=== PATIENT | male | born 1955 | race American Indian/Alaskan Native ===

== ENCOUNTER 2018-04-05 18:36 | Inpatient (IN) | payer MEDICARE, MEDICAID ==
[2018-04-05] MEDS ORDERED: Sodium Chloride 0.9% 500 ML IV STA ×2 (19:30→20:30)
[2018-04-05] MEDS ORDERED: Albuterol-Ipratrop 3 mg / 0.5 (3 ml) UD IH STA ×2 (19:35→20:57)
[2018-04-05] MEDS ORDERED: Albuterol-Ipratrop 3 mg / 0.5 (3 ml) UD ONE (19:40)
[2018-04-05 19:45] LABS: BASO # 0.01 K/mm3 (0.0-2.0); BASO % 0.2 % (0.0-3.0); GRAN # 4.72 (1.4-6.5); HEMOGLOBIN 12.1 g/dL (14.0-18.0); LYMPH # 1.3 (1.2-3.4); LYMPH % 20.5 % (22.0-35.0); MEAN CELL VOLUME 89.7 fl (80.0-105.0); MEAN CORPUSCULAR HEMOGLOBIN 28.3 pg (25.0-35.0); MEAN CORPUSCULAR HGB CONC 31.5 g/dl (31.0-37.0); MEAN PLATELET VOLUME 9.3 fl (7.0-11.0); MONO # 0.5 (0.1-0.6); MONO % 7.3 % (1.0-6.0); RBC 4.28 10^6/uL (3.5-6.1); RED CELL DISTRIBUTION WIDTH 15.1 % (11.5-14.5); VENOUS BLOOD GAS PO2 72 mm/Hg (30-55); VENOUS BLOOD PH 7.25 (7.32-7.43); WHITE BLOOD COUNT 6.6 10^3/uL (4.5-11.0)
[2018-04-05 19:54] LABS: ALB/GLOB RATIO 0.9 (1.1-1.8); CALCIUM 8.9 mg/dL (8.4-10.5)
[2018-04-05 20:00] LABS: INR 1.89; PARTIAL THROMBOPLASTIN TIME 36.4 Seconds (25.1-36.5); PROTHROMBIN TIME 21.8 SECONDS (9.4-12.5)
[2018-04-05 20:05] LABS: TROPONIN I 0.05 ng/mL
--- NOTE | 2018-04-05 20:05 | ED PDOC ---
Arrival/HPI - General Chief Complaint: Abnormal Labs Time Seen by Provider: 04/05/18 19:27 Historian: [facility] - Critical Care Critical Care Minutes: 30 minutes - History of Present Illness Narrative History of Present Illness (Text): 04/05/18 20:02 A 63 year old male, whose past medical history includes CVA, hypertension, depression, s/p trache (2 years ago), residual right side weakness, is brought into the emergency department via EMS form [facility] for evaluation of chest congestion, vomiting, and abnormal labs with elevated BUN and creatinine. Patient non- verbal when questioned here in the emergency department. ROS/ HPI limited due to patient's condition. Time/Duration: Other (Today) Symptom Onset: Sudden Symptom Course: Unchanged Activities at Onset: Rest, Light Context: Home ([facility]) Past Medical History - Provider Review Nursing Documentation Reviewed: Yes - Infectious Disease Hx of Infectious Diseases: None - Tetanus Immunization Tetanus Immunization: Unknown - Past Medical History Past Medical History: No Previous - Cardiac Hx Hypertension: Yes Hx Mitral Valve Prolapse: No Hx Peripheral Edema: No - Pulmonary Hx Pneumonia: Yes Hx Sleep Apnea: No - Renal Hx Renal Disorder: Yes - Gastrointestinal Hx Gastrointestinal Ulcer: No - Psychiatric Hx Anxiety: Yes Hx Depression: Yes Hx Substance Use: No - Past Surgical History Past Surgical History: No Previous - Anesthesia Hx Anesthesia: Yes Hx Anesthesia Reactions: No Hx Malignant Hyperthermia: No - Suicidal Assessment Feels Threatened In Home Enviroment: No Family/Social History - Physician Review Nursing Documentation Reviewed: Yes Family/Social History: No Known Family HX Smoking Status: Heavy Smoker > 10 Cigarettes Daily Hx Alcohol Use: No Hx Substance Use: No Hx Substance Use Treatment: No Allergies/Home Meds Allergies/Adverse Reactions: Allergies No Known Allergies Allergy (Verified 07/15/16 07:46) Home Medications: Home Meds Medication Instructions Recorded Confirmed Clonazepam [Klonopin] 0.5 mg PO HS 01/14/17 01/14/17 Dimethicone [Proshield Plus SKIN 1 applic TOP QSHIFT 01/14/17 01/14/17 PROTECTANT] Enoxaparin [Lovenox] 40 mg SQ DAILY 01/14/17 01/14/17 Escitalopram [Lexapro] 10 mg PO DAILY 01/14/17 01/14/17 Lisinopril [Zestril] 20 mg PO DAILY 01/14/17 01/14/17 Metoprolol Tartrate [Lopressor] 50 mg PO BID 01/14/17 01/14/17 RX: Acetaminophen 2 tab PO Q4 PRN 01/14/17 01/14/17 RX: Acetaminophen 2 tab PO Q4 PRN 01/14/17 01/14/17 RX: Aspirin 81 mg PO DAILY 01/14/17 01/14/17 RX: Famotidine 20 mg PO DAILY 01/14/17 01/14/17 Tamsulosin [Flomax] 0.4 mg PO DAILY 01/14/17 01/14/17 hydrALAZINE [hydralazine 10 mg PO Q6 PRN 01/14/17 01/14/17 Hydrochloride] Review of Systems - Physician Review All systems were reviewed & negative as marked: Yes - Review of Systems Systems not reviewed;Unavailable: Acuity of Condition Physical Exam Vital Signs Reviewed: Yes Vital Signs Temp Pulse Resp BP Pulse Ox 04/05/18 19:23 90 20 74/50 L 96 04/05/18 19:17 98.5 F 96 H 20 79/45 L 89 L 04/05/18 18:48 98.1 F 90 20 72/46 L 93 L Temperature: Afebrile Blood Pressure: Normal Pulse: Regular Respiratory Rate: Normal Appearance: Positive for: Non-Toxic, Other (Somnolent, but arousable) Pain Distress: None Mental Status: Positive for: Alert and Oriented X 3 - Systems Exam Head: Present: Atraumatic, Normocephalic Pupils: Present: PERRL Extroacular Muscles: Present: EOMI Conjunctiva: Present: Normal Mouth: Present: Dry Neck: Present: Normal Range of Motion Respiratory/Chest: Present: Good Air Exchange, Rhonchi (rhonchi bilaterally.). No: Respiratory Distress, Accessory Muscle Use Cardiovascular: Present: Regular Rate and Rhythm, Normal S1, S2. No: Murmurs Abdomen: No: Tenderness, Distention, Peritoneal Signs Back: Present: Normal Inspection Upper Extremity: Present: Normal Inspection, Normal ROM (Full ROM X 4 intact). No: Cyanosis, Edema Lower Extremity: Present: Normal Inspection, Normal ROM (Full ROM X 4 intact). No: Edema Neurological: Present: GCS=15, CN II-XII Intact, Speech Normal Skin: Present: Warm, Dry, Normal Color. No: Rashes Psychiatric: Present: Alert, Oriented x 3, Normal Insight, Normal Concentration Medical Decision Making ED Course and Treatment: 04/05/18 20:07 Impression: A 63 year old male presents to the emergency department from [facility] for further evaluation of chest congestion, vomiting, and abnormal lab results. Plan: -- EKG -- Chest X-ray -- Labs -- Urinalysis -- Blood Culture -- Urine Culture -- Duoneb and IV Fluids -- Reassess and disposition Prior Visits: Notes and results from previous visits were reviewed. Progress Notes: EKG: Ordered, reviewed, and independently interpreted the EKG. Rate : 90 BPM Rhythm : NSR Interpretation : No acute changes 04/05/18 20:30 Patient was given bolus IV fluids which helped raise his initial hypotensive state. Patient's labs and chest x-ray are consistent with dehydration, renal failure, pneumonia. Patient placed on BiPAP. 04/05/18 21:00 Discussed case with cigarette seller Dr Burton, who will evaluate patient in emergency department. 04/05/18 21:[address] Chakraborty, patient's PMD, who accepted patient to his service, requesting Dr. Christopher, and Dr Valle on consult. 04/05/18 22:58 Patient evaluated by the cigarette seller who now recommends ICU admission - Lab Interpretations Lab Results: 04/05/18 19:08 04/05/18 19:08 Lab Results 04/05/18 19:08: Sodium 136, Chloride 91 L, Potassium 5.0, Carbon Dioxide 27, Anion Gap 23 H, BUN Pending, Creatinine Pending, Est GFR ( Amer) Pending, Est GFR (Non-Af Amer) Pending, Random Glucose 93, Calcium 8.9, Phosphorus 10.0 H , Magnesium 3.0 H, Total Bilirubin 0.5, AST 32, ALT 27, Alkaline Phosphatase 69, Lactate Dehydrogenase 451, Total Creatine Kinase 194, Troponin I Pending, Total Protein 8.4 H, Albumin 4.0, Globulin 4.4, Albumin/Globulin Ratio 0.9 L 04/05/18 19:08: pO2 72 H, VBG pH 7.25 L, VBG pCO2 63.0 H, VBG HCO3 27.6, VBG Total CO2 29.5 H, VBG O2 Sat (Calc) 95.5 H, VBG Base Excess -1.0 L, VBG Potassium 5.2, Sodium 133.0, Chloride 94.0 L, Glucose 86, Lactate 1.6, FiO2 21.0, Venous Blood Potassium 5.2 04/05/18 19:08: PT 21.8 H, INR 1.89, APTT 36.4 04/05/18 19:08: WBC 6.6, RBC 4.28, Hgb 12.1 L, Hct 38.4 L, MCV 89.7, MCH 28.3, MCHC 31.5, RDW 15.1 H, Plt Count 486 H, MPV 9.3, Gran % 72.0 H, Lymph % (Auto) 20.5 L, [place] % (Auto) 7.3 H, Eos % (Auto) 0.0 L, Baso % (Auto) 0.2, Gran # 4.72, Lymph # (Auto) 1.3, [place] # (Auto) 0.5, Eos # (Auto) 0.0, Baso # (Auto) 0.01 I have reviewed the lab results: Yes - RAD Interpretation Radiology Orders: 04/05/18 19:28 CHEST PORTABLE [RAD] Stat - EKG Interpretation Interpreted by ED Physician: Yes Type: 12 lead EKG - Medication Orders Current Medication Orders: Sodium Chloride (Sodium Chloride 0.9%) 500 mls @ 500 mls/hr IV .Q1H STA Stop: 04/05/18 20:29 Discontinued Medications Albuterol/Ipratropium (Duoneb 3 Mg/0.5 Mg (3 Ml) Ud) 3 ml IH ONCE STA Stop: 04/05/18 19:36 - Scribe Statement The provider has reviewed the documentation as recorded by the Scribe Opal Fuentes Provider Scribe Attestation: All medical record entries made by the Scribe were at my direction and personally dictated by me. I have reviewed the chart and agree that the record accurately reflects my personal performance of the history, physical exam, medical decision making, and the department course for this patient. I have also personally directed, reviewed, and agree with the discharge instructions and disposition. Disposition/Present on Arrival - Present on Arrival Any Indicators Present on Arrival: No History of DVT/PE: No History of Uncontrolled Diabetes: No Urinary Catheter: Yes (simons cath) History of Decub. Ulcer: No History Surgical Site Infection Following: None - Disposition Have Diagnosis and Disposition been Completed?: Yes Diagnosis: Dehydration, COPD exacerbation, Pneumonia, Hypotension Disposition: HOSPITALIZED Disposition Time: 23:03 Patient Problems: Current Active Problems Problem Status Onset COPD exacerbation Acute Dehydration Acute Hypotension Acute Pneumonia Acute Condition: GUARDED
[2018-04-05 20:36] LABS: ARTERIAL BLOOD GAS HEMOGLOBIN 10.2 g/dL (11.7-17.4); ARTERIAL BLOOD GAS O2 CAPACITY 13.9 mL/dl (16-24); ARTERIAL BLOOD GAS O2 CONTENT 12.1 ML/dl (15-23); ARTERIAL BLOOD GAS O2 SAT 87.2 % (95-98); ARTERIAL BLOOD GAS PCO2 48 mm/Hg (35-45); ARTERIAL BLOOD GAS PH 7.27 (7.35-7.45); ARTERIAL BLOOD GAS TCO2 23.5 mmol.L (22-28)
[2018-04-05] MEDS ORDERED: Azithromycin 500MG/NS 250ml 500 MG/250 ML BAG IV STA (20:51)
[2018-04-05] MEDS ORDERED: Cefepime (Maxipime) 1 g Inj IVPB ONE (20:51)
[2018-04-05] MEDS ORDERED: Cefepime 1gm in NS 100ml 1 GM/100 ML BAG IVPB STA (20:56)
[2018-04-05] MEDS ORDERED: Sodium Chloride 0.9% 1,000 ML IV SCH ×2 (21:00→23:15)
[2018-04-05 21:32] LABS: PH,URINE 5.5 (4.7-8.0); URINE BILIRUBIN NEGATIVE (NEGATIVE); URINE BLOOD TRACE-INTACT (NEGATIVE); URINE GLUCOSE (UA) NEGATIVE (NEGATIVE); URINE LEUKOCYTE ESTERASE NEGATIVE Leu/uL (NEGATIVE); URINE PROTEIN 30 mg/dL (<30 mg/dL); URINE UROBILINOGEN 0.2 E.U./dL (<1 E.U./dL)
[2018-04-05 21:34] LABS: URINE APPEARANCE CLEAR (CLEAR); URINE COLOR YELLOW (YELLOW)
--- NOTE | 2018-04-05 23:03 | CP.PCM.HP ---
<Yandel Tavera - Last Filed: 04/06/18 01:34> History of Present Illness - History of Present Illness History of Present Illness: Yandel Tavera DO PGY1. H&P for Hospitalist Service C.C: Chest congestion 63 y/o male with PMH of HTN, CVA (with right sided residual weakness) and respiratory failure presented to ED from [facility] for 2 days history of chest congestion, SOB, and poor oral intake. Patient was in his usual state of health when symptoms started gradually and getting worse with associated kidney dysfunction as reported by halfway. He reported that he has cough and unable to produce much suptum despite feeling chest congestion. Patient is using BiPAP but previously (in 2017) had a trache due respiratory failure and he was on tube feeding as per charting. Patient admits to few episodes of NBNB vomiting with decreased oral intake and loss of appetite. He denied chest pain, palpitations, LE edema, abdominal pain/distention, vomiting , diarrhea, headache, blurry vision. 12 points ROS reviewed with pertinent positives as above. PMH: as above PSH: inguinal hernia repair, tracheostomy, and feeding tube Meds: hydralazine, lopressor, flomax, lisinopril, HCTZ, klonopin, asa, lovenox ALL: NKDA Soc Hx: ex-smoking, denies alcohol, drug use Fam Hx: no contributory Present on Admission - Present on Admission Any Indicators Present on Admission: No Past Patient History - Infectious Disease Hx of Infectious Diseases: None - Tetanus Immunizations Tetanus Immunization: Unknown - Past Medical History & Family History Past Medical History?: Yes - Past Social History Smoking Status: Heavy Smoker > 10 Cigarettes Daily - CARDIAC Hx Hypertension: Yes Hx Mitral Valve Prolapse: No Hx Peripheral Edema: No - PULMONARY Hx Pneumonia: Yes Hx Sleep Apnea: No - RENAL Hx Chronic Kidney Disease: Yes - PSYCHIATRIC Hx Anxiety: Yes Hx Depression: Yes Hx Substance Use: No - ANESTHESIA Hx Anesthesia: Yes Hx Anesthesia Reactions: No Hx Malignant Hyperthermia: No Meds Allergies/Adverse Reactions: Allergies Allergy/AdvReac Type Severity Reaction Status Date / Time No Known Allergies Allergy Verified 07/15/16 07:46 Physical Exam - Constitutional Appears: In Acute Distress, Unkempt, Chronically Ill - Head Exam Head Exam: ATRAUMATIC, NORMAL INSPECTION, NORMOCEPHALIC - Eye Exam Eye Exam: EOMI, Normal appearance, PERRL Pupil Exam: NORMAL ACCOMODATION, PERRL - ENT Exam ENT Exam: Mucous Membranes Dry - Neck Exam Neck exam: Positive for: Normal Inspection - Respiratory Exam Respiratory Exam: Decreased Breath Sounds, Prolonged Expiratory Phase, Rhonchi (b/l lung bases), Respiratory Distress - Cardiovascular Exam Cardiovascular Exam: REGULAR RHYTHM, RRR, +S1, +S2 - GI/Abdominal Exam GI & Abdominal Exam: Normal Bowel Sounds, Soft. absent: Tenderness - Extremities Exam Extremities exam: Positive for: pedal pulses present - Back Exam Back exam: NORMAL INSPECTION - Neurological Exam Neurological exam: Alert - Expanded Neurological Exam Expanded Patient oriented to: person, place, time Cranial nerves: EOM's Intact: Normal Neuro motor strength exam: Right Upper Extremity: 2/1, Right Lower Extremity: 2/1 Coma Scale Motor Response: OBEYS COMMANDS - Psychiatric Exam Psychiatric exam: Depressed, Flat Affect - Skin Skin Exam: Intact, Pallor Results - Vital Signs Recent Vital Signs: Last Vital Signs Temp 98.5 F 04/05/18 19:17 Pulse 70 04/05/18 22:43 Resp 14 04/05/18 22:43 BP 81/48 L 04/05/18 22:43 Pulse Ox 100 04/05/18 22:43 - Labs Result Diagrams: 04/05/18 19:08 04/05/18 19:08 Labs: Laboratory Results - last 24 hr 04/05/18 04/05/18 04/05/18 19:08 19:08 19:08 WBC 6.6 RBC 4.28 Hgb 12.1 L Hct 38.4 L MCV 89.7 MCH 28.3 MCHC 31.5 RDW 15.1 H Plt Count 486 H MPV 9.3 Gran % 72.0 H Lymph % (Auto) 20.5 L [place] % (Auto) 7.3 H Eos % (Auto) 0.0 L Baso % (Auto) 0.2 Gran # 4.72 Lymph # (Auto) 1.3 [place] # (Auto) 0.5 Eos # (Auto) 0.0 Baso # (Auto) 0.01 PT 21.8 H INR 1.89 APTT 36.4 pCO2 pO2 72 H HCO3 ABG pH ABG Total CO2 ABG O2 Saturation ABG O2 Content ABG Base Excess ABG Hemoglobin ABG Carboxyhemoglobin POC ABG HHb (Measured) ABG Methemoglobin ABG O2 Capacity VBG pH 7.25 L VBG pCO2 63.0 H VBG HCO3 27.6 VBG Total CO2 29.5 H VBG O2 Sat (Calc) 95.5 H VBG Base Excess -1.0 L VBG Potassium 5.2 Hgb O2 Saturation Sodium 133.0 Chloride 94.0 L Glucose 86 Lactate 1.6 FiO2 21.0 Potassium Carbon Dioxide Anion Gap BUN Creatinine Est GFR ( Amer) Est GFR (Non-Af Amer) Random Glucose Calcium Phosphorus Magnesium Total Bilirubin AST ALT Alkaline Phosphatase Lactate Dehydrogenase Total Creatine Kinase Troponin I Total Protein Albumin Globulin Albumin/Globulin Ratio Venous Blood Potassium 5.2 Urine Color Urine Appearance Urine pH Ur Specific [place] Urine Protein Urine Glucose (UA) Urine Ketones Urine Blood Urine Nitrate Urine Bilirubin Urine Urobilinogen Ur Leukocyte Esterase Urine RBC Urine WBC Ur Epithelial Cells 04/05/18 04/05/18 04/05/18 19:08 20:33 21:13 WBC RBC Hgb Hct MCV MCH MCHC RDW Plt Count MPV Gran % Lymph % (Auto) [place] % (Auto) Eos % (Auto) Baso % (Auto) Gran # Lymph # (Auto) [place] # (Auto) Eos # (Auto) Baso # (Auto) PT INR APTT pCO2 48 H pO2 53.0 L HCO3 22.0 ABG pH 7.27 L ABG Total CO2 23.5 ABG O2 Saturation 87.2 L ABG O2 Content 12.1 L ABG Base Excess -4.9 L ABG Hemoglobin 10.2 L ABG Carboxyhemoglobin 2.1 H POC ABG HHb (Measured) 12.4 H ABG Methemoglobin 1.3 ABG O2 Capacity 13.9 L VBG pH VBG pCO2 VBG HCO3 VBG Total CO2 VBG O2 Sat (Calc) VBG Base Excess VBG Potassium Hgb O2 Saturation 84.2 L Sodium 136 Chloride 91 L Glucose Lactate FiO2 100.0 Potassium 5.0 Carbon Dioxide 27 Anion Gap 23 H BUN 119 H Creatinine 6.3 H Est GFR ( Amer) 11 Est GFR (Non-Af Amer) 9 Random Glucose 93 Calcium 8.9 Phosphorus 10.0 H Magnesium 3.0 H Total Bilirubin 0.5 AST 32 ALT 27 Alkaline Phosphatase 69 Lactate Dehydrogenase 451 Total Creatine Kinase 194 Troponin I 0.05 D Total Protein 8.4 H Albumin 4.0 Globulin 4.4 Albumin/Globulin Ratio 0.9 L Venous Blood Potassium Urine Color Yellow Urine Appearance Clear Urine pH 5.5 Ur Specific [place] >= 1.030 Urine Protein 30 H Urine Glucose (UA) Negative Urine Ketones Negative Urine Blood Trace-intact H Urine Nitrate Negative Urine Bilirubin Negative Urine Urobilinogen 0.2 Ur Leukocyte Esterase Negative Urine RBC 5 - 10 Urine WBC 5 - 10 Ur Epithelial Cells 6 - 8 Assessment & Plan - Assessment and Plan (Free Text) Assessment: 63 y/o male PMH of HTN, CVA (with right sided residual weakness) and respiratory failure (on BiPAP) presents from [facility] for 2 days history of chest congestion, SOB, and poor oral intake. He was found to have APOLINAR, hypotension, Resp failure on BiPAP, possible PNA. Patient is admitted to ICU Plan: SOB: -b/l ronchi on lung bases with decreased breath sounds on exam. likely HCAP -CXR: no official read. but shows b/l pulmonary venous congestion and b/l base infiltrations -EKG: nsr@[address]/T wave changes -trop negative x1. serial trop q6h x2 -started vanco, zosyn -mucomyst bid -doneb enrique and prn -supp O2 prn -VB.25/63/27 metabolic acidosis with AG 23 -continue solu-medrol 20mg IPV q8h -BiPAP: 03/27 10 75% -repeat ABG in AM -f/u flu a/b, legionella Ag, mycoplasma IGM, -f/u procal, BNP -f/u cx blood, sputum -pulmnology consulted. recs appreciated Hypotension: -started midordrine 10mg q8h -levophed 4mcg/min -continue NS@100cc/hr -central IV access APOLINAR: -likely due to dehydration -hold lisinopril, HCTZ -In/out -renal U/S -IVF @100cc/hr -nephro consulted Dr Christopher -UA: +protein, blood -Ucx ordered -vit D level Anemia: -likely due due chronic disease/ iron defiency -H/H 12.1/38.4 continue monitoring -patient stable, no signs of bleeding, -FOBT, iron studies ordered Prophylaxis: -DVT: SCD -GI ppx: protonix -failed swallow eval -NPO Dispo: Patient admitted to ICU for management of APOLINAR/hpotension, respiratory ramin lure. On levophed and BiPAP Case reviewed and plan discussed with attending Dr Burton <Joelle Burton - Last Filed: 04/07/18 06:43> Results - Vital Signs Recent Vital Signs: Last Vital Signs Temp 98.4 F 04/06/18 23:10 Pulse 64 04/07/18 04:00 Resp 15 04/06/18 23:10 BP 116/70 04/06/18 23:00 Pulse Ox 100 04/06/18 23:10 - Labs Result Diagrams: 04/06/18 05:00 04/06/18 05:00 Labs: Laboratory Results - last 24 hr 04/05/18 04/06/18 04/06/18 19:08 01:50 01:50 WBC RBC Hgb Hct MCV MCH MCHC RDW Plt Count MPV Gran % Lymph % (Auto) [place] % (Auto) Eos % (Auto) Baso % (Auto) Gran # Lymph # (Auto) [place] # (Auto) Eos # (Auto) Baso # (Auto) Sodium Potassium Chloride Carbon Dioxide Anion Gap BUN Creatinine Est GFR ( Amer) Est GFR (Non-Af Amer) Random Glucose Calcium Phosphorus Magnesium Ferritin 157.0 Total Bilirubin AST ALT Alkaline Phosphatase Troponin I Total Protein Albumin Globulin Albumin/Globulin Ratio Vitamin B12 454 25-OH Vitamin D Total 15.1 L Folate 8.8 Procalcitonin 1.86 H Urine Color Urine Appearance Urine pH Ur Specific [place] Urine Protein Urine Glucose (UA) Urine Ketones Urine Blood Urine Nitrate Urine Bilirubin Urine Urobilinogen Ur Leukocyte Esterase Urine RBC Urine WBC Ur Epithelial Cells Urine Bacteria Ur L.pneumophila Ag 04/06/18 04/06/18 04/06/18 05:00 05:00 06:03 WBC 5.3 RBC 3.54 Hgb 9.9 L D Hct 32.3 L MCV 91.2 MCH 28.0 MCHC 30.7 L RDW 15.3 H Plt Count 417 MPV 9.2 Gran % 86.1 H Lymph % (Auto) 11.4 L [place] % (Auto) 2.1 Eos % (Auto) 0.0 L Baso % (Auto) 0.4 Gran # 4.55 Lymph # (Auto) 0.6 L [place] # (Auto) 0.1 Eos # (Auto) 0.0 Baso # (Auto) 0.02 Sodium 141 Potassium 5.3 H Chloride 109 H Carbon Dioxide 21 Anion Gap 17 BUN 97 H Creatinine 4.1 H Est GFR ( Amer) 18 Est GFR (Non-Af Amer) 15 Random Glucose 113 H Calcium 7.7 L Phosphorus 7.6 H Magnesium 2.5 H Ferritin Total Bilirubin 0.4 AST 25 ALT 15 Alkaline Phosphatase 56 Troponin I 0.03 Total Protein 6.8 Albumin 3.2 Globulin 3.7 Albumin/Globulin Ratio 0.9 L Vitamin B12 25-OH Vitamin D Total Folate Procalcitonin Urine Color Yellow Urine Appearance Slight-cloudy Urine pH 5.5 Ur Specific [place] 1.020 Urine Protein Trace H Urine Glucose (UA) Negative Urine Ketones Negative Urine Blood Large H Urine Nitrate Negative Urine Bilirubin Negative Urine Urobilinogen 0.2 Ur Leukocyte Esterase Negative Urine RBC Tntc Urine WBC Negative Ur Epithelial Cells 4 - 5 Urine Bacteria Few Ur L.pneumophila Ag 04/06/18 06:03 WBC RBC Hgb Hct MCV MCH MCHC RDW Plt Count MPV Gran % Lymph % (Auto) [place] % (Auto) Eos % (Auto) Baso % (Auto) Gran # Lymph # (Auto) [place] # (Auto) Eos # (Auto) Baso # (Auto) Sodium Potassium Chloride Carbon Dioxide Anion Gap BUN Creatinine Est GFR ( Amer) Est GFR (Non-Af Amer) Random Glucose Calcium Phosphorus Magnesium Ferritin Total Bilirubin AST ALT Alkaline Phosphatase Troponin I Total Protein Albumin Globulin Albumin/Globulin Ratio Vitamin B12 25-OH Vitamin D Total Folate Procalcitonin Urine Color Urine Appearance Urine pH Ur Specific [place] Urine Protein Urine Glucose (UA) Urine Ketones Urine Blood Urine Nitrate Urine Bilirubin Urine Urobilinogen Ur Leukocyte Esterase Urine RBC Urine WBC Ur Epithelial Cells Urine Bacteria Ur L.pneumophila Ag Negative Attending/Attestation - Attestation I have personally seen and examined this patient.: Yes I have fully participated in the care of the patient.: Yes I have reviewed all pertinent clinical information: Yes
[2018-04-05] MEDS ORDERED: Albuterol-Ipratrop 3 mg / 0.5 (3 ml) UD IH PRN (23:16)
[2018-04-05] MEDS ORDERED: Sodium Chloride 0.9% 1,000 ML IV STA (23:19)
[2018-04-05] MEDS ORDERED: Vancomycin 1gm in NS 250ml 1 GM/250 ML BAG IVPB SCH (23:30)
[2018-04-06] MEDS: Acetylcysteine 20% Inhal Soln (4ml) IH SCH ×3 (00:35→20:45)
[2018-04-06 00:49] LABS: % IRON SATURATION 12 % (20-55); IRON 27 ug/dL (45-180); TOTAL IRON BINDING CAPACITY 232 ug/dL (261-462)
[2018-04-06] MEDS: Albuterol-Ipratrop 3 mg / 0.5 (3 ml) UD IH SCH ×4 (02:03→20:45)
[2018-04-06] MEDS: MethylPREDNISolone 40 mg Vial IVP SCH ×2 (02:19→09:03)
[2018-04-06 02:41] LABS: TROPONIN I 0.03 ng/mL
[2018-04-06] MEDS ORDERED: Sodium Chloride 0.9% 500 ML IV STA (04:11)
[2018-04-06 05:15] LABS: ARTERIAL BLOOD GAS HCO3 20.1 mmol/L (21-28); ARTERIAL BLOOD GAS HEMOGLOBIN 9.5 g/dL (11.7-17.4); ARTERIAL BLOOD GAS O2 CAPACITY 13.2 mL/dl (16-24); ARTERIAL BLOOD GAS O2 CONTENT 13.1 ML/dl (15-23); ARTERIAL BLOOD GAS PCO2 48 mm/Hg (35-45); ARTERIAL BLOOD GAS PH 7.23 (7.35-7.45); ARTERIAL BLOOD GAS TCO2 21.6 mmol.L (22-28)
[2018-04-06] MEDS ORDERED: Piperacillin/Tazobact 3.375 gm 100 ML IVPB SCH (06:00)
[2018-04-06 07:03] LABS: BASO # 0.02 K/mm3 (0.0-2.0); BASO % 0.4 % (0.0-3.0); GRAN # 4.55 (1.4-6.5); GRAN % 86.1 % (50.0-68.0); HEMOGLOBIN 9.9 g/dL (14.0-18.0); LYMPH # 0.6 (1.2-3.4); LYMPH % 11.4 % (22.0-35.0); MEAN CELL VOLUME 91.2 fl (80.0-105.0); MEAN CORPUSCULAR HGB CONC 30.7 g/dl (31.0-37.0); MEAN PLATELET VOLUME 9.2 fl (7.0-11.0); MONO # 0.1 (0.1-0.6); MONO % 2.1 % (1.0-6.0); RBC 3.54 10^6/uL (3.5-6.1); RED CELL DISTRIBUTION WIDTH 15.3 % (11.5-14.5); WHITE BLOOD COUNT 5.3 10^3/uL (4.5-11.0)
[2018-04-06 07:18] LABS: TROPONIN I 0.03 ng/mL
[2018-04-06 07:27] LABS: PH,URINE 5.5 (4.7-8.0); URINE APPEARANCE SLIGHT-CLOUDY (CLEAR); URINE BILIRUBIN NEGATIVE (NEGATIVE); URINE BLOOD LARGE (NEGATIVE); URINE COLOR YELLOW (YELLOW); URINE GLUCOSE (UA) NEGATIVE (NEGATIVE); URINE LEUKOCYTE ESTERASE NEGATIVE Leu/uL (NEGATIVE); URINE PROTEIN TRACE mg/dL (<30 mg/dL); URINE UROBILINOGEN 0.2 E.U./dL (<1 E.U./dL)
[2018-04-06 07:37] LABS: ALB/GLOB RATIO 0.9 (1.1-1.8); ALBUMIN 3.2 g/dL (3.0-4.8); CALCIUM 7.7 mg/dL (8.4-10.5)
[2018-04-06 07:40] LABS: URINE RBC TNTC /hpf (0-2); URINE WBC NEGATIVE /hpf (0-6)
[2018-04-06 07:41] LABS: URINE BACTERIA FEW (NEG)
--- NOTE | 2018-04-06 07:48 | CP.PCM.CON ---
<Raciel Marquez - Last Filed: 04/06/18 11:52> History of Present Illness - History of Present Illness History of Present Illness: Raciel Marquez, PGY-1 Consult Note for ICU CC: Shortness of Breath, FTT HPI: Mr. Carr is a 63 M who lives in [facility] at [facility] with PMH of HTN, CVA (with right sided residual weakness) and respiratory failure. Patient presents from care home and is able to physically respond to questions appropriately, but is on NIPPV at time so a more detailed ROS was unobtainable. Patient presents with 2 day history of chest congestion, SOB, vomiting, and poor oral intake. Patient had recently been started on Levaquin while at the care home for a URI. His cough gradually worsened and was reported by care home along with kidney dysfunction. Patient reported a nonproductive cough. Patient is using BiPAP currently but previously (in 2017) had a trach due respiratory failure and he was on tube feeding as per charting. Patient had an echo in 07/04 which showed EF 41% and decreased systolic function. He denies chest pain, palpitations, LE edema, abdominal pain/distention, current nausea, diarrhea, headache, and blurry vision. Review of Systems - Review of Systems Review of Systems: 12 point ROS completed and negative except as described in HPI. Past Patient History - Infectious Disease Hx of Infectious Diseases: None - Tetanus Immunizations Tetanus Immunization: Unknown - Past Medical History & Family History Past Medical History?: Yes - Past Social History Smoking Status: Heavy Smoker > 10 Cigarettes Daily - CARDIAC Hx Hypertension: Yes Hx Mitral Valve Prolapse: No Hx Peripheral Edema: No - PULMONARY Hx Pneumonia: Yes Hx Sleep Apnea: No - RENAL Hx Chronic Kidney Disease: Yes - PSYCHIATRIC Hx Anxiety: Yes Hx Depression: Yes Hx Substance Use: No - ANESTHESIA Hx Anesthesia: Yes Hx Anesthesia Reactions: No Hx Malignant Hyperthermia: No Meds Allergies/Adverse Reactions: Allergies Allergy/AdvReac Type Severity Reaction Status Date / Time No Known Allergies Allergy Verified 07/15/16 07:46 - Medications Medications: Current Medications Acetylcysteine (Acetylcysteine 20%) 4 ml IH BIDRESP [facility] Last Admin: 04/06/18 07:09 Dose: 4 ml Albuterol/Ipratropium (Duoneb 3 Mg/0.5 Mg (3 Ml) Ud) 3 ml IH [id number] [facility] Last Admin: 04/06/18 07:09 Dose: 3 ml Albuterol/Ipratropium (Duoneb 3 Mg/0.5 Mg (3 Ml) Ud) 3 ml IH Q2H PRN PRN Reason: Shortness of Breath Aspirin (Aspirin Chewable) 81 mg PO DAILY [facility] Clonazepam (Klonopin) 0.5 mg PO HS ENRIQUE; Protocol Escitalopram Oxalate (Lexapro) 10 mg PO DAILY [facility] Sodium Chloride (Sodium Chloride 0.9%) 1,000 mls @ 100 mls/hr IV .Q10H [facility] Last Admin: 04/05/18 23:15 Dose: 100 mls/hr Piperacillin Sod/Tazobactam Sod (Zosyn 3.375 In Ns 100ml) 100 mls @ 25 mls/hr IVPB Q12H [facility]; Protocol Stop: 04/13/18 06:01 Last Admin: 04/06/18 05:21 Dose: 25 mls/hr NOREPINEPHRINE BIT/0.9 % NACL (Levophed 4 Mg/ 250 Ml Ns Premixed) 4 mg in 250 mls @ 15 mls/hr IV .[id number] PRN; Protocol PRN Reason: TITRATE PER MD ORDER Doxycycline Hyclate 100 mg/ (Sodium Chloride) 100 mls @ 100 mls/hr IVPB Q12 [facility]; Protocol Methylprednisolone (Solu-Medrol) 20 mg IVP Q8H [facility] Last Admin: 04/06/18 02:19 Dose: 20 mg Midodrine (Proamatine) 10 mg PO TID [facility] Pantoprazole Sodium (Protonix Inj) 40 mg IVP DAILY [facility] Physical Exam - Additional Findings Additional findings: - Constitutional Appears: In Acute Distress, Unkempt, Chronically Ill - Head Exam Head Exam: ATRAUMATIC, NORMAL INSPECTION, NORMOCEPHALIC - Eye Exam Eye Exam: EOMI, Normal appearance, PERRL Pupil Exam: NORMAL ACCOMODATION, PERRL - ENT Exam ENT Exam: Mucous Membranes Dry, on BiPAP IPAP/EPAP 12/8 F - Neck Exam Neck exam: Positive for: Normal Inspection - Respiratory Exam Respiratory Exam: Decreased Breath Sounds, Prolonged Expiratory Phase, Rhonchi (b/l lung bases), Respiratory Distress - Cardiovascular Exam Cardiovascular Exam: REGULAR RHYTHM, RRR, +S1, +S2 - GI/Abdominal Exam GI & Abdominal Exam: Normal Bowel Sounds, Soft. absent: Tenderness - Extremities Exam Extremities exam: Positive for: pedal pulses present - Back Exam Back exam: NORMAL INSPECTION - Neurological Exam Neurological exam: Alert - Expanded Neurological Exam Expanded Patient oriented to: person, place, time Cranial nerves: EOM's Intact: Normal Neuro motor strength exam: Right Upper Extremity: 2/5, Right Lower Extremity: 2/5 Coma Scale Motor Response: OBEYS COMMANDS - Psychiatric Exam Psychiatric exam: Unable to be ascertained - Skin Skin Exam: Intact, Pallor Results - Vital Signs Recent Vital Signs: Last Vital Signs Temp 98.5 F 04/05/18 19:17 Pulse 77 04/06/18 07:11 Resp 12 04/06/18 01:37 BP 87/58 L 04/06/18 01:37 Pulse Ox 100 04/06/18 01:37 - Labs Result Diagrams: 04/06/18 05:00 04/06/18 05:00 Labs: Laboratory Results - last 24 hr 04/05/18 04/05/18 04/05/18 19:08 19:08 19:08 WBC 6.6 RBC 4.28 Hgb 12.1 L Hct 38.4 L MCV 89.7 MCH 28.3 MCHC 31.5 RDW 15.1 H Plt Count 486 H MPV 9.3 Gran % 72.0 H Lymph % (Auto) 20.5 L [place] % (Auto) 7.3 H Eos % (Auto) 0.0 L Baso % (Auto) 0.2 Gran # 4.72 Lymph # (Auto) 1.3 [place] # (Auto) 0.5 Eos # (Auto) 0.0 Baso # (Auto) 0.01 PT 21.8 H INR 1.89 APTT 36.4 pCO2 pO2 72 H HCO3 ABG pH ABG Total CO2 ABG O2 Saturation ABG O2 Content ABG Base Excess ABG Hemoglobin ABG Carboxyhemoglobin POC ABG HHb (Measured) ABG Methemoglobin ABG O2 Capacity VBG pH 7.25 L VBG pCO2 63.0 H VBG HCO3 27.6 VBG Total CO2 29.5 H VBG O2 Sat (Calc) 95.5 H VBG Base Excess -1.0 L VBG Potassium 5.2 Hgb O2 Saturation Sodium 133.0 Chloride 94.0 L Glucose 86 Lactate 1.6 FiO2 21.0 Potassium Carbon Dioxide Anion Gap BUN Creatinine Est GFR ( Amer) Est GFR (Non-Af Amer) Random Glucose Calcium Phosphorus Magnesium Iron TIBC % Saturation Total Bilirubin AST ALT Alkaline Phosphatase Lactate Dehydrogenase Total Creatine Kinase Troponin I NT-Pro-B Natriuret Pep Total Protein Albumin Globulin Albumin/Globulin Ratio Triglycerides Cholesterol LDL Cholesterol Direct HDL Cholesterol Venous Blood Potassium 5.2 Urine Color Urine Appearance Urine pH Ur Specific [place] Urine Protein Urine Glucose (UA) Urine Ketones Urine Blood Urine Nitrate Urine Bilirubin Urine Urobilinogen Ur Leukocyte Esterase Urine RBC Urine WBC Ur Epithelial Cells Influenza Typ A,B (EIA) 04/05/18 04/05/18 04/05/18 19:08 19:08 20:33 WBC RBC Hgb Hct MCV MCH MCHC RDW Plt Count MPV Gran % Lymph % (Auto) [place] % (Auto) Eos % (Auto) Baso % (Auto) Gran # Lymph # (Auto) [place] # (Auto) Eos # (Auto) Baso # (Auto) PT INR APTT pCO2 48 H pO2 53.0 L HCO3 22.0 ABG pH 7.27 L ABG Total CO2 23.5 ABG O2 Saturation 87.2 L ABG O2 Content 12.1 L ABG Base Excess -4.9 L ABG Hemoglobin 10.2 L ABG Carboxyhemoglobin 2.1 H POC ABG HHb (Measured) 12.4 H ABG Methemoglobin 1.3 ABG O2 Capacity 13.9 L VBG pH VBG pCO2 VBG HCO3 VBG Total CO2 VBG O2 Sat (Calc) VBG Base Excess VBG Potassium Hgb O2 Saturation 84.2 L Sodium 136 Chloride 91 L Glucose Lactate FiO2 100.0 Potassium 5.0 Carbon Dioxide 27 Anion Gap 23 H BUN 119 H Creatinine 6.3 H Est GFR ( Amer) 11 Est GFR (Non-Af Amer) 9 Random Glucose 93 Calcium 8.9 Phosphorus 10.0 H Magnesium 3.0 H Iron 27 L TIBC 232 L % Saturation 12 L Total Bilirubin 0.5 AST 32 ALT 27 Alkaline Phosphatase 69 Lactate Dehydrogenase 451 Total Creatine Kinase 194 Troponin I 0.05 D NT-Pro-B Natriuret Pep Total Protein 8.4 H Albumin 4.0 Globulin 4.4 Albumin/Globulin Ratio 0.9 L Triglycerides Cholesterol LDL Cholesterol Direct HDL Cholesterol Venous Blood Potassium Urine Color Urine Appearance Urine pH Ur Specific [place] Urine Protein Urine Glucose (UA) Urine Ketones Urine Blood Urine Nitrate Urine Bilirubin Urine Urobilinogen Ur Leukocyte Esterase Urine RBC Urine WBC Ur Epithelial Cells Influenza Typ A,B (EIA) 04/05/18 04/06/18 04/06/18 21:13 01:50 02:20 WBC RBC Hgb Hct MCV MCH MCHC RDW Plt Count MPV Gran % Lymph % (Auto) [place] % (Auto) Eos % (Auto) Baso % (Auto) Gran # Lymph # (Auto) [place] # (Auto) Eos # (Auto) Baso # (Auto) PT INR APTT pCO2 pO2 HCO3 ABG pH ABG Total CO2 ABG O2 Saturation ABG O2 Content ABG Base Excess ABG Hemoglobin ABG Carboxyhemoglobin POC ABG HHb (Measured) ABG Methemoglobin ABG O2 Capacity VBG pH VBG pCO2 VBG HCO3 VBG Total CO2 VBG O2 Sat (Calc) VBG Base Excess VBG Potassium Hgb O2 Saturation Sodium Chloride Glucose Lactate FiO2 Potassium Carbon Dioxide Anion Gap BUN Creatinine Est GFR ( Amer) Est GFR (Non-Af Amer) Random Glucose Calcium Phosphorus Magnesium Iron TIBC % Saturation Total Bilirubin AST ALT Alkaline Phosphatase Lactate Dehydrogenase Total Creatine Kinase Troponin I 0.03 D NT-Pro-B Natriuret Pep 683 H Total Protein Albumin Globulin Albumin/Globulin Ratio Triglycerides 93 Cholesterol 89 L LDL Cholesterol Direct 46 HDL Cholesterol 22 L Venous Blood Potassium Urine Color Yellow Urine Appearance Clear Urine pH 5.5 Ur Specific [place] >= 1.030 Urine Protein 30 H Urine Glucose (UA) Negative Urine Ketones Negative Urine Blood Trace-intact H Urine Nitrate Negative Urine Bilirubin Negative Urine Urobilinogen 0.2 Ur Leukocyte Esterase Negative Urine RBC 5 - 10 Urine WBC 5 - 10 Ur Epithelial Cells 6 - 8 Influenza Typ A,B (EIA) Negative for flu a/b 04/06/18 04/06/18 04:50 05:00 WBC RBC Hgb Hct MCV MCH MCHC RDW Plt Count MPV Gran % Lymph % (Auto) [place] % (Auto) Eos % (Auto) Baso % (Auto) Gran # Lymph # (Auto) [place] # (Auto) Eos # (Auto) Baso # (Auto) PT INR APTT pCO2 48 H pO2 101.0 H HCO3 20.1 L ABG pH 7.23 L ABG Total CO2 21.6 L ABG O2 Saturation 99.0 H ABG O2 Content 13.1 L ABG Base Excess -7.2 L ABG Hemoglobin 9.5 L ABG Carboxyhemoglobin 1.5 POC ABG HHb (Measured) 1.0 ABG Methemoglobin 1.0 ABG O2 Capacity 13.2 L VBG pH VBG pCO2 VBG HCO3 VBG Total CO2 VBG O2 Sat (Calc) VBG Base Excess VBG Potassium Hgb O2 Saturation 96.5 Sodium Chloride Glucose Lactate FiO2 80.0 Potassium Carbon Dioxide Anion Gap BUN Creatinine Est GFR ( Amer) Est GFR (Non-Af Amer) Random Glucose Calcium Phosphorus Magnesium Iron TIBC % Saturation Total Bilirubin AST ALT Alkaline Phosphatase Lactate Dehydrogenase Total Creatine Kinase Troponin I 0.03 NT-Pro-B Natriuret Pep Total Protein Albumin Globulin Albumin/Globulin Ratio Triglycerides Cholesterol LDL Cholesterol Direct HDL Cholesterol Venous Blood Potassium Urine Color Urine Appearance Urine pH Ur Specific [place] Urine Protein Urine Glucose (UA) Urine Ketones Urine Blood Urine Nitrate Urine Bilirubin Urine Urobilinogen Ur Leukocyte Esterase Urine RBC Urine WBC Ur Epithelial Cells Influenza Typ A,B (EIA) Assessment & Plan - Assessment and Plan (Free Text) Assessment: 63 y/o male PMH of HTN, CVA (with right sided residual weakness) and respiratory failure (on BiPAP) presents from [facility] for 2 days history of chest congestion, SOB, and poor oral intake. He was found to have APOLINAR, hypotension, R glory failure on BiPAP, possible PNA. Patient under ICU management. Pulm: -b/l rhonchi on lung bases with decreased breath sounds on exam. likely HCAP -CXR (04/05): Linear atelectasis R lung base -Repeat CXR (04/06) shows worsening consolidation R middle and lower lobe -Merrem, Doxy -Mucomyst bid -doneb enrique and prn, NIPPV -repeat ABG shows respiratory acidosis -BNP 683 -Flu negative -F/u legionella Ag, mycoplasma IGM -F/u procal -F/u cx blood, sputum -Pulmonology consulted. Dr. Valle recs appreciated Cardiovascular: -Septic shock -BP 111/77. BP meds held. -3 L NS IVF overnight, currently on LR @ 100 cc -Levophed 6mcg/min, Vasopressin IV 0.03 u/min for pressure support -central IV access -EKG on admission: NSR @[address]/T wave changes -trop negative x3 -Cardiology consulted - Dr. Hope. F/u repeat echo. EF 41% back in 07/04 Neuro: Head CT 04/06 shows age appropriate atrophy and mild chronic disease -AAOx3 -GCS 11 [id number] GI: Failed swallow eval. NPO. F/u speech therapist eval Prophylaxis Protonix IV Heme: -Normocytic anemia Hgb 9.9- continue to monitor, likely dilutional. Monitor repeat in AM -Possibly due to chronic disease/ iron deficiency -H/H 12.1/38.4 drop to 9.9/32.3, likely dilutional -Patient stable, no signs of bleeding -FOBT, iron studies ordered - ASA 81 Nephro: -APOLINAR likely due to dehydration. Improving to 4.1 from 6.3 s/p 3 Liters IVF -hold lisinopril, HCTZ -Strict I/Os, 100 cc from simons O/N, +1150 balance thus far -F/u renal U/S -IVF LR @100cc/hr -Hyperkalemia 5.3. Monitor closely - Hyperchloremic / NS IVF -Nephro consulted Dr Christopher - recommendations appreciated. Continue with fluid rescusitation -UA: +protein, blood, Ucx ordered - monitor lytes via CMP, replete as indicated ID: ID consult placed -Dr Lozano- recommendations appreciated Panculture Merrem 500 BID, Doxy BID Psych: c/w home Lexapro and Klonopin Prophylaxis: -DVT: SCD -GI ppx: protonix IV Dispo: DNR/DNI status updated as per document from care home. Dr. Chakraborty was made aware. Patient seen, case reviewed and plan approved by Dr. Garcia. Raciel Marquez, PGY-1 <Rick Garcia - Last Filed: 04/06/18 13:09> Meds - Medications Medications: Current Medications Acetylcysteine (Acetylcysteine 20%) 4 ml IH BIDRESP [facility] Last Admin: 04/06/18 07:09 Dose: 4 ml Albuterol/Ipratropium (Duoneb 3 Mg/0.5 Mg (3 Ml) Ud) 3 ml IH [id number] [facility] Last Admin: 04/06/18 07:09 Dose: 3 ml Albuterol/Ipratropium (Duoneb 3 Mg/0.5 Mg (3 Ml) Ud) 3 ml IH Q2H PRN PRN Reason: Shortness of Breath Aspirin (Aspirin Chewable) 81 mg PO DAILY [facility] Last Admin: 04/06/18 10:26 Dose: Not Given Clonazepam (Klonopin) 0.5 mg PO HS [facility]; Protocol Hydrocortisone Sodium Succinate (Solu-Cortef) 50 mg IVP Q6H [facility] Last Admin: 04/06/18 10:27 Dose: 50 mg NOREPINEPHRINE BIT/0.9 % NACL (Levophed 4 Mg/ 250 Ml Ns Premixed) 4 mg in 250 mls @ 15 mls/hr IV .[id number] PRN; Protocol PRN Reason: TITRATE PER MD ORDER Last Titration: 04/06/18 10:43 Dose: 8 mcg/min, 30 mls/hr Meropenem/Sodium Chloride (Merrem Iv 500 Mg/Ns 50 Ml) 500 mg in 50 mls @ 100 mls/hr IVPB Q12 [facility]; Protocol Stop: 04/13/18 07:31 Last Admin: 04/06/18 08:24 Dose: 100 mls/hr Lactated Ringer's (Lactated Ringer's) 1,000 mls @ 100 mls/hr IV .Q10H [facility] Last Admin: 04/06/18 10:25 Dose: 100 mls/hr Vasopressin 20 units/ Sodium (Chloride) 101 mls @ 9.09 mls/hr IV .[id number] [facility]; Protocol Last Admin: 04/06/18 10:26 Dose: 9.09 mls/hr Vancomycin HCl 2 gm/ Sodium (Chloride) 500 mls @ 170 mls/hr IVPB ONCE ONE; Protocol Stop: 04/06/18 15:37 Levofloxacin/Dextrose (Levaquin 750mg) 750 mg in 150 mls @ 100 mls/hr IVPB ONCE ONE; Protocol Stop: 04/06/18 14:29 Pantoprazole Sodium (Protonix Inj) 40 mg IVP DAILY [facility] Last Admin: 04/06/18 09:03 Dose: 40 mg Results - Vital Signs Recent Vital Signs: Last Vital Signs Temp 98.1 F 04/06/18 12:29 Pulse 67 04/06/18 12:29 Resp 14 04/06/18 12:29 BP 111/77 04/06/18 12:30 Pulse Ox 95 04/06/18 12:29 - Labs Result Diagrams: 04/06/18 05:00 04/06/18 05:00 Labs: Laboratory Results - last 24 hr 04/05/18 04/05/18 04/05/18 19:08 19:08 19:08 WBC 6.6 RBC 4.28 Hgb 12.1 L Hct 38.4 L MCV 89.7 MCH 28.3 MCHC 31.5 RDW 15.1 H Plt Count 486 H MPV 9.3 Gran % 72.0 H Lymph % (Auto) 20.5 L [place] % (Auto) 7.3 H Eos % (Auto) 0.0 L Baso % (Auto) 0.2 Gran # 4.72 Lymph # (Auto) 1.3 [place] # (Auto) 0.5 Eos # (Auto) 0.0 Baso # (Auto) 0.01 PT 21.8 H INR 1.89 APTT 36.4 pCO2 pO2 72 H HCO3 ABG pH ABG Total CO2 ABG O2 Saturation ABG O2 Content ABG Base Excess ABG Hemoglobin ABG Carboxyhemoglobin POC ABG HHb (Measured) ABG Methemoglobin ABG O2 Capacity VBG pH 7.25 L VBG pCO2 63.0 H VBG HCO3 27.6 VBG Total CO2 29.5 H VBG O2 Sat (Calc) 95.5 H VBG Base Excess -1.0 L VBG Potassium 5.2 Hgb O2 Saturation Sodium 133.0 Chloride 94.0 L Glucose 86 Lactate 1.6 FiO2 21.0 Potassium Carbon Dioxide Anion Gap BUN Creatinine Est GFR ( Amer) Est GFR (Non-Af Amer) Random Glucose Calcium Phosphorus Magnesium Iron TIBC % Saturation Total Bilirubin AST ALT Alkaline Phosphatase Lactate Dehydrogenase Total Creatine Kinase Troponin I NT-Pro-B Natriuret Pep Total Protein Albumin Globulin Albumin/Globulin Ratio Triglycerides Cholesterol LDL Cholesterol Direct HDL Cholesterol Venous Blood Potassium 5.2 Urine Color Urine Appearance Urine pH Ur Specific [place] Urine Protein Urine Glucose (UA) Urine Ketones Urine Blood Urine Nitrate Urine Bilirubin Urine Urobilinogen Ur Leukocyte Esterase Urine RBC Urine WBC Ur Epithelial Cells Urine Bacteria Influenza Typ A,B (EIA) Ur L.pneumophila Ag 04/05/18 04/05/18 04/05/18 19:08 19:08 20:33 WBC RBC Hgb Hct MCV MCH MCHC RDW Plt Count MPV Gran % Lymph % (Auto) [place] % (Auto) Eos % (Auto) Baso % (Auto) Gran # Lymph # (Auto) [place] # (Auto) Eos # (Auto) Baso # (Auto) PT INR APTT pCO2 48 H pO2 53.0 L HCO3 22.0 ABG pH 7.27 L ABG Total CO2 23.5 ABG O2 Saturation 87.2 L ABG O2 Content 12.1 L ABG Base Excess -4.9 L ABG Hemoglobin 10.2 L ABG Carboxyhemoglobin 2.1 H POC ABG HHb (Measured) 12.4 H ABG Methemoglobin 1.3 ABG O2 Capacity 13.9 L VBG pH VBG pCO2 VBG HCO3 VBG Total CO2 VBG O2 Sat (Calc) VBG Base Excess VBG Potassium Hgb O2 Saturation 84.2 L Sodium 136 Chloride 91 L Glucose Lactate FiO2 100.0 Potassium 5.0 Carbon Dioxide 27 Anion Gap 23 H BUN 119 H Creatinine 6.3 H Est GFR ( Amer) 11 Est GFR (Non-Af Amer) 9 Random Glucose 93 Calcium 8.9 Phosphorus 10.0 H Magnesium 3.0 H Iron 27 L TIBC 232 L % Saturation 12 L Total Bilirubin 0.5 AST 32 ALT 27 Alkaline Phosphatase 69 Lactate Dehydrogenase 451 Total Creatine Kinase 194 Troponin I 0.05 D NT-Pro-B Natriuret Pep Total Protein 8.4 H Albumin 4.0 Globulin 4.4 Albumin/Globulin Ratio 0.9 L Triglycerides Cholesterol LDL Cholesterol Direct HDL Cholesterol Venous Blood Potassium Urine Color Urine Appearance Urine pH Ur Specific [place] Urine Protein Urine Glucose (UA) Urine Ketones Urine Blood Urine Nitrate Urine Bilirubin Urine Urobilinogen Ur Leukocyte Esterase Urine RBC Urine WBC Ur Epithelial Cells Urine Bacteria Influenza Typ A,B (EIA) Ur L.pneumophila Ag 04/05/18 04/06/18 04/06/18 21:13 01:50 02:20 WBC RBC Hgb Hct MCV MCH MCHC RDW Plt Count MPV Gran % Lymph % (Auto) [place] % (Auto) Eos % (Auto) Baso % (Auto) Gran # Lymph # (Auto) [place] # (Auto) Eos # (Auto) Baso # (Auto) PT INR APTT pCO2 pO2 HCO3 ABG pH ABG Total CO2 ABG O2 Saturation ABG O2 Content ABG Base Excess ABG Hemoglobin ABG Carboxyhemoglobin POC ABG HHb (Measured) ABG Methemoglobin ABG O2 Capacity VBG pH VBG pCO2 VBG HCO3 VBG Total CO2 VBG O2 Sat (Calc) VBG Base Excess VBG Potassium Hgb O2 Saturation Sodium Chloride Glucose Lactate FiO2 Potassium Carbon Dioxide Anion Gap BUN Creatinine Est GFR ( Amer) Est GFR (Non-Af Amer) Random Glucose Calcium Phosphorus Magnesium Iron TIBC % Saturation Total Bilirubin AST ALT Alkaline Phosphatase Lactate Dehydrogenase Total Creatine Kinase Troponin I 0.03 D NT-Pro-B Natriuret Pep 683 H Total Protein Albumin Globulin Albumin/Globulin Ratio Triglycerides 93 Cholesterol 89 L LDL Cholesterol Direct 46 HDL Cholesterol 22 L Venous Blood Potassium Urine Color Yellow Urine Appearance Clear Urine pH 5.5 Ur Specific [place] >= 1.030 Urine Protein 30 H Urine Glucose (UA) Negative Urine Ketones Negative Urine Blood Trace-intact H Urine Nitrate Negative Urine Bilirubin Negative Urine Urobilinogen 0.2 Ur Leukocyte Esterase Negative Urine RBC 5 - 10 Urine WBC 5 - 10 Ur Epithelial Cells 6 - 8 Urine Bacteria Influenza Typ A,B (EIA) Negative for flu a/b Ur L.pneumophila Ag 04/06/18 04/06/18 04/06/18 04:50 05:00 05:00 WBC 5.3 RBC 3.54 Hgb 9.9 L D Hct 32.3 L MCV 91.2 MCH 28.0 MCHC 30.7 L RDW 15.3 H Plt Count 417 MPV 9.2 Gran % 86.1 H Lymph % (Auto) 11.4 L [place] % (Auto) 2.1 Eos % (Auto) 0.0 L Baso % (Auto) 0.4 Gran # 4.55 Lymph # (Auto) 0.6 L [place] # (Auto) 0.1 Eos # (Auto) 0.0 Baso # (Auto) 0.02 PT INR APTT pCO2 48 H pO2 101.0 H HCO3 20.1 L ABG pH 7.23 L ABG Total CO2 21.6 L ABG O2 Saturation 99.0 H ABG O2 Content 13.1 L ABG Base Excess -7.2 L ABG Hemoglobin 9.5 L ABG Carboxyhemoglobin 1.5 POC ABG HHb (Measured) 1.0 ABG Methemoglobin 1.0 ABG O2 Capacity 13.2 L VBG pH VBG pCO2 VBG HCO3 VBG Total CO2 VBG O2 Sat (Calc) VBG Base Excess VBG Potassium Hgb O2 Saturation 96.5 Sodium 141 Chloride 109 H Glucose Lactate FiO2 80.0 Potassium 5.3 H Carbon Dioxide 21 Anion Gap 17 BUN 97 H Creatinine 4.1 H Est GFR ( Amer) 18 Est GFR (Non-Af Amer) 15 Random Glucose 113 H Calcium 7.7 L Phosphorus 7.6 H Magnesium 2.5 H Iron TIBC % Saturation Total Bilirubin 0.4 AST 25 ALT 15 Alkaline Phosphatase 56 Lactate Dehydrogenase Total Creatine Kinase Troponin I 0.03 NT-Pro-B Natriuret Pep Total Protein 6.8 Albumin 3.2 Globulin 3.7 Albumin/Globulin Ratio 0.9 L Triglycerides Cholesterol LDL Cholesterol Direct HDL Cholesterol Venous Blood Potassium Urine Color Urine Appearance Urine pH Ur Specific [place] Urine Protein Urine Glucose (UA) Urine Ketones Urine Blood Urine Nitrate Urine Bilirubin Urine Urobilinogen Ur Leukocyte Esterase Urine RBC Urine WBC Ur Epithelial Cells Urine Bacteria Influenza Typ A,B (EIA) Ur L.pneumophila Ag 04/06/18 04/06/18 06:03 06:03 WBC RBC Hgb Hct MCV MCH MCHC RDW Plt Count MPV Gran % Lymph % (Auto) [place] % (Auto) Eos % (Auto) Baso % (Auto) Gran # Lymph # (Auto) [place] # (Auto) Eos # (Auto) Baso # (Auto) PT INR APTT pCO2 pO2 HCO3 ABG pH ABG Total CO2 ABG O2 Saturation ABG O2 Content ABG Base Excess ABG Hemoglobin ABG Carboxyhemoglobin POC ABG HHb (Measured) ABG Methemoglobin ABG O2 Capacity VBG pH VBG pCO2 VBG HCO3 VBG Total CO2 VBG O2 Sat (Calc) VBG Base Excess VBG Potassium Hgb O2 Saturation Sodium Chloride Glucose Lactate FiO2 Potassium Carbon Dioxide Anion Gap BUN Creatinine Est GFR ( Amer) Est GFR (Non-Af Amer) Random Glucose Calcium Phosphorus Magnesium Iron TIBC % Saturation Total Bilirubin AST ALT Alkaline Phosphatase Lactate Dehydrogenase Total Creatine Kinase Troponin I NT-Pro-B Natriuret Pep Total Protein Albumin Globulin Albumin/Globulin Ratio Triglycerides Cholesterol LDL Cholesterol Direct HDL Cholesterol Venous Blood Potassium Urine Color Yellow Urine Appearance Slight-cloudy Urine pH 5.5 Ur Specific [place] 1.020 Urine Protein Trace H Urine Glucose (UA) Negative Urine Ketones Negative Urine Blood Large H Urine Nitrate Negative Urine Bilirubin Negative Urine Urobilinogen 0.2 Ur Leukocyte Esterase Negative Urine RBC Tntc Urine WBC Negative Ur Epithelial Cells 4 - 5 Urine Bacteria Few Influenza Typ A,B (EIA) Ur L.pneumophila Ag Negative Assessment & Plan - Assessment and Plan (Free Text) Assessment: Patient seen and examined on rounds with resident, agree with note with following additions/exceptions: Patient is 63yo male with PMhx of HTN, CVA (with right sided residual weakness) and respiratory failure (on BiPAP) presents from [facility] for 2 days history of chest congestion, SOB, and poor oral intake. Pt found to be in septic shock, 2/2 PNA, respiratory failure, hypoxia, and Acute renal failure. Currently on BIPAP, on Vasopressor support, Levo 4 mcg, Vasopressin, Stress dose steroids, s/p 3L NS bolus. Patient is awake, alert, responds to commands. Labs, imaging, chart noted Pt is DNR/DNI, as per AMIRAH, verified with PMD, Dr Chakraborty Septic Shock APOLINAR Resp failure HCAP Hx CVA Failure to thrive Dehydration Recommend: - cont with BIPAP as tolerated, BIPAP 12/5/60%, goal sat 90%, duonebs PRN - Broad spectrum abx, Vanco, Merrem, Doxy, follow up ID - Panculture UCx, BCx, sputum culture, check urine Lg, Strep, Check Procal - hold BP meds - IVF, NS 100cc/hr - check Ulytes - ECHO - follow up cardio - follow up renal - Vasopressor support, Stress dose steroids - FS control - monitor LFTs - GI ppx - DVT ppx, HSQ - Monitor in MICU Poor prognosis DNR/DNI Critical care time 40 minutes
--- NOTE | 2018-04-06 08:18 | RAD ---
Date of service: 04/06/2018 HISTORY: assess TLC placement COMPARISON: Portable chest 04/05/2018. FINDINGS: LUNGS: Interval airspace disease is identified at the mid to inferior right lung zone with linear atelectasis at the left base remaining. Borderline at atelectasis or infiltrate silhouettes the left hemidiaphragm. PLEURA: Trace of pleural effusion. None is seen at the right. No pneumothorax bilaterally. CARDIOVASCULAR: No aortic atherosclerotic calcification present. Normal cardiac size. No pulmonary vascular congestion. OSSEOUS STRUCTURES: No significant abnormalities. VISUALIZED UPPER ABDOMEN: Normal. OTHER FINDINGS: Interval right center venous line terminating at the cavoatrial junction by an apparent right internal jugular approach. IMPRESSION: Right IJ line in place situ as discussed above. No pneumothorax bilaterally. Increase patchy density mid to inferior right lung zone with linear atelectasis left base now identified. Trace airspace disease silhouettes the left hemidiaphragm. Minimal left pleural effusion not excluded.
[2018-04-06] MEDS ORDERED: Dextrose 50% SYRINGE Inj (50 ml) IVP ONE (08:19)
[2018-04-06] MEDS ORDERED: Insulin Reg-MEDIUM-Coverage IV ONE (08:20)
[2018-04-06] MEDS: MEROPENEM 500 MG in NS 500 MG/50 ML BAG IVPB SCH ×2 (08:24→22:13)
--- NOTE | 2018-04-06 08:40 | CT ---
Date of service: 04/06/2018 PROCEDURE: CT HEAD WITHOUT CONTRAST. HISTORY: ams COMPARISON: Head CT 04/02/2016 without contrast TECHNIQUE: Axial computed tomography images were obtained through the head/brain without intravenous contrast. Radiation dose: Total exam DLP = 841.04 mGy-cm. This CT exam was performed using one or more of the following dose reduction techniques: Automated exposure control, adjustment of the mA and/or kV according to patient size, and/or use of iterative reconstruction technique. FINDINGS: HEMORRHAGE: No intracranial hemorrhage. BRAIN: Stable pattern of cystic encephalomalacia remains at the left temporal parietal occipital distribution bordered by few calcifications once again. Punctate scattered granulomata are again seen at the bilateral frontal lobes with a small small area of cystic encephalomalacia at the right parietal vertex identified once again. No mass effect. Posterior fossa contents are stable as well as the midline brain anatomy. VENTRICLES: Ex vacuo expansion left lateral ventricle again evident. CALVARIUM: Unremarkable. PARANASAL SINUSES: Unremarkable as visualized. No significant inflammatory changes. MASTOID AIR CELLS: Unremarkable as visualized. No inflammatory changes. OTHER FINDINGS: None. IMPRESSION: No interval acute intracranial findings at this time. Extensive cystic encephalomalacia at the left temporoparietal and occipital distribution reiterated as well as a minimal focus of the right parietal vertex. Scattered calcifications are again seen minimally at the bilateral frontal lobes and at the left cerebral encephalomalacia border once again. Follow-up MRI is available for added characterization as clinically warranted. Concordant preliminary report from [facility], 04/06/2018 6:20 a.m..
--- NOTE | 2018-04-06 08:55 | RAD ---
Date of service: 04/05/2018 HISTORY: Sepsis Patient COMPARISON: 04/16/2016 FINDINGS: LUNGS: There is linear atelectasis at the right lung base. PLEURA: No significant pleural effusion identified, no pneumothorax apparent. CARDIOVASCULAR: No aortic atherosclerotic calcification present. Normal cardiac size. Minimal vascular congestion OSSEOUS STRUCTURES: No significant abnormalities. VISUALIZED UPPER ABDOMEN: Normal. OTHER FINDINGS: None. IMPRESSION: Minimal vascular congestion. Linear atelectasis at the right lung base.
[2018-04-06] MEDS: NOREPINEPHRINE BIT/0.9 % NACL 4 MG/250 ML BAG IV PRN ×2 (08:56→16:17)
--- NOTE | 2018-04-06 09:49 | HP ---
DATE OF EXAM: 04/06/2018 HISTORY OF PRESENT ILLNESS: I was in the emergency room last night on 04/05/2018 where for some reason I dictated H&P but apparently did not populate, so we are doing it. I sent him in from [facility] where I take care of him there for about a year plus. He is a 63-year-old man who I know very well with right-sided weakness from an old CVA, who presents with not doing well mentally, not putting on any output in the urine and I felt he was dehydrated for what the nurses were telling me. I sent him to the emergency room. PAST MEDICAL HISTORY: He has a past medical history of a CVA with right-sided weakness. He used to have a PEG tube and a trach and 2 years ago. He had some chest congestion, vomiting, abnormal labs. He has hypertension, pneumonia history. He has got renal issues, anxiety, depression. LABORATORY DATA: Elevated BUN of 90 and creatinine of 5. He is only normal. FAMILY HISTORY: Unknown family history. SOCIAL HISTORY: He used to smoke. No alcohol. No substance abuse. ALLERGIES: NO KNOWN DRUG ALLERGIES. MEDICATIONS: He is on Klonopin, Lovenox, Lexapro, Zestril, Lopressor, Tylenol, aspirin, Pepcid, Flomax and hydralazine. He is very lethargic and tired but no acute vision or hearing changes, quite weak. No chest pain, no shortness of breath. No abdominal pain. PHYSICAL EXAMINATION: VITAL SIGNS: He has a 98.1 temperature, 90 pulse, 20 respiratory rate, 72/46 blood pressure, 93% O2 sat; when he came in it was 89%, very hypoxic. GENERAL: He is toxic. He is lethargic but arousable, alert and oriented x3. HEENT: Head is atraumatic, normocephalic. Extraocular muscles are intact. Pupils react to light and accommodation. Throat is dry. NECK: Supple. HEART: Regular rate. Normal S1, S2. LUNGS: Decreased breath sounds but clear to auscultation. ABDOMEN: Soft, nontender. Positive bowel sounds. EXTREMITIES: He has right-sided weakness, contracted GCS is 15. Cranial nerves II-XII grossly intact. Speech is normal. SKIN: Warm and dry. No apparent rashes. He comes in with multiple issues. LABORATORY DATA: He has a white count of 6.6, hemoglobin 12.1, hematocrit 30.4, platelets are 46, INR is 1.89, original pH was 48, pCO2 of 53, pO2. He had a 136 sodium, potassium 5, BUN 119, creatinine 6.3, high when he came in from the nurse home, sugar is 93, calcium is 8.9, phosphorous 10, magnesium 3, very dehydrated. Iron was 27, total iron bypass is 232. Saturations 12. Total bili is 0.5, AST is 32, ALT is 27, alk phos 69, lactate dehydrogenase is 451. Troponin I 0.05. Total protein is 8.4. Urine was trace, negative for the flu. He has got multiple consults. Renal, Pulmonary, Infectious Disease, could be on IV fluids, IV antibiotics, Solu-Medrol. Hopefully we can reverse his severe acute kidney injury and acute kidney failure and is here in the Intensive Care Unit. Cash Chakraborty DO [email or web address]
[2018-04-06] MEDS: Lactated Ringer's 1,000 ML IV SCH ×2 (10:25→20:54)
--- NOTE | 2018-04-06 11:27 | CARD ---
APPROVED REPORT Date of service: 04/05/2018 EKG Measurement Heart [id number] <Conclusion> Normal sinus rhythm Normal ECG
[2018-04-06] MEDS ORDERED: Vancomycin 2 GM in Sodium Chloride 0.9% 500 ML IVPB ONE (12:41)
--- NOTE | 2018-04-06 12:42 | CP.PCM.CON ---
History of Present Illness - History of Present Illness History of Present Illness: Nephrology Consultation Note: Assessment: critical Acute Kidney Injury (N17.9) likely due to ATN as a result of pre-renal/dehy dration and hypotension combined respi and metabolic acidosis mild hyperkalemia. hypermagnesemia and hyperphosphatemia ? aspiration pneumonia anemia, mild hyperkalemia chronic sys CHF hx of CVA Plan No acute need for renal replacement therapy at this time. Maintain hemodynamics stable. Avoid hypotension. Patient not on ACEI/ARB due to recent APOLINAR. hold BP meds Monitor Input/Output, daily weights and renal function with basic metabolic panel continue with IVF monitor lytes Check urine analysis, spot protein/creatinine, albumin/creatinine ratio, renal sonogram Anemia work up with TSAT/Ferritin/Vitamin B12/folate Check for 25-OH vitamin D, iPTH, phosphorus level. Dose meds/antibiotics for reduced GFR. Avoid fleets enema/magnesium based laxatives. Avoid nephrotoxins/NSAIDs/ iodinated contrast (unless needed emergently) Glycemic control Further work up/management as per primary team Thanks for allowing me to participate in care of your patient. Will follow patient with you. Please call if any Qs. had d/w team Dr Channing Christopher Office: [phone] Chief Complaint; unable Reason for consult: Acute Kidney Injury HPI: Pt is a 63 M with hx of CVA, hypertension (years) [facility] resident presented with complaints of not feeling well,decreased oral intake and SOB with episodes of nausea/vomitting. renal consult for APOLINAR no known OTC/herbal meds or NSAIDs No recent iodinated contrast exposure. Noted obvious episodes of low BP. pt renal fxn better with IVF. making urine ROS: unable to obtain from pt Physical Examination: General Appearance: Comfortable, in no acute respiratory distress, on Bipap Vitals reviewed and noted as below Head; Atraumatic, normocephalic ENT: unable as on bipap EYES: Pupils are equal, round and reactive to light accommodation. Eye muscles and extraocular movement intact. Sclera is anicteric. Neck; supple no lymphadenopathy, no thyromegaly or bruit Lungs: Normal respiratory rate/effort. Breath sounds bilateral decreased at bases Heart: Normal rate. s1s2 normal. No rub or gallop. Extremities: no edema. No varicose veins Neurological: Patient is not communicating Skin: Warm and dry. Normal turgor. No rash. Palpitation: Normal elasticity for age Abdomen: Abdomen is soft. Bowel sounds +. There is no abdominal tenderness, no guarding/rigidity no organomegaly Psych: deferred MSK: no joint tenderness or swelling. Digits and nails normal, no deformity : kidney or bladder not palpable. has simons Labs/imaging reviewed. Past medical history, past surgical history, family history, social history, allergy reviewed and noted as below Family hx: no hx of CKD. Rest non-contributory lvef 41% UA SG >1.030 Past Patient History - Infectious Disease Hx of Infectious Diseases: None - Tetanus Immunizations Tetanus Immunization: Unknown - Past Medical History & Family History Past Medical History?: Yes - Past Social History Smoking Status: Heavy Smoker > 10 Cigarettes Daily - CARDIAC Hx Hypertension: Yes Hx Mitral Valve Prolapse: No Hx Peripheral Edema: No - PULMONARY Hx Pneumonia: Yes Hx Sleep Apnea: No - RENAL Hx Chronic Kidney Disease: Yes - PSYCHIATRIC Hx Anxiety: Yes Hx Depression: Yes Hx Substance Use: No - ANESTHESIA Hx Anesthesia: Yes Hx Anesthesia Reactions: No Hx Malignant Hyperthermia: No Meds Allergies/Adverse Reactions: Allergies Allergy/AdvReac Type Severity Reaction Status Date / Time No Known Allergies Allergy Verified 07/15/16 07:46 - Medications Medications: Current Medications Acetylcysteine (Acetylcysteine 20%) 4 ml IH BIDRESP [facility] Last Admin: 04/06/18 07:09 Dose: 4 ml Albuterol/Ipratropium (Duoneb 3 Mg/0.5 Mg (3 Ml) Ud) 3 ml IH [id number] [facility] Last Admin: 04/06/18 07:09 Dose: 3 ml Albuterol/Ipratropium (Duoneb 3 Mg/0.5 Mg (3 Ml) Ud) 3 ml IH Q2H PRN PRN Reason: Shortness of Breath Aspirin (Aspirin Chewable) 81 mg PO DAILY [facility] Last Admin: 04/06/18 10:26 Dose: Not Given Clonazepam (Klonopin) 0.5 mg PO HS [facility]; Protocol Escitalopram Oxalate (Lexapro) 10 mg PO DAILY [facility] Last Admin: 04/06/18 10:27 Dose: Not Given Hydrocortisone Sodium Succinate (Solu-Cortef) 50 mg IVP Q6H [facility] Last Admin: 04/06/18 10:27 Dose: 50 mg NOREPINEPHRINE BIT/0.9 % NACL (Levophed 4 Mg/ 250 Ml Ns Premixed) 4 mg in 250 mls @ 15 mls/hr IV .[id number] PRN; Protocol PRN Reason: TITRATE PER MD ORDER Last Titration: 04/06/18 10:43 Dose: 8 mcg/min, 30 mls/hr Doxycycline Hyclate 100 mg/ (Sodium Chloride) 100 mls @ 100 mls/hr IVPB Q12 [facility]; Protocol Last Admin: 04/06/18 09:02 Dose: 100 mls/hr Meropenem/Sodium Chloride (Merrem Iv 500 Mg/Ns 50 Ml) 500 mg in 50 mls @ 100 mls/hr IVPB Q12 [facility]; Protocol Stop: 04/13/18 07:31 Last Admin: 04/06/18 08:24 Dose: 100 mls/hr Lactated Ringer's (Lactated Ringer's) 1,000 mls @ 100 mls/hr IV .Q10H [facility] Last Admin: 04/06/18 10:25 Dose: 100 mls/hr Vasopressin 20 units/ Sodium (Chloride) 101 mls @ 9.09 mls/hr IV .Q11H7M [facility]; Protocol Last Admin: 04/06/18 10:26 Dose: 9.09 mls/hr Pantoprazole Sodium (Protonix Inj) 40 mg IVP DAILY [facility] Last Admin: 04/06/18 09:03 Dose: 40 mg Results - Vital Signs Recent Vital Signs: Last Vital Signs Temp 98.1 F 04/06/18 12:29 Pulse 67 04/06/18 12:29 Resp 14 04/06/18 12:29 BP 111/77 04/06/18 12:30 Pulse Ox 95 04/06/18 12:29 - Labs Result Diagrams: 04/06/18 05:00 04/06/18 05:00 Labs: Laboratory Results - last 24 hr 04/05/18 04/05/18 04/05/18 19:08 19:08 19:08 WBC 6.6 RBC 4.28 Hgb 12.1 L Hct 38.4 L MCV 89.7 MCH 28.3 MCHC 31.5 RDW 15.1 H Plt Count 486 H MPV 9.3 Gran % 72.0 H Lymph % (Auto) 20.5 L [place] % (Auto) 7.3 H Eos % (Auto) 0.0 L Baso % (Auto) 0.2 Gran # 4.72 Lymph # (Auto) 1.3 [place] # (Auto) 0.5 Eos # (Auto) 0.0 Baso # (Auto) 0.01 PT 21.8 H INR 1.89 APTT 36.4 pCO2 pO2 72 H HCO3 ABG pH ABG Total CO2 ABG O2 Saturation ABG O2 Content ABG Base Excess ABG Hemoglobin ABG Carboxyhemoglobin POC ABG HHb (Measured) ABG Methemoglobin ABG O2 Capacity VBG pH 7.25 L VBG pCO2 63.0 H VBG HCO3 27.6 VBG Total CO2 29.5 H VBG O2 Sat (Calc) 95.5 H VBG Base Excess -1.0 L VBG Potassium 5.2 Hgb O2 Saturation Sodium 133.0 Chloride 94.0 L Glucose 86 Lactate 1.6 FiO2 21.0 Potassium Carbon Dioxide Anion Gap BUN Creatinine Est GFR ( Amer) Est GFR (Non-Af Amer) Random Glucose Calcium Phosphorus Magnesium Iron TIBC % Saturation Total Bilirubin AST ALT Alkaline Phosphatase Lactate Dehydrogenase Total Creatine Kinase Troponin I NT-Pro-B Natriuret Pep Total Protein Albumin Globulin Albumin/Globulin Ratio Triglycerides Cholesterol LDL Cholesterol Direct HDL Cholesterol Venous Blood Potassium 5.2 Urine Color Urine Appearance Urine pH Ur Specific [place] Urine Protein Urine Glucose (UA) Urine Ketones Urine Blood Urine Nitrate Urine Bilirubin Urine Urobilinogen Ur Leukocyte Esterase Urine RBC Urine WBC Ur Epithelial Cells Urine Bacteria Influenza Typ A,B (EIA) 04/05/18 04/05/18 04/05/18 19:08 19:08 20:33 WBC RBC Hgb Hct MCV MCH MCHC RDW Plt Count MPV Gran % Lymph % (Auto) [place] % (Auto) Eos % (Auto) Baso % (Auto) Gran # Lymph # (Auto) [place] # (Auto) Eos # (Auto) Baso # (Auto) PT INR APTT pCO2 48 H pO2 53.0 L HCO3 22.0 ABG pH 7.27 L ABG Total CO2 23.5 ABG O2 Saturation 87.2 L ABG O2 Content 12.1 L ABG Base Excess -4.9 L ABG Hemoglobin 10.2 L ABG Carboxyhemoglobin 2.1 H POC ABG HHb (Measured) 12.4 H ABG Methemoglobin 1.3 ABG O2 Capacity 13.9 L VBG pH VBG pCO2 VBG HCO3 VBG Total CO2 VBG O2 Sat (Calc) VBG Base Excess VBG Potassium Hgb O2 Saturation 84.2 L Sodium 136 Chloride 91 L Glucose Lactate FiO2 100.0 Potassium 5.0 Carbon Dioxide 27 Anion Gap 23 H BUN 119 H Creatinine 6.3 H Est GFR ( Amer) 11 Est GFR (Non-Af Amer) 9 Random Glucose 93 Calcium 8.9 Phosphorus 10.0 H Magnesium 3.0 H Iron 27 L TIBC 232 L % Saturation 12 L Total Bilirubin 0.5 AST 32 ALT 27 Alkaline Phosphatase 69 Lactate Dehydrogenase 451 Total Creatine Kinase 194 Troponin I 0.05 D NT-Pro-B Natriuret Pep Total Protein 8.4 H Albumin 4.0 Globulin 4.4 Albumin/Globulin Ratio 0.9 L Triglycerides Cholesterol LDL Cholesterol Direct HDL Cholesterol Venous Blood Potassium Urine Color Urine Appearance Urine pH Ur Specific [place] Urine Protein Urine Glucose (UA) Urine Ketones Urine Blood Urine Nitrate Urine Bilirubin Urine Urobilinogen Ur Leukocyte Esterase Urine RBC Urine WBC Ur Epithelial Cells Urine Bacteria Influenza Typ A,B (EIA) 04/05/18 04/06/18 04/06/18 21:13 01:50 02:20 WBC RBC Hgb Hct MCV MCH MCHC RDW Plt Count MPV Gran % Lymph % (Auto) [place] % (Auto) Eos % (Auto) Baso % (Auto) Gran # Lymph # (Auto) [place] # (Auto) Eos # (Auto) Baso # (Auto) PT INR APTT pCO2 pO2 HCO3 ABG pH ABG Total CO2 ABG O2 Saturation ABG O2 Content ABG Base Excess ABG Hemoglobin ABG Carboxyhemoglobin POC ABG HHb (Measured) ABG Methemoglobin ABG O2 Capacity VBG pH VBG pCO2 VBG HCO3 VBG Total CO2 VBG O2 Sat (Calc) VBG Base Excess VBG Potassium Hgb O2 Saturation Sodium Chloride Glucose Lactate FiO2 Potassium Carbon Dioxide Anion Gap BUN Creatinine Est GFR ( Amer) Est GFR (Non-Af Amer) Random Glucose Calcium Phosphorus Magnesium Iron TIBC % Saturation Total Bilirubin AST ALT Alkaline Phosphatase Lactate Dehydrogenase Total Creatine Kinase Troponin I 0.03 D NT-Pro-B Natriuret Pep 683 H Total Protein Albumin Globulin Albumin/Globulin Ratio Triglycerides 93 Cholesterol 89 L LDL Cholesterol Direct 46 HDL Cholesterol 22 L Venous Blood Potassium Urine Color Yellow Urine Appearance Clear Urine pH 5.5 Ur Specific [place] >= 1.030 Urine Protein 30 H Urine Glucose (UA) Negative Urine Ketones Negative Urine Blood Trace-intact H Urine Nitrate Negative Urine Bilirubin Negative Urine Urobilinogen 0.2 Ur Leukocyte Esterase Negative Urine RBC 5 - 10 Urine WBC 5 - 10 Ur Epithelial Cells 6 - 8 Urine Bacteria Influenza Typ A,B (EIA) Negative for flu a/b 04/06/18 04/06/18 04/06/18 04:50 05:00 05:00 WBC 5.3 RBC 3.54 Hgb 9.9 L D Hct 32.3 L MCV 91.2 MCH 28.0 MCHC 30.7 L RDW 15.3 H Plt Count 417 MPV 9.2 Gran % 86.1 H Lymph % (Auto) 11.4 L [place] % (Auto) 2.1 Eos % (Auto) 0.0 L Baso % (Auto) 0.4 Gran # 4.55 Lymph # (Auto) 0.6 L [place] # (Auto) 0.1 Eos # (Auto) 0.0 Baso # (Auto) 0.02 PT INR APTT pCO2 48 H pO2 101.0 H HCO3 20.1 L ABG pH 7.23 L ABG Total CO2 21.6 L ABG O2 Saturation 99.0 H ABG O2 Content 13.1 L ABG Base Excess -7.2 L ABG Hemoglobin 9.5 L ABG Carboxyhemoglobin 1.5 POC ABG HHb (Measured) 1.0 ABG Methemoglobin 1.0 ABG O2 Capacity 13.2 L VBG pH VBG pCO2 VBG HCO3 VBG Total CO2 VBG O2 Sat (Calc) VBG Base Excess VBG Potassium Hgb O2 Saturation 96.5 Sodium 141 Chloride 109 H Glucose Lactate FiO2 80.0 Potassium 5.3 H Carbon Dioxide 21 Anion Gap 17 BUN 97 H Creatinine 4.1 H Est GFR ( Amer) 18 Est GFR (Non-Af Amer) 15 Random Glucose 113 H Calcium 7.7 L Phosphorus 7.6 H Magnesium 2.5 H Iron TIBC % Saturation Total Bilirubin 0.4 AST 25 ALT 15 Alkaline Phosphatase 56 Lactate Dehydrogenase Total Creatine Kinase Troponin I 0.03 NT-Pro-B Natriuret Pep Total Protein 6.8 Albumin 3.2 Globulin 3.7 Albumin/Globulin Ratio 0.9 L Triglycerides Cholesterol LDL Cholesterol Direct HDL Cholesterol Venous Blood Potassium Urine Color Urine Appearance Urine pH Ur Specific [place] Urine Protein Urine Glucose (UA) Urine Ketones Urine Blood Urine Nitrate Urine Bilirubin Urine Urobilinogen Ur Leukocyte Esterase Urine RBC Urine WBC Ur Epithelial Cells Urine Bacteria Influenza Typ A,B (EIA) 04/06/18 06:03 WBC RBC Hgb Hct MCV MCH MCHC RDW Plt Count MPV Gran % Lymph % (Auto) [place] % (Auto) Eos % (Auto) Baso % (Auto) Gran # Lymph # (Auto) [place] # (Auto) Eos # (Auto) Baso # (Auto) PT INR APTT pCO2 pO2 HCO3 ABG pH ABG Total CO2 ABG O2 Saturation ABG O2 Content ABG Base Excess ABG Hemoglobin ABG Carboxyhemoglobin POC ABG HHb (Measured) ABG Methemoglobin ABG O2 Capacity VBG pH VBG pCO2 VBG HCO3 VBG Total CO2 VBG O2 Sat (Calc) VBG Base Excess VBG Potassium Hgb O2 Saturation Sodium Chloride Glucose Lactate FiO2 Potassium Carbon Dioxide Anion Gap BUN Creatinine Est GFR ( Amer) Est GFR (Non-Af Amer) Random Glucose Calcium Phosphorus Magnesium Iron TIBC % Saturation Total Bilirubin AST ALT Alkaline Phosphatase Lactate Dehydrogenase Total Creatine Kinase Troponin I NT-Pro-B Natriuret Pep Total Protein Albumin Globulin Albumin/Globulin Ratio Triglycerides Cholesterol LDL Cholesterol Direct HDL Cholesterol Venous Blood Potassium Urine Color Yellow Urine Appearance Slight-cloudy Urine pH 5.5 Ur Specific [place] 1.020 Urine Protein Trace H Urine Glucose (UA) Negative Urine Ketones Negative Urine Blood Large H Urine Nitrate Negative Urine Bilirubin Negative Urine Urobilinogen 0.2 Ur Leukocyte Esterase Negative Urine RBC Tntc Urine WBC Negative Ur Epithelial Cells 4 - 5 Urine Bacteria Few Influenza Typ A,B (EIA)
--- NOTE | 2018-04-06 12:50 | CP.PCM.CON ---
History of Present Illness - History of Present Illness History of Present Illness: 63 year old male with PMH of significant smoking, S/P inguinal hernia repair, HTN, history of CVA with encephalomalacia came [facility] the [facility] because of worsening shortness of breath and poor oral intake and he arrived in the ED, he was already lethargic. There was no note of fevers, no vomiting, no loss of consciousness. Full ROS is unontainable because the patient is lethargic. In the ED, CXR was done which showed right sided infiltrates. Infectious Diseases consult is requested to further evaluate and manage. Review of Systems - Review of Systems All systems: reviewed and no additional remarkable complaints except (as per HPI) Past Patient History - Infectious Disease Hx of Infectious Diseases: None - Tetanus Immunizations Tetanus Immunization: Unknown - Past Medical History & Family History Past Medical History?: Yes - Past Social History Smoking Status: Heavy Smoker > 10 Cigarettes Daily - CARDIAC Hx Hypertension: Yes Hx Mitral Valve Prolapse: No Hx Peripheral Edema: No - PULMONARY Hx Pneumonia: Yes Hx Sleep Apnea: No - RENAL Hx Chronic Kidney Disease: Yes - PSYCHIATRIC Hx Anxiety: Yes Hx Depression: Yes Hx Substance Use: No - ANESTHESIA Hx Anesthesia: Yes Hx Anesthesia Reactions: No Hx Malignant Hyperthermia: No Meds Allergies/Adverse Reactions: Allergies Allergy/AdvReac Type Severity Reaction Status Date / Time No Known Allergies Allergy Verified 07/15/16 07:46 - Medications Medications: Current Medications Acetylcysteine (Acetylcysteine 20%) 4 ml IH BIDRESP MARIO Last Admin: 04/06/18 07:09 Dose: 4 ml Albuterol/Ipratropium (Duoneb 3 Mg/0.5 Mg (3 Ml) Ud) 3 ml IH [id number] MARIO Last Admin: 04/06/18 07:09 Dose: 3 ml Albuterol/Ipratropium (Duoneb 3 Mg/0.5 Mg (3 Ml) Ud) 3 ml IH Q2H PRN PRN Reason: Shortness of Breath Aspirin (Aspirin Chewable) 81 mg PO DAILY MARIO Clonazepam (Klonopin) 0.5 mg PO HS MARIO; Protocol Escitalopram Oxalate (Lexapro) 10 mg PO DAILY MARIO Sodium Chloride (Sodium Chloride 0.9%) 1,000 mls @ 100 mls/hr IV .Q10H MARIO Last Admin: 04/05/18 23:15 Dose: 100 mls/hr Vancomycin HCl (Vancomycin 1gm) 1 gm in 250 mls @ 167 mls/hr IVPB Q12H MARIO; Protocol Last Admin: 04/06/18 01:09 Dose: 167 mls/hr Piperacillin Sod/Tazobactam Sod (Zosyn 3.375 In Ns 100ml) 100 mls @ 25 mls/hr IVPB Q12H MARIO; Protocol Stop: 04/06/18 21:59 Last Admin: 04/06/18 05:21 Dose: 25 mls/hr NOREPINEPHRINE BIT/0.9 % NACL (Levophed 4 Mg/ 250 Ml Ns Premixed) 4 mg in 250 mls @ 15 mls/hr IV .[id number] PRN; Protocol PRN Reason: TITRATE PER MD ORDER Methylprednisolone (Solu-Medrol) 20 mg IVP Q8H MARIO Last Admin: 04/06/18 02:19 Dose: 20 mg Midodrine (Proamatine) 10 mg PO TID MARIO Pantoprazole Sodium (Protonix Inj) 40 mg IVP DAILY [facility] Physical Exam - Constitutional Appears: Other (lethargic, on biPAP) - Head Exam Head Exam: NORMAL INSPECTION - Respiratory Exam Respiratory Exam: Decreased Breath Sounds, Rales (scattered) - Cardiovascular Exam Cardiovascular Exam: +S1, +S2 - GI/Abdominal Exam GI & Abdominal Exam: Soft. absent: Tenderness Results - Vital Signs Recent Vital Signs: Last Vital Signs Temp 98.5 F 04/05/18 19:17 Pulse 82 04/06/18 06:00 Resp 12 04/06/18 01:37 BP 87/58 L 04/06/18 01:37 Pulse Ox 100 04/06/18 01:37 - Labs Result Diagrams: 04/06/18 05:00 04/06/18 05:00 Labs: Laboratory Results - last 24 hr 04/05/18 04/05/18 04/05/18 19:08 19:08 19:08 WBC 6.6 RBC 4.28 Hgb 12.1 L Hct 38.4 L MCV 89.7 MCH 28.3 MCHC 31.5 RDW 15.1 H Plt Count 486 H MPV 9.3 Gran % 72.0 H Lymph % (Auto) 20.5 L [place] % (Auto) 7.3 H Eos % (Auto) 0.0 L Baso % (Auto) 0.2 Gran # 4.72 Lymph # (Auto) 1.3 [place] # (Auto) 0.5 Eos # (Auto) 0.0 Baso # (Auto) 0.01 PT 21.8 H INR 1.89 APTT 36.4 pCO2 pO2 72 H HCO3 ABG pH ABG Total CO2 ABG O2 Saturation ABG O2 Content ABG Base Excess ABG Hemoglobin ABG Carboxyhemoglobin POC ABG HHb (Measured) ABG Methemoglobin ABG O2 Capacity VBG pH 7.25 L VBG pCO2 63.0 H VBG HCO3 27.6 VBG Total CO2 29.5 H VBG O2 Sat (Calc) 95.5 H VBG Base Excess -1.0 L VBG Potassium 5.2 Hgb O2 Saturation Sodium 133.0 Chloride 94.0 L Glucose 86 Lactate 1.6 FiO2 21.0 Potassium Carbon Dioxide Anion Gap BUN Creatinine Est GFR ( Amer) Est GFR (Non-Af Amer) Random Glucose Calcium Phosphorus Magnesium Iron TIBC % Saturation Total Bilirubin AST ALT Alkaline Phosphatase Lactate Dehydrogenase Total Creatine Kinase Troponin I NT-Pro-B Natriuret Pep Total Protein Albumin Globulin Albumin/Globulin Ratio Triglycerides Cholesterol LDL Cholesterol Direct HDL Cholesterol Venous Blood Potassium 5.2 Urine Color Urine Appearance Urine pH Ur Specific [place] Urine Protein Urine Glucose (UA) Urine Ketones Urine Blood Urine Nitrate Urine Bilirubin Urine Urobilinogen Ur Leukocyte Esterase Urine RBC Urine WBC Ur Epithelial Cells Influenza Typ A,B (EIA) 04/05/18 04/05/18 04/05/18 19:08 19:08 20:33 WBC RBC Hgb Hct MCV MCH MCHC RDW Plt Count MPV Gran % Lymph % (Auto) [place] % (Auto) Eos % (Auto) Baso % (Auto) Gran # Lymph # (Auto) [place] # (Auto) Eos # (Auto) Baso # (Auto) PT INR APTT pCO2 48 H pO2 53.0 L HCO3 22.0 ABG pH 7.27 L ABG Total CO2 23.5 ABG O2 Saturation 87.2 L ABG O2 Content 12.1 L ABG Base Excess -4.9 L ABG Hemoglobin 10.2 L ABG Carboxyhemoglobin 2.1 H POC ABG HHb (Measured) 12.4 H ABG Methemoglobin 1.3 ABG O2 Capacity 13.9 L VBG pH VBG pCO2 VBG HCO3 VBG Total CO2 VBG O2 Sat (Calc) VBG Base Excess VBG Potassium Hgb O2 Saturation 84.2 L Sodium 136 Chloride 91 L Glucose Lactate FiO2 100.0 Potassium 5.0 Carbon Dioxide 27 Anion Gap 23 H BUN 119 H Creatinine 6.3 H Est GFR ( Amer) 11 Est GFR (Non-Af Amer) 9 Random Glucose 93 Calcium 8.9 Phosphorus 10.0 H Magnesium 3.0 H Iron 27 L TIBC 232 L % Saturation 12 L Total Bilirubin 0.5 AST 32 ALT 27 Alkaline Phosphatase 69 Lactate Dehydrogenase 451 Total Creatine Kinase 194 Troponin I 0.05 D NT-Pro-B Natriuret Pep Total Protein 8.4 H Albumin 4.0 Globulin 4.4 Albumin/Globulin Ratio 0.9 L Triglycerides Cholesterol LDL Cholesterol Direct HDL Cholesterol Venous Blood Potassium Urine Color Urine Appearance Urine pH Ur Specific [place] Urine Protein Urine Glucose (UA) Urine Ketones Urine Blood Urine Nitrate Urine Bilirubin Urine Urobilinogen Ur Leukocyte Esterase Urine RBC Urine WBC Ur Epithelial Cells Influenza Typ A,B (EIA) 04/05/18 04/06/18 04/06/18 21:13 01:50 02:20 WBC RBC Hgb Hct MCV MCH MCHC RDW Plt Count MPV Gran % Lymph % (Auto) [place] % (Auto) Eos % (Auto) Baso % (Auto) Gran # Lymph # (Auto) [place] # (Auto) Eos # (Auto) Baso # (Auto) PT INR APTT pCO2 pO2 HCO3 ABG pH ABG Total CO2 ABG O2 Saturation ABG O2 Content ABG Base Excess ABG Hemoglobin ABG Carboxyhemoglobin POC ABG HHb (Measured) ABG Methemoglobin ABG O2 Capacity VBG pH VBG pCO2 VBG HCO3 VBG Total CO2 VBG O2 Sat (Calc) VBG Base Excess VBG Potassium Hgb O2 Saturation Sodium Chloride Glucose Lactate FiO2 Potassium Carbon Dioxide Anion Gap BUN Creatinine Est GFR ( Amer) Est GFR (Non-Af Amer) Random Glucose Calcium Phosphorus Magnesium Iron TIBC % Saturation Total Bilirubin AST ALT Alkaline Phosphatase Lactate Dehydrogenase Total Creatine Kinase Troponin I 0.03 D NT-Pro-B Natriuret Pep 683 H Total Protein Albumin Globulin Albumin/Globulin Ratio Triglycerides 93 Cholesterol 89 L LDL Cholesterol Direct 46 HDL Cholesterol 22 L Venous Blood Potassium Urine Color Yellow Urine Appearance Clear Urine pH 5.5 Ur Specific [place] >= 1.030 Urine Protein 30 H Urine Glucose (UA) Negative Urine Ketones Negative Urine Blood Trace-intact H Urine Nitrate Negative Urine Bilirubin Negative Urine Urobilinogen 0.2 Ur Leukocyte Esterase Negative Urine RBC 5 - 10 Urine WBC 5 - 10 Ur Epithelial Cells 6 - 8 Influenza Typ A,B (EIA) Negative for flu a/b 04/06/18 04:50 WBC RBC Hgb Hct MCV MCH MCHC RDW Plt Count MPV Gran % Lymph % (Auto) [place] % (Auto) Eos % (Auto) Baso % (Auto) Gran # Lymph # (Auto) [place] # (Auto) Eos # (Auto) Baso # (Auto) PT INR APTT pCO2 48 H pO2 101.0 H HCO3 20.1 L ABG pH 7.23 L ABG Total CO2 21.6 L ABG O2 Saturation 99.0 H ABG O2 Content 13.1 L ABG Base Excess -7.2 L ABG Hemoglobin 9.5 L ABG Carboxyhemoglobin 1.5 POC ABG HHb (Measured) 1.0 ABG Methemoglobin 1.0 ABG O2 Capacity 13.2 L VBG pH VBG pCO2 VBG HCO3 VBG Total CO2 VBG O2 Sat (Calc) VBG Base Excess VBG Potassium Hgb O2 Saturation 96.5 Sodium Chloride Glucose Lactate FiO2 80.0 Potassium Carbon Dioxide Anion Gap BUN Creatinine Est GFR ( Amer) Est GFR (Non-Af Amer) Random Glucose Calcium Phosphorus Magnesium Iron TIBC % Saturation Total Bilirubin AST ALT Alkaline Phosphatase Lactate Dehydrogenase Total Creatine Kinase Troponin I NT-Pro-B Natriuret Pep Total Protein Albumin Globulin Albumin/Globulin Ratio Triglycerides Cholesterol LDL Cholesterol Direct HDL Cholesterol Venous Blood Potassium Urine Color Urine Appearance Urine pH Ur Specific [place] Urine Protein Urine Glucose (UA) Urine Ketones Urine Blood Urine Nitrate Urine Bilirubin Urine Urobilinogen Ur Leukocyte Esterase Urine RBC Urine WBC Ur Epithelial Cells Influenza Typ A,B (EIA) Assessment & Plan - Assessment and Plan (Free Text) Plan: Assessment Septic shock with hypoxic respiratory failure and acute renal failure (multiorgan dysfunction) due to right sided HCAP S/P Systemic Inflammatory Response Syndrome in a patient already being treated for probable aspiration pneumonitis (with Vancomycin and Cefepime for 7 days) S/P treatment with Vancomycin and Merrem as well Transaminitis R/O drug-induced, R/O secondary to hepatic steatosis new onset CVA (Left MCA) S/P tracheostomy tube placement and PEG tube placement POD #2; patient is S/P ventilator-dependent respiratory failure significant smoking, S/P inguinal hernia repair HTN history of CVA with encephalomalacia Plan gave loading doses of IV Vancomycin and started renally-adjusted Merrem and will start Levaquin as well pending blood, sputum cx, PCT; reviewed CXR with Dr. Valle unable to use Zyvox since patient is on Escitalopram overall prognosis is poor will monitor clinically
[2018-04-06] MEDS ORDERED: levoFLOXacin 750 mg in D5W 750 MG/150 ML BAG IVPB ONE (13:00)
--- NOTE | 2018-04-06 14:03 | PN ---
DATE: 04/06/2018 SUBJECTIVE: I saw him in the intensive care unit. He is on multiple IV antibiotics, multiple IV fluids. He is a bit alert. He is a DNR/DNI now. He is in trouble for acute kidney failure and most probably a pneumonia. He has an old CVA. PHYSICAL EXAMINATION: VITAL SIGNS: Temperature 97.3; pulse 79; blood pressure 92/61, better; respiratory rate 16; 100% O2 sat on BiPAP. HEAD: Atraumatic, normocephalic. HEART: Regular rate. LUNGS: Decreased breath sounds. ABDOMEN: Soft. EXTREMITIES: Right-sided weakness. No edema. MEDICATIONS: He is currently on acetylcysteine, aspirin, doxycycline, DuoNeb, Klonopin, Levophed, Lexapro, Merrem IV Primatene, Protonix, IV fluids and Solu-Medrol. LABORATORY DATA: He has a white count of 5.3, hemoglobin 9.9, hematocrit 32.3, platelets of 417. CO2 of 21; BUN 97, coming down; creatinine 4.1, coming down. GFR is sugar is 113, calcium 7.7, phosphorous 7.6, magnesium 2.5, total bili is 0.4, AST is 25, ALT is 15, alk phos 56. Last troponin 0.03. Total protein 6.8. ASSESSMENT AND PLAN: I do feel that he is starting to improve a little bit. He had large blood in the urine. Checking his labs tomorrow. Continue with aggressive treatment and care with antibiotics and IV fluids. He is here for acute renal failure, probable right pneumonia, dehydration, old cerebrovascular accident and hopefully he will continue to improve. Cash Chakraborty DO JEROMY
--- NOTE | 2018-04-06 14:21 | US ---
Date of service: 04/06/2018 PROCEDURE: Ultrasound of the Kidneys HISTORY: ckd COMPARISON: None available. TECHNIQUE: Sonogram of the kidneys. FINDINGS: RIGHT KIDNEY: Measures: 10.3 x 5.0 x 4.7 cm. Patient unable to adequately position limiting the interrogation of the right kidney/renal fossa. No hydronephrosis or definitive mass or cyst is appreciable. No prominent urolithiasis. LEFT KIDNEY: Measures: 10.4 x 4.1 x 5.1 cm. Normal in size, contour and echogenicity. No stone, solid mass lesion or hydronephrosis visualized. OTHER FINDINGS: None. IMPRESSION: Grossly nonfocal renal ultrasound bilaterally. Interrogation of the right kidney is limited by patient's inability to adequately position.
--- NOTE | 2018-04-06 15:12 | CP.PCM.APN ---
Subjective - Date & Time of Evaluation Date of Evaluation: 04/06/18 Time of Evaluation: 13:00 - Subjective Subjective: A 63 year old male, whose past medical history includes CVA, hypertension, depression, s/p trache (2 years ago), residual right side weakness, is brought into the emergency department via EMS form [facility] for evaluation of chest congestion, vomiting, and abnormal labs with elevated BUN and creatinine. Found to be hypotensive in ED. with BP - 72/46, placed on Levophed and Vasopressin, admitted to ICU with Renal Failure, Dehydration, Pneumonia, and COPD exacerbation, placed on Bipap, currently DNR/DNI. Pt. seen and examined at bedside. Bipap noted, pressors infusing. Review of Systems - Review of Systems Systems not reviewed;Unavailable: Unstable Vital Signs - Constitutional Constitutional: As Per HPI - EENT Eyes: As Per HPI Nose/Mouth/Throat: As Per HPI - Cardiovascular Cardiovascular: As Per HPI - Respiratory Respiratory: Chest Congestion - Gastrointestinal Gastrointestinal: Vomiting - Musculoskeletal Musculoskeletal: As Per HPI - Neurological Neurological: Weakness Objective - Vital Signs/Intake and Output Vital Signs (last 24 hours): Temp Pulse Resp BP Pulse Ox 98.6 F 78 17 121/79 95 04/06/18 13:59 04/06/18 14:00 04/06/18 13:59 04/06/18 14:00 04/06/18 13:59 Intake and Output: 04/06/18 04/06/18 06:59 18:59 Intake Total 1250 1122 Output Total 100 1000 Balance 1150 122 - Medications Medications: Current Medications Acetylcysteine (Acetylcysteine 20%) 4 ml IH BIDRESP MARIO Last Admin: 04/06/18 07:09 Dose: 4 ml Albuterol/Ipratropium (Duoneb 3 Mg/0.5 Mg (3 Ml) Ud) 3 ml IH [id number] MARIO Last Admin: 04/06/18 13:58 Dose: 3 ml Albuterol/Ipratropium (Duoneb 3 Mg/0.5 Mg (3 Ml) Ud) 3 ml IH Q2H PRN PRN Reason: Shortness of Breath Aspirin (Aspirin Chewable) 81 mg PO DAILY [facility] Last Admin: 04/06/18 10:26 Dose: Not Given Clonazepam (Klonopin) 0.5 mg PO HS MARIO; Protocol Hydrocortisone Sodium Succinate (Solu-Cortef) 50 mg IVP Q6H MARIO Last Admin: 04/06/18 10:27 Dose: 50 mg NOREPINEPHRINE BIT/0.9 % NACL (Levophed 4 Mg/ 250 Ml Ns Premixed) 4 mg in 250 mls @ 15 mls/hr IV .[id number] PRN; Protocol PRN Reason: TITRATE PER MD ORDER Last Titration: 04/06/18 14:00 Dose: 6 mcg/min, 22.5 mls/hr Meropenem/Sodium Chloride (Merrem Iv 500 Mg/Ns 50 Ml) 500 mg in 50 mls @ 100 mls/hr IVPB Q12 MARIO; Protocol Stop: 04/13/18 07:31 Last Admin: 04/06/18 08:24 Dose: 100 mls/hr Lactated Ringer's (Lactated Ringer's) 1,000 mls @ 100 mls/hr IV .Q10H MARIO Last Admin: 04/06/18 10:25 Dose: 100 mls/hr Vasopressin 20 units/ Sodium (Chloride) 101 mls @ 9.09 mls/hr IV .[id number] MARIO; Protocol Last Admin: 04/06/18 10:26 Dose: 9.09 mls/hr Vancomycin HCl 2 gm/ Sodium (Chloride) 500 mls @ 170 mls/hr IVPB ONCE ONE; Protocol Stop: 04/06/18 15:37 Last Admin: 04/06/18 13:38 Dose: 170 mls/hr Pantoprazole Sodium (Protonix Inj) 40 mg IVP DAILY [facility] Last Admin: 04/06/18 09:03 Dose: 40 mg - Labs Labs: 04/06/18 05:00 04/06/18 05:00 PT 21.8 SECONDS (9.4-12.5) H 04/05/18 19:08 INR 1.89 04/05/18 19:08 APTT 36.4 Seconds (25.1-36.5) 04/05/18 19:08 - Constitutional Appears: In Acute Distress - Head Exam Head Exam: NORMOCEPHALIC - Respiratory Exam Additional comments: Bipap noted to be on patient - Cardiovascular Exam Cardiovascular Exam: REGULAR RHYTHM, +S1, +S2 - GI/Abdominal Exam GI & Abdominal Exam: Soft - Rectal Exam Rectal Exam: Deferred - Extremities Exam Extremities Exam: Normal Inspection - Neurological Exam Neurological Exam: Altered - Skin Skin Exam: Dry, Intact Assessment and Plan - Assessment and Plan (Free Text) Assessment: Radiology Results Chest X-Ray 04/05/18 19:28 IMPRESSION: Minimal vascular congestion. Linear atelectasis at the right lung base. Chest X-Ray 04/06/18 04:10 IMPRESSION: Right IJ line in place situ as discussed above. No pneumothorax bilaterally. Increase patchy density mid to inferior right lung zone with linear atelectasis left base now identified. Trace airspace disease silhouettes the left hemidiaphragm. Minimal left pleural effusion not excluded. Head CT 04/06/18 05:18 IMPRESSION: No interval acute intracranial findings at this time. Extensive cystic encephalomalacia at the left temporoparietal and occipital distribution reiterated as well as a minimal focus of the right parietal vertex. Scattered calcifications are again seen minimally at the bilateral frontal lobes and at the left cerebral encephalomalacia border once again. Follow-up MRI is available for added characterization as clinically warranted. Concordant preliminary report from [facility], 04/06/2018 6:20 a.m.. Renal Ultrasound 04/06/18 23:16 IMPRESSION: Grossly nonfocal renal ultrasound bilaterally. Interrogation of the right kidney is limited by patient's inability to adequately position. Impressions Chest X-Ray 04/06/18 04:10 IMPRESSION: Right IJ line in place situ as discussed above. No pneumothorax bilaterally. Increase patchy density mid to inferior right lung zone with linear atelectasis left base now identified. Trace airspace disease silhouettes the left hemidiaphragm. Minimal left pleural effusion not excluded. Head CT 04/06/18 05:18 IMPRESSION: No interval acute intracranial findings at this time. Extensive cystic encephalomalacia at the left temporoparietal and occipital distribution reiterated as well as a minimal focus of the right parietal vertex. Scattered calcifications are again seen minimally at the bilateral frontal lobes and at the left cerebral encephalomalacia border once again. Follow-up MRI is available for added characterization as clinically warranted. Concordant preliminary report from [facility], 04/06/2018 6:20 a.m.. Renal Ultrasound 04/06/18 23:16 IMPRESSION: Grossly nonfocal renal ultrasound bilaterally. Interrogation of the right kidney is limited by patient's inability to adequately position. Laboratory Results WBC 5.3 10^3/uL (4.5-11.0) 04/06/18 05:00 RBC 3.54 10^6/uL (3.5-6.1) 04/06/18 05:00 Hgb 9.9 g/dL (14.0-18.0) L D 04/06/18 05:00 Hct 32.3 % (42.0-52.0) L 04/06/18 05:00 MCV 91.2 fl (80.0-105.0) 04/06/18 05:00 MCH 28.0 pg (25.0-35.0) 04/06/18 05:00 MCHC 30.7 g/dl (31.0-37.0) L 04/06/18 05:00 RDW 15.3 % (11.5-14.5) H 04/06/18 05:00 Plt Count 417 10^3/uL (120.0-450.0) 04/06/18 05:00 MPV 9.2 fl (7.0-11.0) 04/06/18 05:00 Gran % 86.1 % (50.0-68.0) H 04/06/18 05:00 Lymph % (Auto) 11.4 % (22.0-35.0) L 04/06/18 05:00 [place] % (Auto) 2.1 % (1.0-6.0) 04/06/18 05:00 Eos % (Auto) 0.0 % (1.5-5.0) L 04/06/18 05:00 Baso % (Auto) 0.4 % (0.0-3.0) 04/06/18 05:00 Gran # 4.55 (1.4-6.5) 04/06/18 05:00 Lymph # (Auto) 0.6 (1.2-3.4) L 04/06/18 05:00 [place] # (Auto) 0.1 (0.1-0.6) 04/06/18 05:00 Eos # (Auto) 0.0 (0.0-0.7) 04/06/18 05:00 Baso # (Auto) 0.02 K/mm3 (0.0-2.0) 04/06/18 05:00 PT 21.8 SECONDS (9.4-12.5) H 04/05/18 19:08 INR 1.89 04/05/18 19:08 APTT 36.4 Seconds (25.1-36.5) 04/05/18 19:08 pCO2 48 mm/Hg (35-45) H 04/06/18 04:50 pO2 101.0 mm/Hg (80-100) H 04/06/18 04:50 HCO3 20.1 mmol/L (21-28) L 04/06/18 04:50 ABG pH 7.23 (7.35-7.45) L 04/06/18 04:50 ABG Total CO2 21.6 mmol.L (22-28) L 04/06/18 04:50 ABG O2 Saturation 99.0 % (95-98) H 04/06/18 04:50 ABG O2 Content 13.1 ML/dl (15-23) L 04/06/18 04:50 ABG Base Excess -7.2 mmol/L (-2.0-3.0) L 04/06/18 04:50 ABG Hemoglobin 9.5 g/dL (11.7-17.4) L 04/06/18 04:50 ABG Carboxyhemoglobin 1.5 % (0.5-1.5) 04/06/18 04:50 POC ABG HHb (Measured) 1.0 % (0-5) 04/06/18 04:50 ABG Methemoglobin 1.0 % (0.0-3.0) 04/06/18 04:50 ABG O2 Capacity 13.2 mL/dl (16-24) L 04/06/18 04:50 VBG pH 7.25 (7.32-7.43) L 04/05/18 19:08 VBG pCO2 63.0 (40-60) H 04/05/18 19:08 VBG HCO3 27.6 mmol/l (21-28) 04/05/18 19:08 VBG Total CO2 29.5 mmol.L (22-28) H 04/05/18 19:08 VBG O2 Sat (Calc) 95.5 % (40-65) H 04/05/18 19:08 VBG Base Excess -1.0 mmol/L (0.0-2.0) L 04/05/18 19:08 VBG Potassium 5.2 mmol/L (3.6-5.2) 04/05/18 19:08 Hgb O2 Saturation 96.5 % (95.0-98.0) 04/06/18 04:50 Sodium 133.0 mmol/L (132-148) 04/05/18 19:08 Chloride 94.0 mmol/L (98-107) L 04/05/18 19:08 Glucose 86 mg/dl (75-110) 04/05/18 19:08 Lactate 1.6 mmol/L (0.7-2.1) 04/05/18 19:08 FiO2 80.0 % 04/06/18 04:50 Sodium 141 mmol/L (132-148) 04/06/18 05:00 Potassium 5.3 mmol/L (3.6-5.0) H 04/06/18 05:00 Chloride 109 mmol/L (98-107) H 04/06/18 05:00 Carbon Dioxide 21 mmol/L (21-33) 04/06/18 05:00 Anion Gap 17 (10-20) 04/06/18 05:00 BUN 97 mg/dL (7-21) H 04/06/18 05:00 Creatinine 4.1 mg/dl (0.8-1.5) H 04/06/18 05:00 Est GFR ( Amer) 18 04/06/18 05:00 Est GFR (Non-Af Amer) 15 04/06/18 05:00 Random Glucose 113 mg/dL (70-110) H 04/06/18 05:00 Calcium 7.7 mg/dL (8.4-10.5) L 04/06/18 05:00 Phosphorus 7.6 mg/dL (2.5-4.5) H 04/06/18 05:00 Magnesium 2.5 mg/dL (1.7-2.2) H 04/06/18 05:00 Iron 27 ug/dL (45-180) L 04/05/18 19:08 TIBC 232 ug/dL (261-462) L 04/05/18 19:08 % Saturation 12 % (20-55) L 04/05/18 19:08 Ferritin 157.0 ng/mL 04/06/18 01:50 Total Bilirubin 0.4 mg/dL (0.2-1.3) 04/06/18 05:00 AST 25 U/L (17-59) 04/06/18 05:00 ALT 15 U/L (7-56) 04/06/18 05:00 Alkaline Phosphatase 56 U/L (38-126) 04/06/18 05:00 Lactate Dehydrogenase 451 U/L (333-699) 04/05/18 19:08 Total Creatine Kinase 194 U/L (35-230) 04/05/18 19:08 Troponin I 0.03 ng/mL 04/06/18 05:00 NT-Pro-B Natriuret Pep 683 pg/mL (0-450) H 04/06/18 01:50 Total Protein 6.8 g/dL (5.8-8.3) 04/06/18 05:00 Albumin 3.2 g/dL (3.0-4.8) 04/06/18 05:00 Globulin 3.7 gm/dL 04/06/18 05:00 Albumin/Globulin Ratio 0.9 (1.1-1.8) L 04/06/18 05:00 Triglycerides 93 mg/dL (35-160) 04/06/18 01:50 Cholesterol 89 mg/dL (130-200) L 04/06/18 01:50 LDL Cholesterol Direct 46 mg/dL (0-129) 04/06/18 01:50 HDL Cholesterol 22 mg/dL (29-60) L 04/06/18 01:50 Vitamin B12 454 pg/mL (239-931) 04/06/18 01:50 25-OH Vitamin D Total 15.1 NG/ML (30.0-100.0) L 04/05/18 19:08 Procalcitonin 1.86 NG/ML (0.19-0.49) H 04/06/18 01:50 Venous Blood Potassium 5.2 mmol/L (3.6-5.2) 04/05/18 19:08 Urine Color Yellow (YELLOW) 04/06/18 06:03 Urine Appearance Slight-cloudy (CLEAR) 04/06/18 06:03 Urine pH 5.5 (4.7-8.0) 04/06/18 06:03 Ur Specific [place] 1.020 (1.005-1.035) 04/06/18 06:03 Urine Protein Trace mg/dL (<30 mg/dL) H 04/06/18 06:03 Urine Glucose (UA) Negative mg/dL (NEGATIVE) 04/06/18 06:03 Urine Ketones Negative mg/dL (NEGATIVE) 04/06/18 06:03 Urine Blood Large (NEGATIVE) H 04/06/18 06:03 Urine Nitrate Negative (NEGATIVE) 04/06/18 06:03 Urine Bilirubin Negative (NEGATIVE) 04/06/18 06:03 Urine Urobilinogen 0.2 E.U./dL (<1 E.U./dL) 04/06/18 06:03 Ur Leukocyte Esterase Negative [place]/uL (NEGATIVE) 04/06/18 06:03 Urine RBC Tntc /hpf (0-2) 04/06/18 06:03 Urine WBC Negative /hpf (0-6) 04/06/18 06:03 Ur Epithelial Cells 4 - 5 /hpf (0-5) 04/06/18 06:03 Urine Bacteria Few (NEG) 04/06/18 06:03 Influenza Typ A,B (EIA) Negative for flu a/b (NEGATIVE) 04/06/18 02:20 Ur L.pneumophila Ag Negative (NEGATIVE) 04/06/18 06:03 1. Septic Shock with Respiratory Failure, mostly likely secondary to Aspiration Pneumonia- continue IV pressors, and IV Fluids, monitor bP. 2.. REnal Failure, likely secondary to dehydration, and hypotension - continue IVF, pressors, trend Bun/ Creatinine, monitor I's and O's. 3. RLL Pneumonia Continue IV Antibiotics as per I.D., awaiting results of blood and urine cultures. 4. COPD Exacerbation- continue Bipap as per pulmonology, monitor respiratory status, recs as per pulmonology. 5. Metabolic/ respiratory Acidosis Continue Bipap as per pulmonology, follow repeat ABG's Continue to monitor clinical status and follow closely.
[2018-04-06 15:48] LABS: FOLATE 8.8 ng/mL
--- NOTE | 2018-04-06 17:55 | CON ---
PULMONARY CONSULTATION DATE OF CONSULTATION: 04/06/2018 REASON FOR PULMONARY CONSULTATION: Pneumonia. REFERRING PHYSICIAN: Cash Chakraborty DO History is obtained via extensive discussion with the ICU nurse. I have also reviewed the chart at length. The patient is not an adequate historian. HISTORY OF PRESENT ILLNESS: The patient is a chronically ill 63-year-old male, with past medical history significant for cerebrovascular accident (with residual right-sided weakness),bedridden, respiratory failure in the past, status post tracheostomy, hypertension, who presents to [facility] - transferred from [facility] - with increasing shortness of breath, cough, and chest congestion for the past two days. The patient also had multiple episodes of vomiting at the shelter. There is no history of significant sputum production. There is no history of chest pain, coughing up of blood, or chest discomfort - brought on with deep respirations. There is no history of temperatures, chills, or infectious exposure. There is no history of night sweats, weight loss, or appetite change prior to the above events. No history of calf pains. No history of syncope or diaphoresis. No history of recent travel or trauma. FAMILY HISTORY: No inheritable diseases. SOCIAL HISTORY: Positive for former tobacco usage. No alcohol. HOME MEDICATIONS: Hydralazine, Flomax, Lopressor, Zestril, Lexapro, Lovenox, Klonopin, aspirin, acetaminophen. ALLERGIES: NO KNOWN ALLERGIES. REVIEW OF SYSTEMS: As above, the patient did have multiple episodes of vomiting at the shelter. No diarrhea. No abdominal pain. No acute urinary symptoms. Rest of the review of systems is noncontributory. PHYSICAL EXAMINATION: GENERAL: The patient is lethargic at the present time. He is arousable (opens eyes). He is not short of breath at rest. VITAL SIGNS: Temperature is 98.5, pulse on the monitor is 84, respiratory rate 16, last blood pressure recorded 87/58. Oxygen saturation on BiPAP is 100%. HEENT: Normocephalic and atraumatic. No JVD. CARDIOVASCULAR: Positive S1 and S2. No S3 gallop. LUNGS: Crackles at both bases. Minimal bilateral rhonchi. No wheezing. EXTREMITIES: No clubbing, cyanosis, or edema. Calves are nontender to palpation. GI: Abdomen is soft, nontender, and nondistended. Bowel sounds are positive. SKIN: No acute rash. NEUROLOGIC: Limited at the present time. PERTINENT LABORATORY DATA: Chest x-ray was done this morning and reviewed. There is a right lower lobe infiltrate now present. There are also minimal linear changes noted at the left base. CBC: White count 6.6K, hemoglobin 12.1, hematocrit 38.4, and platelets of 486,000. Arterial blood gas was done on BiPAP with 80% oxygen. Results: pH 7.23, pCO2 of 48, pO2 of 101. Complete metabolic profile: Chloride 91, anion gap 23, BUN 119, creatinine 6.3, phosphorus 10.0, magnesium 3.0, troponin 0.05. Total protein 8.4. Rest of the metabolic profile is within normal limits. IMPRESSION: 1. Right lower lobe pneumonia - rule out aspiration. 2. Respiratory insufficiency. 3. Renal insufficiency. 4. Hypotension. 5. Anemia. PLAN: Again, I did discuss the case with the ICU nurse at length. I have also reviewed the chart at length. The patient is not an adequate historian at this point in time. The patient presents to [facility] - transferred from [facility] - with a 2-day history of worsening pulmonary symptoms. In addition, as above, the patient did have multiple episodes of vomiting. I did review the chest x-ray from this morning. There is a right lower lobe infiltrate noted. Given the above history, aspiration is quite possible. Dr. Lozano (Infectious Disease) has been called on the case for antibiotic usage. I have also reviewed the arterial blood gas. The arterial blood gas reveals a mixed disorder - mild respiratory acidosis with a severe metabolic acidosis. There is also a significant alveolar-arterial gradient. On physical exam, there is only minimal bronchospasm noted. I will continue the current nebulizer treatments and aspiration precautions for now. Renal evaluation has also been ordered. The patient appears critically ill at this point in time. He remains hypotensive on a norepinephrine drip. His overall status/prognosis appears poor. I will discuss the above with the entire ICU team in the next few moments. I will also discuss the above with Dr. Chakraborty later this morning. Thank you very much for this pulmonary consultation. Ezekiel Karpman, MD [facility] # [id number]
--- NOTE | 2018-04-06 18:00 | CON ---
DATE: 04/06/2018 CARDIOLOGY CONSULTATION REASON FOR CONSULTATION: Hypotension. HISTORY OF PRESENT ILLNESS: The patient is a 63-year-old male, who has a history of CVA with residual right handed hemiplegia. At that time, the patient required tracheostomy and gastrostomy feeding tube. The patient is currently a halfway resident, who was transferred to the halfway because of shortness of breath, vomiting and hypotension. The patient is aphasic. SOCIAL HISTORY: This patient is a halfway resident since he had his stroke with residual right hemiplegia. MEDICATIONS: Aspirin 81 mg once a day, doxycycline 100 mg intravenously every 12 hours, albuterol inhaler every 2 hours, Lactated Ringer's at 100 mL an hour, Levophed and vasopressin infusion. Protonix 40 mg intravenously daily, Solu-Cortef 200 mg intravenously every 6 hours. REVIEW OF SYSTEMS: No reported fever. No reported seizure activity, and he reported ventricular tachycardia. PHYSICAL EXAMINATION: GENERAL: The patient is a middle-aged male, who does not appear to be in respiratory distress. VITAL SIGNS: Blood pressure 89/57, heart rate 56, temperature 96.6, respirations 17. HEENT: Pale conjunctivae. CHEST: Poor air entry bilaterally. HEART: S1 and S2 regular. EXTREMITIES: Trace leg edema. LABORATORY DATA: Hemoglobin and hematocrit are 9.9 and 32.3, white count and platelet count today are within normal limits. The SMA-7, sodium 141, potassium 5.3, chloride 109, CO2 of 21, glucose 115, BUN 97, creatinine 4.1. Troponins were 0.05, 0.03, and 0.03. ProBNP is 683. Influenza serology screen is negative. INR is 1.89, PTT 36.4. The patient was not on Coumadin as per the medication list. Head CT scan without contrast, no interval, acute intracranial change. Extensive cystic encephalomalacia in the left temporoparietal and occipital distribution. Scattered calcifications are again seen minimally at the bilateral frontal lobes, and the left side of encephalomalacia border once again. EKG revealed normal sinus rhythm at a rate of 90. Echocardiograph study in June of last year was technically difficult, LV systolic function appears to be reduced. Chest x-ray revealed no cardiomegaly, bilateral alveolar infiltrate, worse on the right side compared to the left side. Urinalysis revealed large blood, negative wbc's. ASSESSMENT: 1. Hypotension, rule out underlying sepsis. 2. Mildly depressed left ventricular systolic function. 3. Rule out pneumonia. 4. History of cerebrovascular accident involving the left mid cerebral artery territory with residual aphasia and right hemiplegia. RECOMMENDATIONS: Continue current IV doxycycline and IV meropenem. Continue Solu-Cortef at 50 mg intravenously every 6 hours. Continue norepinephrine and vasopressin. Followup septic workup including blood cultures and urine culture. Obtain an echocardiograph study. Overall prognosis is poor, and the patient has a DNR status. Bhaskar Hope MD
[2018-04-06] MEDS ORDERED: Azithromycin 250 MG in Sodium Chloride 0.9% 250 ML IVPB SCH (21:00)
[2018-04-07] MEDS: Albuterol-Ipratrop 3 mg / 0.5 (3 ml) UD IH SCH ×4 (02:40→21:49)
[2018-04-07 06:42] LABS: BASO # 0.07 K/mm3 (0.0-2.0); BASO % 0.7 % (0.0-3.0); GRAN # 7.71 (1.4-6.5); GRAN % 81.2 % (50.0-68.0); HEMOGLOBIN 8.7 g/dL (14.0-18.0); LYMPH # 0.9 (1.2-3.4); LYMPH % 9.3 % (22.0-35.0); MEAN CELL VOLUME 91.2 fl (80.0-105.0); MEAN CORPUSCULAR HEMOGLOBIN 27.4 pg (25.0-35.0); MEAN CORPUSCULAR HGB CONC 30.1 g/dl (31.0-37.0); MEAN PLATELET VOLUME 8.9 fl (7.0-11.0); MONO # 0.8 (0.1-0.6); MONO % 8.8 % (1.0-6.0); PLATELET COUNT 372 10^3/uL (120.0-450.0); RBC 3.17 10^6/uL (3.5-6.1); RED CELL DISTRIBUTION WIDTH 15.4 % (11.5-14.5); WHITE BLOOD COUNT 9.5 10^3/uL (4.5-11.0)
[2018-04-07] MEDS: Lactated Ringer's 1,000 ML IV SCH ×2 (06:52→17:18)
[2018-04-07 06:55] LABS: ARTERIAL BLOOD GAS HCO3 21.6 mmol/L (21-28); ARTERIAL BLOOD GAS HEMOGLOBIN 7.4 g/dL (11.7-17.4); ARTERIAL BLOOD GAS O2 CAPACITY 10.5 mL/dl (16-24); ARTERIAL BLOOD GAS O2 CONTENT 10.5 ML/dl (15-23); ARTERIAL BLOOD GAS O2 SAT 100.1 % (95-98); ARTERIAL BLOOD GAS PCO2 40 mm/Hg (35-45); ARTERIAL BLOOD GAS PH 7.34 (7.35-7.45); ARTERIAL BLOOD GAS TCO2 22.8 mmol.L (22-28)
[2018-04-07 06:58] LABS: ALB/GLOB RATIO 0.9 (1.1-1.8); CALCIUM 8.7 mg/dL (8.4-10.5)
[2018-04-07] MEDS: Acetylcysteine 20% Inhal Soln (4ml) IH SCH ×2 (07:08→21:49)
[2018-04-07 07:57] LABS: ARTERIAL BLOOD GAS HCO3 20.2 mmol/L (21-28); ARTERIAL BLOOD GAS HEMOGLOBIN 8.5 g/dL (11.7-17.4); ARTERIAL BLOOD GAS O2 CAPACITY 11.7 mL/dl (16-24); ARTERIAL BLOOD GAS O2 SAT 93.8 % (95-98); ARTERIAL BLOOD GAS PCO2 42 mm/Hg (35-45); ARTERIAL BLOOD GAS PH 7.29 (7.35-7.45); ARTERIAL BLOOD GAS TCO2 21.5 mmol.L (22-28)
[2018-04-07] MEDS ORDERED: NOREPINEPHRINE BIT/0.9 % NACL 4 MG/250 ML BAG IV PRN (07:58)
[2018-04-07] MEDS ORDERED: Vancomycin 1.5 GM in Sodium Chloride 0.9% 500 ML IVPB ONE (08:00)
--- NOTE | 2018-04-07 08:10 | CP.CCUPN ---
<Raciel Marquez - Last Filed: 04/07/18 10:53> CCU Subjective - Physician Review Subjective (Free Text): Raciel Marquez PGY-1 Progress Note for ICU Patient seen and evaluated at bedside. No acute events reported overnight. Improvement in mental status noted. Patient is awake and appropriately vo calizing responses to questions. Thick bronchial secretions present in vacucontainer. Denies chest pain, palpitations, shortness of breath, abdominal pain, headaches, dizziness, blurry vision. CCU Objective - Vital Signs / Intake & Output Vital Signs (Last 4 hours): Vital Signs Temp Pulse Resp BP Pulse Ox 04/07/18 07:35 100 H 04/07/18 07:32 97.3 F L 108 H 17 04/07/18 07:31 97.3 F L 108 H 13 04/07/18 07:30 82/49 L 04/07/18 07:29 97.3 F L 91 H 12 95 04/07/18 07:21 97.3 F L 86 97 04/07/18 07:20 97.3 F L 84 12 98 04/07/18 07:16 97.3 F L 92 H 88 L 04/07/18 07:10 97.5 F L 77 13 100 04/07/18 07:09 97.5 F L 67 99 04/07/18 07:05 97.5 F L 67 100 04/07/18 07:00 104/71 04/07/18 06:59 97.5 F L 71 10 L 100 04/07/18 06:50 97.7 F 64 8 L 100 04/07/18 06:40 97.7 F 66 12 100 04/07/18 06:35 97.7 F 63 100 04/07/18 06:30 97.7 F 71 13 123/86 100 04/07/18 06:20 97.7 F 72 14 95 04/07/18 06:10 97.7 F 63 16 100 04/07/18 06:03 97.9 F 68 14 110/72 100 04/07/18 06:00 97.9 F 65 11 L 98 04/07/18 05:53 97.9 F 100 04/07/18 05:52 97.9 F 80 L 04/07/18 05:50 97.9 F 68 11 L 100 04/07/18 05:41 97.9 F 65 100 04/07/18 05:40 97.9 F 65 100 04/07/18 05:32 97.7 F 68 15 04/07/18 05:30 97.7 F 74 21 80 L 04/07/18 05:29 79 18 04/07/18 05:28 97.7 F 74 15 04/07/18 05:20 97.7 F 71 24 99 04/07/18 05:10 97.7 F 66 12 100 04/07/18 05:00 97.7 F 65 10 L 130/80 100 04/07/18 04:50 97.7 F 64 12 100 04/07/18 04:40 97.7 F 66 12 99 04/07/18 04:31 97.7 F 61 19 111/71 100 04/07/18 04:30 97.7 F 63 16 100 04/07/18 04:20 97.9 F 62 17 100 04/07/18 04:18 97.9 F 65 99 04/07/18 04:10 97.9 F 64 10 L 100 Intake and Output (Last 8hrs): Intake & Output 04/06/18 04/07/18 04/07/18 22:59 06:59 14:59 Intake Total 1561 1358 Output Total 1700 Balance 1561 -342 Weight 78.063 kg Intake: IV 1561 1358 IVF 1200 1200 IVPB 50 Levophed 206 Vasopressin 81 108 Output: Urine 1700 Urethral (Schneider) 1700 Other: # Bowel Movements 1 - Physical Exam Head: Positive for: Atraumatic, Normocephalic Pupils: Positive for: PERRL Extroacular Muscles: Positive for: EOMI Conjunctiva: Positive for: Normal Mouth: Positive for: Dry Neck: Positive for: Normal Range of Motion Respiratory/Chest: Positive for: Good Air Exchange, Rhonchi (rhonchi bilaterally.). Negative for: Respiratory Distress, Accessory Muscle Use Cardiovascular: Positive for: Regular Rate and Rhythm, Normal S1, S2. Negative for: Murmurs Abdomen: Negative for: Tenderness, Distention, Peritoneal Signs Back: Positive for: Normal Inspection Upper Extremity: Positive for: Normal Inspection, Normal ROM (Full ROM X 4 intact LUE, RUE 0/4). Negative for: Cyanosis, Edema Lower Extremity: Positive for: Normal Inspection, Normal ROM (Full ROM LLE, RLE 0/4). Negative for: Edema Neurological: Positive for: GCS=15, CN II-XII Intact, Speech Normal Skin: Positive for: Warm, Dry, Normal Color. Negative for: Rashes Psychiatric: Positive for: Alert, Oriented x 3, Normal Insight, Normal Concentration - Medications Active Medications: Active Medications Generic Name Dose Route Start Last Admin Trade Name Freq PRN Reason Stop Dose Admin Acetylcysteine 4 ml 04/05/18 23:30 04/07/18 07:08 Acetylcysteine 20% IH 4 ml BIDRESP ENRIQUE Administration Albuterol/Ipratropium 3 ml 04/06/18 02:00 04/07/18 07:08 Duoneb 3 Mg/0.5 Mg (3 Ml) Ud IH 3 ml [id number] ENRIQUE Administration Albuterol/Ipratropium 3 ml 04/05/18 23:16 Duoneb 3 Mg/0.5 Mg (3 Ml) Ud IH Q2H PRN Shortness of Breath Aspirin 81 mg 04/06/18 10:00 04/06/18 10:26 Aspirin Chewable PO Not Given DAILY ENRIQUE Clonazepam 0.5 mg 04/05/18 23:30 04/06/18 22:10 Klonopin PO Not Given HS ENRIQUE Protocol Hydrocortisone Sodium Succinate 50 mg 04/06/18 10:00 04/07/18 04:57 Solu-Cortef IVP 50 mg Q6H ENRIQUE Administration Meropenem/Sodium Chloride 500 mg in 50 mls @ 100 mls/hr 04/06/18 07:30 04/06/18 22:13 Merrem Iv 500 Mg/Ns 50 Ml IVPB 04/13/18 07:31 100 mls/hr Q12 ENRIQUE Administration Protocol Lactated Ringer's 1,000 mls @ 100 mls/hr 04/06/18 10:00 04/07/18 06:52 Lactated Ringer's IV 100 mls/hr .Q10H ENRIQUE Administration Vasopressin 20 units/ Sodium 101 mls @ 9.09 mls/hr 04/06/18 10:00 04/06/18 20:53 Chloride IV 9.09 mls/hr .[id number] ENRIQUE Administration Protocol 0.03 U/MIN Vancomycin HCl 1.5 gm/ Sodium 500 mls @ 167 mls/hr 04/07/18 08:00 Chloride IVPB 04/07/18 10:59 ONCE ONE Protocol NOREPINEPHRINE BIT/0.9 % NACL 4 mg in 250 mls @ 18.75 mls/hr 04/07/18 07:58 Levophed 4 Mg/ 250 Ml Ns Premixed IV .[id number] PRN TITRATE PER MD ORDER Protocol 5 MCG/MIN Pantoprazole Sodium 40 mg 04/06/18 10:00 04/06/18 09:03 Protonix Inj IVP 40 mg DAILY ENRIQUE Administration - Patient Studies Lab Studies: Microbiology Studies 04/05/18 19:38 Blood Culture - Preliminary Blood NO GROWTH AFTER 24 HOURS 04/05/18 19:08 Blood Culture - Preliminary Blood NO GROWTH AFTER 24 HOURS 04/06/18 09:00 Gram Stain - Final Sputum Induced Lab Studies 04/07/18 04/07/18 04/07/18 Range/Units 07:45 07:24 06:00 WBC (4.5-11.0) 10^3/uL RBC (3.5-6.1) 10^6/uL Hgb (14.0-18.0) g/dL Hct (42.0-52.0) % MCV (80.0-105.0) fl MCH (25.0-35.0) pg MCHC (31.0-37.0) g/dl RDW (11.5-14.5) % Plt Count (120.0-450.0) 10^3/uL MPV (7.0-11.0) fl Gran % (50.0-68.0) % Lymph % (Auto) (22.0-35.0) % Wayne % (Auto) (1.0-6.0) % Eos % (Auto) (1.5-5.0) % Baso % (Auto) (0.0-3.0) % Gran # (1.4-6.5) Lymph # (Auto) (1.2-3.4) Wayne # (Auto) (0.1-0.6) Eos # (Auto) (0.0-0.7) Baso # (Auto) (0.0-2.0) K/mm3 pCO2 42 40 (35-45) mm/Hg pO2 61.0 L 125.0 H (80-100) mm/Hg HCO3 20.2 L 21.6 (21-28) mmol/L ABG pH 7.29 L 7.34 L (7.35-7.45) ABG Total CO2 21.5 L 22.8 (22-28) mmol.L ABG O2 Saturation 93.8 L 100.1 H (95-98) % ABG O2 Content 11.0 L 10.5 L (15-23) ML/dl ABG Base Excess -6.0 L -3.9 L (-2.0-3.0) mmol/L ABG Hemoglobin 8.5 L 7.4 L (11.7-17.4) g/dL ABG Carboxyhemoglobin 1.8 H 1.6 H (0.5-1.5) % POC ABG HHb (Measured) 6.1 H -0.1 L (0-5) % ABG Methemoglobin 0.4 0.7 (0.0-3.0) % ABG O2 Capacity 11.7 L 10.5 L (16-24) mL/dl Hgb O2 Saturation 91.7 L 97.8 (95.0-98.0) % FiO2 36.0 40.0 % Sodium (132-148) mmol/L Potassium (3.6-5.0) mmol/L Chloride (98-107) mmol/L Carbon Dioxide (21-33) mmol/L Anion Gap (10-20) BUN (7-21) mg/dL Creatinine (0.8-1.5) mg/dl Est GFR ( Amer) Est GFR (Non-Af Amer) POC Glucose (mg/dL) 142 H (65-110) mg/dL Random Glucose (70-110) mg/dL Calcium (8.4-10.5) mg/dL Phosphorus (2.5-4.5) mg/dL Magnesium (1.7-2.2) mg/dL Ferritin ng/mL Total Bilirubin (0.2-1.3) mg/dL AST (17-59) U/L ALT (7-56) U/L Alkaline Phosphatase (38-126) U/L Total Protein (5.8-8.3) g/dL Albumin (3.0-4.8) g/dL Globulin gm/dL Albumin/Globulin Ratio (1.1-1.8) Vitamin B12 (239-931) pg/mL 25-OH Vitamin D Total (30.0-100.0) NG/ML Folate ng/mL Procalcitonin (0.19-0.49) NG/ML Ur L.pneumophila Ag (NEGATIVE) 04/07/18 04/07/18 04/06/18 Range/Units 05:45 05:45 06:03 WBC 9.5 D (4.5-11.0) 10^3/uL RBC 3.17 L (3.5-6.1) 10^6/uL Hgb 8.7 L (14.0-18.0) g/dL Hct 28.9 L (42.0-52.0) % MCV 91.2 (80.0-105.0) fl MCH 27.4 (25.0-35.0) pg MCHC 30.1 L (31.0-37.0) g/dl RDW 15.4 H (11.5-14.5) % Plt Count 372 (120.0-450.0) 10^3/uL MPV 8.9 (7.0-11.0) fl Gran % 81.2 H (50.0-68.0) % Lymph % (Auto) 9.3 L (22.0-35.0) % Wayne % (Auto) 8.8 H (1.0-6.0) % Eos % (Auto) 0.0 L (1.5-5.0) % Baso % (Auto) 0.7 (0.0-3.0) % Gran # 7.71 H (1.4-6.5) Lymph # (Auto) 0.9 L (1.2-3.4) Wayne # (Auto) 0.8 H (0.1-0.6) Eos # (Auto) 0.0 (0.0-0.7) Baso # (Auto) 0.07 (0.0-2.0) K/mm3 pCO2 (35-45) mm/Hg pO2 (80-100) mm/Hg HCO3 (21-28) mmol/L ABG pH (7.35-7.45) ABG Total CO2 (22-28) mmol.L ABG O2 Saturation (95-98) % ABG O2 Content (15-23) ML/dl ABG Base Excess (-2.0-3.0) mmol/L ABG Hemoglobin (11.7-17.4) g/dL ABG Carboxyhemoglobin (0.5-1.5) % POC ABG HHb (Measured) (0-5) % ABG Methemoglobin (0.0-3.0) % ABG O2 Capacity (16-24) mL/dl Hgb O2 Saturation (95.0-98.0) % FiO2 % Sodium 143 (132-148) mmol/L Potassium 4.7 (3.6-5.0) mmol/L Chloride 111 H (98-107) mmol/L Carbon Dioxide 26 (21-33) mmol/L Anion Gap 11 (10-20) BUN 67 H (7-21) mg/dL Creatinine 2.9 H (0.8-1.5) mg/dl Est GFR ( Amer) 27 Est GFR (Non-Af Amer) 22 POC Glucose (mg/dL) (65-110) mg/dL Random Glucose 146 H (70-110) mg/dL Calcium 8.7 (8.4-10.5) mg/dL Phosphorus 4.8 H (2.5-4.5) mg/dL Magnesium 2.3 H (1.7-2.2) mg/dL Ferritin ng/mL Total Bilirubin 0.2 (0.2-1.3) mg/dL AST 25 (17-59) U/L ALT 17 (7-56) U/L Alkaline Phosphatase 56 (38-126) U/L Total Protein 6.4 (5.8-8.3) g/dL Albumin 3.0 (3.0-4.8) g/dL Globulin 3.4 gm/dL Albumin/Globulin Ratio 0.9 L (1.1-1.8) Vitamin B12 (239-931) pg/mL 25-OH Vitamin D Total (30.0-100.0) NG/ML Folate ng/mL Procalcitonin (0.19-0.49) NG/ML Ur L.pneumophila Ag Negative (NEGATIVE) 04/06/18 04/06/18 04/05/18 Range/Units 01:50 01:50 19:08 WBC (4.5-11.0) 10^3/uL RBC (3.5-6.1) 10^6/uL Hgb (14.0-18.0) g/dL Hct (42.0-52.0) % MCV (80.0-105.0) fl MCH (25.0-35.0) pg MCHC (31.0-37.0) g/dl RDW (11.5-14.5) % Plt Count (120.0-450.0) 10^3/uL MPV (7.0-11.0) fl Gran % (50.0-68.0) % Lymph % (Auto) (22.0-35.0) % Wayne % (Auto) (1.0-6.0) % Eos % (Auto) (1.5-5.0) % Baso % (Auto) (0.0-3.0) % Gran # (1.4-6.5) Lymph # (Auto) (1.2-3.4) Wayne # (Auto) (0.1-0.6) Eos # (Auto) (0.0-0.7) Baso # (Auto) (0.0-2.0) K/mm3 pCO2 (35-45) mm/Hg pO2 (80-100) mm/Hg HCO3 (21-28) mmol/L ABG pH (7.35-7.45) ABG Total CO2 (22-28) mmol.L ABG O2 Saturation (95-98) % ABG O2 Content (15-23) ML/dl ABG Base Excess (-2.0-3.0) mmol/L ABG Hemoglobin (11.7-17.4) g/dL ABG Carboxyhemoglobin (0.5-1.5) % POC ABG HHb (Measured) (0-5) % ABG Methemoglobin (0.0-3.0) % ABG O2 Capacity (16-24) mL/dl Hgb O2 Saturation (95.0-98.0) % FiO2 % Sodium (132-148) mmol/L Potassium (3.6-5.0) mmol/L Chloride (98-107) mmol/L Carbon Dioxide (21-33) mmol/L Anion Gap (10-20) BUN (7-21) mg/dL Creatinine (0.8-1.5) mg/dl Est GFR ( Amer) Est GFR (Non-Af Amer) POC Glucose (mg/dL) (65-110) mg/dL Random Glucose (70-110) mg/dL Calcium (8.4-10.5) mg/dL Phosphorus (2.5-4.5) mg/dL Magnesium (1.7-2.2) mg/dL Ferritin 157.0 ng/mL Total Bilirubin (0.2-1.3) mg/dL AST (17-59) U/L ALT (7-56) U/L Alkaline Phosphatase (38-126) U/L Total Protein (5.8-8.3) g/dL Albumin (3.0-4.8) g/dL Globulin gm/dL Albumin/Globulin Ratio (1.1-1.8) Vitamin B12 454 (239-931) pg/mL 25-OH Vitamin D Total 15.1 L (30.0-100.0) NG/ML Folate 8.8 ng/mL Procalcitonin 1.86 H (0.19-0.49) NG/ML Ur L.pneumophila Ag (NEGATIVE) Laboratory Results - last 24 hr 04/05/18 04/06/18 04/06/18 19:08 01:50 01:50 WBC RBC Hgb Hct MCV MCH MCHC RDW Plt Count MPV Gran % Lymph % (Auto) Wayne % (Auto) Eos % (Auto) Baso % (Auto) Gran # Lymph # (Auto) Wayne # (Auto) Eos # (Auto) Baso # (Auto) pCO2 pO2 HCO3 ABG pH ABG Total CO2 ABG O2 Saturation ABG O2 Content ABG Base Excess ABG Hemoglobin ABG Carboxyhemoglobin POC ABG HHb (Measured) ABG Methemoglobin ABG O2 Capacity Hgb O2 Saturation FiO2 Sodium Potassium Chloride Carbon Dioxide Anion Gap BUN Creatinine Est GFR ( Amer) Est GFR (Non-Af Amer) POC Glucose (mg/dL) Random Glucose Calcium Phosphorus Magnesium Ferritin 157.0 Total Bilirubin AST ALT Alkaline Phosphatase Total Protein Albumin Globulin Albumin/Globulin Ratio Vitamin B12 454 25-OH Vitamin D Total 15.1 L Folate 8.8 Procalcitonin 1.86 H Ur L.pneumophila Ag 04/06/18 04/07/18 04/07/18 06:03 05:45 05:45 WBC 9.5 D RBC 3.17 L Hgb 8.7 L Hct 28.9 L MCV 91.2 MCH 27.4 MCHC 30.1 L RDW 15.4 H Plt Count 372 MPV 8.9 Gran % 81.2 H Lymph % (Auto) 9.3 L Wayne % (Auto) 8.8 H Eos % (Auto) 0.0 L Baso % (Auto) 0.7 Gran # 7.71 H Lymph # (Auto) 0.9 L Wayne # (Auto) 0.8 H Eos # (Auto) 0.0 Baso # (Auto) 0.07 pCO2 pO2 HCO3 ABG pH ABG Total CO2 ABG O2 Saturation ABG O2 Content ABG Base Excess ABG Hemoglobin ABG Carboxyhemoglobin POC ABG HHb (Measured) ABG Methemoglobin ABG O2 Capacity Hgb O2 Saturation FiO2 Sodium 143 Potassium 4.7 Chloride 111 H Carbon Dioxide 26 Anion Gap 11 BUN 67 H Creatinine 2.9 H Est GFR ( Amer) 27 Est GFR (Non-Af Amer) 22 POC Glucose (mg/dL) Random Glucose 146 H Calcium 8.7 Phosphorus 4.8 H Magnesium 2.3 H Ferritin Total Bilirubin 0.2 AST 25 ALT 17 Alkaline Phosphatase 56 Total Protein 6.4 Albumin 3.0 Globulin 3.4 Albumin/Globulin Ratio 0.9 L Vitamin B12 25-OH Vitamin D Total Folate Procalcitonin Ur L.pneumophila Ag Negative 04/07/18 04/07/18 04/07/18 06:00 07:24 07:45 WBC RBC Hgb Hct MCV MCH MCHC RDW Plt Count MPV Gran % Lymph % (Auto) Wayne % (Auto) Eos % (Auto) Baso % (Auto) Gran # Lymph # (Auto) Wayne # (Auto) Eos # (Auto) Baso # (Auto) pCO2 40 42 pO2 125.0 H 61.0 L HCO3 21.6 20.2 L ABG pH 7.34 L 7.29 L ABG Total CO2 22.8 21.5 L ABG O2 Saturation 100.1 H 93.8 L ABG O2 Content 10.5 L 11.0 L ABG Base Excess -3.9 L -6.0 L ABG Hemoglobin 7.4 L 8.5 L ABG Carboxyhemoglobin 1.6 H 1.8 H POC ABG HHb (Measured) -0.1 L 6.1 H ABG Methemoglobin 0.7 0.4 ABG O2 Capacity 10.5 L 11.7 L Hgb O2 Saturation 97.8 91.7 L FiO2 40.0 36.0 Sodium Potassium Chloride Carbon Dioxide Anion Gap BUN Creatinine Est GFR ( Amer) Est GFR (Non-Af Amer) POC Glucose (mg/dL) 142 H Random Glucose Calcium Phosphorus Magnesium Ferritin Total Bilirubin AST ALT Alkaline Phosphatase Total Protein Albumin Globulin Albumin/Globulin Ratio Vitamin B12 25-OH Vitamin D Total Folate Procalcitonin Ur L.pneumophila Ag Radiology Impressions: Radiology Impressions Chest X-Ray 04/05/18 19:28 IMPRESSION: Minimal vascular congestion. Linear atelectasis at the right lung base. Chest X-Ray 04/06/18 04:10 IMPRESSION: Right IJ line in place situ as discussed above. No pneumothorax bilaterally. Increase patchy density mid to inferior right lung zone with linear atelectasis left base now identified. Trace airspace disease silhouettes the left hemidiaphragm. Minimal left pleural effusion not excluded. Head CT 04/06/18 05:18 IMPRESSION: No interval acute intracranial findings at this time. Extensive cystic encephalomalacia at the left temporoparietal and occipital distribution reiterated as well as a minimal focus of the right parietal vertex. Scattered calcifications are again seen minimally at the bilateral frontal lobes and at the left cerebral encephalomalacia border once again. Follow-up MRI is available for added characterization as clinically warranted. Concordant preliminary report from [facility], 04/06/2018 6:20 a.m.. Renal Ultrasound 04/06/18 23:16 IMPRESSION: Grossly nonfocal renal ultrasound bilaterally. Interrogation of the right kidney is limited by patient's inability to adequately position. Review of Systems - Review of Systems Review of Systems: 12 point ROS completed and negative except as described in HPI Critical Care Progress Note - Nutrition Nutrition: Nutrition Category Date Time Status NPO Diet [DIET] Diets 04/05/18 Breakfast Ordered Assessment/Plan - Assessment and Plan (Free Text) Assessment: 63 y/o male PMH of HTN, CVA (with right sided residual weakness) and respiratory failure (BiPAP discontinued) presents from [facility] for 2 days history of chest congestion, SOB, and poor oral intake. He was found to have APOLINAR, hypotension, Resp distress currently on NC, and RLL HCAP. Patient under ICU management. Pulm: -B/l rhonchi on lung bases and lives in retirement- HCAP -CXR (04/05): Linear atelectasis R lung base -Repeat CXR (04/06) shows patchy density in inferior R lung with linear atelectasis -Repeat CXR (04/07) shows improved R lung consolidation -Merrem, Levaquin -Mucomyst bid -doneb enrique and prn, currently on NC -repeat ABG (04/06) shows respiratory acidosis -repeat ABG (04/07) shows mixed resp acidosis and resp alkalosis -BNP 683 -Flu negative, Legionella negative -F/u mycoplasma IGM -Procal 1.86 -F/u cx blood, sputum -Pulmonology consulted. Dr. Valle recdileep appreciated Cardiovascular: -Septic shock -Sustained hypotension BP currently 92/54, 82/49. BP meds held. -3 L NS IVF on admission, currently on LR @ 100 cc -Levophed 5mcg/min, Vasopressin IV 0.03 u/min for pressure support. Monitor closely -central IV access -EKG on admission: NSR @[address]/T wave changes -trop negative x3 -Cardiology consulted - Dr. Hope. Repeat echo LVEF 71%, moderate-severe TR. Normal LV and systolic function. EF 41% back in 07/04 Neuro: -Head CT 04/06 shows age appropriate atrophy and mild chronic disease -AAOx3 -GCS 15 [id number] GI: Repeat swallow eval - dysphagia pureed diet with thick nectar liquid. Aspiration precautions in place. Prophylaxis Protonix IV Heme: -Normocytic anemia Hgb 8.7 from 9.9, continue to monitor, likely dilutional. Hemodynamically stable -Possibly due to chronic disease/ iron deficiency -Patient stable, no signs of bleeding -FOBT, iron studies ordered -ASA 81 Nephro: -APOLINAR likely due to dehydration. Improving to 2.9 from 6.3 s/p 3 Liters IVF and maintenance LR -hold lisinopril, HCTZ -Strict I/Os, Schneider in place -Renal U/S 04/06 unremarkable -IVF LR @100cc/hr -Improved Hyperkalemia 4.7. Monitor closely -Hyperchloremic 2/2 NS IVF, currently on LR -Nephro consulted Dr Christopher - recommendations appreciated. Continue with fluid resuscitation -UA: +protein, blood, Ucx ordered - monitor lytes via CMP, replete as indicated ID: -ID consult placed -Dr Lozano- recommendations appreciated -Panculture -Renally adjusted Merrem 500 BID, Levaquin Q48H -Procal 1.86 Psych: c/w home Lexapro and Klonopin Prophylaxis: -DVT: SCD -GI ppx: protonix IV Patient seen, case reviewed, and plan approved by Dr. Garcia. Raciel Marquez, PGY-1 <Rick Garcia - Last Filed: 04/07/18 13:20> CCU Objective - Vital Signs / Intake & Output Vital Signs (Last 4 hours): Vital Signs Temp Pulse Resp BP Pulse Ox 04/07/18 12:15 98.1 F 79 13 132/85 98 04/07/18 12:10 98.1 F 77 12 100 04/07/18 12:09 98.1 F 76 100 04/07/18 12:00 97.9 F 73 15 138/79 100 04/07/18 11:53 97.9 F 74 99 04/07/18 11:50 97.9 F 73 99 04/07/18 11:46 97.9 F 69 13 136/66 99 04/07/18 11:40 97.7 F 73 13 100 04/07/18 11:30 82/49 L 04/07/18 11:29 97.9 F 83 10 L 97 04/07/18 11:20 97.9 F 84 11 L 98 04/07/18 11:15 97.9 F 83 13 87/49 L 95 04/07/18 11:13 97.9 F 85 100 04/07/18 11:10 97.9 F 86 11 L 96 04/07/18 11:00 87/50 L 04/07/18 10:59 97.9 F 79 11 L 100 04/07/18 10:50 97.7 F 77 12 99 04/07/18 10:48 97.7 F 77 98 04/07/18 10:45 97.9 F 86 13 91/49 L 98 04/07/18 10:40 97.9 F 78 11 L 98 04/07/18 10:30 97.9 F 77 12 108/65 98 04/07/18 10:20 98.1 F 76 12 99 04/07/18 10:18 98.1 F 73 98 04/07/18 10:16 98.1 F 84 97 04/07/18 10:15 110/38 L 04/07/18 10:14 98.1 F 77 7 L 94 L 04/07/18 10:13 98.1 F 74 98 04/07/18 10:12 98.1 F 74 98 04/07/18 10:11 98.1 F 75 98 04/07/18 10:10 98.1 F 75 9 L 97 04/07/18 10:03 98.1 F 79 99 04/07/18 10:00 98/61 L 04/07/18 09:59 98.1 F 83 8 L 99 04/07/18 09:57 81 04/07/18 09:50 98.2 F 81 6 L 99 04/07/18 09:45 98.1 F 77 16 130/78 96 04/07/18 09:40 98.1 F 78 96 04/07/18 09:36 98.2 F 74 96 04/07/18 09:31 98.2 F 85 15 118/55 L 93 L 04/07/18 09:30 98.1 F 99 H 17 90 L 04/07/18 09:27 98.1 F 76 99 04/07/18 09:20 98.1 F 73 99 Intake and Output (Last 8hrs): Intake & Output 04/06/18 04/07/18 04/07/18 22:59 06:59 14:59 Intake Total 1561 1358 770 Output Total 1700 Balance 1561 -342 770 Weight 172 lb 1.6 oz Intake: IV 1561 1358 770 IVF 1200 1200 IVPB 50 600 Levophed 206 Vasopressin 81 108 Output: Urine 1700 Urethral (Shcneider) 1700 Other: # Bowel Movements 1 - Medications Active Medications: Active Medications Generic Name Dose Route Start Last Admin Trade Name Freq PRN Reason Stop Dose Admin Acetylcysteine 4 ml 04/05/18 23:30 04/07/18 07:08 Acetylcysteine 20% IH 4 ml BIDRESP ENRIQUE Administration Albuterol/Ipratropium 3 ml 04/06/18 02:00 04/07/18 13:07 Duoneb 3 Mg/0.5 Mg (3 Ml) Ud IH 3 ml [id number] ENRIQUE Administration Albuterol/Ipratropium 3 ml 04/05/18 23:16 Duoneb 3 Mg/0.5 Mg (3 Ml) Ud IH Q2H PRN Shortness of Breath Aspirin 81 mg 04/06/18 10:00 04/07/18 12:22 Aspirin Chewable PO 81 mg DAILY ENRIQUE Administration Clonazepam 0.5 mg 04/05/18 23:30 04/06/18 22:10 Klonopin PO Not Given HS ENRIQUE Protocol Hydrocortisone Sodium Succinate 50 mg 04/06/18 10:00 04/07/18 09:35 Solu-Cortef IVP 50 mg Q6H ENRIQUE Administration Meropenem/Sodium Chloride 500 mg in 50 mls @ 100 mls/hr 04/06/18 07:30 1 06/08/17 09:35 Merrem Iv 500 Mg/Ns 50 Ml IVPB 04/13/18 07:31 100 mls/hr Q12 ENRIQUE Administration Protocol Lactated Ringer's 1,000 mls @ 100 mls/hr 04/06/18 10:00 04/07/18 06:52 Lactated Ringer's IV 100 mls/hr .Q10H ENRIQUE Administration Vasopressin 20 units/ Sodium 101 mls @ 9.09 mls/hr 04/06/18 10:00 04/07/18 08:00 Chloride IV 9.09 mls/hr .[id number] ENRIQUE Administration Protocol 0.03 U/MIN NOREPINEPHRINE BIT/0.9 % NACL 4 mg in 250 mls @ 18.75 mls/hr 04/07/18 07:58 04/07/18 12:20 Levophed 4 Mg/ 250 Ml Ns Premixed IV 2 mcg/min .[id number] PRN 7.5 mls/hr TITRATE PER MD ORDER Titration Protocol 5 MCG/MIN Levofloxacin/Dextrose 750 mg in 150 mls @ 100 mls/hr 04/08/18 08:45 Levaquin 750mg IVPB 04/15/18 08:46 Q48H ENRIQUE Protocol Pantoprazole Sodium 40 mg 04/06/18 10:00 04/07/18 09:35 Protonix Inj IVP 40 mg DAILY ENRIQUE Administration - Patient Studies Lab Studies: Microbiology Studies 04/06/18 09:00 Gram Stain - Final Sputum Induced Sputum Culture - Preliminary Gram Negative Gonzalez 04/05/18 21:13 Urine Culture - Final Urine No Growth (<1,000 CFU/ML) 04/05/18 19:38 Blood Culture - Preliminary Blood NO GROWTH AFTER 24 HOURS 04/05/18 19:08 Blood Culture - Preliminary Blood NO GROWTH AFTER 24 HOURS Lab Studies 04/07/18 04/07/18 04/07/18 Range/Units 07:45 07:24 06:00 WBC (4.5-11.0) 10^3/uL RBC (3.5-6.1) 10^6/uL Hgb (14.0-18.0) g/dL Hct (42.0-52.0) % MCV (80.0-105.0) fl MCH (25.0-35.0) pg MCHC (31.0-37.0) g/dl RDW (11.5-14.5) % Plt Count (120.0-450.0) 10^3/uL MPV (7.0-11.0) fl Gran % (50.0-68.0) % Lymph % (Auto) (22.0-35.0) % Wayne % (Auto) (1.0-6.0) % Eos % (Auto) (1.5-5.0) % Baso % (Auto) (0.0-3.0) % Gran # (1.4-6.5) Lymph # (Auto) (1.2-3.4) Wayne # (Auto) (0.1-0.6) Eos # (Auto) (0.0-0.7) Baso # (Auto) (0.0-2.0) K/mm3 Neutrophils % (Manual) (50.0-70.0) % Band Neutrophils % (0-2) % Lymphocytes % (Manual) (22.0-35.0) % Monocytes % (Manual) (1.0-6.0) % Metamyelocytes % % Nucleated RBC % % pCO2 42 40 (35-45) mm/Hg pO2 61.0 L 125.0 H (80-100) mm/Hg HCO3 20.2 L 21.6 (21-28) mmol/L ABG pH 7.29 L 7.34 L (7.35-7.45) ABG Total CO2 21.5 L 22.8 (22-28) mmol.L ABG O2 Saturation 93.8 L 100.1 H (95-98) % ABG O2 Content 11.0 L 10.5 L (15-23) ML/dl ABG Base Excess -6.0 L -3.9 L (-2.0-3.0) mmol/L ABG Hemoglobin 8.5 L 7.4 L (11.7-17.4) g/dL ABG Carboxyhemoglobin 1.8 H 1.6 H (0.5-1.5) % POC ABG HHb (Measured) 6.1 H -0.1 L (0-5) % ABG Methemoglobin 0.4 0.7 (0.0-3.0) % ABG O2 Capacity 11.7 L 10.5 L (16-24) mL/dl Hgb O2 Saturation 91.7 L 97.8 (95.0-98.0) % FiO2 36.0 40.0 % Sodium (132-148) mmol/L Potassium (3.6-5.0) mmol/L Chloride (98-107) mmol/L Carbon Dioxide (21-33) mmol/L Anion Gap (10-20) BUN (7-21) mg/dL Creatinine (0.8-1.5) mg/dl Est GFR ( Amer) Est GFR (Non-Af Amer) POC Glucose (mg/dL) 142 H (65-110) mg/dL Random Glucose (70-110) mg/dL Calcium (8.4-10.5) mg/dL Phosphorus (2.5-4.5) mg/dL Magnesium (1.7-2.2) mg/dL Total Bilirubin (0.2-1.3) mg/dL AST (17-59) U/L ALT (7-56) U/L Alkaline Phosphatase (38-126) U/L Total Protein (5.8-8.3) g/dL Albumin (3.0-4.8) g/dL Globulin gm/dL Albumin/Globulin Ratio (1.1-1.8) Vitamin B12 (239-931) pg/mL Folate ng/mL 04/07/18 04/07/18 04/06/18 Range/Units 05:45 05:45 01:50 WBC 9.5 D (4.5-11.0) 10^3/uL RBC 3.17 L (3.5-6.1) 10^6/uL Hgb 8.7 L (14.0-18.0) g/dL Hct 28.9 L (42.0-52.0) % MCV 91.2 (80.0-105.0) fl MCH 27.4 (25.0-35.0) pg MCHC 30.1 L (31.0-37.0) g/dl RDW 15.4 H (11.5-14.5) % Plt Count 372 (120.0-450.0) 10^3/uL MPV 8.9 (7.0-11.0) fl Gran % 81.2 H (50.0-68.0) % Lymph % (Auto) 9.3 L (22.0-35.0) % Wayne % (Auto) 8.8 H (1.0-6.0) % Eos % (Auto) 0.0 L (1.5-5.0) % Baso % (Auto) 0.7 (0.0-3.0) % Gran # 7.71 H (1.4-6.5) Lymph # (Auto) 0.9 L (1.2-3.4) Wayne # (Auto) 0.8 H (0.1-0.6) Eos # (Auto) 0.0 (0.0-0.7) Baso # (Auto) 0.07 (0.0-2.0) K/mm3 Neutrophils % (Manual) 69 (50.0-70.0) % Band Neutrophils % 4 H (0-2) % Lymphocytes % (Manual) 15 L (22.0-35.0) % Monocytes % (Manual) 6 (1.0-6.0) % Metamyelocytes % 6 % Nucleated RBC % 3 % pCO2 (35-45) mm/Hg pO2 (80-100) mm/Hg HCO3 (21-28) mmol/L ABG pH (7.35-7.45) ABG Total CO2 (22-28) mmol.L ABG O2 Saturation (95-98) % ABG O2 Content (15-23) ML/dl ABG Base Excess (-2.0-3.0) mmol/L ABG Hemoglobin (11.7-17.4) g/dL ABG Carboxyhemoglobin (0.5-1.5) % POC ABG HHb (Measured) (0-5) % ABG Methemoglobin (0.0-3.0) % ABG O2 Capacity (16-24) mL/dl Hgb O2 Saturation (95.0-98.0) % FiO2 % Sodium 143 (132-148) mmol/L Potassium 4.7 (3.6-5.0) mmol/L Chloride 111 H (98-107) mmol/L Carbon Dioxide 26 (21-33) mmol/L Anion Gap 11 (10-20) BUN 67 H (7-21) mg/dL Creatinine 2.9 H (0.8-1.5) mg/dl Est GFR ( Amer) 27 Est GFR (Non-Af Amer) 22 POC Glucose (mg/dL) (65-110) mg/dL Random Glucose 146 H (70-110) mg/dL Calcium 8.7 (8.4-10.5) mg/dL Phosphorus 4.8 H (2.5-4.5) mg/dL Magnesium 2.3 H (1.7-2.2) mg/dL Total Bilirubin 0.2 (0.2-1.3) mg/dL AST 25 (17-59) U/L ALT 17 (7-56) U/L Alkaline Phosphatase 56 (38-126) U/L Total Protein 6.4 (5.8-8.3) g/dL Albumin 3.0 (3.0-4.8) g/dL Globulin 3.4 gm/dL Albumin/Globulin Ratio 0.9 L (1.1-1.8) Vitamin B12 454 (239-931) pg/mL Folate 8.8 ng/mL Laboratory Results - last 24 hr 04/06/18 04/07/18 04/07/18 01:50 05:45 05:45 WBC 9.5 D RBC 3.17 L Hgb 8.7 L Hct 28.9 L MCV 91.2 MCH 27.4 MCHC 30.1 L RDW 15.4 H Plt Count 372 MPV 8.9 Gran % 81.2 H Lymph % (Auto) 9.3 L Wayne % (Auto) 8.8 H Eos % (Auto) 0.0 L Baso % (Auto) 0.7 Gran # 7.71 H Lymph # (Auto) 0.9 L Wayne # (Auto) 0.8 H Eos # (Auto) 0.0 Baso # (Auto) 0.07 Neutrophils % (Manual) 69 Band Neutrophils % 4 H Lymphocytes % (Manual) 15 L Monocytes % (Manual) 6 Metamyelocytes % 6 Nucleated RBC % 3 pCO2 pO2 HCO3 ABG pH ABG Total CO2 ABG O2 Saturation ABG O2 Content ABG Base Excess ABG Hemoglobin ABG Carboxyhemoglobin POC ABG HHb (Measured) ABG Methemoglobin ABG O2 Capacity Hgb O2 Saturation FiO2 Sodium 143 Potassium 4.7 Chloride 111 H Carbon Dioxide 26 Anion Gap 11 BUN 67 H Creatinine 2.9 H Est GFR ( Amer) 27 Est GFR (Non-Af Amer) 22 POC Glucose (mg/dL) Random Glucose 146 H Calcium 8.7 Phosphorus 4.8 H Magnesium 2.3 H Total Bilirubin 0.2 AST 25 ALT 17 Alkaline Phosphatase 56 Total Protein 6.4 Albumin 3.0 Globulin 3.4 Albumin/Globulin Ratio 0.9 L Vitamin B12 454 Folate 8.8 04/07/18 04/07/18 04/07/18 06:00 07:24 07:45 WBC RBC Hgb Hct MCV MCH MCHC RDW Plt Count MPV Gran % Lymph % (Auto) Wayne % (Auto) Eos % (Auto) Baso % (Auto) Gran # Lymph # (Auto) Wayne # (Auto) Eos # (Auto) Baso # (Auto) Neutrophils % (Manual) Band Neutrophils % Lymphocytes % (Manual) Monocytes % (Manual) Metamyelocytes % Nucleated RBC % pCO2 40 42 pO2 125.0 H 61.0 L HCO3 21.6 20.2 L ABG pH 7.34 L 7.29 L ABG Total CO2 22.8 21.5 L ABG O2 Saturation 100.1 H 93.8 L ABG O2 Content 10.5 L 11.0 L ABG Base Excess -3.9 L -6.0 L ABG Hemoglobin 7.4 L 8.5 L ABG Carboxyhemoglobin 1.6 H 1.8 H POC ABG HHb (Measured) -0.1 L 6.1 H ABG Methemoglobin 0.7 0.4 ABG O2 Capacity 10.5 L 11.7 L Hgb O2 Saturation 97.8 91.7 L FiO2 40.0 36.0 Sodium Potassium Chloride Carbon Dioxide Anion Gap BUN Creatinine Est GFR ( Amer) Est GFR (Non-Af Amer) POC Glucose (mg/dL) 142 H Random Glucose Calcium Phosphorus Magnesium Total Bilirubin AST ALT Alkaline Phosphatase Total Protein Albumin Globulin Albumin/Globulin Ratio Vitamin B12 Folate Radiology Impressions: Radiology Impressions Renal Ultrasound 04/06/18 23:16 IMPRESSION: Grossly nonfocal renal ultrasound bilaterally. Interrogation of the right kidney is limited by patient's inability to adequately position. Chest X-Ray 04/07/18 06:00 IMPRESSION: Improved bilateral infiltrates. Small bilateral pleural effusions Critical Care Progress Note - Nutrition Nutrition: Nutrition Category Date Time Status Dysphagia/Modified Consistency Diet [DIET] Diets 04/07/18 Lunch Ordered Assessment/Plan - Assessment and Plan (Free Text) Assessment: Patient seen and examined on rounds with resident, agree with note with following additions/exceptions: Patient is 63yo male with PMhx of HTN, CVA (with right sided residual weakness) and respiratory failure (on BiPAP) presents from [facility] for 2 days history of chest congestion, SOB, and poor oral intake. Pt found to be in septic shock, 2/2 PNA, respiratory failure, hypoxia, and Acute renal failure. Currently OFF BIPAP, OFF Vasopressor support, on Stress dose steroids, IVF Patient is more awake, alert, today responds to commands. Labs, imaging, chart noted Pt is DNR/DNI, as per [facility], verified with PMD, Dr Chakraborty Labs with diluational anemia, no clinical evidence of bleeding Septic Shock APOLINAR Resp failure HCAP Hx CVA Failure to thrive Dehydration Recommend: - cont with supp o2 as needed, BIPAP 12//60%, at night, goal sat 90%, duonebs PRN - Broad spectrum abx, Vanco, Merrem, Doxy, follow up ID - Panculture UCx, BCx, sputum culture, check urine Lg, Strep, Check Procal - hold BP meds - IVF, NS 100cc/hr - check Ulytes - ECHO - follow up cardio - follow up renal - taper steroids - FS control - monitor LFTs - GI ppx - DVT ppx, HSQ - Monitor in MICU Poor prognosis DNR/DNI Critical care time 30 minutes
--- NOTE | 2018-04-07 08:50 | CARD ---
APPROVED REPORT Date of service: 04/06/2018 EXAM: Two-dimensional and M-mode echocardiogram with Doppler and color Doppler. INDICATION HYPOTENSION..R/O CHF 2D DIMENSIONS Left Atrium (2D)3.2 (1.6-4.0cm)IVSd0.9 (0.7-1.1cm) LVDd3.7 (3.9-5.9cm)PWd0.9 (0.7-1.1cm) LVDs2.2 (2.5-4.0cm)FS (%) 39.7 % LVEF (%)71.1 (>50%) M-Mode DIMENSIONS Aortic Root3.70 (2.2-3.7cm)Aortic Cusp Exc.1.80 (1.5-2.0cm) Aortic Valve AoV Peak Iqqyfynf537.0cm/Lalo Peak GR.6mmHg Mitral Valve MV E Okhppcni52.8cm/sMV A Kgivbvpi84.6cm/sE/A ratio1.3 TDI Lateral E' Peak V9.16cm/sMedial E' Peak V7.21cm/sE/Lateral E'10.3 E/Medial E'13.1 Pulmonary Valve PV Peak Xepmwfjf48.2cm/sPV Peak Grad.1mmHg Tricuspid Valve TR Peak [id number]/sRAP [id number] Peak Gr.75mmHg [id number] LEFT VENTRICLE The left ventricle is normal size. There is normal left ventricular wall thickness. The left ventricular function is normal. The left ventricular ejection fraction is within the normal range. There is normal LV segmental wall motion. RIGHT VENTRICLE The right ventricle is normal size. The right ventricular systolic function is normal. ATRIA The left atrium size is normal. The right atrium is mildly dilated. The interatrial septum is intact with no evidence for an atrial septal defect. AORTIC VALVE The aortic valve is normal in structure. No aortic regurgitation is present. There is no aortic valvular stenosis. MITRAL VALVE The mitral valve is normal in structure. There is no mitral valve regurgitation noted. TRICUSPID VALVE The tricuspid valve is normal in structure. There is moderate to severe tricuspid regurgitation. There is severe pulmonary hypertension. PULMONIC VALVE The pulmonary valve is normal in structure. There is mild to moderate pulmonic valvular regurgitation. GREAT VESSELS The aortic root is normal in size. The IVC is normal in size and collapses >50% with inspiration. PERICARDIAL EFFUSION There is no pleural effusion. There is no pericardial effusion. <Conclusion> Dilated RA. Normal LV size and systolic function. Moderate to severe TR. Severe pulmonary HTN with RVSP of 85 mm Hg.
[2018-04-07] MEDS: MEROPENEM 500 MG in NS 500 MG/50 ML BAG IVPB SCH ×2 (09:35→21:41)
--- NOTE | 2018-04-07 09:56 | RAD ---
Date of service: 04/07/2018 HISTORY: f/u COMPARISON: 04/06/2018 FINDINGS: LUNGS: There improvement in the bilateral infiltrates. PLEURA: Small bilateral pleural effusions CARDIOVASCULAR: No aortic atherosclerotic calcification present. Normal cardiac size. No pulmonary vascular congestion. OSSEOUS STRUCTURES: No significant abnormalities. VISUALIZED UPPER ABDOMEN: Normal. OTHER FINDINGS: Right internal jugular line in the SVC at the atrial junction IMPRESSION: Improved bilateral infiltrates. Small bilateral pleural effusions
[2018-04-07 11:39] LABS: BAND 4 % (0-2); LYMPHOCYTE 15 % (22.0-35.0); METAMYELOCYTE 6 %; MONOCYTE 6 % (1.0-6.0); NEUTROPHIL 69 % (50.0-70.0); NUCLEATED RED BLOOD CELL 3 %
--- NOTE | 2018-04-07 11:54 | PN ---
DATE: (640AM-730AM) SUBJECTIVE: The patient appears comfortable this morning. He is not short of breath at rest. He is a little more awake and alert compared to yesterday. PHYSICAL EXAMINATION: VITAL SIGNS: Temperature 98.4, pulse 64, respirations 18, blood pressure 116/70. Oxygen saturation on BiPAP is 100%. HEENT: Normocephalic, atraumatic. NECK: No JVD. CARDIOVASCULAR: Positive S1, S2. No S3 gallop. LUNGS: Crackles at both bases. Mild bilateral rhonchi. No wheezing. EXTREMITIES: No clubbing, cyanosis or edema. Calves are nontender to palpation. GI: Abdomen is soft, nontender and nondistended. Bowel sounds are positive. SKIN: No acute rash. NEUROLOGIC: Exam is limited at the present time. PERTINENT LABORATORY DATA: Chest x-ray was done this morning and reviewed. There are now bilateral lower lobe infiltrates noted. Arterial blood gas was ordered for this morning - pending. IMPRESSION: 1. Bilateral pneumonia. 2. Respiratory insufficiency. 3. Renal insufficiency. 4. Hypotension - improved. 5. Anemia. PLAN: The patient appears comfortable this morning. He is not short of breath at rest. He is a little bit more awake and alert - compared to yesterday. I did discuss the case to night nurse at length. The night nurse stated that the patient had a pretty good night. Hopefully, the norepinephrine will be weaned. I did review the chest x-ray as above. The chest x-ray now shows bilateral lower lobe infiltrates. I have also ordered an arterial blood gas to be done. They will call me with the results. On physical exam, there is mild bronchospasm noted. The patient remains on nebulizer treatments. He also remains on intravenous hydrocortisone - started by the ICU team. I would continue with the antibiotic coverage as per Infectious Disease. I did discuss the case with Dr. Avalos yesterday. The patient remains critically ill, with overall poor prognosis. I will discuss the above with the entire ICU team in the next few moments. I will also discuss the above with Dr. Chakraborty later this morning. Ezekiel Valle MD JEROMY
--- NOTE | 2018-04-07 12:43 | CP.PCM.PN ---
Subjective - Date & Time of Evaluation Date of Evaluation: 04/07/18 Time of Evaluation: 11:00 - Subjective Subjective: Patient today is more awake, but still not swallowing as well, no fevers, not in distress. Objective - Vital Signs/Intake and Output Vital Signs (last 24 hours): Temp Pulse Resp BP Pulse Ox 98.1 F 67 14 111/77 95 04/06/18 12:29 04/06/18 12:29 04/06/18 12:29 04/06/18 12:30 04/06/18 12:29 Intake and Output: 04/06/18 04/06/18 06:59 18:59 Intake Total 1250 472 Output Total 100 Balance 1150 472 - Medications Medications: Current Medications Acetylcysteine (Acetylcysteine 20%) 4 ml IH BIDRESP [facility] Last Admin: 04/06/18 07:09 Dose: 4 ml Albuterol/Ipratropium (Duoneb 3 Mg/0.5 Mg (3 Ml) Ud) 3 ml IH [id number] [facility] Last Admin: 04/06/18 07:09 Dose: 3 ml Albuterol/Ipratropium (Duoneb 3 Mg/0.5 Mg (3 Ml) Ud) 3 ml IH Q2H PRN PRN Reason: Shortness of Breath Aspirin (Aspirin Chewable) 81 mg PO DAILY [facility]IO Last Admin: 04/06/18 10:26 Dose: Not Given Clonazepam (Klonopin) 0.5 mg PO HS MARIO; Protocol Escitalopram Oxalate (Lexapro) 10 mg PO DAILY [facility]IO Last Admin: 04/06/18 10:27 Dose: Not Given Hydrocortisone Sodium Succinate (Solu-Cortef) 50 mg IVP Q6H [facility] Last Admin: 04/06/18 10:27 Dose: 50 mg NOREPINEPHRINE BIT/0.9 % NACL (Levophed 4 Mg/ 250 Ml Ns Premixed) 4 mg in 250 mls @ 15 mls/hr IV .[id number] PRN; Protocol PRN Reason: TITRATE PER MD ORDER Last Titration: 04/06/18 10:43 Dose: 8 mcg/min, 30 mls/hr Meropenem/Sodium Chloride (Merrem Iv 500 Mg/Ns 50 Ml) 500 mg in 50 mls @ 100 mls/hr IVPB Q12 MARIO; Protocol Stop: 04/13/18 07:31 Last Admin: 04/06/18 08:24 Dose: 100 mls/hr Lactated Ringer's (Lactated Ringer's) 1,000 mls @ 100 mls/hr IV .Q10H [facility]IO Last Admin: 04/06/18 10:25 Dose: 100 mls/hr Vasopressin 20 units/ Sodium (Chloride) 101 mls @ 9.09 mls/hr IV .Q11H7M MARIO; Protocol Last Admin: 04/06/18 10:26 Dose: 9.09 mls/hr Azithromycin 250 mg/ Sodium (Chloride) 250 mls @ 167 mls/hr IVPB DAILY MARIO; Protocol Vancomycin HCl 2 gm/ Sodium (Chloride) 500 mls @ 170 mls/hr IVPB ONCE ONE; Protocol Stop: 04/06/18 15:37 Pantoprazole Sodium (Protonix Inj) 40 mg IVP DAILY MARIO Last Admin: 04/06/18 09:03 Dose: 40 mg - Labs Labs: 04/06/18 05:00 04/06/18 05:00 PT 21.8 SECONDS (9.4-12.5) H 04/05/18 19:08 INR 1.89 04/05/18 19:08 APTT 36.4 Seconds (25.1-36.5) 04/05/18 19:08 - Constitutional Appears: Chronically Ill - Head Exam Head Exam: NORMAL INSPECTION - Respiratory Exam Respiratory Exam: Decreased Breath Sounds - Cardiovascular Exam Cardiovascular Exam: +S1, +S2 - GI/Abdominal Exam GI & Abdominal Exam: Soft. absent: Tenderness Assessment and Plan - Assessment and Plan (Free Text) Plan: Assessment Septic shock with hypoxic respiratory failure and acute renal failure (multiorgan dysfunction) due to right sided HCAP S/P Systemic Inflammatory Response Syndrome in a patient already being treated for probable aspiration pneumonitis (with Vancomycin and Cefepime for 7 days) S/P treatment with Vancomycin and Merrem as well Transaminitis R/O drug-induced, R/O secondary to hepatic steatosis new onset CVA (Left MCA) S/P tracheostomy tube placement and PEG tube placement; patient is S/P ventilator-dependent respiratory failure significant smoking, S/P inguinal hernia repair HTN history of CVA with encephalomalacia Plan gave loading doses of IV Vancomycin and continue renally-adjusted Merrem and Levaquin as well pending final blood, sputum cx, PCT; reviewed CXR with Dr. Valle unable to use Zyvox since patient is on Escitalopram overall prognosis is poor will continue to monitor clinically
--- NOTE | 2018-04-07 14:33 | PN ---
DATE: 04/07/2018 SUBJECTIVE: I saw him in the intensive care unit. He is resting comfortably. He is alert, much stronger than he was when he came in. He is more alert, talking stronger. We made another swallow eval on him. I think he can swallow now, he failed to when he first came in. He is on acetylcysteine, aspirin, DuoNeb, Klonopin, Lactated Ringer's, Levaquin, Levophed, Merrem, Protonix, Solu-Cortef, vancomycin, vasopressin. PHYSICAL EXAMINATION: GENERAL: Much more alert and stronger. VITAL SIGNS: He has a 97.3 temp, 100 pulse, 72/44 on Levophed blood pressure, 17 respiratory rate. HEENT: Head is atraumatic, normocephalic. HEART: Regular rate. LUNGS: Decreased breath sounds but clear. ABDOMEN: Soft. EXTREMITIES: He has weakness on the right side, but hopefully it will start to improve. LABORATORY DATA: He has a 9.5 white count, 8.7 hemoglobin, 28.9 hematocrit, 370 platelets. He has a 143 sodium, potassium 4.7, BUN is down at 67, creatinine is down to 2.9; much improved. GFR is 22, sugar is 142, calcium is 8.7, phosphorus 4.8, magnesium 2.3, total bili is 0.2, AST is 25, ALT is 17, alk phos 56, total protein is 6.4. ASSESSMENT AND PLAN: He is definitely improving, but there is long way to go. He is very sick in intensive care unit and hopefully he will improve with the treatment. Cash Chakraborty DO
--- NOTE | 2018-04-07 15:55 | CP.PCM.PN ---
Subjective - Date & Time of Evaluation Date of Evaluation: 04/07/18 Time of Evaluation: 15:50 - Subjective Subjective: Nephrology Consultation Note: Assessment: critical Acute Kidney Injury (N17.9) likely due to ATN as a result of pre- renal/dehydration and hypotension/shock combined respi and metabolic acidosis mild hyperkalemia. hypermagnesemia and hyperphosphatemia ? aspiration pneumonia anemia, mild hyperkalemia, vit d def chronic sys CHF hx of CVA sever pulm HTN Plan No acute need for renal replacement therapy at this time. Maintain hemodynamics stable. Avoid hypotension. Patient not on ACEI/ARB due to recent APOLINAR. hold BP meds Monitor Input/Output, daily weights and renal function with basic metabolic felix el continue with IVF. pt on pressors monitor lytes supplement iron 1 tab tid /MVI 1 tab daily and vitamin d weekly once stable to take po meds Check urine analysis, spot protein/creatinine, albumin/creatinine ratio, renal sonogram Anemia work up with TSAT/Ferritin/Vitamin B12/folate Check for 25-OH vitamin D, iPTH, phosphorus level. Dose meds/antibiotics for reduced GFR. Avoid fleets enema/magnesium based laxatives. Avoid nephrotoxins/NSAIDs/ iodinated contrast (unless needed emergently) Glycemic control Further work up/management as per primary team Thanks for allowing me to participate in care of your patient. Will follow patient with you. Please call if any Qs. had d/w team Dr Channing Christopher Office: [phone] Chief Complaint; unable Reason for consult: Acute Kidney Injury HPI: Pt is a 63 M with hx of CVA, hypertension (years) [place] resident presented with complaints of not feeling well,decreased oral intake and SOB with episodes of nausea/vomitting. renal consult for APOLINAR no known OTC/herbal meds or NSAIDs No recent iodinated contrast exposure. Noted obvious episodes of low BP. pt renal fxn better with IVF. making urine ROS: pt feels better. SOB better. Physical Examination: General Appearance: Comfortable, in no acute respiratory distress, Vitals reviewed and noted as below Head; Atraumatic, normocephalic ENT: dry mucosa EYES: Pupils are equal, round and reactive to light accommodation. Eye muscles and extraocular movement intact. Sclera is anicteric. Neck; supple no lymphadenopathy, no thyromegaly or bruit Lungs: Normal respiratory rate/effort. Breath sounds bilateral decreased at bases Heart: Normal rate. s1s2 normal. No rub or gallop. Extremities: no edema. No varicose veins Neurological: Patient is not communicating Skin: Warm and dry. Normal turgor. No rash. Palpitation: Normal elasticity for age Abdomen: Abdomen is soft. Bowel sounds +. There is no abdominal tenderness, no guarding/rigidity no organomegaly Psych: lack insight MSK: no joint tenderness or swelling. Digits and nails normal, no deformity : kidney or bladder not palpable. has simons Labs/imaging reviewed. Past medical history, past surgical history, family history, social history, allergy reviewed and noted as below Family hx: no hx of CKD. Rest non-contributory lvef 41% UA SG >1.030 Objective - Vital Signs/Intake and Output Vital Signs (last 24 hours): Temp Pulse Resp BP Pulse Ox 98.6 F 80 10 L 132/68 100 04/07/18 14:23 04/07/18 14:23 04/07/18 14:20 04/07/18 14:15 04/07/18 14:23 Intake and Output: 04/07/18 04/07/18 06:59 18:59 Intake Total 1358 770 Output Total 1700 Balance -342 770 - Medications Medications: Current Medications Acetylcysteine (Acetylcysteine 20%) 4 ml [facility]IDRESP [facility] Last Admin: 04/07/18 07:08 Dose: 4 ml Albuterol/Ipratropium (Duoneb 3 Mg/0.5 Mg (3 Ml) Ud) 3 ml IH [id number] [facility] Last Admin: 04/07/18 13:07 Dose: 3 ml Albuterol/Ipratropium (Duoneb 3 Mg/0.5 Mg (3 Ml) Ud) 3 ml IH Q2H PRN PRN Reason: Shortness of Breath Aspirin (Aspirin Chewable) 81 mg PO DAILY [facility] Last Admin: 04/07/18 12:22 Dose: 81 mg Clonazepam (Klonopin) 0.5 mg PO HS MARIO; Protocol Last Admin: 04/06/18 22:10 Dose: Not Given Hydrocortisone Sodium Succinate (Solu-Cortef) 50 mg IVP Q6H [facility] Last Admin: 04/07/18 09:35 Dose: 50 mg Meropenem/Sodium Chloride (Merrem Iv 500 Mg/Ns 50 Ml) 500 mg in 50 mls @ 100 mls/hr IVPB Q12 [facility]; Protocol Stop: 04/13/18 07:31 Last Admin: 04/07/18 09:35 Dose: 100 mls/hr Lactated Ringer's (Lactated Ringer's) 1,000 mls @ 100 mls/hr IV .Q10H [facility] Last Admin: 04/07/18 06:52 Dose: 100 mls/hr Vasopressin 20 units/ Sodium (Chloride) 101 mls @ 9.09 mls/hr IV .Q11H7M [facility]; Protocol Last Admin: 04/07/18 08:00 Dose: 9.09 mls/hr NOREPINEPHRINE BIT/0.9 % NACL (Levophed 4 Mg/ 250 Ml Ns Premixed) 4 mg in 250 mls @ 18.75 mls/hr IV .[id number] PRN; Protocol PRN Reason: TITRATE PER MD ORDER Last Titration: 04/07/18 12:20 Dose: 2 mcg/min, 7.5 mls/hr Levofloxacin/Dextrose (Levaquin 750mg) 750 mg in 150 mls @ 100 mls/hr IVPB Q48H [facility]; Protocol Stop: 04/15/18 08:46 Pantoprazole Sodium (Protonix Inj) 40 mg IVP DAILY [facility] Last Admin: 04/07/18 09:35 Dose: 40 mg - Labs Labs: 04/07/18 05:45 04/07/18 05:45 PT 21.8 SECONDS (9.4-12.5) H 04/05/18 19:08 INR 1.89 04/05/18 19:08 APTT 36.4 Seconds (25.1-36.5) 04/05/18 19:08
--- NOTE | 2018-04-07 18:59 | PN ---
DATE: 04/07/2018 SUBJECTIVE: The patient does not appear to be in respiratory distress. PHYSICAL EXAMINATION: VITAL SIGNS: Blood pressure 132/68, heart rate 79, temperature 98.6, and respirations 9. HEENT: Pale conjunctivae. CHEST: Diminished breath sounds over the right base. HEART: S1 and S2 regular. EXTREMITIES: No edema. LABORATORY DATA: Today's hemoglobin and hematocrit 8.7 and 28.9, significant drop compare to yesterday and the day before, white count and platelet count are within normal limits. The SMA-7; sodium 143, potassium 4.7, chloride 111, CO2 of 26, glucose 146, BUN 67, and creatinine 2.9. Today's chest x-ray improved bilateral infiltrate, small bilateral pleural effusion. grossly nonfocal renal ultrasound bilaterally. Echocardiographic study was reviewed with medical or surgical instrument maker and I gave with a report of normal left ventricular size and systolic function with [id number] tricuspid insufficiency. Estimated right ventricular systolic pressure is 85 mmHg. ASSESSMENT: 1. Hypotension. 2. Pneumonia, rule out underlying sepsis. 3. Improved renal insufficiency. 4. History of cerebrovascular accident involving the left mid cerebral artery territory with residual aphasia and right hemiplegia. 5. Acute anemia. RECOMMENDATIONS: Continue aspirin 81 mg once a day. Continue current meropenem 500 mg intravenously every 12 hours. Continue IV Protonix at 40 mg . Continue vasopressors including vasopressin and Levophed. Again, stool for occult blood. Bhaskar Hope MD
[2018-04-08] MEDS: Albuterol-Ipratrop 3 mg / 0.5 (3 ml) UD IH SCH ×4 (02:50→19:41)
[2018-04-08] MEDS: Lactated Ringer's 1,000 ML IV SCH (04:19)
[2018-04-08 06:51] LABS: ARTERIAL BLOOD GAS HCO3 18.6 mmol/L (21-28); ARTERIAL BLOOD GAS HEMOGLOBIN 4.7 g/dL (11.7-17.4); ARTERIAL BLOOD GAS O2 CAPACITY 6.6 mL/dl (16-24); ARTERIAL BLOOD GAS O2 CONTENT 6.5 ML/dl (15-23); ARTERIAL BLOOD GAS O2 SAT 98.9 % (95-98); ARTERIAL BLOOD GAS PCO2 33 mm/Hg (35-45); ARTERIAL BLOOD GAS PH 7.36 (7.35-7.45); ARTERIAL BLOOD GAS TCO2 19.6 mmol.L (22-28)
[2018-04-08 07:10] LABS: BASO # 0.02 K/mm3 (0.0-2.0); BASO % 0.2 % (0.0-3.0); GRAN # 7.31 (1.4-6.5); GRAN % 77.8 % (50.0-68.0); HEMOGLOBIN 8.2 g/dL (14.0-18.0); LYMPH # 1.1 (1.2-3.4); LYMPH % 11.5 % (22.0-35.0); MEAN CELL VOLUME 91.7 fl (80.0-105.0); MEAN CORPUSCULAR HEMOGLOBIN 27.3 pg (25.0-35.0); MEAN CORPUSCULAR HGB CONC 29.8 g/dl (31.0-37.0); MONO % 10.5 % (1.0-6.0); RED CELL DISTRIBUTION WIDTH 15.6 % (11.5-14.5); WHITE BLOOD COUNT 9.4 10^3/uL (4.5-11.0)
--- NOTE | 2018-04-08 07:21 | PN ---
DATE: 04/08/2018 SUBJECTIVE: The patient appears comfortable this morning. He is not short of breath at rest. He is more awake and alert this morning. OBJECTIVE: VITAL SIGNS: Temperature 98.8, pulse on the monitor is 74, respiratory rate 16/18, blood pressure 122/88. Oxygen saturation on nasal cannula is 99%. HEENT: Normocephalic, atraumatic. No JVD. CARDIOVASCULAR: Positive S1, S2. No S3 gallop. LUNGS: Crackles at both bases. Less rhonchi. No wheezing. EXTREMITIES: No clubbing, cyanosis or edema. Calves are nontender to palpation. GI: Abdominis soft, nontender and nondistended. Bowel sounds are positive. SKIN: No acute rash. NEUROLOGIC: Limited at the present time. PERTINENT LABORATORY DATA: Chest x-ray was repeated today and reviewed. There remains bilateral lower lobe infiltrates. The left lower lobe infiltrate does show some clearing-- compared to yesterday's film. Official results are pending. IMPRESSION: 1. Bilateral pneumonia. 2. Respiratory insufficiency. 3. Renal insufficiency. 4. Hypotension resolved. 5. Anemia. PLAN: The patient appears comfortable this morning. He is not short of breath at rest. He does appear more awake and alert this morning. I did discuss the case with the night nurse at length. The night nurse stated that the patient had a good night. The Levophed has been weaned. I did review the chest x-ray as above. The chest x-ray continues to show bilateral lower lobe infiltrates. However, as above, the left lower lobe infiltrate does show some clearing. I would continue with the antibiotic coverage as per Infectious Disease. Input by Dr. Avalos is noted. On physical exam, there is certainly less bronchospasm noted. In addition, the alveolar-arterial gradient is also much less. I will continue the current nebulizer treatments for now. The patient also remains on intravenous Solu-Cortef - as per the ICU team. Inputs by Cardiology and Renal are also noted. Clinical status of the patient is certainly improved - compared to the initial presentation. However, the overall status/prognosis for this patient remains poor. I will discuss the above with the entire ICU team in the next few moments. I will also discuss the above with Dr. Chakraborty later this morning. Ezekiel Valle MD [facility]
[2018-04-08 07:46] LABS: ALB/GLOB RATIO 0.8 (1.1-1.8); ALBUMIN 2.8 g/dL (3.0-4.8); CALCIUM 8.7 mg/dL (8.4-10.5)
--- NOTE | 2018-04-08 08:01 | CP.CCUPN ---
<Raciel Marquez - Last Filed: 04/08/18 10:25> CCU Subjective - Physician Review Subjective (Free Text): Raciel Marquez PGY-1 Progress Note for ICU Patient seen and evaluated at bedside. No acute events reported overnight. Patient conversant off of BiPAP without dyspnea. Patient is awake and aretha ropriately vocalizing responses to questions. Thick bronchial secretions present in vacucontainer. Denies chest pain, palpitations, shortness of breath, abdominal pain, headaches, dizziness, blurry vision. FOBT was positive. CCU Objective - Vital Signs / Intake & Output Intake and Output (Last 8hrs): Intake & Output 04/07/18 04/08/18 04/08/18 22:59 06:59 14:59 Intake Total 1952 Output Total 1000 Balance 952 Intake: IV 1472 IVF 1200 Levophed 104 Vasopressin 108 Oral 480 Output: Urine 1000 Urethral (Schneider) 1000 Other: # Bowel Movements 1 - Physical Exam Head: Positive for: Atraumatic, Normocephalic Pupils: Positive for: PERRL Extroacular Muscles: Positive for: EOMI Conjunctiva: Positive for: Normal Mouth: Positive for: Dry Neck: Positive for: Normal Range of Motion Respiratory/Chest: Positive for: Good Air Exchange, Rhonchi (rhonchi bilate rally.). Negative for: Respiratory Distress, Accessory Muscle Use Cardiovascular: Positive for: Regular Rate and Rhythm, Normal S1, S2. Negative for: Murmurs Abdomen: Negative for: Tenderness, Distention, Peritoneal Signs Back: Positive for: Normal Inspection Upper Extremity: Positive for: Normal Inspection, Normal ROM (Full ROM intact LUE, RUE 0/4). Negative for: Cyanosis, Edema Lower Extremity: Positive for: Normal Inspection, Normal ROM (Full ROM LLE, RLE 0/4). Negative for: Edema Neurological: Positive for: GCS=15, CN II-XII Intact, Speech Normal Skin: Positive for: Warm, Dry, Normal Color. Negative for: Rashes Psychiatric: Positive for: Alert, Oriented x 3, Normal Insight, Normal Concentration - Medications Active Medications: Active Medications Generic Name Dose Route Start Last Admin Trade Name Freq PRN Reason Stop Dose Admin Acetylcysteine 4 ml 04/05/18 23:30 04/07/18 21:49 Acetylcysteine 20% IH 4 ml BIDRESP ENRIQUE Administration Albuterol/Ipratropium 3 ml 04/06/18 02:00 04/08/18 02:50 Duoneb 3 Mg/0.5 Mg (3 Ml) Ud IH 3 ml [id number] ENRIQUE Administration Albuterol/Ipratropium 3 ml 04/05/18 23:16 Duoneb 3 Mg/0.5 Mg (3 Ml) Ud IH Q2H PRN Shortness of Breath Aspirin 81 mg 04/06/18 10:00 04/07/18 12:22 Aspirin Chewable PO 81 mg DAILY ENRIQUE Administration Clonazepam 0.5 mg 04/05/18 23:30 04/07/18 21:41 Klonopin PO 0.5 mg HS ENRIQUE Administration Protocol Hydrocortisone Sodium Succinate 50 mg 04/06/18 10:00 04/08/18 05:52 Solu-Cortef IVP 50 mg Q6H ENRIQUE Administration Meropenem/Sodium Chloride 500 mg in 50 mls @ 100 mls/hr 04/06/18 07:30 04/07/18 21:41 Merrem Iv 500 Mg/Ns 50 Ml IVPB 04/13/18 07:31 100 mls/hr Q12 ENRIQUE Administration Protocol Lactated Ringer's 1,000 mls @ 100 mls/hr 04/06/18 10:00 04/08/18 04:19 Lactated Ringer's IV 100 mls/hr .Q10H ENRIQUE Administration Vasopressin 20 units/ Sodium 101 mls @ 9.09 mls/hr 04/06/18 10:00 04/07/18 20:43 Chloride IV 9.09 mls/hr .Q11H7M ENRIQUE Administration Protocol 0.03 U/MIN NOREPINEPHRINE BIT/0.9 % NACL 4 mg in 250 mls @ 18.75 mls/hr 04/07/18 07:58 04/07/18 20:30 Levophed 4 Mg/ 250 Ml Ns Premixed IV 0 mcg/min .[id number] PRN 0 mls/hr TITRATE PER MD ORDER Titration Protocol 5 MCG/MIN Levofloxacin/Dextrose 750 mg in 150 mls @ 100 mls/hr 04/08/18 08:45 Levaquin 750mg IVPB 04/15/18 08:46 Q48H ENRIQUE Protocol Pantoprazole Sodium 40 mg 04/06/18 10:00 04/07/18 09:35 Protonix Inj IVP 40 mg DAILY ENRIQUE Administration - Patient Studies Lab Studies: Microbiology Studies 04/05/18 19:38 Blood Culture - Preliminary Blood NO GROWTH AFTER 48 HOURS 04/05/18 19:08 Blood Culture - Preliminary Blood NO GROWTH AFTER 48 HOURS 04/06/18 02:33 MRSA Culture (Admit) - Final Nose MRSA NOT DETECTED 04/06/18 09:00 Gram Stain - Final Sputum Induced Sputum Culture - Preliminary Gram Negative Gonzalez 04/05/18 21:13 Urine Culture - Final Urine No Growth (<1,000 CFU/ML) Lab Studies 04/08/18 04/08/18 04/08/18 Range/Units 07:15 06:40 06:00 WBC 9.4 (4.5-11.0) 10^3/uL RBC 3.00 L (3.5-6.1) 10^6/uL Hgb 8.2 L (14.0-18.0) g/dL Hct 27.5 L (42.0-52.0) % MCV 91.7 (80.0-105.0) fl MCH 27.3 (25.0-35.0) pg MCHC 29.8 L (31.0-37.0) g/dl RDW 15.6 H (11.5-14.5) % Plt Count 355 (120.0-450.0) 10^3/uL MPV 9.0 (7.0-11.0) fl Gran % 77.8 H (50.0-68.0) % Lymph % (Auto) 11.5 L (22.0-35.0) % [place] % (Auto) 10.5 H (1.0-6.0) % Eos % (Auto) 0.0 L (1.5-5.0) % Baso % (Auto) 0.2 (0.0-3.0) % Gran # 7.31 H (1.4-6.5) Lymph # (Auto) 1.1 L (1.2-3.4) [place] # (Auto) 1.0 H (0.1-0.6) Eos # (Auto) 0.0 (0.0-0.7) Baso # (Auto) 0.02 (0.0-2.0) K/mm3 Neutrophils % (Manual) (50.0-70.0) % Band Neutrophils % (0-2) % Lymphocytes % (Manual) (22.0-35.0) % Monocytes % (Manual) (1.0-6.0) % Metamyelocytes % % Nucleated RBC % % pCO2 33 L (35-45) mm/Hg pO2 73.0 L (80-100) mm/Hg HCO3 18.6 L (21-28) mmol/L ABG pH 7.36 (7.35-7.45) ABG Total CO2 19.6 L (22-28) mmol.L ABG O2 Saturation 98.9 H (95-98) % ABG O2 Content 6.5 L (15-23) ML/dl ABG Base Excess -6.3 L (-2.0-3.0) mmol/L ABG Hemoglobin 4.7 L (11.7-17.4) g/dL ABG Carboxyhemoglobin 1.7 H (0.5-1.5) % POC ABG HHb (Measured) 1.1 (0-5) % ABG Methemoglobin 0.9 (0.0-3.0) % ABG O2 Capacity 6.6 L (16-24) mL/dl Hgb O2 Saturation 96.3 (95.0-98.0) % FiO2 36.0 % POC Glucose (mg/dL) 150 H (65-110) mg/dL Stool Occult Blood (NEGATIVE) 04/07/18 04/07/18 04/07/18 Range/Units 22:28 17:54 16:06 WBC (4.5-11.0) 10^3/uL RBC (3.5-6.1) 10^6/uL Hgb (14.0-18.0) g/dL Hct (42.0-52.0) % MCV (80.0-105.0) fl MCH (25.0-35.0) pg MCHC (31.0-37.0) g/dl RDW (11.5-14.5) % Plt Count (120.0-450.0) 10^3/uL MPV (7.0-11.0) fl Gran % (50.0-68.0) % Lymph % (Auto) (22.0-35.0) % [place] % (Auto) (1.0-6.0) % Eos % (Auto) (1.5-5.0) % Baso % (Auto) (0.0-3.0) % Gran # (1.4-6.5) Lymph # (Auto) (1.2-3.4) [place] # (Auto) (0.1-0.6) Eos # (Auto) (0.0-0.7) Baso # (Auto) (0.0-2.0) K/mm3 Neutrophils % (Manual) (50.0-70.0) % Band Neutrophils % (0-2) % Lymphocytes % (Manual) (22.0-35.0) % Monocytes % (Manual) (1.0-6.0) % Metamyelocytes % % Nucleated RBC % % pCO2 (35-45) mm/Hg pO2 (80-100) mm/Hg HCO3 (21-28) mmol/L ABG pH (7.35-7.45) ABG Total CO2 (22-28) mmol.L ABG O2 Saturation (95-98) % ABG O2 Content (15-23) ML/dl ABG Base Excess (-2.0-3.0) mmol/L ABG Hemoglobin (11.7-17.4) g/dL ABG Carboxyhemoglobin (0.5-1.5) % POC ABG HHb (Measured) (0-5) % ABG Methemoglobin (0.0-3.0) % ABG O2 Capacity (16-24) mL/dl Hgb O2 Saturation (95.0-98.0) % FiO2 % POC Glucose (mg/dL) 142 H 185 H (65-110) mg/dL Stool Occult Blood Positive H (NEGATIVE) 04/07/18 04/07/18 04/07/18 Range/Units 11:21 07:45 05:45 WBC (4.5-11.0) 10^3/uL RBC (3.5-6.1) 10^6/uL Hgb (14.0-18.0) g/dL Hct (42.0-52.0) % MCV (80.0-105.0) fl MCH (25.0-35.0) pg MCHC (31.0-37.0) g/dl RDW (11.5-14.5) % Plt Count (120.0-450.0) 10^3/uL MPV (7.0-11.0) fl Gran % (50.0-68.0) % Lymph % (Auto) (22.0-35.0) % [place] % (Auto) (1.0-6.0) % Eos % (Auto) (1.5-5.0) % Baso % (Auto) (0.0-3.0) % Gran # (1.4-6.5) Lymph # (Auto) (1.2-3.4) [place] # (Auto) (0.1-0.6) Eos # (Auto) (0.0-0.7) Baso # (Auto) (0.0-2.0) K/mm3 Neutrophils % (Manual) 69 (50.0-70.0) % Band Neutrophils % 4 H (0-2) % Lymphocytes % (Manual) 15 L (22.0-35.0) % Monocytes % (Manual) 6 (1.0-6.0) % Metamyelocytes % 6 % Nucleated RBC % 3 % pCO2 42 (35-45) mm/Hg pO2 61.0 L (80-100) mm/Hg HCO3 20.2 L (21-28) mmol/L ABG pH 7.29 L (7.35-7.45) ABG Total CO2 21.5 L (22-28) mmol.L ABG O2 Saturation 93.8 L (95-98) % ABG O2 Content 11.0 L (15-23) ML/dl ABG Base Excess -6.0 L (-2.0-3.0) mmol/L ABG Hemoglobin 8.5 L (11.7-17.4) g/dL ABG Carboxyhemoglobin 1.8 H (0.5-1.5) % POC ABG HHb (Measured) 6.1 H (0-5) % ABG Methemoglobin 0.4 (0.0-3.0) % ABG O2 Capacity 11.7 L (16-24) mL/dl Hgb O2 Saturation 91.7 L (95.0-98.0) % FiO2 36.0 % POC Glucose (mg/dL) 128 H (65-110) mg/dL Stool Occult Blood (NEGATIVE) Laboratory Results - last 24 hr 04/07/18 04/07/18 04/07/18 05:45 07:45 11:21 WBC RBC Hgb Hct MCV MCH MCHC RDW Plt Count MPV Gran % Lymph % (Auto) [place] % (Auto) Eos % (Auto) Baso % (Auto) Gran # Lymph # (Auto) [place] # (Auto) Eos # (Auto) Baso # (Auto) Neutrophils % (Manual) 69 Band Neutrophils % 4 H Lymphocytes % (Manual) 15 L Monocytes % (Manual) 6 Metamyelocytes % 6 Nucleated RBC % 3 pCO2 42 pO2 61.0 L HCO3 20.2 L ABG pH 7.29 L ABG Total CO2 21.5 L ABG O2 Saturation 93.8 L ABG O2 Content 11.0 L ABG Base Excess -6.0 L ABG Hemoglobin 8.5 L ABG Carboxyhemoglobin 1.8 H POC ABG HHb (Measured) 6.1 H ABG Methemoglobin 0.4 ABG O2 Capacity 11.7 L Hgb O2 Saturation 91.7 L FiO2 36.0 POC Glucose (mg/dL) 128 H Stool Occult Blood 04/07/18 04/07/18 04/07/18 16:06 17:54 22:28 WBC RBC Hgb Hct MCV MCH MCHC RDW Plt Count MPV Gran % Lymph % (Auto) [place] % (Auto) Eos % (Auto) Baso % (Auto) Gran # Lymph # (Auto) [place] # (Auto) Eos # (Auto) Baso # (Auto) Neutrophils % (Manual) Band Neutrophils % Lymphocytes % (Manual) Monocytes % (Manual) Metamyelocytes % Nucleated RBC % pCO2 pO2 HCO3 ABG pH ABG Total CO2 ABG O2 Saturation ABG O2 Content ABG Base Excess ABG Hemoglobin ABG Carboxyhemoglobin POC ABG HHb (Measured) ABG Methemoglobin ABG O2 Capacity Hgb O2 Saturation FiO2 POC Glucose (mg/dL) 185 H 142 H Stool Occult Blood Positive H 04/08/18 04/08/18 04/08/18 06:00 06:40 07:15 WBC 9.4 RBC 3.00 L Hgb 8.2 L Hct 27.5 L MCV 91.7 MCH 27.3 MCHC 29.8 L RDW 15.6 H Plt Count 355 MPV 9.0 Gran % 77.8 H Lymph % (Auto) 11.5 L [place] % (Auto) 10.5 H Eos % (Auto) 0.0 L Baso % (Auto) 0.2 Gran # 7.31 H Lymph # (Auto) 1.1 L [place] # (Auto) 1.0 H Eos # (Auto) 0.0 Baso # (Auto) 0.02 Neutrophils % (Manual) Band Neutrophils % Lymphocytes % (Manual) Monocytes % (Manual) Metamyelocytes % Nucleated RBC % pCO2 33 L pO2 73.0 L HCO3 18.6 L ABG pH 7.36 ABG Total CO2 19.6 L ABG O2 Saturation 98.9 H ABG O2 Content 6.5 L ABG Base Excess -6.3 L ABG Hemoglobin 4.7 L ABG Carboxyhemoglobin 1.7 H POC ABG HHb (Measured) 1.1 ABG Methemoglobin 0.9 ABG O2 Capacity 6.6 L Hgb O2 Saturation 96.3 FiO2 36.0 POC Glucose (mg/dL) 150 H Stool Occult Blood Radiology Impressions: Radiology Impressions Chest X-Ray 04/07/18 06:00 IMPRESSION: Improved bilateral infiltrates. Small bilateral pleural effusions Review of Systems - Review of Systems Review of Systems: 12 point ROS completed and negative except as described in HPI. Critical Care Progress Note - Extremities/Vascular Does the Patient have a Schneider Catheter?: Yes Does the Patient need a Schneider Catheter?: Yes - Nutrition Nutrition: Nutrition Category Date Time Status Dysphagia/Modified Consistency Diet [DIET] Diets 04/07/18 Lunch Ordered Assessment/Plan - Assessment and Plan (Free Text) Assessment: 63 y/o male PMH of HTN, CVA (with right sided residual weakness) and respiratory failure (BiPAP discontinued) presents from [facility] for 2 days history of chest congestion, SOB, and poor oral intake. He was found to have APOLINAR, hypotension, Resp distress currently on NC, and RLL HCAP. Patient under ICU management. Pulm: -B/l rhonchi on lung bases and lives in [facility]- HCAP -CXR (04/05): Linear atelectasis R lung base -Repeat CXR (04/06) shows patchy density in inferior R lung with linear atelectasis -Repeat CXR (04/07) shows improved R lung consolidation -Repeat CXR (04/08) shows slightly worsening consolidation and cephalization -Currently 96% on RA -Merrem, Levaquin -Mucomyst bid -doneb enrique and prn, currently on NC - Solu-cortef decreased to 50 BID -Repeat ABG (04/06) shows respiratory acidosis -Repeat ABG (04/07) shows mixed resp acidosis and resp alkalosis -BNP 683 -Flu negative, Legionella negative -F/u mycoplasma IGM -Procal 1.86 -F/u cx blood, sputum -Pulmonology consulted. Dr. Valle recs appreciated Cardiovascular: -Septic shock -BP 115/82, 102/76 off pressors. -3 L NS IVF on admission, decreased LR to 50 cc/hr today -Holding Levophed 5mcg/min and Vasopressin IV 0.03 u/min for now. Frequent Monitoring -central IV access -EKG on admission: NSR @[address]/T wave changes -trop negative x3 -Cardiology consulted - Dr. Hope. Repeat echo LVEF 71%, moderate-severe TR. Normal LV and systolic function. EF 41% back in 07/04 Neuro: -Head CT 04/06 shows age appropriate atrophy and mild chronic disease -AAOx3 -GCS 15 [id number] GI: -Repeat swallow eval - dysphagia pureed diet with thick nectar liquid. Aspiration precautions in place. -Prophylaxis Protonix IV -GI consult placed - Dr. Solis- ? GI bleed. Hgb 8.2. recs appreciated Heme: -Normocytic anemia Hgb 8.2 from 8.7, continue to monitor, likely dilutional. Hemodynamically stable. No melena, hematochezia, or hemoptysis. -Likely due to chronic disease -Patient stable, no signs of bleeding, FOBT + -FOBT +, Fe 27, TIBC 232, Ferritin 157 -ASA 81 Nephro: -APOLINAR likely due to dehydration. Improving to 1.8 from 2.9 s/p 3 Liters IVF and maintenance LR -hold lisinopril, HCTZ -Strict I/Os, Schneider in place -Renal U/S 04/06 unremarkable -IVF LR @50cc/hr -Improved Hyperkalemia 4.4. Monitor closely -Hyperchloremic 2/2 NS IVF, currently on LR -Nephro consulted Dr Christopher - recommendations appreciated. Acute Kidney Injury likely due to ATN as a result of pre-renal/dehydration and hypotension/shock, combined respi and metabolic acidosis -UA: +protein, blood, Ucx ordered - monitor lytes via CMP, replete as indicated ID: -ID consult placed -Dr Lozano- recommendations appreciated - E coli growing from sputum culture, urine cx neg, blood cx neg x2 after 48 hours -Panculture -Renally adjusted Merrem increased to 1g BID, Levaquin Q48H. Vancomycin IV given 04/07 -Procal 1.86 Psych: -C/w home Lexapro and Klonopin Prophylaxis: -DVT: SCD -GI ppx: protonix IV Patient seen, case reviewed and plan approved by Dr. Garcia. Raciel Marquez, PGY-1 <Rick Garcia - Last Filed: 04/08/18 13:26> CCU Objective - Vital Signs / Intake & Output Vital Signs (Last 4 hours): Vital Signs Temp Pulse Resp BP Pulse Ox 04/08/18 12:00 97.6 F 82 11 L 106/76 97 04/08/18 11:30 84 10 L 106/78 99 04/08/18 11:00 82 11 L 103/76 96 04/08/18 10:30 84 13 102/76 94 L 04/08/18 10:00 89 99/75 L 04/08/18 09:59 87 12 98 04/08/18 09:30 93/58 L 04/08/18 09:29 86 12 99 Intake and Output (Last 8hrs): Intake & Output 04/07/18 04/08/18 04/08/18 22:59 06:59 14:59 Intake Total 1952 1608 Output Total 1000 1300 Balance 952 308 Weight 159 lb 1.6 oz Intake: IV 1472 1368 IVF 1200 1200 IVPB 50 Levophed 104 10 Vasopressin 108 108 Oral 480 240 Output: Urine 1000 1300 Urethral (Schneider) 1000 1300 Other: # Bowel Movements 1 - Medications Active Medications: Active Medications Generic Name Dose Route Start Last Admin Trade Name Freq PRN Reason Stop Dose Admin Acetylcysteine 4 ml 04/05/18 23:30 04/08/18 08:31 Acetylcysteine 20% IH 4 ml BIDRESP ENRIQUE Administration Albuterol/Ipratropium 3 ml 04/06/18 02:00 04/08/18 13:01 Duoneb 3 Mg/0.5 Mg (3 Ml) Ud IH 3 ml [id number] ENRIQUE Administration Albuterol/Ipratropium 3 ml 04/05/18 23:16 Duoneb 3 Mg/0.5 Mg (3 Ml) Ud IH Q2H PRN Shortness of Breath Clonazepam 0.5 mg 04/05/18 23:30 04/07/18 21:41 Klonopin PO 0.5 mg HS ENRIQUE Administration Protocol Hydrocortisone Sodium Succinate 50 mg 04/08/18 09:45 04/08/18 10:00 Solu-Cortef IVP Not Given Q12H ENRIQUE Vasopressin 20 units/ Sodium 101 mls @ 9.09 mls/hr 04/06/18 10:00 04/07/18 20:43 Chloride IV 9.09 mls/hr .Q11H7M ENRIQUE Administration Protocol 0.03 U/MIN NOREPINEPHRINE BIT/0.9 % NACL 4 mg in 250 mls @ 18.75 mls/hr 04/07/18 07:58 04/07/18 20:30 Levophed 4 Mg/ 250 Ml Ns Premixed IV 0 mcg/min .[id number] PRN 0 mls/hr TITRATE PER MD ORDER Titration Protocol 5 MCG/MIN Levofloxacin/Dextrose 750 mg in 150 mls @ 100 mls/hr 04/08/18 08:45 04/08/18 07:57 Levaquin 750mg IVPB 04/15/18 08:46 100 mls/hr Q48H ENRIQUE Administration Protocol Meropenem 1 gm in 50 mls @ 100 mls/hr 04/08/18 10:00 04/08/18 09:02 Merrem Iv 1 Gm Premix IVPB 04/15/18 10:01 100 mls/hr Q12 ENRIQUE Administration Protocol Pantoprazole Sodium 40 mg 04/06/18 10:00 04/08/18 09:04 Protonix Inj IVP 40 mg DAILY ENRIQUE Administration - Patient Studies Lab Studies: Microbiology Studies 04/06/18 09:00 Gram Stain - Final Sputum Induced Sputum Culture - Final Escherichia Coli 04/05/18 19:38 Blood Culture - Preliminary Blood NO GROWTH AFTER 48 HOURS 04/05/18 19:08 Blood Culture - Preliminary Blood NO GROWTH AFTER 48 HOURS 04/06/18 02:33 MRSA Culture (Admit) - Final Nose MRSA NOT DETECTED 04/05/18 21:13 Urine Culture - Final Urine No Growth (<1,000 CFU/ML) Lab Studies 04/08/18 04/08/18 04/08/18 Range/Units 11:28 07:15 06:40 WBC (4.5-11.0) 10^3/uL RBC (3.5-6.1) 10^6/uL Hgb (14.0-18.0) g/dL Hct (42.0-52.0) % MCV (80.0-105.0) fl MCH (25.0-35.0) pg MCHC (31.0-37.0) g/dl RDW (11.5-14.5) % Plt Count (120.0-450.0) 10^3/uL MPV (7.0-11.0) fl Gran % (50.0-68.0) % Lymph % (Auto) (22.0-35.0) % [place] % (Auto) (1.0-6.0) % Eos % (Auto) (1.5-5.0) % Baso % (Auto) (0.0-3.0) % Gran # (1.4-6.5) Lymph # (Auto) (1.2-3.4) [place] # (Auto) (0.1-0.6) Eos # (Auto) (0.0-0.7) Baso # (Auto) (0.0-2.0) K/mm3 pCO2 33 L (35-45) mm/Hg pO2 73.0 L (80-100) mm/Hg HCO3 18.6 L (21-28) mmol/L ABG pH 7.36 (7.35-7.45) ABG Total CO2 19.6 L (22-28) mmol.L ABG O2 Saturation 98.9 H (95-98) % ABG O2 Content 6.5 L (15-23) ML/dl ABG Base Excess -6.3 L (-2.0-3.0) mmol/L ABG Hemoglobin 4.7 L (11.7-17.4) g/dL ABG Carboxyhemoglobin 1.7 H (0.5-1.5) % POC ABG HHb (Measured) 1.1 (0-5) % ABG Methemoglobin 0.9 (0.0-3.0) % ABG O2 Capacity 6.6 L (16-24) mL/dl Hgb O2 Saturation 96.3 (95.0-98.0) % FiO2 36.0 % Sodium (132-148) mmol/L Potassium (3.6-5.0) mmol/L Chloride (98-107) mmol/L Carbon Dioxide (21-33) mmol/L Anion Gap (10-20) BUN (7-21) mg/dL Creatinine (0.8-1.5) mg/dl Est GFR ( Amer) Est GFR (Non-Af Amer) POC Glucose (mg/dL) 158 H 150 H (65-110) mg/dL Random Glucose (70-110) mg/dL Calcium (8.4-10.5) mg/dL Phosphorus (2.5-4.5) mg/dL Magnesium (1.7-2.2) mg/dL Total Bilirubin (0.2-1.3) mg/dL AST (17-59) U/L ALT (7-56) U/L Alkaline Phosphatase (38-126) U/L Total Protein (5.8-8.3) g/dL Albumin (3.0-4.8) g/dL Globulin gm/dL Albumin/Globulin Ratio (1.1-1.8) Stool Occult Blood (NEGATIVE) 04/08/18 04/08/18 04/07/18 Range/Units 06:00 06:00 22:28 WBC 9.4 (4.5-11.0) 10^3/uL RBC 3.00 L (3.5-6.1) 10^6/uL Hgb 8.2 L (14.0-18.0) g/dL Hct 27.5 L (42.0-52.0) % MCV 91.7 (80.0-105.0) fl MCH 27.3 (25.0-35.0) pg MCHC 29.8 L (31.0-37.0) g/dl RDW 15.6 H (11.5-14.5) % Plt Count 355 (120.0-450.0) 10^3/uL MPV 9.0 (7.0-11.0) fl Gran % 77.8 H (50.0-68.0) % Lymph % (Auto) 11.5 L (22.0-35.0) % [place] % (Auto) 10.5 H (1.0-6.0) % Eos % (Auto) 0.0 L (1.5-5.0) % Baso % (Auto) 0.2 (0.0-3.0) % Gran # 7.31 H (1.4-6.5) Lymph # (Auto) 1.1 L (1.2-3.4) [place] # (Auto) 1.0 H (0.1-0.6) Eos # (Auto) 0.0 (0.0-0.7) Baso # (Auto) 0.02 (0.0-2.0) K/mm3 pCO2 (35-45) mm/Hg pO2 (80-100) mm/Hg HCO3 (21-28) mmol/L ABG pH (7.35-7.45) ABG Total CO2 (22-28) mmol.L ABG O2 Saturation (95-98) % ABG O2 Content (15-23) ML/dl ABG Base Excess (-2.0-3.0) mmol/L ABG Hemoglobin (11.7-17.4) g/dL ABG Carboxyhemoglobin (0.5-1.5) % POC ABG HHb (Measured) (0-5) % ABG Methemoglobin (0.0-3.0) % ABG O2 Capacity (16-24) mL/dl Hgb O2 Saturation (95.0-98.0) % FiO2 % Sodium 145 (132-148) mmol/L Potassium 4.4 (3.6-5.0) mmol/L Chloride 110 H (98-107) mmol/L Carbon Dioxide 31 (21-33) mmol/L Anion Gap 9 L (10-20) BUN 46 H (7-21) mg/dL Creatinine 1.8 H (0.8-1.5) mg/dl Est GFR ( Amer) 46 Est GFR (Non-Af Amer) 38 POC Glucose (mg/dL) 142 H (65-110) mg/dL Random Glucose 153 H (70-110) mg/dL Calcium 8.7 (8.4-10.5) mg/dL Phosphorus 3.0 (2.5-4.5) mg/dL Magnesium 2.1 (1.7-2.2) mg/dL Total Bilirubin 0.1 L (0.2-1.3) mg/dL AST 43 (17-59) U/L ALT 26 (7-56) U/L Alkaline Phosphatase 60 (38-126) U/L Total Protein 6.2 (5.8-8.3) g/dL Albumin 2.8 L (3.0-4.8) g/dL Globulin 3.4 gm/dL Albumin/Globulin Ratio 0.8 L (1.1-1.8) Stool Occult Blood (NEGATIVE) 04/07/18 04/07/18 04/07/18 Range/Units 17:54 16:06 11:21 WBC (4.5-11.0) 10^3/uL RBC (3.5-6.1) 10^6/uL Hgb (14.0-18.0) g/dL Hct (42.0-52.0) % MCV (80.0-105.0) fl MCH (25.0-35.0) pg MCHC (31.0-37.0) g/dl RDW (11.5-14.5) % Plt Count (120.0-450.0) 10^3/uL MPV (7.0-11.0) fl Gran % (50.0-68.0) % Lymph % (Auto) (22.0-35.0) % [place] % (Auto) (1.0-6.0) % Eos % (Auto) (1.5-5.0) % Baso % (Auto) (0.0-3.0) % Gran # (1.4-6.5) Lymph # (Auto) (1.2-3.4) [place] # (Auto) (0.1-0.6) Eos # (Auto) (0.0-0.7) Baso # (Auto) (0.0-2.0) K/mm3 pCO2 (35-45) mm/Hg pO2 (80-100) mm/Hg HCO3 (21-28) mmol/L ABG pH (7.35-7.45) ABG Total CO2 (22-28) mmol.L ABG O2 Saturation (95-98) % ABG O2 Content (15-23) ML/dl ABG Base Excess (-2.0-3.0) mmol/L ABG Hemoglobin (11.7-17.4) g/dL ABG Carboxyhemoglobin (0.5-1.5) % POC ABG HHb (Measured) (0-5) % ABG Methemoglobin (0.0-3.0) % ABG O2 Capacity (16-24) mL/dl Hgb O2 Saturation (95.0-98.0) % FiO2 % Sodium (132-148) mmol/L Potassium (3.6-5.0) mmol/L Chloride (98-107) mmol/L Carbon Dioxide (21-33) mmol/L Anion Gap (10-20) BUN (7-21) mg/dL Creatinine (0.8-1.5) mg/dl Est GFR ( Amer) Est GFR (Non-Af Amer) POC Glucose (mg/dL) 185 H 128 H (65-110) mg/dL Random Glucose (70-110) mg/dL Calcium (8.4-10.5) mg/dL Phosphorus (2.5-4.5) mg/dL Magnesium (1.7-2.2) mg/dL Total Bilirubin (0.2-1.3) mg/dL AST (17-59) U/L ALT (7-56) U/L Alkaline Phosphatase (38-126) U/L Total Protein (5.8-8.3) g/dL Albumin (3.0-4.8) g/dL Globulin gm/dL Albumin/Globulin Ratio (1.1-1.8) Stool Occult Blood Positive H (NEGATIVE) Laboratory Results - last 24 hr 04/07/18 04/07/18 04/07/18 11:21 16:06 17:54 WBC RBC Hgb Hct MCV MCH MCHC RDW Plt Count MPV Gran % Lymph % (Auto) [place] % (Auto) Eos % (Auto) Baso % (Auto) Gran # Lymph # (Auto) [place] # (Auto) Eos # (Auto) Baso # (Auto) pCO2 pO2 HCO3 ABG pH ABG Total CO2 ABG O2 Saturation ABG O2 Content ABG Base Excess ABG Hemoglobin ABG Carboxyhemoglobin POC ABG HHb (Measured) ABG Methemoglobin ABG O2 Capacity Hgb O2 Saturation FiO2 Sodium Potassium Chloride Carbon Dioxide Anion Gap BUN Creatinine Est GFR ( Amer) Est GFR (Non-Af Amer) POC Glucose (mg/dL) 128 H 185 H Random Glucose Calcium Phosphorus Magnesium Total Bilirubin AST ALT Alkaline Phosphatase Total Protein Albumin Globulin Albumin/Globulin Ratio Stool Occult Blood Positive H 04/07/18 04/08/18 04/08/18 22:28 06:00 06:00 WBC 9.4 RBC 3.00 L Hgb 8.2 L Hct 27.5 L MCV 91.7 MCH 27.3 MCHC 29.8 L RDW 15.6 H Plt Count 355 MPV 9.0 Gran % 77.8 H Lymph % (Auto) 11.5 L [place] % (Auto) 10.5 H Eos % (Auto) 0.0 L Baso % (Auto) 0.2 Gran # 7.31 H Lymph # (Auto) 1.1 L [place] # (Auto) 1.0 H Eos # (Auto) 0.0 Baso # (Auto) 0.02 pCO2 pO2 HCO3 ABG pH ABG Total CO2 ABG O2 Saturation ABG O2 Content ABG Base Excess ABG Hemoglobin ABG Carboxyhemoglobin POC ABG HHb (Measured) ABG Methemoglobin ABG O2 Capacity Hgb O2 Saturation FiO2 Sodium 145 Potassium 4.4 Chloride 110 H Carbon Dioxide 31 Anion Gap 9 L BUN 46 H Creatinine 1.8 H Est GFR ( Amer) 46 Est GFR (Non-Af Amer) 38 POC Glucose (mg/dL) 142 H Random Glucose 153 H Calcium 8.7 Phosphorus 3.0 Magnesium 2.1 Total Bilirubin 0.1 L AST 43 ALT 26 Alkaline Phosphatase 60 Total Protein 6.2 Albumin 2.8 L Globulin 3.4 Albumin/Globulin Ratio 0.8 L Stool Occult Blood 04/08/18 04/08/18 04/08/18 06:40 07:15 11:28 WBC RBC Hgb Hct MCV MCH MCHC RDW Plt Count MPV Gran % Lymph % (Auto) [place] % (Auto) Eos % (Auto) Baso % (Auto) Gran # Lymph # (Auto) [place] # (Auto) Eos # (Auto) Baso # (Auto) pCO2 33 L pO2 73.0 L HCO3 18.6 L ABG pH 7.36 ABG Total CO2 19.6 L ABG O2 Saturation 98.9 H ABG O2 Content 6.5 L ABG Base Excess -6.3 L ABG Hemoglobin 4.7 L ABG Carboxyhemoglobin 1.7 H POC ABG HHb (Measured) 1.1 ABG Methemoglobin 0.9 ABG O2 Capacity 6.6 L Hgb O2 Saturation 96.3 FiO2 36.0 Sodium Potassium Chloride Carbon Dioxide Anion Gap BUN Creatinine Est GFR ( Amer) Est GFR (Non-Af Amer) POC Glucose (mg/dL) 150 H 158 H Random Glucose Calcium Phosphorus Magnesium Total Bilirubin AST ALT Alkaline Phosphatase Total Protein Albumin Globulin Albumin/Globulin Ratio Stool Occult Blood Radiology Impressions: Radiology Impressions Chest X-Ray 04/08/18 06:00 IMPRESSION: Bibasilar infiltrates and small effusions unchanged Critical Care Progress Note - Nutrition Nutrition: Nutrition Category Date Time Status Dysphagia/Modified Consistency Diet [DIET] Diets 04/07/18 Lunch Ordered Assessment/Plan - Assessment and Plan (Free Text) Assessment: Patient seen and examined on rounds with resident, agree with note with following additions/exceptions: Patient is 63yo male with PMhx of HTN, CVA (with right sided residual weakness) and respiratory failure (on BiPAP) presents from [facility] for 2 days history of chest congestion, SOB, and poor oral intake. Pt found to be in septic shock, 2/2 PNA, respiratory failure, hypoxia, and Acute renal failure. Currently OFF BIPAP, OFF Vasopressor support, on Stress dose steroids, IVF Patient is awake, alert, responds to commands. Labs, imaging, chart noted Pt is DNR/DNI, as per [facility], verified with PMD, Dr Chakraborty Septic Shock APOLINAR Resp failure HCAP Hx CVA Failure to thrive Dehydration Recommend: - cont with supp o2 as needed, BIPAP 12/5/60%, at night, goal sat 90%, duonebs PRN - Broad spectrum abx, Vanco, Merrem, Doxy, follow up ID - hold BP meds - DC IVF - DC TLC - follow up cardio - follow up renal - monitor HH - taper steroids, Solucortef 50mg IV q12hr - FS control - monitor LFTs - GI ppx, PPI - DVT ppx, HSQ - stable, transfer to med surg Poor prognosis DNR/DNI
[2018-04-08] MEDS: Acetylcysteine 20% Inhal Soln (4ml) IH SCH ×2 (08:31→19:41)
[2018-04-08] MEDS ORDERED: levoFLOXacin 750 mg in D5W 750 MG/150 ML BAG IVPB SCH (08:45)
[2018-04-08] MEDS: Meropenem IV 1 gm in NS 1 GM/50 ML BAG IVPB SCH ×2 (09:02→21:09)
[2018-04-08] MEDS ORDERED: Lactated Ringer's 1,000 ML IV SCH (09:37)
--- NOTE | 2018-04-08 09:37 | RAD ---
Date of service: 04/08/2018 HISTORY: f/u COMPARISON: 04/07/2018 FINDINGS: LUNGS: Bibasilar infiltrates and small effusions unchanged PLEURA: No significant pleural effusion identified, no pneumothorax apparent. CARDIOVASCULAR: Aortic calcification Normal cardiac size. No pulmonary vascular congestion. OSSEOUS STRUCTURES: No significant abnormalities. VISUALIZED UPPER ABDOMEN: Normal. OTHER FINDINGS: Central line unchanged IMPRESSION: Bibasilar infiltrates and small effusions unchanged
--- NOTE | 2018-04-08 10:05 | CP.PCM.CON ---
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 The patient states that in the days leading up to admission he noticed worsening nonproductive cough and felt chest congestion. Admits to being unable to expectorate sputum, contributing to congestion. Since arrival he has been treated for sepsis 2/2 HCAP with antibiotics and pressor support (which has since been weaned) and APOLINAR suspected 2/2 pre-renal causes. Our service has been consulted for anemia. On admission the patient's HGB was 12, suspect due to hemoconcentration and has decreased to 8 in the absence of any overt GI bleeding. Patient does report hemoptysis and some bloody is noticed in the aspiration canister at bedside from respiratory suctioning. Patient and staff have not noted any melena or hematochezia. He denies any abdominal pain, nausea, vomiting. Regarding the patient's dysphagia, he previously required a PEG tube which was removed in the ER in December 2016. Patient admits to occasional coughing with eating but denies globus sensation or odynophagia. He has been evaluated by [facility] who recommended puree consistency diet with nectar thick liquids which the patient is tolerating without issue. 12 system ROS performed and negative except where stated PMHx: See HPI PSHx: Left inguinal hernia repair, Tracheostomy/PEG FHx: Discussed with patient and he denies any significant family history Social: Former smoker, Denies EtOH or illicit drug use Endo: Denies prior endoscopic evaluation Past Patient History - Infectious Disease Hx of Infectious Diseases: None - Tetanus Immunizations Tetanus Immunization: Unknown - Past Medical History & Family History Past Medical History?: Yes - Past Social History Smoking Status: Heavy Smoker > 10 Cigarettes Daily - CARDIAC Hx Hypertension: Yes - PULMONARY Hx Pneumonia: Yes Hx Sleep Apnea: No - NEUROLOGICAL HX Cerebrovascular Accident: Yes (R sides weakness) - RENAL Hx Chronic Kidney Disease: Yes - PSYCHIATRIC Hx Anxiety: Yes Hx Depression: Yes Hx Substance Use: No - ANESTHESIA Hx Anesthesia: Yes Hx Anesthesia Reactions: No Hx Malignant Hyperthermia: No Meds Allergies/Adverse Reactions: Allergies Allergy/AdvReac Type Severity Reaction Status Date / Time No Known Allergies Allergy Verified 07/15/16 07:46 - Medications Medications: Current Medications Acetylcysteine (Acetylcysteine 20%) 4 ml IH BIDRESP MARIO Last Admin: 04/08/18 08:31 Dose: 4 ml Albuterol/Ipratropium (Duoneb 3 Mg/0.5 Mg (3 Ml) Ud) 3 ml IH [id number] MARIO Last Admin: 04/08/18 08:32 Dose: 3 ml Albuterol/Ipratropium (Duoneb 3 Mg/0.5 Mg (3 Ml) Ud) 3 ml IH Q2H PRN PRN Reason: Shortness of Breath Aspirin (Aspirin Chewable) 81 mg PO DAILY MARIO Last Admin: 04/08/18 09:02 Dose: 81 mg Clonazepam (Klonopin) 0.5 mg PO HS MARIO; Protocol Last Admin: 04/07/18 21:41 Dose: 0.5 mg Hydrocortisone Sodium Succinate (Solu-Cortef) 50 mg IVP Q12H MARIO Vasopressin 20 units/ Sodium (Chloride) 101 mls @ 9.09 mls/hr IV .Q11H7M MARIO; Protocol Last Admin: 04/07/18 20:43 Dose: 9.09 mls/hr NOREPINEPHRINE BIT/0.9 % NACL (Levophed 4 Mg/ 250 Ml Ns Premixed) 4 mg in 250 mls @ 18.75 mls/hr IV .[id number] PRN; Protocol PRN Reason: TITRATE PER MD ORDER Last Titration: 04/07/18 20:30 Dose: 0 mcg/min, 0 mls/hr Levofloxacin/Dextrose (Levaquin 750mg) 750 mg in 150 mls @ 100 mls/hr IVPB Q48H MARIO; Protocol Stop: 04/15/18 08:46 Last Admin: 04/08/18 07:57 Dose: 100 mls/hr Meropenem (Merrem Iv 1 Gm Premix) 1 gm in 50 mls @ 100 mls/hr IVPB Q12 MARIO; Protocol Stop: 04/15/18 10:01 Last Admin: 04/08/18 09:02 Dose: 100 mls/hr Lactated Ringer's (Lactated Ringer's) 1,000 mls @ 50 mls/hr IV .Q20H [facility] Pantoprazole Sodium (Protonix Inj) 40 mg IVP DAILY [facility] Last Admin: 04/08/18 09:04 Dose: 40 mg Physical Exam - Constitutional Appears: Non-toxic, No Acute Distress, Chronically Ill - Eye Exam Eye Exam: EOMI, PERRL - ENT Exam ENT Exam: Mucous Membranes Moist - Neck Exam Additional comments: tracheostomy scar noted - Respiratory Exam Respiratory Exam: Decreased Breath Sounds, Rales, Rhonchi. absent: Clear to Auscultation Bilateral, Wheezes - Cardiovascular Exam Cardiovascular Exam: RRR, +S1, +S2 - GI/Abdominal Exam GI & Abdominal Exam: Normal Bowel Sounds, Soft. absent: Distended, Firm, Guarding, Organomegaly, Rigid, Tenderness Additional comments: healed prior PEG site in epigastric area - Rectal Exam Rectal Exam: NORMAL INSPECTION. absent: Black Stool, Bloody Stool, Hemorrhoids - Extremities Exam Additional comments: right hemiparesis - Neurological Exam Neurological exam: Alert, Oriented x3 - Psychiatric Exam Psychiatric exam: Normal Affect, Normal Mood - Skin Skin Exam: Dry, Warm Results - Vital Signs Recent Vital Signs: Last Vital Signs Temp 98.8 F 04/07/18 17:33 Pulse 66 04/08/18 06:00 Resp 13 04/08/18 00:00 BP 122/88 04/08/18 00:00 Pulse Ox 99 04/08/18 00:00 - Labs Result Diagrams: 04/08/18 06:00 04/08/18 06:00 Labs: Laboratory Results - last 24 hr 04/07/18 04/07/18 04/07/18 05:45 11:21 16:06 WBC RBC Hgb Hct MCV MCH MCHC RDW Plt Count MPV Gran % Lymph % (Auto) Greene % (Auto) Eos % (Auto) Baso % (Auto) Gran # Lymph # (Auto) Greene # (Auto) Eos # (Auto) Baso # (Auto) Neutrophils % (Manual) 69 Band Neutrophils % 4 H Lymphocytes % (Manual) 15 L Monocytes % (Manual) 6 Metamyelocytes % 6 Nucleated RBC % 3 pCO2 pO2 HCO3 ABG pH ABG Total CO2 ABG O2 Saturation ABG O2 Content ABG Base Excess ABG Hemoglobin ABG Carboxyhemoglobin POC ABG HHb (Measured) ABG Methemoglobin ABG O2 Capacity Hgb O2 Saturation FiO2 Sodium Potassium Chloride Carbon Dioxide Anion Gap BUN Creatinine Est GFR ( Amer) Est GFR (Non-Af Amer) POC Glucose (mg/dL) 128 H 185 H Random Glucose Calcium Phosphorus Magnesium Total Bilirubin AST ALT Alkaline Phosphatase Total Protein Albumin Globulin Albumin/Globulin Ratio Stool Occult Blood 04/07/18 04/07/18 04/08/18 17:54 22:28 06:00 WBC 9.4 RBC 3.00 L Hgb 8.2 L Hct 27.5 L MCV 91.7 MCH 27.3 MCHC 29.8 L RDW 15.6 H Plt Count 355 MPV 9.0 Gran % 77.8 H Lymph % (Auto) 11.5 L Greene % (Auto) 10.5 H Eos % (Auto) 0.0 L Baso % (Auto) 0.2 Gran # 7.31 H Lymph # (Auto) 1.1 L Greene # (Auto) 1.0 H Eos # (Auto) 0.0 Baso # (Auto) 0.02 Neutrophils % (Manual) Band Neutrophils % Lymphocytes % (Manual) Monocytes % (Manual) Metamyelocytes % Nucleated RBC % pCO2 pO2 HCO3 ABG pH ABG Total CO2 ABG O2 Saturation ABG O2 Content ABG Base Excess ABG Hemoglobin ABG Carboxyhemoglobin POC ABG HHb (Measured) ABG Methemoglobin ABG O2 Capacity Hgb O2 Saturation FiO2 Sodium Potassium Chloride Carbon Dioxide Anion Gap BUN Creatinine Est GFR ( Amer) Est GFR (Non-Af Amer) POC Glucose (mg/dL) 142 H Random Glucose Calcium Phosphorus Magnesium Total Bilirubin AST ALT Alkaline Phosphatase Total Protein Albumin Globulin Albumin/Globulin Ratio Stool Occult Blood Positive H 04/08/18 04/08/18 04/08/18 06:00 06:40 07:15 WBC RBC Hgb Hct MCV MCH MCHC RDW Plt Count MPV Gran % Lymph % (Auto) Greene % (Auto) Eos % (Auto) Baso % (Auto) Gran # Lymph # (Auto) Greene # (Auto) Eos # (Auto) Baso # (Auto) Neutrophils % (Manual) Band Neutrophils % Lymphocytes % (Manual) Monocytes % (Manual) Metamyelocytes % Nucleated RBC % pCO2 33 L pO2 73.0 L HCO3 18.6 L ABG pH 7.36 ABG Total CO2 19.6 L ABG O2 Saturation 98.9 H ABG O2 Content 6.5 L ABG Base Excess -6.3 L ABG Hemoglobin 4.7 L ABG Carboxyhemoglobin 1.7 H POC ABG HHb (Measured) 1.1 ABG Methemoglobin 0.9 ABG O2 Capacity 6.6 L Hgb O2 Saturation 96.3 FiO2 36.0 Sodium 145 Potassium 4.4 Chloride 110 H Carbon Dioxide 31 Anion Gap 9 L BUN 46 H Creatinine 1.8 H Est GFR ( Amer) 46 Est GFR (Non-Af Amer) 38 POC Glucose (mg/dL) 150 H Random Glucose 153 H Calcium 8.7 Phosphorus 3.0 Magnesium 2.1 Total Bilirubin 0.1 L AST 43 ALT 26 Alkaline Phosphatase 60 Total Protein 6.2 Albumin 2.8 L Globulin 3.4 Albumin/Globulin Ratio 0.8 L Stool Occult Blood Assessment & Plan - Assessment and Plan (Free Text) Assessment: Patient is a 63yo male with PMHx significant for CVA s/p tPA in 2015 with residual right hemiparesis, prior respiratory failure requiring tracheostomy but has successfully weaned, dysphagia with prior PEG tube which has since been removed, systolic CHF and HTN who presented from [facility] with shortness of breath and poor oral intake -Chronic anemia -Sepsis 2/2 HCAP, improving -APOLINAR -Dysphagia, concern for aspiration -H/O CVA with right hemiparesis Plan: -Suspect drop in HGB 2/2 dilution effect in the absence of overt bleeding -Continue treatment for HCAP, ID following -Nephrology following for APOLINAR, no HD indicated -Hemoptysis noted and bloody aspirate seen bedside in suction canister - consider more advanced cross-sectional imaging of the lungs given extensive smoking history -Given chronic anemia, recommend elective EGD/Colonoscopy as an outpatient once acute medical issues resolve -Follow [facility] recommendations regarding diet, tolerating puree with nectar thick liquid - Date & Time Date: 04/08/18 Time: 10:00 <Balaji Solis - Last Filed: 04/08/18 12:13> Meds - Medications Medications: Current Medications Acetylcysteine (Acetylcysteine 20%) 4 ml IH BIDRESP MARIO Last Admin: 04/08/18 08:31 Dose: 4 ml Albuterol/Ipratropium (Duoneb 3 Mg/0.5 Mg (3 Ml) Ud) 3 ml IH [id number] MARIO Last Admin: 04/08/18 08:32 Dose: 3 ml Albuterol/Ipratropium (Duoneb 3 Mg/0.5 Mg (3 Ml) Ud) 3 ml IH Q2H PRN PRN Reason: Shortness of Breath Clonazepam (Klonopin) 0.5 mg PO HS MARIO; Protocol Last Admin: 04/07/18 21:41 Dose: 0.5 mg Hydrocortisone Sodium Succinate (Solu-Cortef) 50 mg IVP Q12H MARIO Vasopressin 20 units/ Sodium (Chloride) 101 mls @ 9.09 mls/hr IV .Q11H7M MARIO; Protocol Last Admin: 04/07/18 20:43 Dose: 9.09 mls/hr NOREPINEPHRINE BIT/0.9 % NACL (Levophed 4 Mg/ 250 Ml Ns Premixed) 4 mg in 250 mls @ 18.75 mls/hr IV .[id number] PRN; Protocol PRN Reason: TITRATE PER MD ORDER Last Titration: 04/07/18 20:30 Dose: 0 mcg/min, 0 mls/hr Levofloxacin/Dextrose (Levaquin 750mg) 750 mg in 150 mls @ 100 mls/hr IVPB Q48H MARIO; Protocol Stop: 04/15/18 08:46 Last Admin: 04/08/18 07:57 Dose: 100 mls/hr Meropenem (Merrem Iv 1 Gm Premix) 1 gm in 50 mls @ 100 mls/hr IVPB Q12 MARIO; Protocol Stop: 04/15/18 10:01 Last Admin: 04/08/18 09:02 Dose: 100 mls/hr Lactated Ringer's (Lactated Ringer's) 1,000 mls @ 50 mls/hr IV .Q20H MARIO Pantoprazole Sodium (Protonix Inj) 40 mg IVP DAILY MARIO Last Admin: 04/08/18 09:04 Dose: 40 mg Results - Vital Signs Recent Vital Signs: Last Vital Signs Temp 98.8 F 04/07/18 17:33 Pulse 66 04/08/18 06:00 Resp 13 04/08/18 00:00 BP 122/88 04/08/18 00:00 Pulse Ox 99 04/08/18 00:00 - Labs Result Diagrams: 04/08/18 06:00 04/08/18 06:00 Labs: Laboratory Results - last 24 hr 04/07/18 04/07/18 04/07/18 11:21 16:06 17:54 WBC RBC Hgb Hct MCV MCH MCHC RDW Plt Count MPV Gran % Lymph % (Auto) Greene % (Auto) Eos % (Auto) Baso % (Auto) Gran # Lymph # (Auto) Greene # (Auto) Eos # (Auto) Baso # (Auto) pCO2 pO2 HCO3 ABG pH ABG Total CO2 ABG O2 Saturation ABG O2 Content ABG Base Excess ABG Hemoglobin ABG Carboxyhemoglobin POC ABG HHb (Measured) ABG Methemoglobin ABG O2 Capacity Hgb O2 Saturation FiO2 Sodium Potassium Chloride Carbon Dioxide Anion Gap BUN Creatinine Est GFR ( Amer) Est GFR (Non-Af Amer) POC Glucose (mg/dL) 128 H 185 H Random Glucose Calcium Phosphorus Magnesium Total Bilirubin AST ALT Alkaline Phosphatase Total Protein Albumin Globulin Albumin/Globulin Ratio Stool Occult Blood Positive H 04/07/18 04/08/18 04/08/18 22:28 06:00 06:00 WBC 9.4 RBC 3.00 L Hgb 8.2 L Hct 27.5 L MCV 91.7 MCH 27.3 MCHC 29.8 L RDW 15.6 H Plt Count 355 MPV 9.0 Gran % 77.8 H Lymph % (Auto) 11.5 L Greene % (Auto) 10.5 H Eos % (Auto) 0.0 L Baso % (Auto) 0.2 Gran # 7.31 H Lymph # (Auto) 1.1 L Greene # (Auto) 1.0 H Eos # (Auto) 0.0 Baso # (Auto) 0.02 pCO2 pO2 HCO3 ABG pH ABG Total CO2 ABG O2 Saturation ABG O2 Content ABG Base Excess ABG Hemoglobin ABG Carboxyhemoglobin POC ABG HHb (Measured) ABG Methemoglobin ABG O2 Capacity Hgb O2 Saturation FiO2 Sodium 145 Potassium 4.4 Chloride 110 H Carbon Dioxide 31 Anion Gap 9 L BUN 46 H Creatinine 1.8 H Est GFR ( Amer) 46 Est GFR (Non-Af Amer) 38 POC Glucose (mg/dL) 142 H Random Glucose 153 H Calcium 8.7 Phosphorus 3.0 Magnesium 2.1 Total Bilirubin 0.1 L AST 43 ALT 26 Alkaline Phosphatase 60 Total Protein 6.2 Albumin 2.8 L Globulin 3.4 Albumin/Globulin Ratio 0.8 L Stool Occult Blood 04/08/18 04/08/18 04/08/18 06:40 07:15 11:28 WBC RBC Hgb Hct MCV MCH MCHC RDW Plt Count MPV Gran % Lymph % (Auto) Greene % (Auto) Eos % (Auto) Baso % (Auto) Gran # Lymph # (Auto) Greene # (Auto) Eos # (Auto) Baso # (Auto) pCO2 33 L pO2 73.0 L HCO3 18.6 L ABG pH 7.36 ABG Total CO2 19.6 L ABG O2 Saturation 98.9 H ABG O2 Content 6.5 L ABG Base Excess -6.3 L ABG Hemoglobin 4.7 L ABG Carboxyhemoglobin 1.7 H POC ABG HHb (Measured) 1.1 ABG Methemoglobin 0.9 ABG O2 Capacity 6.6 L Hgb O2 Saturation 96.3 FiO2 36.0 Sodium Potassium Chloride Carbon Dioxide Anion Gap BUN Creatinine Est GFR ( Amer) Est GFR (Non-Af Amer) POC Glucose (mg/dL) 150 H 158 H Random Glucose Calcium Phosphorus Magnesium Total Bilirubin AST ALT Alkaline Phosphatase Total Protein Albumin Globulin Albumin/Globulin Ratio Stool Occult Blood Attending/Attestation - Attestation I have personally seen and examined this patient.: Yes I have fully participated in the care of the patient.: Yes I have reviewed all pertinent clinical information: Yes Notes (Text): 04/08/18 12:09 I have seen and examined patient with GI fellow. Agree with above documentation with the following additions. In brief, this is a 63 year old male with history of CVA with residual R hemiparesis, CHF, HTN, s/p trach/PEG which have now been removed following successful weaning who presents to hospital with progressive cough and undergoing treatment for pneumonia. GI called for presence of occult blood positive testing. He reports recent hemoptysis but denies abdominal pain, nausea, vomiting, weight loss, melena, or visible blood in stool. He is tolerating puree consistency diet without difficulty, no prior endoscopic evaluation. CHF HTN CVA with residual R hemiparesis Pneumonia Anemia Stool occult blood positive - Diet as tolerated - H/H stable without presence of overt bleeding. Rectal exam performed today showed soft brown stool in rectal vault without palpable lesions. Continue to monitor. - Continue with antibiotic therapy as per ID - Patient would benefit from elective endoscopic evaluation following resolution of acute pulmonary issues. No planned GI intervention at this time, will sign off case. Please reconsult as necessary, thank you.
--- NOTE | 2018-04-08 10:13 | PQF ---
PROVIDER RESPONSE TEXT: Pt with bilateraL PNEUMONIA AND HYPOTENSION REVIEWER QUERY TEXT: Respiratory Failure Acuity and Type Respiratory Failure is documented in the Medical Record. Please specify the type and acuity (includes suspected or probable) Such as: -- Acute respiratory failure - With hypoxia - With hypercapnia -- Chronic respiratory failure - With hypoxia - With hypercapnia -- Acute on chronic respiratory failure - With hypoxia - With hypercapnia -- Other, please specify The patient's Clinical Indicators include: Please clarify ACUITY of hypoxic respiratory failure requiring BIPAP on admission Query created by: Janae Saleh on 04/08/2018 9:54 AM Electronically signed by: Ezekiel QUEZADA 04/08/2018 10:10 AM
--- NOTE | 2018-04-08 10:30 | PN ---
DATE: 04/08/2018 SUBJECTIVE: I saw Justo resting comfortably in bed in the intensive care unit. He is alert. He is talking a little bit, stronger overall. MEDICATIONS: He is on acetylcysteine, aspirin, DuoNebs, Klonopin, lactated Ringers, Levaquin IV, Levophed, Merrem IV, Protonix, Solu-Cortef, vasopressin. PHYSICAL EXAMINATION: VITAL SIGNS: Temperature 98.8, 73 pulse, 116/77 blood pressure which is better, 12 respiratory rate, 99% O2 sat on room air, the blood pressure went to 122/88. We may need to stop some of the pressors. LABORATORY DATA: He has 9.4 white count, 8.2 hemoglobin, he has dropped 4 g of blood since he got here 3 days ago, 27.5 hematocrit with 355 platelets. He has a 145 sodium, potassium 4.4, BUN 46, creatinine 1.8 which is doing so much better than when he came in. He is getting better and better with his kidney function. Last blood sugar was 150, calcium 8.7, phosphorous 3, magnesium 2, total bili is 0.1, AST is 43, ALT is 26, alk phos is 60. ASSESSMENT AND PLAN: We will continue with aggressive treatment and care on this young man, has positive stool, occult blood. He is going to have a consult with Gastrointestinal and he is planned to be transfused if his hemoglobin drops below 8, although clinically he is starting to improve. He is here for multiple issues. He has acute kidney injury, failure, sepsis, and now with gastrointestinal bleed. Cash Chakraborty DO
--- NOTE | 2018-04-08 12:09 | CP.PCM.PN ---
Subjective - Date & Time of Evaluation Date of Evaluation: 04/08/18 Time of Evaluation: 10:40 - Subjective Subjective: On nasal cannula and not in distress, afebrile, no diarrhea, no vomiting. Objective - Vital Signs/Intake and Output Vital Signs (last 24 hours): Temp Pulse Resp BP Pulse Ox 98.1 F 79 13 132/85 98 04/07/18 12:15 04/07/18 12:15 04/07/18 12:15 04/07/18 12:15 04/07/18 12:15 Intake and Output: 04/07/18 04/07/18 06:59 18:59 Intake Total 1358 770 Output Total 1700 Balance -342 770 - Medications Medications: Current Medications Acetylcysteine (Acetylcysteine 20%) 4 ml IH BIDRESP MARIO Last Admin: 04/07/18 07:08 Dose: 4 ml Albuterol/Ipratropium (Duoneb 3 Mg/0.5 Mg (3 Ml) Ud) 3 ml IH [id number] MARIO Last Admin: 04/07/18 07:08 Dose: 3 ml Albuterol/Ipratropium (Duoneb 3 Mg/0.5 Mg (3 Ml) Ud) 3 ml IH Q2H PRN PRN Reason: Shortness of Breath Aspirin (Aspirin Chewable) 81 mg PO DAILY MARIO Last Admin: 04/07/18 12:22 Dose: 81 mg Clonazepam (Klonopin) 0.5 mg PO HS MARIO; Protocol Last Admin: 04/06/18 22:10 Dose: Not Given Hydrocortisone Sodium Succinate (Solu-Cortef) 50 mg IVP Q6H MARIO Last Admin: 04/07/18 09:35 Dose: 50 mg Meropenem/Sodium Chloride (Merrem Iv 500 Mg/Ns 50 Ml) 500 mg in 50 mls @ 100 mls/hr IVPB Q12 MARIO; Protocol Stop: 04/13/18 07:31 Last Admin: 04/07/18 09:35 Dose: 100 mls/hr Lactated Ringer's (Lactated Ringer's) 1,000 mls @ 100 mls/hr IV .Q10H MARIO Last Admin: 04/07/18 06:52 Dose: 100 mls/hr Vasopressin 20 units/ Sodium (Chloride) 101 mls @ 9.09 mls/hr IV .Q11H7M MARIO; Protocol Last Admin: 04/07/18 08:00 Dose: 9.09 mls/hr NOREPINEPHRINE BIT/0.9 % NACL (Levophed 4 Mg/ 250 Ml Ns Premixed) 4 mg in 250 mls @ 18.75 mls/hr IV .[id number] PRN; Protocol PRN Reason: TITRATE PER MD ORDER Last Titration: 04/07/18 12:20 Dose: 2 mcg/min, 7.5 mls/hr Levofloxacin/Dextrose (Levaquin 750mg) 750 mg in 150 mls @ 100 mls/hr IVPB Q48H MARIO; Protocol Stop: 04/15/18 08:46 Pantoprazole Sodium (Protonix Inj) 40 mg IVP DAILY [facility] Last Admin: 04/07/18 09:35 Dose: 40 mg - Labs Labs: 04/07/18 05:45 04/07/18 05:45 PT 21.8 SECONDS (9.4-12.5) H 04/05/18 19:08 INR 1.89 04/05/18 19:08 APTT 36.4 Seconds (25.1-36.5) 04/05/18 19:08 - Constitutional Appears: Chronically Ill - Head Exam Head Exam: NORMAL INSPECTION - Respiratory Exam Respiratory Exam: Decreased Breath Sounds - Cardiovascular Exam Cardiovascular Exam: +S1, +S2 - GI/Abdominal Exam GI & Abdominal Exam: Soft. absent: Tenderness Assessment and Plan - Assessment and Plan (Free Text) Plan: Assessment Septic shock with hypoxic respiratory failure and acute renal failure (multiorgan dysfunction) due to right sided HCAP S/P Systemic Inflammatory Response Syndrome in a patient already being treated for probable aspiration pneumonitis (with Vancomycin and Cefepime for 7 days) S/P treatment with Vancomycin and Merrem as well Transaminitis R/O drug-induced, R/O secondary to hepatic steatosis new onset CVA (Left MCA) S/P tracheostomy tube placement and PEG tube placement; patient is S/P ventilator-dependent respiratory failure significant smoking, S/P inguinal hernia repair HTN history of CVA with encephalomalacia Plan gave loading doses of IV Vancomycin and continue renally-adjusted Merrem and Levaquin day 3 pending final blood, sputum cx, PCT - target 4-7 days of therapy; reviewed CXR with Dr. Valle unable to use Zyvox since patient is on Escitalopram overall prognosis is poor will continue to follow clinically
--- NOTE | 2018-04-08 13:12 | CP.PCM.PN ---
Subjective - Date & Time of Evaluation Date of Evaluation: 04/08/18 Time of Evaluation: 13:11 - Subjective Subjective: Nephrology Consultation Note: Assessment: stable Acute Kidney Injury (N17.9) likely due to ATN as a result of pre- renal/dehydration and hypotension/shock combined respi and metabolic acidosis mild hyperkalemia. hypermagnesemia and hyperphosphatemia ? aspiration pneumonia anemia, mild hyperkalemia, vit d def chronic sys CHF hx of CVA sever pulm HTN Plan No acute need for renal replacement therapy at this time. renal fxn much better Maintain hemodynamics stable. Avoid hypotension. Patient not on ACEI/ARB due to recent APOLINAR. hold BP meds Monitor Input/Output, daily weights and renal function with basic metabolic panel can discontinue IVF. pt off pressors monitor lytes and supplement as needed supplement iron 1 tab tid /MVI 1 tab daily and vitamin d weekly once stable to take po meds Check urine analysis, spot protein/creatinine, albumin/creatinine ratio, renal sonogram Anemia work up with TSAT/Ferritin/Vitamin B12/folate Check for 25-OH vitamin D, iPTH, phosphorus level. Dose meds/antibiotics for reduced GFR. Avoid fleets enema/magnesium based laxatives. Avoid nephrotoxins/NSAIDs/ iodinated contrast (unless needed emergently) Glycemic control Further work up/management as per primary team Thanks for allowing me to participate in care of your patient. Will follow patient with you. Please call if any Qs. had d/w team Dr Channing Christopher Office: [phone] Chief Complaint; unable Reason for consult: Acute Kidney Injury HPI: Pt is a 63 M with hx of CVA, hypertension (years) [facility] resident presented with complaints of not feeling well,decreased oral intake and SOB with episodes of nausea/vomitting. renal consult for APOLINAR no known OTC/herbal meds or NSAIDs No recent iodinated contrast exposure. Noted obvious episodes of low BP. pt renal fxn better with IVF. making urine ROS: pt feels better. SOB better. Physical Examination: General Appearance: Comfortable, in no acute respiratory distress, Vitals reviewed and noted as below Head; Atraumatic, normocephalic ENT: dry mucosa EYES: Pupils are equal, round and reactive to light accommodation. Eye muscles and extraocular movement intact. Sclera is anicteric. Neck; supple no lymphadenopathy, no thyromegaly or bruit Lungs: Normal respiratory rate/effort. Breath sounds bilateral improved Heart: Normal rate. s1s2 normal. No rub or gallop. Extremities: no edema. No varicose veins Neurological: Patient is awake follow commands Skin: Warm and dry. Normal turgor. No rash. Palpitation: Normal elasticity for age Abdomen: Abdomen is soft. Bowel sounds +. There is no abdominal tenderness, no guarding/rigidity no organomegaly Psych: lack insight MSK: no joint tenderness or swelling. Digits and nails normal, no deformity : kidney or bladder not palpable. has simons Labs/imaging reviewed. Past medical history, past surgical history, family history, social history, allergy reviewed and noted as below Family hx: no hx of CKD. Rest non-contributory lvef 41% UA SG >1.030 Objective - Vital Signs/Intake and Output Vital Signs (last 24 hours): Temp Pulse Resp BP Pulse Ox 97.6 F 82 11 L 106/76 97 04/08/18 12:00 04/08/18 12:00 04/08/18 12:00 04/08/18 12:00 04/08/18 12:00 Intake and Output: 04/08/18 04/08/18 06:59 18:59 Intake Total 1668 Output Total 1300 Balance 368 - Medications Medications: Current Medications Acetylcysteine (Acetylcysteine 20%) 4 ml IH BIDRESP [facility] Last Admin: 04/08/18 08:31 Dose: 4 ml Albuterol/Ipratropium (Duoneb 3 Mg/0.5 Mg (3 Ml) Ud) 3 ml IH [id number] [facility] Last Admin: 04/08/18 13:01 Dose: 3 ml Albuterol/Ipratropium (Duoneb 3 Mg/0.5 Mg (3 Ml) Ud) 3 ml IH Q2H PRN PRN Reason: Shortness of Breath Clonazepam (Klonopin) 0.5 mg PO HS [facility]; Protocol Last Admin: 04/07/18 21:41 Dose: 0.5 mg Hydrocortisone Sodium Succinate (Solu-Cortef) 50 mg IVP Q12H [facility] Last Admin: 04/08/18 10:00 Dose: Not Given Vasopressin 20 units/ Sodium (Chloride) 101 mls @ 9.09 mls/hr IV .Q11H7M [facility]; Protocol Last Admin: 04/07/18 20:43 Dose: 9.09 mls/hr NOREPINEPHRINE BIT/0.9 % NACL (Levophed 4 Mg/ 250 Ml Ns Premixed) 4 mg in 250 mls @ 18.75 mls/hr IV .[id number] PRN; Protocol PRN Reason: TITRATE PER MD ORDER Last Titration: 04/07/18 20:30 Dose: 0 mcg/min, 0 mls/hr Levofloxacin/Dextrose (Levaquin 750mg) 750 mg in 150 mls @ 100 mls/hr IVPB Q48H [facility]; Protocol Stop: 04/15/18 08:46 Last Admin: 04/08/18 07:57 Dose: 100 mls/hr Meropenem (Merrem Iv 1 Gm Premix) 1 gm in 50 mls @ 100 mls/hr IVPB Q12 [facility]; Protocol Stop: 04/15/18 10:01 Last Admin: 04/08/18 09:02 Dose: 100 mls/hr Pantoprazole Sodium (Protonix Inj) 40 mg IVP DAILY [facility] Last Admin: 04/08/18 09:04 Dose: 40 mg - Labs Labs: 04/08/18 06:00 04/08/18 06:00 PT 21.8 SECONDS (9.4-12.5) H 04/05/18 19:08 INR 1.89 04/05/18 19:08 APTT 36.4 Seconds (25.1-36.5) 04/05/18 19:08
--- NOTE | 2018-04-08 13:54 | CP.PCM.APN ---
Subjective - Date & Time of Evaluation Date of Evaluation: 04/08/18 Time of Evaluation: 09:30 - Subjective Subjective: 63 year old male with history of CVA with residual R hemiparesis, CHF, HTN, s/p trach/PEG which have now been removed following successful weaning who presents to hospital with progressive cough , was in septic shock , and acute renal in sufficiency,and undergoing treatment for pneumonia. Pt. seen and examined at bedside. Appears more alert today, is off of Bipap, denied dyspnea, denied chest pain, shortness of breath. Review of Systems - Constitutional Constitutional: As Per HPI - EENT Eyes: As Per HPI Ears: As Per HPI Nose/Mouth/Throat: As Per HPI - Cardiovascular Cardiovascular: As Per HPI - Respiratory Respiratory: As Per HPI - Gastrointestinal Gastrointestinal: As Per HPI - Genitourinary Genitourinary: As Per HPI - Reproductive: Male Reproductive:Male: As Per HPI - Musculoskeletal Musculoskeletal: As Per HPI - Integumentary Integumentary: As Per HPI - Neurological Neurological: As Per HPI - Psychiatric Psychiatric: As Per HPI - Endocrine Endocrine: As Per HPI - Hematologic/Lymphatic Hematologic: As Per HPI Objective - Vital Signs/Intake and Output Vital Signs (last 24 hours): Temp Pulse Resp BP Pulse Ox 97.6 F 82 11 L 106/76 97 04/08/18 12:00 04/08/18 12:00 04/08/18 12:00 04/08/18 12:00 04/08/18 12:00 Intake and Output: 04/08/18 04/08/18 06:59 18:59 Intake Total 1668 Output Total 1300 Balance 368 - Medications Medications: Current Medications Acetylcysteine (Acetylcysteine 20%) 4 ml IH BIDRESP [facility] Last Admin: 04/08/18 08:31 Dose: 4 ml Albuterol/Ipratropium (Duoneb 3 Mg/0.5 Mg (3 Ml) Ud) 3 ml IH [id number] [facility] Last Admin: 04/08/18 13:01 Dose: 3 ml Albuterol/Ipratropium (Duoneb 3 Mg/0.5 Mg (3 Ml) Ud) 3 ml IH Q2H PRN PRN Reason: Shortness of Breath Clonazepam (Klonopin) 0.5 mg PO HS [facility]; Protocol Last Admin: 04/07/18 21:41 Dose: 0.5 mg Hydrocortisone Sodium Succinate (Solu-Cortef) 50 mg IVP Q12H [facility] Last Admin: 04/08/18 10:00 Dose: Not Given Vasopressin 20 units/ Sodium (Chloride) 101 mls @ 9.09 mls/hr IV .Q11H7M [facility]; Protocol Last Admin: 04/07/18 20:43 Dose: 9.09 mls/hr NOREPINEPHRINE BIT/0.9 % NACL (Levophed 4 Mg/ 250 Ml Ns Premixed) 4 mg in 250 mls @ 18.75 mls/hr IV .[id number] PRN; Protocol PRN Reason: TITRATE PER MD ORDER Last Titration: 04/07/18 20:30 Dose: 0 mcg/min, 0 mls/hr Levofloxacin/Dextrose (Levaquin 750mg) 750 mg in 150 mls @ 100 mls/hr IVPB Q48H [facility]; Protocol Stop: 04/15/18 08:46 Last Admin: 04/08/18 07:57 Dose: 100 mls/hr Meropenem (Merrem Iv 1 Gm Premix) 1 gm in 50 mls @ 100 mls/hr IVPB Q12 [facility]; Protocol Stop: 04/15/18 10:01 Last Admin: 04/08/18 09:02 Dose: 100 mls/hr Pantoprazole Sodium (Protonix Inj) 40 mg IVP DAILY [facility] Last Admin: 04/08/18 09:04 Dose: 40 mg - Labs Labs: 04/08/18 06:00 04/08/18 06:00 PT 21.8 SECONDS (9.4-12.5) H 04/05/18 19:08 INR 1.89 04/05/18 19:08 APTT 36.4 Seconds (25.1-36.5) 04/05/18 19:08 - Constitutional Appears: No Acute Distress - Head Exam Head Exam: NORMAL INSPECTION - Eye Exam Eye Exam: Normal appearance - ENT Exam ENT Exam: Mucous Membranes Moist - Neck Exam Neck Exam: Normal Inspection - Respiratory Exam Respiratory Exam: Decreased Breath Sounds, NORMAL BREATHING PATTERN - Cardiovascular Exam Cardiovascular Exam: REGULAR RHYTHM, +S1, +S2 - GI/Abdominal Exam GI & Abdominal Exam: Soft - Rectal Exam Rectal Exam: Deferred - Exam Additional comments: simons in place - Extremities Exam Extremities Exam: Normal Inspection - Back Exam Back Exam: NORMAL INSPECTION - Neurological Exam Neurological Exam: Alert, Awake - Skin Skin Exam: Dry, Intact Assessment and Plan - Assessment and Plan (Free Text) Assessment: Impressions Chest X-Ray 04/08/18 06:00 IMPRESSION: Bibasilar infiltrates and small effusions unchanged Microbiology 04/06/18 09:00 Sputum Induced Gram Stain - Final 04/06/18 09:00 Sputum Induced Sputum Culture - Final Escherichia Coli 04/05/18 19:38 Blood Blood Culture - Preliminary NO GROWTH AFTER 48 HOURS 04/05/18 19:08 Blood Blood Culture - Preliminary NO GROWTH AFTER 48 HOURS 04/06/18 02:33 Nose MRSA Culture (Admit) - Final MRSA NOT DETECTED Assessment/Plan: 1.Septic shock with hypoxic respiratory failure and acute renal failure (multiorgan dysfunction) due to right sided HCAP 2. Right Sided HCAP, Systemic Inflammatory Response Syndrome treated for probable aspiration pneumonitis (with Vancomycin and Cefepime for 7 days) S/P treatment with Vancomycin and Merrem as well 3. ARF- Improving on currentl IVF, recs as per nephrology. will follow and trend CMP. 4. Anemia, likely due to dilutional effect, from current IVF, and medicated IV drips. Monitor CBC and continue to follow. 5.. Transaminitis R/O drug-induced, R/O secondary to hepatic steatosis Will continue to monitor and trend Liver Enzymes. Will anticipate DC back to NH when medically cleared, awaiting improvement of anemia, and kidney function. Will continue to monitor clinical status and follow closely.
--- NOTE | 2018-04-08 14:48 | PN ---
DATE: 04/08/2018 SUBJECTIVE: The patient is verbalizing. He is oriented to place. He denies any chest pain. He is comfortable on nasal O2. PHYSICAL EXAMINATION: VITAL SIGNS: Blood pressure 122/88, heart rate 72, and temperature 98.8. HEENT: Pale conjunctivae. CHEST: Basal rhonchi. HEART: S1 and S2 regular. EXTREMITIES: No pedal edema. LABORATORY DATA: Today's hemoglobin and hematocrit 8.2 and 27.5. White count and platelet count are within normal limits. Today's BUN and creatinine are 46 and 1.8 respectively. Glucose is 153, potassium is within normal limit. Today's chest x-ray report, bilateral infiltrate and small effusion, unchanged. ASSESSMENT: 1. Hypotension. 2. Bilateral pneumonia. 3. Renal insufficiency. 4. History of cerebrovascular accident with residual right hemiplegia. 5. Worsening anemia with stool occult blood positive. RECOMMENDATIONS: Continue IV Protonix 40 mg once a day, continue Solu-Cortef mg intravenously twice a day, Levaquin 750 mg intravenously every 48 hours, continue Protonix at 40 mg intravenously daily. Hold aspirin for now. Bhaskar Hope MD
[2018-04-09] MEDS: Albuterol-Ipratrop 3 mg / 0.5 (3 ml) UD IH SCH ×3 (01:56→13:21)
[2018-04-09] MEDS ORDERED: Pantoprazole 40 mg Susp UD PO SCH (07:30)
[2018-04-09] MEDS: Acetylcysteine 20% Inhal Soln (4ml) IH SCH (07:39)
[2018-04-09 07:49] LABS: BASO # 0.03 K/mm3 (0.0-2.0); BASO % 0.3 % (0.0-3.0); GRAN # 7.29 (1.4-6.5); GRAN % 75.1 % (50.0-68.0); HEMOGLOBIN 9.1 g/dL (14.0-18.0); LYMPH # 1.1 (1.2-3.4); LYMPH % 11.5 % (22.0-35.0); MEAN CELL VOLUME 90.1 fl (80.0-105.0); MEAN CORPUSCULAR HEMOGLOBIN 27.3 pg (25.0-35.0); MEAN CORPUSCULAR HGB CONC 30.3 g/dl (31.0-37.0); MEAN PLATELET VOLUME 8.9 fl (7.0-11.0); MONO # 1.3 (0.1-0.6); MONO % 13.1 % (1.0-6.0); RBC 3.33 10^6/uL (3.5-6.1); RED CELL DISTRIBUTION WIDTH 15.5 % (11.5-14.5); WHITE BLOOD COUNT 9.7 10^3/uL (4.5-11.0)
[2018-04-09 08:08] LABS: ALB/GLOB RATIO 0.9 (1.1-1.8); ALBUMIN 2.9 g/dL (3.0-4.8); CALCIUM 8.8 mg/dL (8.4-10.5)
[2018-04-09 09:00] VITALS: RESP 18; O2SAT 98
--- NOTE | 2018-04-09 09:27 | RAD ---
Date of service: 04/09/2018 HISTORY: f/u COMPARISON: 04/08/2018 FINDINGS: LUNGS: Improved bibasilar infiltrates PLEURA: No significant pleural effusion identified, no pneumothorax apparent. CARDIOVASCULAR: No aortic atherosclerotic calcification present. Normal cardiac size. No pulmonary vascular congestion. OSSEOUS STRUCTURES: No significant abnormalities. VISUALIZED UPPER ABDOMEN: Normal. OTHER FINDINGS: None. IMPRESSION: Improved bibasilar infiltrates
--- NOTE | 2018-04-09 10:03 | PN ---
PULMONARY NOTE DATE: 04/09/2018 SUBJECTIVE: The patient appears comfortable this morning. He is not short of breath at rest. He is much more awake and alert. PHYSICAL EXAMINATION: VITAL SIGNS: (Last noted in the computer): Temperature is 97.6, pulse 87, respirations this morning 16/18, blood pressure 106//76 and oxygen saturation on nasal cannula is 97%. HEENT: Normocephalic and atraumatic. No JVD. CARDIOVASCULAR: Positive S1, S2. No S3 gallop. LUNGS: Less crackles at the bases. Less rhonchi. No wheezing. EXTREMITIES: No clubbing, cyanosis or edema. Calves are nontender to palpation. GI: Abdomen is soft, nontender and nondistended. Bowel sounds are positive. SKIN: No acute rash. NEUROLOGIC: Exam limited at the present time. PERTINENT LABORATORY DATA: Chest x-ray was repeated this morning and reviewed. The left lower lobe infiltrate remains; however, there is significant clearing of the right lower lobe infiltrate. Official results are pending. IMPRESSION: 1. Bilateral pneumonia. 2. Respiratory insufficiency. 3. Renal insufficiency. 4. Hypotension--resolved. 5. Anemia. PLAN: The patient appears comfortable this morning. He is not short of breath at rest. He is much, much more awake and alert this morning. I did discuss the case with the night nurse at length. The night nurse stated the patient had a good night. I did review the chest x-ray as above. The left lower lobe infiltrate remains. However, there is now significant clearing of the right lower lobe infiltrate. I would continue with the current antibiotic therapy as per Infectious Disease. Input by Dr. Avalos is noted. Temperatures have resolved. There is no leukocytosis. On physical exam, there is no significant bronchospasm noted. I will continue the current nebulizer treatments. The patient is also on intravenous Solu-Cortef - low-dose. I will continue the weaning of the Solu-Cortef. Clinical status of the patient is significantly improved - compared to his initial presentation. However, given the above, the patient's future status/prognosis remains very guarded at best/poor. I will discuss the above with Dr. Chakraborty. Ezekiel Valle MD [facility] # [id number] JEROMY
[2018-04-09] MEDS: Meropenem IV 1 gm in NS 1 GM/50 ML BAG IVPB SCH (10:43)
[2018-04-09] MEDS ORDERED: Ergocalciferol 50,000 Intl Units Cap PO SCH (11:00)
--- NOTE | 2018-04-09 11:59 | CP.PCM.PN ---
Subjective - Date & Time of Evaluation Date of Evaluation: 04/09/18 Time of Evaluation: 11:59 - Subjective Subjective: Nephrology Consultation Note: Assessment: stable Acute Kidney Injury (N17.9) likely due to ATN as a result of pre- renal/dehydration and hypotension/shock combined respi and metabolic acidosis mild hyperkalemia. hypermagnesemia and hyperphosphatemia ? aspiration pneumonia anemia, mild hyperkalemia, vit d def chronic sys CHF hx of CVA sever pulm HTN Plan No acute need for renal replacement therapy at this time. renal fxn much better Maintain hemodynamics stable. Avoid hypotension. Patient not on ACEI/ARB due to recent APOLINAR. hold BP meds Monitor Input/Output, daily weights and renal function with basic metabolic panel can discontinue IVF. pt off pressors monitor lytes and supplement as needed supplement iron 1 tab tid /MVI 1 tab daily and vitamin d weekly Dose meds/antibiotics for reduced GFR. Avoid fleets enema/magnesium based laxatives. Avoid nephrotoxins/NSAIDs/ iodinated contrast (unless needed emergently) Glycemic control Further work up/management as per primary team Thanks for allowing me to participate in care of your patient. Will follow patient with you. Please call if any Qs. had d/w team Dr Channing Christopher Office: [phone] Chief Complaint; unable Reason for consult: Acute Kidney Injury HPI: Pt is a 63 M with hx of CVA, hypertension (years) [place] resident presented with complaints of not feeling well,decreased oral intake and SOB with episodes of nausea/vomitting. renal consult for APOLINAR no known OTC/herbal meds or NSAIDs No recent iodinated contrast exposure. Noted obvious episodes of low BP. pt renal fxn better with IVF. making urine ROS: pt feels better. SOB better. Physical Examination: General Appearance: Comfortable, in no acute respiratory distress, Vitals reviewed and noted as below Head; Atraumatic, normocephalic ENT: dry mucosa EYES: Pupils are equal, round and reactive to light accommodation. Eye muscles and extraocular movement intact. Sclera is anicteric. Neck; supple no lymphadenopathy, no thyromegaly or bruit Lungs: Normal respiratory rate/effort. Breath sounds bilateral improved. still has few crackles Heart: Normal rate. s1s2 normal. No rub or gallop. Extremities: no edema. No varicose veins Neurological: Patient is awake follow commands Skin: Warm and dry. Normal turgor. No rash. Palpitation: Normal elasticity for age Abdomen: Abdomen is soft. Bowel sounds +. There is no abdominal tenderness, no guarding/rigidity no organomegaly Psych: lack insight MSK: no joint tenderness or swelling. Digits and nails normal, no deformity : kidney or bladder not palpable. has simons Labs/imaging reviewed. Past medical history, past surgical history, family history, social history, allergy reviewed and noted as below Family hx: no hx of CKD. Rest non-contributory lvef 41% UA SG >1.030 Objective - Vital Signs/Intake and Output Vital Signs (last 24 hours): Temp Pulse Resp BP Pulse Ox 97.7 F 79 18 132/95 H 98 04/09/18 06:00 04/09/18 06:00 04/09/18 06:00 04/09/18 06:00 04/09/18 06:00 Intake and Output: 04/09/18 04/09/18 06:59 18:59 Intake Total 120 Output Total 300 Balance -180 - Medications Medications: Current Medications Acetylcysteine (Acetylcysteine 20%) 4 ml IH BIDRESP [facility] Last Admin: 04/09/18 07:39 Dose: 4 ml Albuterol/Ipratropium (Duoneb 3 Mg/0.5 Mg (3 Ml) Ud) 3 ml IH [id number] [facility] Last Admin: 04/09/18 07:39 Dose: 3 ml Albuterol/Ipratropium (Duoneb 3 Mg/0.5 Mg (3 Ml) Ud) 3 ml IH Q2H PRN PRN Reason: Shortness of Breath Clonazepam (Klonopin) 0.5 mg PO HS [facility]; Protocol Last Admin: 04/08/18 21:10 Dose: 0.5 mg Ergocalciferol (Drisdol 50,000 Intl Units Cap) 1 cap PO Q7D [facility] Ferrous Gluconate (Fergon) 324 mg PO TID [facility] Hydrocortisone Sodium Succinate (Solu-Cortef) 50 mg IVP Q24H [facility] Last Admin: 04/09/18 10:43 Dose: 50 mg Vasopressin 20 units/ Sodium (Chloride) 101 mls @ 9.09 mls/hr IV .Q11H7M [facility]; Protocol Last Admin: 04/07/18 20:43 Dose: 9.09 mls/hr NOREPINEPHRINE BIT/0.9 % NACL (Levophed 4 Mg/ 250 Ml Ns Premixed) 4 mg in 250 mls @ 18.75 mls/hr IV .[id number] PRN; Protocol PRN Reason: TITRATE PER MD ORDER Last Titration: 04/07/18 20:30 Dose: 0 mcg/min, 0 mls/hr Levofloxacin/Dextrose (Levaquin 750mg) 750 mg in 150 mls @ 100 mls/hr IVPB Q48H [facility]; Protocol Stop: 04/15/18 08:46 Last Admin: 04/08/18 07:57 Dose: 100 mls/hr Meropenem (Merrem Iv 1 Gm Premix) 1 gm in 50 mls @ 100 mls/hr IVPB Q12 [facility]; Protocol Stop: 04/15/18 10:01 Last Admin: 04/09/18 10:43 Dose: 100 mls/hr Pantoprazole Sodium (Protonix Susp) 40 mg PO ACB [facility] Last Admin: 04/09/18 08:34 Dose: 40 mg Vitamin B Complex/Vit C/Folic Acid (Nephro-Narda) 1 tab PO 0800 [facility] - Labs Labs: 04/09/18 07:15 04/09/18 07:15 PT 21.8 SECONDS (9.4-12.5) H 04/05/18 19:08 INR 1.89 04/05/18 19:08 APTT 36.4 Seconds (25.1-36.5) 04/05/18 19:08
--- NOTE | 2018-04-09 13:42 | IP.NPCORE ---
Heart Failure Core Measure LAUREN Inhibitor Prescribed: Yes Pneumonia Progress Notes - Oxygenation Assessment (REQUIRED) O2 Saturation: 98 Oxygen Delivery Method: Nasal Cannula Date: 04/09/18 - Blood Cultures (REQUIRED) Culture drawn: Yes Date:: 04/05/18 Time:: 19:35 - Initial Antibiotic Initial Antibiotic given within Four Hours:: Yes - Appropriate Antibiotic Appropriate Antibiotic within 24 hours of Admission:: Yes No change in antibiotics: Yes - Pneumonia Vaccine Pneumonia Vaccine: Yes Date:: 06/18/16 - Smoking Cessation Smoking Cessation counseling provided:: No Ex-Smoker (has not smoked in the last 12 months): No Current Smoker - smoking cessation education provided: No
--- NOTE | 2018-04-09 15:00 | PN ---
DATE: 04/09/2018 SUBJECTIVE: The patient is sitting in 18. He is oriented and cooperative. Denies any productive cough or shortness of breath. He is insisting on going back to the senior living as soon as possible. PHYSICAL EXAMINATION: VITAL SIGNS: Blood pressure 132/95, heart rate 79, temperature 97.7, respirations 18. HEENT: Pale conjunctiva. CHEST: Minimal rhonchi. HEART: S1 and S2 regular. EXTREMITIES: No edema. LABORATORY DATA: Hemoglobin and hematocrit are 9.1 and 30.0, white count and platelet count are within normal limits. SMA-7: Sodium 144, potassium 4.1, chloride 108, CO2 of 31, glucose 109, BUN 33, creatinine 1.5. ASSESSMENT: 1. Improved . 2. Improved renal insufficiency. 3. Bilateral pneumonia. 4. History of cerebrovascular accident with residual right hemiplegia. 5. Anemia and stool occult positive blood. RECOMMENDATIONS: Continue current albuterol inhaler, continue Levaquin 750 mg intravenously every 48 hours, continue IV meropenem at 1 g every 12 hours, continue prednisone 30 mg once a day, Solu-Cortef 50 mg intravenously. Bhaskar Hope MD
--- NOTE | 2018-04-09 15:36 | CP.PCM.PN ---
Subjective - Date & Time of Evaluation Date of Evaluation: 04/09/18 Time of Evaluation: 09:30 - Subjective Subjective: Comfortable, no SOB at rest, more awake today. No fevers. Objective - Vital Signs/Intake and Output Vital Signs (last 24 hours): Temp Pulse Resp BP Pulse Ox 98.8 F 66 13 122/88 99 04/07/18 17:33 04/08/18 06:00 04/08/18 00:00 04/08/18 00:00 04/08/18 00:00 Intake and Output: 04/08/18 04/08/18 06:59 18:59 Intake Total 1668 Output Total 1300 Balance 368 - Medications Medications: Current Medications Acetylcysteine (Acetylcysteine 20%) 4 ml IH BIDRESP [facility] Last Admin: 04/08/18 08:31 Dose: 4 ml Albuterol/Ipratropium (Duoneb 3 Mg/0.5 Mg (3 Ml) Ud) 3 ml IH [id number] [facility] Last Admin: 04/08/18 08:32 Dose: 3 ml Albuterol/Ipratropium (Duoneb 3 Mg/0.5 Mg (3 Ml) Ud) 3 ml IH Q2H PRN PRN Reason: Shortness of Breath Clonazepam (Klonopin) 0.5 mg PO HS [facility]; Protocol Last Admin: 04/07/18 21:41 Dose: 0.5 mg Hydrocortisone Sodium Succinate (Solu-Cortef) 50 mg IVP Q12H [facility] Vasopressin 20 units/ Sodium (Chloride) 101 mls @ 9.09 mls/hr IV .Q11H7M [facility]; Protocol Last Admin: 04/07/18 20:43 Dose: 9.09 mls/hr NOREPINEPHRINE BIT/0.9 % NACL (Levophed 4 Mg/ 250 Ml Ns Premixed) 4 mg in 250 mls @ 18.75 mls/hr IV .[id number] PRN; Protocol PRN Reason: TITRATE PER MD ORDER Last Titration: 04/07/18 20:30 Dose: 0 mcg/min, 0 mls/hr Levofloxacin/Dextrose (Levaquin 750mg) 750 mg in 150 mls @ 100 mls/hr IVPB Q48H [facility]; Protocol Stop: 04/15/18 08:46 Last Admin: 04/08/18 07:57 Dose: 100 mls/hr Meropenem (Merrem Iv 1 Gm Premix) 1 gm in 50 mls @ 100 mls/hr IVPB Q12 [facility]; Protocol Stop: 04/15/18 10:01 Last Admin: 04/08/18 09:02 Dose: 100 mls/hr Lactated Ringer's (Lactated Ringer's) 1,000 mls @ 50 mls/hr IV .Q20H [facility] Pantoprazole Sodium (Protonix Inj) 40 mg IVP DAILY [facility] Last Admin: 04/08/18 09:04 Dose: 40 mg - Labs Labs: 04/08/18 06:00 04/08/18 06:00 PT 21.8 SECONDS (9.4-12.5) H 04/05/18 19:08 INR 1.89 04/05/18 19:08 APTT 36.4 Seconds (25.1-36.5) 04/05/18 19:08 - Constitutional Appears: Chronically Ill - Head Exam Head Exam: NORMAL INSPECTION - Respiratory Exam Respiratory Exam: Decreased Breath Sounds - Cardiovascular Exam Cardiovascular Exam: +S1, +S2 - GI/Abdominal Exam GI & Abdominal Exam: Soft. absent: Tenderness Assessment and Plan - Assessment and Plan (Free Text) Plan: Assessment S/P Septic shock with hypoxic respiratory failure and acute renal failure (multiorgan dysfunction) due to right sided HCAP S/P Systemic Inflammatory Response Syndrome in a patient already being treated for probable aspiration pneumonitis (with Vancomycin and Cefepime for 7 days) S/P treatment with Vancomycin and Merrem as well Transaminitis R/O drug-induced, R/O secondary to hepatic steatosis new onset CVA (Left MCA) S/P tracheostomy tube placement and PEG tube placement; patient is S/P ventilator-dependent respiratory failure significant smoking, S/P inguinal hernia repair HTN history of CVA with encephalomalacia Plan gave loading doses of IV Vancomycin and continue renally-adjusted Merrem and Levaquin day 4 to complete 4-7 days of therapy; reviewed CXR with Dr. Valle discussed with Dr. Chakraborty overall prognosis is poor will continue to follow clinically
--- NOTE | 2018-04-09 16:13 | PN ---
DATE: 04/09/2018 SUBJECTIVE: He is out of the intensive care unit. He is definitely improved since he got here in the intensive care unit. He is in the fifth floor. He is alert. He is eating, now he is being fed. Recommendations on physical therapy with subacute rehab. I would like to see him go to [facility] for subacute rehab. MEDICATIONS: He is on acetylcysteine, albuterol, Klonopin, levofloxacin, Merrem, norepinephrine, pantoprazole, hydrocortisone, and vasopressin IV. PHYSICAL EXAMINATION: VITAL SIGNS: He has 97.7 temperature, 79 pulse, 132/95 blood pressure, 18 respiratory rate, 90% O2 sat on room air. I give him some medication for his blood pressure. HEAD: Atraumatic, normocephalic. GENERAL: He is alert, smiling. HEART: Regular rate. LUNGS: Decreased breath sounds. ABDOMEN: Soft. EXTREMITIES: Reveal right-sided weakness from an old stroke. No edema. LABORATORY DATA: He has a 9.7 white count, 9.1 hemoglobin, 30 hematocrit with 353 platelets. INR is 1.89. He has 144 sodium, potassium 4.1, BUN 33, creatinine 1.5, GFR is 47, sugar is 109, creatinine is 8.8. Total bili is 0.2. AST is 35, ALT is 19, alk phos 53, total protein 6.3. He had E. coli and gram stain. ASSESSMENT AND PLAN: He is being seen by Renal, Infectious Disease. He had a chest x-ray today, improved bibasilar infiltrates. My plan would be when I get the okay from Infectious Disease, to get him to start at [facility]. Cash Chakraborty DO [email or web address]
[2018-04-09 16:46] VITALS: BP 137/99; PULSE 106; TEMP 98.2
[2018-04-10] MEDS ORDERED: Multivitamin Vitamin B Complex (Nephro-Vite) Tab PO SCH (08:00)
== END 2018-04-09 17:22 | DRG 871 ==
LOC: ED 18:36 → ERH 20:52 → CCU 04-06 02:10 → 5RSO 04-08 15:34
PROVIDERS: ADMIT Family Medicine; ATTEND Family Medicine
PROC: 5A09457 Assistance with Respiratory Ventilation, 24-96 Consecutive Hours, Continuous Positive Airway Pressure (ICD-10-PCS; 2018-04-05)
PROC: 3E043XZ Introduction of Vasopressor into Central Vein, Percutaneous Approach (ICD-10-PCS; principal; 2018-04-06)
DX: A41.9 Sepsis, unspecified organism (principal); R65.21 Severe sepsis with septic shock; J69.0 Pneumonitis due to inhalation of food and vomit; N17.0 Acute kidney failure with tubular necrosis; J96.91 Respiratory failure, unspecified with hypoxia; J44.1 Chronic obstructive pulmonary disease with (acute) exacerbation; J44.0 Chronic obstructive pulmonary disease with (acute) lower respiratory infection; I13.0 Hypertensive heart and chronic kidney disease with heart failure and stage 1 through stage 4 chronic kidney disease, or unspecified chronic kidney disease; I50.22 Chronic systolic (congestive) heart failure; E87.4 Mixed disorder of acid-base balance; J98.11 Atelectasis; K92.2 Gastrointestinal hemorrhage, unspecified; I69.351 Hemiplegia and hemiparesis following cerebral infarction affecting right dominant side; E86.0 Dehydration; N18.9 Chronic kidney disease, unspecified; E87.5 Hyperkalemia; F32.9 Major depressive disorder, single episode, unspecified; I27.20 Pulmonary hypertension, unspecified; R63.0 Anorexia; R62.7 Adult failure to thrive; D64.9 Anemia, unspecified; E55.9 Vitamin D deficiency, unspecified; E83.41 Hypermagnesemia; E83.39 Other disorders of phosphorus metabolism; G93.89 Other specified disorders of brain; Z66 Do not resuscitate; Z87.891 Personal history of nicotine dependence; Z79.899 Other long term (current) drug therapy; I69.320 Aphasia following cerebral infarction

== ENCOUNTER 2018-04-13 17:39 | Inpatient (IN) | payer MEDICARE, MEDICAID ==
[2018-04-13 17:49] VITALS: BMI 19.4
[2018-04-13] MEDS ORDERED: Sodium Chloride 0.9% 1,000 ML IV STA (17:58)
--- NOTE | 2018-04-13 18:23 | ED PDOC ---
Arrival/HPI - General Chief Complaint: GI Problem Time Seen by Provider: 04/13/18 17:51 Historian: Patient, EMS - History of Present Illness Narrative History of Present Illness (Text): 04/13/18 18:11 63 y/o M w/ h/o CVA w/ R sided residual deficits s/p tracheostomy tube presenting to the Emergency Room brought from [facility] for persistent emesis. The patient states he had been unable to ingest any solids for the past 2 days. He denies any fevers, chills, abdominal pain, back pain, dysuria, chest pain, or shortness of breath at this time. PCP: Dr. Chakraborty Time/Duration: Prior to Arrival Symptom Onset: Sudden Symptom Course: Unchanged Severity Level: Moderate Activities at Onset: Rest Context: Other (Half-Way) Past Medical History - Provider Review Nursing Documentation Reviewed: Yes - Travel History Have you recently traveled outside [place] w/in the past 3 mons?: No - Infectious Disease Hx of Infectious Diseases: None - Tetanus Immunization Tetanus Immunization: Unknown - Past Medical History Past Medical History: No Previous - Cardiac Hx Cardiac Disorders: Yes Hx Hypertension: Yes - Pulmonary Hx Respiratory Disorders: Yes Hx Pneumonia: Yes - Neurological Hx Neurological Disorder: Yes HX Cerebrovascular Accident: Yes - HEENT Hx HEENT Disorder: Yes Other/Comment: TRACHEOSTOMY - Renal Hx Renal Disorder: Yes - Hematological/Oncological Hx Blood Disorders: Yes Hx Anemia: Yes - Gastrointestinal Hx Gastrointestinal Disorders: Yes Hx Gastroesophageal Reflux: Yes - Genitourinary/Gynecological Hx Genitourinary Disorders: Yes Other/Comment: URINARY RETENTION - Psychiatric Hx Psychophysiologic Disorder: Yes Hx Anxiety: Yes Hx Depression: Yes Hx Substance Use: No - Past Surgical History Past Surgical History: No Previous - Surgical History Hx Vascular Surgery: Yes Other/Comment: GTUBE, TRACH REVERSED - Anesthesia Hx Anesthesia: Yes Hx Anesthesia Reactions: No Hx Malignant Hyperthermia: No - Suicidal Assessment Feels Threatened In Home Enviroment: No Family/Social History - Physician Review Nursing Documentation Reviewed: Yes Family/Social History: Unknown Family HX Smoking Status: Heavy Smoker > 10 Cigarettes Daily Hx Alcohol Use: No Hx Substance Use: No Hx Substance Use Treatment: No Allergies/Home Meds Allergies/Adverse Reactions: Allergies No Known Allergies Allergy (Verified 04/13/18 17:52) Home Medications: Home Meds Medication Instructions Recorded Confirmed RX: Acetaminophen 2 tab PO Q4 PRN 01/14/17 04/13/18 RX: Aspirin 81 mg PO DAILY 01/14/17 04/19/18 RX: Clonazepam [Klonopin] 0.5 mg PO HS 01/14/17 04/19/18 RX: Enoxaparin [Lovenox] 40 mg SQ DAILY 01/14/17 04/19/18 RX: Escitalopram [Lexapro] 10 mg PO DAILY 01/14/17 04/19/18 RX: Famotidine 20 mg PO DAILY 01/14/17 04/19/18 RX: Lisinopril [Zestril] 20 mg PO DAILY 01/14/17 04/13/18 RX: Metoprolol Tartrate [Lopressor] 50 mg PO BID 01/14/17 01/14/17 RX: Tamsulosin [Flomax] 0.4 mg PO DAILY 01/14/17 04/19/18 RX: Ferrous Sulfate [Ferosul] 1 tab PO TID 04/13/18 04/13/18 Review of Systems - Physician Review All systems were reviewed & negative as marked: Yes - Review of Systems Systems not reviewed;Unavailable: Other (Residual CVA cognitive slowing) Physical Exam Vital Signs Reviewed: Yes Vital Signs Temp Pulse Resp BP Pulse Ox 04/13/18 18:05 97.7 F 110 H 20 104/62 86 L Temperature: Afebrile Blood Pressure: Normal Pulse: Tachycardic Appearance: Positive for: Well-Appearing, Non-Toxic, Comfortable Mental Status: Positive for: Alert and Oriented X 3 - Systems Exam Head: Present: Atraumatic, Normocephalic Pupils: Present: PERRL Extroacular Muscles: Present: EOMI Conjunctiva: Present: Normal Mouth: Present: Dry Neck: Present: Normal Range of Motion Respiratory/Chest: Present: Decreased Breath Sounds, Rales (crackles heard to LLB) Cardiovascular: Present: Regular Rate and Rhythm, Other (Systolic ejection murmur noted) Abdomen: Present: Distention, Normal Bowel Sounds. No: Tenderness, Rebound, Guarding Neurological: Present: GCS=15, Other (Slightly slurred speech(baseline), RUE & RLE weakness) Skin: Present: Warm, Dry, Normal Color Psychiatric: Present: Alert, Oriented x 3 Medical Decision Making ED Course and Treatment: 04/13/18 18:28 Impression 63M w/ h/o anxiety and tracheostomy presenting with emesis Differential Diagnoses Includes But Is Not Limited To: --SBO --Aspiration --PNA Plan --Labs --Potassium chloride --Zofran --Calcium gluconate --Dextrose --Insulin --Sodium bicarbonate --Albuterol --EKG --CXR --Blood Cultures --Zosyn --Vancomyin --VBG --Urinalysis --Urine Culture --Straight Cath --Reassess & disposition Progress Notes 04/13/18 19:15 Hyperkalemia noted on VBG(K:7.7) with peaked T waves on EKG seen. Hyperkalemia protocol started. Pending lab results. Patient noted to be hypoxic to 86% on room air. Non-rebreather applied. Call to Dr. Chakraborty(PCP) placed. 04/13/18 19:[address] Chakraborty who agrees with plan to admit to his services and requests the services of Dr. Valle(pulmonology) & Dr. Lozano(infectious disease) as consult. CXR reviewed with infiltrate noted to the LLL. Zosyn & Vancomycin ordered. 04/13/18 19:46 Leukocytosis of 14.6 noted with shift. Pending chemistries. 04/13/18 20:22 Discordance noted between VBG potassium(7.7) & chemistries potassium(3.5). Potassium chloride ordered for repletion. - Lab Interpretations I have reviewed the lab results: Yes - RAD Interpretation Radiology Orders: 04/13/18 17:58 CHEST PORTABLE [RAD] Stat 04/13/18 18:07 CHEST,ABD,PEL W/IV CONT ONLY [CT] Stat - EKG Interpretation EKG Interpretation (Text): 04/13/18 19:16 Sinus tachycardia @ 118 Peaked T waves noted in precordial leads No QT prolongation Interpreted by ED Physician: Yes - Medication Orders Current Medication Orders: Sodium Chloride (Sodium Chloride 0.9%) 1,000 mls @ 999 mls/hr IV .Q1H1M STA Stop: 04/13/18 18:58 Discontinued Medications Ondansetron HCl (Zofran Inj) 4 mg IVP STAT STA Stop: 04/13/18 17:59 Disposition/Present on Arrival - Present on Arrival Any Indicators Present on Arrival: Yes History of DVT/PE: No History of Uncontrolled Diabetes: No Urinary Catheter: Yes (simons cath) History of Decub. Ulcer: No History Surgical Site Infection Following: None - Disposition Have Diagnosis and Disposition been Completed?: Yes Diagnosis: Hypoxia, Pneumonia Disposition: HOSPITALIZED Disposition Time: 19:26 Patient Plan: Admission Condition: GUARDED
[2018-04-13 18:42] LABS: VENOUS BLOOD GAS BASE EXCESS 8.8 mmol/L (0.0-2.0); VENOUS BLOOD GAS PO2 90 mm/Hg (30-55); VENOUS BLOOD PH 7.48 (7.32-7.43)
[2018-04-13] MEDS ORDERED: Albuterol 0.083% Inhal Sol (2.5 mg/3 mL) UD INH STA (19:13)
[2018-04-13] MEDS ORDERED: Sodium Bicarbonate (8.4%) 50 Meq Syringe IVP ONE (19:13)
[2018-04-13] MEDS ORDERED: Dextrose 50% SYRINGE Inj (50 ml) IVP STA (19:23)
[2018-04-13] MEDS ORDERED: Insulin Regular 1 UNITS/0.01 ML ML IVP STA (19:23)
[2018-04-13] MEDS ORDERED: Piperacillin/Tazobact 3.375 gm 100 ML IVPB STA (19:25)
[2018-04-13] MEDS ORDERED: Vancomycin 1gm in NS 250ml 1 GM/250 ML BAG IVPB STA (19:26)
[2018-04-13 19:29] LABS: EOS % 0.1 % (1.5-5.0); GRAN # 12.46 (1.4-6.5); GRAN % 85.1 % (50.0-68.0); HEMOGLOBIN 11.6 g/dL (14.0-18.0); LYMPH # 1.3 (1.2-3.4); LYMPH % 8.5 % (22.0-35.0); MEAN CELL VOLUME 88.2 fl (80.0-105.0); MEAN CORPUSCULAR HEMOGLOBIN 27.5 pg (25.0-35.0); MEAN CORPUSCULAR HGB CONC 31.2 g/dl (31.0-37.0); MEAN PLATELET VOLUME 9.2 fl (7.0-11.0); MONO # 0.9 (0.1-0.6); MONO % 6.3 % (1.0-6.0); RBC 4.22 10^6/uL (3.5-6.1); RED CELL DISTRIBUTION WIDTH 15.5 % (11.5-14.5); WHITE BLOOD COUNT 14.6 10^3/uL (4.5-11.0)
[2018-04-13 19:51] LABS: INR 1.25; PARTIAL THROMBOPLASTIN TIME 35.5 Seconds (25.1-36.5); PROTHROMBIN TIME 14.3 SECONDS (9.4-12.5)
[2018-04-13 20:14] LABS: ALB/GLOB RATIO 0.9 (1.1-1.8); ALT/SGPT 33 U/L (7-56); AST/SGOT 50 U/L (17-59); BLOOD UREA NITROGEN 25 mg/dL (7-21); CALCIUM 7.9 mg/dL (8.4-10.5); GFR NON-AFRICAN AMERICAN > 60; LIPASE 107 U/L (23-300)
[2018-04-13] MEDS ORDERED: Iohexol 350 MG/100 ML VIAL ONE (20:30)
[2018-04-14] MEDS ORDERED: Vancomycin 1gm in NS 250ml 1 GM/250 ML BAG IVPB STA (00:43)
[2018-04-14] MEDS: Meropenem IV 1 gm in NS 1 GM/50 ML BAG IVPB SCH ×3 (08:05→22:46)
--- NOTE | 2018-04-14 08:26 | CT ---
Date of service: 04/13/2018 PROCEDURE: CT Chest, Abdomen and Pelvis with intravenous contrast HISTORY: emesis w/ abdominal distention poss aspiration COMPARISON: 04/16/2016 TECHNIQUE: IV dose administered: Radiation dose: Total exam DLP = 1129.91 mGy-cm. This CT exam was performed using one or more of the following dose reduction techniques: Automated exposure control, adjustment of the mA and/or kV according to patient size, and/or use of iterative reconstruction technique. FINDINGS: CT CHEST WITH CONTRAST: LUNGS: Bilateral pleural effusions with large bibasilar infiltrates/consolidation. MEDIASTINUM: Unremarkable. Normal caliber aorta and pulmonary arterial trunk. No aortic dissection. Normal size heart. LYMPH NODES: Unremarkable. PLEURA: Unremarkable. No pneumothorax. No pleural fluid. BONES: Unremarkable. OTHER FINDINGS: None. CT ABDOMEN AND PELVIS: LIVER: Unremarkable. No gross lesion or ductal dilatation. GALLBLADDER AND BILE DUCTS: Unremarkable. PANCREAS: Unremarkable. No gross lesion or ductal dilatation. SPLEEN: Unremarkable. ADRENALS: Unremarkable. No mass. KIDNEYS AND URETERS: Unremarkable. No hydronephrosis. No solid mass. VASCULATURE: Aortic calcifications. Unremarkable. No aortic aneurysm. BOWEL: Multiple dilated loops of small bowel he with a large left inguinal hernia containing multiple bowel loops. Findings compatible with a small bowel obstruction with likely source of obstruction in the left scrotum. APPENDIX: Normal appendix. PERITONEUM: Unremarkable. No free fluid. No free air. LYMPH NODES: Unremarkable. No enlarged lymph nodes. BLADDER: Unremarkable. REPRODUCTIVE: Unremarkable. BONES: No acute fracture. OTHER FINDINGS: None. IMPRESSION: Multiple dilated loops of small bowel he with a large left inguinal hernia containing multiple bowel loops. Findings compatible with a small bowel obstruction with likely source of obstruction in the left scrotum. Bilateral pleural effusions with large bibasilar infiltrates/consolidation.
--- NOTE | 2018-04-14 08:27 | RAD ---
Date of service: 04/13/2018 HISTORY: COMPARISON: Portable chest 04/09/2018 FINDINGS: LUNGS: Patient is rotated toward the right accentuating left hilar vascular markings somewhat. There has been a further improvement in right basilar infiltrate with trace residual question at the medial base. Left basilar infiltrate is not significantly changed. PLEURA: No significant pleural effusion identified, no pneumothorax apparent. CARDIOVASCULAR: No aortic atherosclerotic calcification present. Normal cardiac size. No pulmonary vascular congestion. OSSEOUS STRUCTURES: No significant abnormalities. VISUALIZED UPPER ABDOMEN: Multiple small large-bowel loops appear distended with gas as well as the stomach moderately. OTHER FINDINGS: None. IMPRESSION: Improved right basilar infiltrate with limited medial basilar residual. Left basilar patchy infiltrate not significantly changed. Multiple small large-bowel loops appear distended with gas as well as the stomach moderately.
[2018-04-14] MEDS: Enoxaparin 40 mg Syringe SC SCH (09:42)
[2018-04-14] MEDS: MethylPREDNISolone 40 mg Vial IVP SCH ×2 (09:42→22:46)
--- NOTE | 2018-04-14 10:19 | CP.PCM.CON ---
<Felton Rojo - Last Filed: 04/14/18 12:42> History of Present Illness - History of Present Illness History of Present Illness: ID Consult Note 63 year old male with past medical history of HTN, CVA with residual right sided weakness, and recent admission for septic shock secondary to HCAP presents to the hospital for persistent nausea and vomiting. Patient was at custodial facility since previous discharge and was not able to tolerate his diet over last several days. Patient had multiple episodes of nausea and vomiting. Patient was previously on Merrem in the hospital and discharged on course of Levaquin. Currently, patient denies any chest pain, shortness of breath, nausea, vomiting, diarrhea, fever, chills, dysuria. PMH: HTN, CVA Surgical Hx: Tracheostomy, hernia repair, G-tube Family History: Denies Social Hx: Former smoker. Denies alcohol or illicit drug use Allergies: NKDA Medications: As per MAR, reviewed. Review of Systems - Review of Systems Review of Systems: 12 point ROS as per HPI, otherwise negative Past Patient History - Infectious Disease Hx of Infectious Diseases: None - Tetanus Immunizations Tetanus Immunization: Unknown - Past Medical History & Family History Past Medical History?: Yes - Past Social History Smoking Status: Current Some Days Smoker - CARDIAC Hx Hypertension: Yes - PULMONARY Hx Respiratory Disorders: Yes Hx Pneumonia: Yes - NEUROLOGICAL Hx Neurological Disorder: Yes HX Cerebrovascular Accident: Yes - HEENT Hx HEENT Problems: Yes Other/Comment: TRACHEOSTOMY - RENAL Hx Chronic Kidney Disease: Yes - HEMATOLOGICAL/ONCOLOGICAL Hx Blood Disorders: Yes Hx Anemia: Yes - MUSCULOSKELETAL/RHEUMATOLOGICAL Hx Falls: No - GASTROINTESTINAL Hx Gastrointestinal Disorders: Yes Hx Gastroesophageal Reflux: Yes - GENITOURINARY/GYNECOLOGICAL Hx Genitourinary Disorders: Yes Other/Comment: URINARY RETENTION - PSYCHIATRIC Hx Psychophysiologic Disorder: Yes Hx Anxiety: Yes Hx Depression: Yes Hx Substance Use: No - SURGICAL HISTORY Hx Vascular Surgery: Yes Other/Comment: GTUBE, TRACH REVERSED - ANESTHESIA Hx Anesthesia: Yes Hx Anesthesia Reactions: No Hx Malignant Hyperthermia: No Meds Allergies/Adverse Reactions: Allergies Allergy/AdvReac Type Severity Reaction Status Date / Time No Known Allergies Allergy Verified 04/13/18 17:52 - Medications Medications: Current Medications Albuterol/Ipratropium (Duoneb 3 Mg/0.5 Mg (3 Ml) Ud) 3 ml IH [id number] MARIO Aspirin (Aspirin Chewable) 81 mg PO DAILY [facility] Last Admin: 04/14/18 09:42 Dose: 81 mg Clonazepam (Klonopin) 0.5 mg PO DAILY [facility]; Protocol Last Admin: 04/14/18 09:42 Dose: 0.5 mg Clonazepam (Klonopin) 0.5 mg PO HS [facility]; Protocol Enoxaparin Sodium (Lovenox) 40 mg SC DAILY [facility]; Protocol Last Admin: 04/14/18 09:42 Dose: 40 mg Escitalopram Oxalate (Lexapro) 10 mg PO DAILY [facility] Last Admin: 04/14/18 09:41 Dose: 10 mg Meropenem (Merrem Iv 1 Gm Premix) 1 gm in 50 mls @ 100 mls/hr IVPB Q8 [facility]; Protocol Stop: 04/21/18 07:01 Last Admin: 04/14/18 08:05 Dose: 100 mls/hr Methylprednisolone (Solu-Medrol) 30 mg IVP Q12 [facility] Last Admin: 04/14/18 09:42 Dose: 30 mg Metoprolol Tartrate (Lopressor) 50 mg PO BID [facility] Last Admin: 04/14/18 09:46 Dose: 50 mg Ondansetron HCl (Zofran Inj) 4 mg IVP Q6H PRN PRN Reason: Nausea/Vomiting Last Admin: 04/14/18 09:41 Dose: 4 mg Pantoprazole Sodium (Protonix Inj) 40 mg IVP DAILY [facility] Last Admin: 04/14/18 09:31 Dose: 40 mg Tamsulosin HCl (Flomax) 0.4 mg PO DAILY [facility] Last Admin: 04/14/18 09:42 Dose: 0.4 mg Physical Exam - Constitutional Appears: Non-toxic, No Acute Distress - Head Exam Head Exam: ATRAUMATIC, NORMAL INSPECTION, NORMOCEPHALIC - Eye Exam Eye Exam: EOMI - ENT Exam ENT Exam: Mucous Membranes Moist - Respiratory Exam Respiratory Exam: Decreased Breath Sounds, NORMAL BREATHING PATTERN. absent: Rales, Rhonchi, Wheezes - Cardiovascular Exam Cardiovascular Exam: RRR, +S1, +S2 - GI/Abdominal Exam GI & Abdominal Exam: Distended, Hyperactive Bowel Sounds, Soft. absent: Guarding, Rebound, Tenderness - Extremities Exam Extremities exam: Positive for: normal inspection. Negative for: pedal edema - Neurological Exam Neurological exam: Alert, CN II-XII Intact, Oriented x3 - Psychiatric Exam Psychiatric exam: Normal Affect, Normal Mood - Skin Skin Exam: Intact, Normal Color, Warm Results - Vital Signs Recent Vital Signs: Last Vital Signs Temp 98 F 04/14/18 06:00 Pulse 101 H 04/14/18 09:46 Resp 18 04/14/18 06:00 BP 100/66 04/14/18 06:00 Pulse Ox 100 04/13/18 22:00 - Labs Result Diagrams: 04/13/18 18:26 04/13/18 19:20 Labs: Laboratory Results - last 24 hr 04/13/18 04/13/18 04/13/18 18:26 18:26 18:26 WBC 14.6 H D RBC 4.22 Hgb 11.6 L D Hct 37.2 L MCV 88.2 MCH 27.5 MCHC 31.2 RDW 15.5 H Plt Count 486 H MPV 9.2 Gran % 85.1 H Lymph % (Auto) 8.5 L [place] % (Auto) 6.3 H Eos % (Auto) 0.1 L Baso % (Auto) 0.0 Gran # 12.46 H Lymph # (Auto) 1.3 [place] # (Auto) 0.9 H Eos # (Auto) 0.0 Baso # (Auto) 0.00 PT 14.3 H INR 1.25 APTT 35.5 pO2 90 H VBG pH 7.48 H VBG pCO2 45.0 VBG HCO3 33.5 H VBG Total CO2 34.9 H VBG O2 Sat (Calc) 99.2 H VBG Base Excess 8.8 H VBG Potassium 7.7 H* Sodium 136.0 Chloride 100.0 Glucose 123 H Lactate 1.6 FiO2 21.0 Potassium Carbon Dioxide Anion Gap BUN Creatinine Est GFR ( Amer) Est GFR (Non-Af Amer) Random Glucose Calcium Magnesium Total Bilirubin AST ALT Alkaline Phosphatase Total Protein Albumin Globulin Albumin/Globulin Ratio Lipase Venous Blood Potassium 7.7 H* 04/13/18 19:20 WBC RBC Hgb Hct MCV MCH MCHC RDW Plt Count MPV Gran % Lymph % (Auto) [place] % (Auto) Eos % (Auto) Baso % (Auto) Gran # Lymph # (Auto) [place] # (Auto) Eos # (Auto) Baso # (Auto) PT INR APTT pO2 VBG pH VBG pCO2 VBG HCO3 VBG Total CO2 VBG O2 Sat (Calc) VBG Base Excess VBG Potassium Sodium 141 Chloride 102 Glucose Lactate FiO2 Potassium 3.5 L Carbon Dioxide 34 H Anion Gap 9 L BUN 25 H Creatinine 1.2 Est GFR ( Amer) > 60 Est GFR (Non-Af Amer) > 60 Random Glucose 118 H Calcium 7.9 L Magnesium 1.6 L Total Bilirubin 0.4 AST 50 ALT 33 Alkaline Phosphatase 53 Total Protein 6.2 Albumin 3.0 Globulin 3.2 Albumin/Globulin Ratio 0.9 L Lipase 107 Venous Blood Potassium Assessment & Plan - Assessment and Plan (Free Text) Plan: HCAP Small bowel obstruction Hx of HTN Hx of CVA S/p tracheostomy tube placement and PEG tube placement Plan Patient recently admitted for septic shock secondary to HCAP. Patient with CT chest/abdomen/pelvis which demonstrated a small bowel obstruction along with bibasilar infiltrates/consolidations. Will restart patient on Merrem at this time. Follow up blood cultures. GI and pulmonology following. Consider surgery consult for small bowel obstruction. Alia, PGY-3 <Roderick Avalos S - Last Filed: 04/14/18 14:55> Meds - Medications Medications: Current Medications Acetylcysteine (Acetylcysteine 20%) 4 ml IH BIDRESP MARIO Albuterol/Ipratropium (Duoneb 3 Mg/0.5 Mg (3 Ml) Ud) 3 ml IH [id number] PRN PRN Reason: Shortness of Breath Arformoterol Tartrate (Brovana) 15 mcg IH [id number] MARIO Aspirin (Aspirin Chewable) 81 mg PO DAILY [facility] Last Admin: 04/14/18 09:42 Dose: 81 mg Budesonide (Pulmicort Respules) 0.5 mg IH [id number] [facility] Clonazepam (Klonopin) 0.5 mg PO DAILY [facility]; Protocol Last Admin: 04/14/18 09:42 Dose: 0.5 mg Clonazepam (Klonopin) 0.5 mg PO HS [facility]; Protocol Enoxaparin Sodium (Lovenox) 40 mg SC DAILY [facility]; Protocol Last Admin: 04/14/18 09:42 Dose: 40 mg Escitalopram Oxalate (Lexapro) 10 mg PO DAILY [facility] Last Admin: 04/14/18 09:41 Dose: 10 mg Meropenem (Merrem Iv 1 Gm Premix) 1 gm in 50 mls @ 100 mls/hr IVPB Q8 [facility]; Protocol Stop: 04/21/18 07:01 Last Admin: 04/14/18 14:52 Dose: 100 mls/hr Potassium Chloride 20 meq/ (Sodium Chloride) 1,010 mls @ 75 mls/hr IV .[id number] [facility] Methylprednisolone (Solu-Medrol) 30 mg IVP Q12 [facility] Last Admin: 04/14/18 09:42 Dose: 30 mg Metoprolol Tartrate (Lopressor) 50 mg PO BID [facility] Last Admin: 04/14/18 09:46 Dose: 50 mg Ondansetron HCl (Zofran Inj) 4 mg IVP Q6H PRN PRN Reason: Nausea/Vomiting Last Admin: 04/14/18 09:41 Dose: 4 mg Pantoprazole Sodium (Protonix Inj) 40 mg IVP DAILY [facility] Last Admin: 04/14/18 09:31 Dose: 40 mg Tamsulosin HCl (Flomax) 0.4 mg PO DAILY [facility] Last Admin: 04/14/18 09:42 Dose: 0.4 mg Results - Vital Signs Recent Vital Signs: Last Vital Signs Temp 97.8 F 04/14/18 12:00 Pulse 71 04/14/18 12:00 Resp 18 04/14/18 12:00 BP 99/70 L 04/14/18 12:00 Pulse Ox 100 04/13/18 22:00 - Labs Result Diagrams: 04/13/18 18:26 04/13/18 19:20 Labs: Laboratory Results - last 24 hr 04/13/18 04/13/18 04/13/18 18:26 18:26 18:26 WBC 14.6 H D RBC 4.22 Hgb 11.6 L D Hct 37.2 L MCV 88.2 MCH 27.5 MCHC 31.2 RDW 15.5 H Plt Count 486 H MPV 9.2 Gran % 85.1 H Lymph % (Auto) 8.5 L [place] % (Auto) 6.3 H Eos % (Auto) 0.1 L Baso % (Auto) 0.0 Gran # 12.46 H Lymph # (Auto) 1.3 [place] # (Auto) 0.9 H Eos # (Auto) 0.0 Baso # (Auto) 0.00 PT 14.3 H INR 1.25 APTT 35.5 pO2 90 H VBG pH 7.48 H VBG pCO2 45.0 VBG HCO3 33.5 H VBG Total CO2 34.9 H VBG O2 Sat (Calc) 99.2 H VBG Base Excess 8.8 H VBG Potassium 7.7 H* Sodium 136.0 Chloride 100.0 Glucose 123 H Lactate 1.6 FiO2 21.0 Potassium Carbon Dioxide Anion Gap BUN Creatinine Est GFR ( Amer) Est GFR (Non-Af Amer) Random Glucose Calcium Magnesium Total Bilirubin AST ALT Alkaline Phosphatase Total Protein Albumin Globulin Albumin/Globulin Ratio Lipase Venous Blood Potassium 7.7 H* 04/13/18 19:20 WBC RBC Hgb Hct MCV MCH MCHC RDW Plt Count MPV Gran % Lymph % (Auto) [place] % (Auto) Eos % (Auto) Baso % (Auto) Gran # Lymph # (Auto) [place] # (Auto) Eos # (Auto) Baso # (Auto) PT INR APTT pO2 VBG pH VBG pCO2 VBG HCO3 VBG Total CO2 VBG O2 Sat (Calc) VBG Base Excess VBG Potassium Sodium 141 Chloride 102 Glucose Lactate FiO2 Potassium 3.5 L Carbon Dioxide 34 H Anion Gap 9 L BUN 25 H Creatinine 1.2 Est GFR ( Amer) > 60 Est GFR (Non-Af Amer) > 60 Random Glucose 118 H Calcium 7.9 L Magnesium 1.6 L Total Bilirubin 0.4 AST 50 ALT 33 Alkaline Phosphatase 53 Total Protein 6.2 Albumin 3.0 Globulin 3.2 Albumin/Globulin Ratio 0.9 L Lipase 107 Venous Blood Potassium Assessment & Plan - Assessment and Plan (Free Text) Plan: Infectious diseases Attending Physician Attestation Patient seen and examined, discussed with medical or surgical instrument maker. I have reviewed the patient's history of present illness, past medical, social, personal and family histories, pertinent physical exam findings, course so far in this hospital admission, pertinent laboratory and imaging results. I agree with the above findings, assessment and plan. In addition, we have started a dose of IV Vancomycin and started Merrem for this patient with possible HCAP. He was recently treated in [facility] for severe sepsis from HCAP. Patient is at high risk for aspiration, with waxing and waning sensorium, with dementia. Overall prognosis is poor. Follow up sputum and blood cx.
--- NOTE | 2018-04-14 10:24 | HP ---
DATE OF EXAM: 04/14/2018 HISTORY OF PRESENT ILLNESS: He has been in the [facility] again with antibiotics. He was in the hospital recently with bad pneumonia, bad sepsis. He was doing worse on antibiotics p.o. at [facility]. So before he got worse, we sent him back to [facility]. He is a 63-year-old man with a history of CVA with right-sided weakness. He has status post tracheostomy tube. He is , persistent emesis also and shortness of breath. Could not ingest any foods in 2 days. He has history of hypertension, pneumonia, CVA, tracheostomy and reversed, anemia, urinary retention, anxiety, and depression. G-tube and trach both reversed. FAMILY HISTORY: Unknown. SOCIAL HISTORY: He was smoking, he has quit now. He cannot get to the cigarette place because he is bed bound. No alcohol, no drugs. ALLERGIES: NO KNOWN DRUG ALLERGIES. MEDICATIONS: He is on Tylenol, aspirin, Klonopin, Lovenox, Lexapro, famotidine, Lopressor, Flomax, and iron. REVIEW OF SYSTEMS: He is not feeling well. He is coughing, throwing up. He is little bit slow . PHYSICAL EXAMINATION: GENERAL: He is well-appearing, toxic, uncomfortable, alert, and not talking like he did the last time. VITAL SIGNS: He has 97.7 temperature, 110 pulse, 20 respiratory rate, 104/62 blood pressure, and 86% O2 saturation. He will be on oxygen. HEENT: Head is atraumatic and normocephalic. Extraocular muscles are intact. Throat is dry. NECK: Supple. HEART: Regular rate, systolic ejection murmur. LUNGS: Decreased breath sounds. Crackles heard at the left base. ABDOMEN: Soft, nontender, positive bowel sounds. No guarding. No rebound. No CVA tenderness. SKIN: For the most part, poor turgor but warm and dry. No apparent rashes. NEUROLOGIC: GCS is 15. Slurred speech. He is alert, but not talking at this time. LYMPH: Thyroid midline. No palpable appreciable lymphadenopathy. LABORATORY DATA: He will have the tests done. He has a 141 sodium, potassium 3.5 but was replaced, BUN 25, creatinine 1.2, GFR is greater than 60, sugar is 118, calcium 7.9, total magnesium is 1.6, total bili is 0.4, AST is 50, ALT is 33, alk phos 53, total protein 6.2, albumin 3, lipase 107, blood gas is 123,, 1.25 INR. His white count is elevated at 14.6, hemoglobin 11.6, hematocrit 37.2, and platelets 486. Chest x-ray and all the CAT scans are pending. PLAN: He will have a consult with Infectious Disease and Pulmonary and GI. He will have some Zofran, will have oxygen and will be on IV antibiotics. Hopefully, he will improve. Continue with aggressive treatment and care. The patient has probable pneumonia, nausea and vomiting, probable SIRS. Cash Chakraborty DO MTDD
--- NOTE | 2018-04-14 11:16 | CP.PCM.CON ---
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 with nausea, vomiting and poor oral intake. For one to two days the patient notes worsening nausea and vomiting with difficulty tolerating oral intake. At bedside this morning, the patient has just finished eating a full solid breakfast but again feels nauseated and has had some episodes of dry heaves. No emesis thusfar today. Denies any abdominal or pelvic pain. CT performed since admission does note loops of dilated small bowel and small bowel obstruction with transition point in a left direct inguinal hernia sac. Of note, previously required a PEG tube which was removed in the ER in December 2016. Patient admits to occasional coughing with eating but denies globus sensation or odynophagia. He has been evaluated by [employer] who recommended puree consistency diet with nectar thick liquids previously. 12 system ROS performed and negative except where stated PMHx: See HPI PSHx: Left inguinal hernia repair, Tracheostomy/PEG FHx: Discussed with patient and he denies any significant family history Social: Former smoker, Denies EtOH or illicit drug use Endo: Denies prior endoscopic evaluation Past Patient History - Infectious Disease Hx of Infectious Diseases: None - Tetanus Immunizations Tetanus Immunization: Unknown - Past Medical History & Family History Past Medical History?: Yes - Past Social History Smoking Status: Current Some Days Smoker - CARDIAC Hx Hypertension: Yes - PULMONARY Hx Respiratory Disorders: Yes Hx Pneumonia: Yes - NEUROLOGICAL Hx Neurological Disorder: Yes HX Cerebrovascular Accident: Yes - HEENT Hx HEENT Problems: Yes Other/Comment: TRACHEOSTOMY - RENAL Hx Chronic Kidney Disease: Yes - HEMATOLOGICAL/ONCOLOGICAL Hx Blood Disorders: Yes Hx Anemia: Yes - MUSCULOSKELETAL/RHEUMATOLOGICAL Hx Falls: No - GASTROINTESTINAL Hx Gastrointestinal Disorders: Yes Hx Gastroesophageal Reflux: Yes - GENITOURINARY/GYNECOLOGICAL Hx Genitourinary Disorders: Yes Other/Comment: URINARY RETENTION - PSYCHIATRIC Hx Psychophysiologic Disorder: Yes Hx Anxiety: Yes Hx Depression: Yes Hx Substance Use: No - SURGICAL HISTORY Hx Vascular Surgery: Yes Other/Comment: GTUBE, TRACH REVERSED - ANESTHESIA Hx Anesthesia: Yes Hx Anesthesia Reactions: No Hx Malignant Hyperthermia: No Meds Allergies/Adverse Reactions: Allergies Allergy/AdvReac Type Severity Reaction Status Date / Time No Known Allergies Allergy Verified 04/13/18 17:52 - Medications Medications: Current Medications Albuterol/Ipratropium (Duoneb 3 Mg/0.5 Mg (3 Ml) Ud) 3 ml IH [id number] [facility] Aspirin (Aspirin Chewable) 81 mg PO DAILY [facility] Last Admin: 04/14/18 09:42 Dose: 81 mg Clonazepam (Klonopin) 0.5 mg PO DAILY [facility]; Protocol Last Admin: 04/14/18 09:42 Dose: 0.5 mg Clonazepam (Klonopin) 0.5 mg PO HS [facility]; Protocol Enoxaparin Sodium (Lovenox) 40 mg SC DAILY [facility]; Protocol Last Admin: 04/14/18 09:42 Dose: 40 mg Escitalopram Oxalate (Lexapro) 10 mg PO DAILY [facility] Last Admin: 04/14/18 09:41 Dose: 10 mg Meropenem (Merrem Iv 1 Gm Premix) 1 gm in 50 mls @ 100 mls/hr IVPB Q8 [facility]; Protocol Stop: 04/21/18 07:01 Last Admin: 04/14/18 08:05 Dose: 100 mls/hr Methylprednisolone (Solu-Medrol) 30 mg IVP Q12 [facility] Last Admin: 04/14/18 09:42 Dose: 30 mg Metoprolol Tartrate (Lopressor) 50 mg PO BID [facility] Last Admin: 04/14/18 09:46 Dose: 50 mg Ondansetron HCl (Zofran Inj) 4 mg IVP Q6H PRN PRN Reason: Nausea/Vomiting Last Admin: 04/14/18 09:41 Dose: 4 mg Pantoprazole Sodium (Protonix Inj) 40 mg IVP DAILY [facility] Last Admin: 04/14/18 09:31 Dose: 40 mg Tamsulosin HCl (Flomax) 0.4 mg PO DAILY [facility] Last Admin: 04/14/18 09:42 Dose: 0.4 mg Physical Exam - Constitutional Appears: Non-toxic, No Acute Distress - Eye Exam Eye Exam: EOMI, PERRL - ENT Exam ENT Exam: Mucous Membranes Moist - Respiratory Exam Respiratory Exam: Rales. absent: Clear to Auscultation Bilateral, Rhonchi, Wheezes - Cardiovascular Exam Cardiovascular Exam: RRR, +S1, +S2 - GI/Abdominal Exam GI & Abdominal Exam: Distended, Hernia (left inguinal), Normal Bowel Sounds, Soft. absent: Firm, Guarding, Organomegaly, Rigid, Tenderness - Exam Additional comments: left inguinal hernia, bowel in testicle not reducible, nontender - Extremities Exam Extremities exam: Negative for: pedal edema Additional comments: right hemiparesis - Neurological Exam Neurological exam: Alert, Oriented x3 - Psychiatric Exam Psychiatric exam: Normal Affect, Normal Mood - Skin Skin Exam: Dry, Warm Results - Vital Signs Recent Vital Signs: Last Vital Signs Temp 98 F 04/14/18 06:00 Pulse 101 H 04/14/18 09:46 Resp 18 04/14/18 06:00 BP 100/66 04/14/18 06:00 Pulse Ox 100 04/13/18 22:00 - Labs Result Diagrams: 04/13/18 18:26 04/13/18 19:20 Labs: Laboratory Results - last 24 hr 04/13/18 04/13/18 04/13/18 18:26 18:26 18:26 WBC 14.6 H D RBC 4.22 Hgb 11.6 L D Hct 37.2 L MCV 88.2 MCH 27.5 MCHC 31.2 RDW 15.5 H Plt Count 486 H MPV 9.2 Gran % 85.1 H Lymph % (Auto) 8.5 L Kern % (Auto) 6.3 H Eos % (Auto) 0.1 L Baso % (Auto) 0.0 Gran # 12.46 H Lymph # (Auto) 1.3 Kern # (Auto) 0.9 H Eos # (Auto) 0.0 Baso # (Auto) 0.00 PT 14.3 H INR 1.25 APTT 35.5 pO2 90 H VBG pH 7.48 H VBG pCO2 45.0 VBG HCO3 33.5 H VBG Total CO2 34.9 H VBG O2 Sat (Calc) 99.2 H VBG Base Excess 8.8 H VBG Potassium 7.7 H* Sodium 136.0 Chloride 100.0 Glucose 123 H Lactate 1.6 FiO2 21.0 Potassium Carbon Dioxide Anion Gap BUN Creatinine Est GFR ( Amer) Est GFR (Non-Af Amer) Random Glucose Calcium Magnesium Total Bilirubin AST ALT Alkaline Phosphatase Total Protein Albumin Globulin Albumin/Globulin Ratio Lipase Venous Blood Potassium 7.7 H* 04/13/18 19:20 WBC RBC Hgb Hct MCV MCH MCHC RDW Plt Count MPV Gran % Lymph % (Auto) Kern % (Auto) Eos % (Auto) Baso % (Auto) Gran # Lymph # (Auto) Kern # (Auto) Eos # (Auto) Baso # (Auto) PT INR APTT pO2 VBG pH VBG pCO2 VBG HCO3 VBG Total CO2 VBG O2 Sat (Calc) VBG Base Excess VBG Potassium Sodium 141 Chloride 102 Glucose Lactate FiO2 Potassium 3.5 L Carbon Dioxide 34 H Anion Gap 9 L BUN 25 H Creatinine 1.2 Est GFR ( Amer) > 60 Est GFR (Non-Af Amer) > 60 Random Glucose 118 H Calcium 7.9 L Magnesium 1.6 L Total Bilirubin 0.4 AST 50 ALT 33 Alkaline Phosphatase 53 Total Protein 6.2 Albumin 3.0 Globulin 3.2 Albumin/Globulin Ratio 0.9 L Lipase 107 Venous Blood Potassium Assessment & Plan - Assessment and Plan (Free Text) Assessment: Patient is a 63yo male with PMHx significant for CVA s/p tPA in 2015 with residual right hemiparesis, prior respiratory failure requiring tracheostomy but has successfully weaned, dysphagia with prior PEG tube which has since been removed, systolic CHF and HTN who presented from [facility] with nausea, vomiting and poor oral intake -Nausea, vomiting likely 2/2 small bowel obstruction -Left inguinal hernia -H/O CVA with right hemiparesis Plan: -Recommend NPO status, bowel rest, serial examinations -Consider surgical evaluation given left inguinal hernia and SBO -Antiemetics PRN -Resume recommended [employer] diet once tolerating - Date & Time Date: 04/14/18 Time: 08:30 <Balaji Solis - Last Filed: 04/14/18 16:37> Meds - Medications Medications: Current Medications Acetylcysteine (Acetylcysteine 20%) 4 ml IH BIDRESP [facility] Albuterol/Ipratropium (Duoneb 3 Mg/0.5 Mg (3 Ml) Ud) 3 ml IH [id number] PRN PRN Reason: Shortness of Breath Arformoterol Tartrate (Brovana) 15 mcg IH [id number] [facility] Aspirin (Aspirin Chewable) 81 mg PO DAILY [facility] Last Admin: 12/26/18 09:42 Dose: 81 mg Budesonide (Pulmicort Respules) 0.5 mg IH [id number] [facility] Clonazepam (Klonopin) 0.5 mg PO DAILY [facility]; Protocol Last Admin: 04/14/18 09:42 Dose: 0.5 mg Clonazepam (Klonopin) 0.5 mg PO HS [facility]; Protocol Enoxaparin Sodium (Lovenox) 40 mg SC DAILY [facility]; Protocol Last Admin: 04/14/18 09:42 Dose: 40 mg Escitalopram Oxalate (Lexapro) 10 mg PO DAILY [facility] Last Admin: 04/14/18 09:41 Dose: 10 mg Meropenem (Merrem Iv 1 Gm Premix) 1 gm in 50 mls @ 100 mls/hr IVPB Q8 [facility]; Protocol Stop: 04/21/18 07:01 Last Admin: 04/14/18 14:52 Dose: 100 mls/hr Potassium Chloride 20 meq/ (Sodium Chloride) 1,010 mls @ 75 mls/hr IV .[id number] [facility] Magnesium Sulfate/Dextrose (Magnesium Sulfate 1 Gm/100 Ml D5w) 1 gm in 100 mls @ 100 mls/hr IVPB ONCE ONE Stop: 04/14/18 17:15 Methylprednisolone (Solu-Medrol) 30 mg IVP Q12 [facility] Last Admin: 04/14/18 09:42 Dose: 30 mg Metoprolol Tartrate (Lopressor) 50 mg PO BID [facility] Last Admin: 04/14/18 09:46 Dose: 50 mg Ondansetron HCl (Zofran Inj) 4 mg IVP Q6H PRN PRN Reason: Nausea/Vomiting Last Admin: 04/14/18 09:41 Dose: 4 mg Pantoprazole Sodium (Protonix Inj) 40 mg IVP DAILY [facility] Last Admin: 04/14/18 09:31 Dose: 40 mg Phenol/Menthol (Phenaseptic 1.4% Throat Ephraim) 1 ml MT Q2H PRN PRN Reason: Sore Throat Tamsulosin HCl (Flomax) 0.4 mg PO DAILY [facility] Last Admin: 04/14/18 09:42 Dose: 0.4 mg Results - Vital Signs Recent Vital Signs: Last Vital Signs Temp 97.8 F 04/14/18 12:00 Pulse 71 04/14/18 12:00 Resp 18 04/14/18 12:00 BP 99/70 L 04/14/18 12:00 Pulse Ox 100 04/13/18 22:00 - Labs Result Diagrams: 04/13/18 18:26 04/13/18 19:20 Labs: Laboratory Results - last 24 hr 04/13/18 04/13/18 04/13/18 18:26 18:26 18:26 WBC 14.6 H D RBC 4.22 Hgb 11.6 L D Hct 37.2 L MCV 88.2 MCH 27.5 MCHC 31.2 RDW 15.5 H Plt Count 486 H MPV 9.2 Gran % 85.1 H Lymph % (Auto) 8.5 L Kern % (Auto) 6.3 H Eos % (Auto) 0.1 L Baso % (Auto) 0.0 Gran # 12.46 H Lymph # (Auto) 1.3 Kern # (Auto) 0.9 H Eos # (Auto) 0.0 Baso # (Auto) 0.00 PT 14.3 H INR 1.25 APTT 35.5 pO2 90 H VBG pH 7.48 H VBG pCO2 45.0 VBG HCO3 33.5 H VBG Total CO2 34.9 H VBG O2 Sat (Calc) 99.2 H VBG Base Excess 8.8 H VBG Potassium 7.7 H* Sodium 136.0 Chloride 100.0 Glucose 123 H Lactate 1.6 FiO2 21.0 Potassium Carbon Dioxide Anion Gap BUN Creatinine Est GFR ( Amer) Est GFR (Non-Af Amer) Random Glucose Calcium Magnesium Total Bilirubin AST ALT Alkaline Phosphatase Total Protein Albumin Globulin Albumin/Globulin Ratio Lipase Venous Blood Potassium 7.7 H* 04/13/18 19:20 WBC RBC Hgb Hct MCV MCH MCHC RDW Plt Count MPV Gran % Lymph % (Auto) Kern % (Auto) Eos % (Auto) Baso % (Auto) Gran # Lymph # (Auto) Kern # (Auto) Eos # (Auto) Baso # (Auto) PT INR APTT pO2 VBG pH VBG pCO2 VBG HCO3 VBG Total CO2 VBG O2 Sat (Calc) VBG Base Excess VBG Potassium Sodium 141 Chloride 102 Glucose Lactate FiO2 Potassium 3.5 L Carbon Dioxide 34 H Anion Gap 9 L BUN 25 H Creatinine 1.2 Est GFR ( Amer) > 60 Est GFR (Non-Af Amer) > 60 Random Glucose 118 H Calcium 7.9 L Magnesium 1.6 L Total Bilirubin 0.4 AST 50 ALT 33 Alkaline Phosphatase 53 Total Protein 6.2 Albumin 3.0 Globulin 3.2 Albumin/Globulin Ratio 0.9 L Lipase 107 Venous Blood Potassium Attending/Attestation - Attestation I have personally seen and examined this patient.: Yes I have fully participated in the care of the patient.: Yes I have reviewed all pertinent clinical information: Yes Notes (Text): 04/14/18 16:33 I have seen and examined patient with GI fellow. Agree with above documentation with the following additions. In brief, this is a 63 year old male with history of CVA with residual right sided hemiparesis, CHF, HTN, who presents from retirement with complaint of progressive nausea and vomiting for the past few days. He notes generalized abdominal discomfort with onset of non-bloody emesis which started 3 days ago. He denies fever/chills, weight loss, rectal bleeding, or change in bowel habits. He attempted meal consumption this morning but immediately after developed sharp epigastric abdominal pain, currently being managed for small bowel obstruction. CVA with residual R hemiparesis CHF HTN Abdominal pain, vomiting - small bowel obstruction CT imaging reviewed by me showing transition point in L inguinal hernia sac - NPO - Continue to monitor NGT output, currently 400 cc - IVF hydration, supportive care - Follow up surgical recommendations - Serial abdominal examinations - No further planned GI intervention, will sign off case. Please reconsult as necessary, thank you.
[2018-04-14] MEDS ORDERED: Albuterol-Ipratrop 3 mg / 0.5 (3 ml) UD IH PRN (12:06)
--- NOTE | 2018-04-14 13:28 | CON ---
DATE: 04/14/2018 PULMONARY CONSULTATION NOTE REFERRING PHYSICIAN: Cash Chakraborty DO REASON FOR CONSULTATION: Pleural effusion, bibasilar infiltrates, chronic lung disease. HISTORY OF PRESENT ILLNESS: This is a 63-year-old male with past medical history is significant for CVA, status post tPA in 2016 with residual right hemiparesis, history of respiratory failure requiring tracheostomy, but was successfully weaned, dysphagia with prior PEG tube which has been removed, congestive heart failure, hypertension, urinary retention, anxiety, depression, history of pneumonia. The patient presented to ER from [facility] with complaints of nausea, vomiting, poor oral intake. This morning, the patient reports feeling some nausea after eating his meals, no emesis. Denies shortness of breath and denies cough. CT of chest, abdomen, and pelvis done shows, multiple dilated loops of small bowel with a large left inguinal hernia containing multiple bowel loops, finding compatible with small bowel obstruction, bilateral pleural effusions with large bibasilar infiltrates or consolidation. PAST MEDICAL HISTORY: As per history of present illness. ALLERGIES: NO KNOWN ALLERGIES. SOCIAL HISTORY: Former smoker, denies EtOH abuse, denies illicit drug use. FAMILY HISTORY: No significant cardiopulmonary disease reported. MEDICATIONS: DuoNeb 3 mL inhalation every 6 hours, aspirin 81 mg p.o. daily, Klonopin 0.5 mg daily, Klonopin 0.5 mg at bedtime, Lovenox 40 mg daily, Lexapro 10 mg daily, meropenem 1 g every 8 hours, Solu-Medrol 30 mg every 12 hours, metoprolol tartrate 50 mg twice a day, Zofran 4 mg every 6 hours p.r.n., Protonix 40 mg daily, Flomax 0.4 mg daily. REVIEW OF SYSTEMS: No headache, rhinitis, shortness of breath, cough, chest pain, abdominal pain, vomiting, leg pain or leg swelling reported. No diarrhea reported. The patient does report feeling nauseous after eating breakfast this morning. PHYSICAL EXAMINATION: GENERAL: No acute distress. HEENT: Moist mucous membranes. Mallampati score of 4. NECK: Supple. No JVD. CARDIOVASCULAR: S1 and S2, positive murmur. LUNGS: Crackles at bases. Few rhonchi ABDOMEN: Soft and nontender. No distention. No organomegaly, positive bowel sounds. EXTREMITIES: No bilateral lower extremities edema. NEUROLOGIC: Awake, alert and verbal. Follow simple commands. LABORATORY DATA: Reviewed. Labs from yesterday show WBC 14.6, RBC 4.2, hemoglobin 11, hematocrit 37.2, and platelets 486. PT is 14.3. INR 1.25, aPTT 35.5, PO2 90, pH 7.48, PCO2 of 45, HCO3 of 33.5. Sodium 141, potassium 3.5, chloride 102, carbon dioxide 34, anion gap 9, BUN 25, creatinine 1.2, GFR greater than 60, random glucose 180, calcium 7.9, magnesium 1.6, total bilirubin 0.4, AST 50, ALT 33, alkaline phosphatase 63, total protein 6.2, albumin 3.0, globulin 3.2 and albumin-globulin ratio 0.9, lipase 107. CT of abdomen, pelvis and chest shows multiple dilated loops of small bowel with a large left inguinal hernia containing multiple bowel loops, findings compatible with a small bowel obstruction with likely source of obstruction in the left scrotum, bilateral pleural effusions with large bibasilar infiltrates or consolidation. IMPRESSION AND PLAN: Small bowel obstruction. The patient was having emesis, probable aspiration may have occurred. Could be a component of chronic lung disease due to history of smoking. The patient may benefit from nasogastric tube on intermittent suction for small bowel obstruction. Continue GI follow up. Gastric prophylaxis, deep venous thrombosis prophylaxis. Continue inhaled bronchodilators, continue antibiotic therapy. We will change DuoNeb to as needed. Add Brovana, Pulmicort, Mucomyst. We will get BNP in the morning. Procalcitonin ordered stat this morning, results pending. Continue steroids. This patient was seen and examined with Dr. Bell. Discussed assessment and plan as described above. Thank you for this consult and we will follow with you. Bora Szymanski APN Korin Bell MD JER[facility]
[2018-04-14] MEDS ORDERED: Albuterol-Ipratrop 3 mg / 0.5 (3 ml) UD IH SCH (14:00)
--- NOTE | 2018-04-14 14:43 | CP.PCM.CON ---
History of Present Illness - History of Present Illness History of Present Illness: Niko Zaragoza, PGY1 Surgery Consult Note for Dr. 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 Patient does not endorse any abdominal tenderness. CT was done and showed loops of dilated small bowel and SBO. Surgery was consulted for evaluation of inguinal hernia. Patient was examined at bedside this afternoon. Patient is AAOx2 (person, place). He endorses nausea and vomiting. Denies abdominal pain, cp, sob, lightheadedness, dizziness, fever, chills. A full 12 point ROS was conducted and unremarkable except as stated above. 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, prior tracheostomy and PEG with reversal, Left-inguinal hernia repair, CHF, HTN PSHx: Bilateral inguinal hernia repair, R-orchiectomy, Tracheostomy/PEG w/ reversal Meds: see MAR FHx: denies any significant family history Social: Former smoker, Denies EtOH or illicit drug use Review of Systems - Review of Systems All systems: reviewed and no additional remarkable complaints except (as per HPI) Past Patient History - Infectious Disease Hx of Infectious Diseases: None - Tetanus Immunizations Tetanus Immunization: Unknown - Past Medical History & Family History Past Medical History?: Yes - Past Social History Smoking Status: Current Some Days Smoker - CARDIAC Hx Hypertension: Yes - PULMONARY Hx Respiratory Disorders: Yes Hx Pneumonia: Yes - NEUROLOGICAL Hx Neurological Disorder: Yes HX Cerebrovascular Accident: Yes - HEENT Hx HEENT Problems: Yes Other/Comment: TRACHEOSTOMY - RENAL Hx Chronic Kidney Disease: Yes - HEMATOLOGICAL/ONCOLOGICAL Hx Blood Disorders: Yes Hx Anemia: Yes - MUSCULOSKELETAL/RHEUMATOLOGICAL Hx Falls: No - GASTROINTESTINAL Hx Gastrointestinal Disorders: Yes Hx Gastroesophageal Reflux: Yes - GENITOURINARY/GYNECOLOGICAL Hx Genitourinary Disorders: Yes Other/Comment: URINARY RETENTION - PSYCHIATRIC Hx Psychophysiologic Disorder: Yes Hx Anxiety: Yes Hx Depression: Yes Hx Substance Use: No - SURGICAL HISTORY Hx Vascular Surgery: Yes Other/Comment: GTUBE, TRACH REVERSED - ANESTHESIA Hx Anesthesia: Yes Hx Anesthesia Reactions: No Hx Malignant Hyperthermia: No Meds Allergies/Adverse Reactions: Allergies Allergy/AdvReac Type Severity Reaction Status Date / Time No Known Allergies Allergy Verified 04/13/18 17:52 - Medications Medications: Current Medications Acetylcysteine (Acetylcysteine 20%) 4 ml IH BIDRESP [facility] Albuterol/Ipratropium (Duoneb 3 Mg/0.5 Mg (3 Ml) Ud) 3 ml IH [id number] PRN PRN Reason: Shortness of Breath Arformoterol Tartrate (Brovana) 15 mcg IH [id number] [facility] Aspirin (Aspirin Chewable) 81 mg PO DAILY [facility] Last Admin: 04/14/18 09:42 Dose: 81 mg Budesonide (Pulmicort Respules) 0.5 mg IH [id number] [facility] Clonazepam (Klonopin) 0.5 mg PO DAILY [facility]; Protocol Last Admin: 04/14/18 09:42 Dose: 0.5 mg Clonazepam (Klonopin) 0.5 mg PO HS [facility]; Protocol Enoxaparin Sodium (Lovenox) 40 mg SC DAILY [facility]; Protocol Last Admin: 04/14/18 09:42 Dose: 40 mg Escitalopram Oxalate (Lexapro) 10 mg PO DAILY [facility] Last Admin: 04/14/18 09:41 Dose: 10 mg Meropenem (Merrem Iv 1 Gm Premix) 1 gm in 50 mls @ 100 mls/hr IVPB Q8 [facility]; Protocol Stop: 04/21/18 07:01 Last Admin: 04/14/18 08:05 Dose: 100 mls/hr Methylprednisolone (Solu-Medrol) 30 mg IVP Q12 [facility] Last Admin: 04/14/18 09:42 Dose: 30 mg Metoprolol Tartrate (Lopressor) 50 mg PO BID [facility] Last Admin: 04/14/18 09:46 Dose: 50 mg Ondansetron HCl (Zofran Inj) 4 mg IVP Q6H PRN PRN Reason: Nausea/Vomiting Last Admin: 04/14/18 09:41 Dose: 4 mg Pantoprazole Sodium (Protonix Inj) 40 mg IVP DAILY [facility] Last Admin: 04/14/18 09:31 Dose: 40 mg Tamsulosin HCl (Flomax) 0.4 mg PO DAILY [facility] Last Admin: 04/14/18 09:42 Dose: 0.4 mg Physical Exam - Constitutional Appears: No Acute Distress - Head Exam Head Exam: ATRAUMATIC, NORMAL INSPECTION, NORMOCEPHALIC - Eye Exam Eye Exam: Normal appearance - ENT Exam Additional comments: NG tube in place - on suction. - Respiratory Exam Respiratory Exam: Rhonchi (rhonci at lung bases auscultated ). absent: Chest Wall Tenderness, Rales, Wheezes - Cardiovascular Exam Cardiovascular Exam: RRR - GI/Abdominal Exam GI & Abdominal Exam: Soft. absent: Distended, Guarding, Rigid - Exam Additional comments: Left inguinal hernia is reducible. Left testicle is palpated in the scrotum. - Extremities Exam Extremities exam: Positive for: normal inspection - Neurological Exam Neurological exam: Alert - Skin Skin Exam: Dry, Intact, Normal Color, Warm Results - Vital Signs Recent Vital Signs: Last Vital Signs Temp 97.8 F 04/14/18 12:00 Pulse 71 04/14/18 12:00 Resp 18 04/14/18 12:00 BP 99/70 L 04/14/18 12:00 Pulse Ox 100 04/13/18 22:00 - Labs Result Diagrams: 04/13/18 18:26 04/13/18 19:20 Labs: Laboratory Results - last 24 hr 04/13/18 04/13/18 04/13/18 18:26 18:26 18:26 WBC 14.6 H D RBC 4.22 Hgb 11.6 L D Hct 37.2 L MCV 88.2 MCH 27.5 MCHC 31.2 RDW 15.5 H Plt Count 486 H MPV 9.2 Gran % 85.1 H Lymph % (Auto) 8.5 L [place] % (Auto) 6.3 H Eos % (Auto) 0.1 L Baso % (Auto) 0.0 Gran # 12.46 H Lymph # (Auto) 1.3 [place] # (Auto) 0.9 H Eos # (Auto) 0.0 Baso # (Auto) 0.00 PT 14.3 H INR 1.25 APTT 35.5 pO2 90 H VBG pH 7.48 H VBG pCO2 45.0 VBG HCO3 33.5 H VBG Total CO2 34.9 H VBG O2 Sat (Calc) 99.2 H VBG Base Excess 8.8 H VBG Potassium 7.7 H* Sodium 136.0 Chloride 100.0 Glucose 123 H Lactate 1.6 FiO2 21.0 Potassium Carbon Dioxide Anion Gap BUN Creatinine Est GFR ( Amer) Est GFR (Non-Af Amer) Random Glucose Calcium Magnesium Total Bilirubin AST ALT Alkaline Phosphatase Total Protein Albumin Globulin Albumin/Globulin Ratio Lipase Venous Blood Potassium 7.7 H* 04/13/18 19:20 WBC RBC Hgb Hct MCV MCH MCHC RDW Plt Count MPV Gran % Lymph % (Auto) [place] % (Auto) Eos % (Auto) Baso % (Auto) Gran # Lymph # (Auto) [place] # (Auto) Eos # (Auto) Baso # (Auto) PT INR APTT pO2 VBG pH VBG pCO2 VBG HCO3 VBG Total CO2 VBG O2 Sat (Calc) VBG Base Excess VBG Potassium Sodium 141 Chloride 102 Glucose Lactate FiO2 Potassium 3.5 L Carbon Dioxide 34 H Anion Gap 9 L BUN 25 H Creatinine 1.2 Est GFR ( Amer) > 60 Est GFR (Non-Af Amer) > 60 Random Glucose 118 H Calcium 7.9 L Magnesium 1.6 L Total Bilirubin 0.4 AST 50 ALT 33 Alkaline Phosphatase 53 Total Protein 6.2 Albumin 3.0 Globulin 3.2 Albumin/Globulin Ratio 0.9 L Lipase 107 Venous Blood Potassium Assessment & Plan - Assessment and Plan (Free Text) Assessment: Patient is a 63 y/o M who is presenting for SBO 2/2 Non-incarcerated Left Inguinal Hernia. Plan: - Left inguinal hernia is reducible on exam. No emergent surgical intervention at this time. - Keep patient NPO - NG tube placed, on suction - Scrotal support, Truss support - IVF NS @ 75 cc/hr - Aspiration precautions - c/w antibiotics as per ID recs - Medical management as per primary team Case was discussed and reviewed with Dr. Garibay
[2018-04-14] MEDS ORDERED: Phenol Topical 1.4% Throat Spray (180 ml) MT PRN (16:02)
[2018-04-14] MEDS ORDERED: Magnesium Sulfate 1 gm in D5W 1 GM/100 ML BAG IVPB ONE (16:16)
[2018-04-14] MEDS: Arformoterol 15 mcg/2 ml Inh Sol IH SCH (19:27)
[2018-04-14] MEDS: Acetylcysteine 20% Inhal Soln (4ml) IH SCH (19:27)
[2018-04-14] MEDS: Budesonide 0.5 mg/2 ml Inhal Susp UD IH SCH (19:27)
--- NOTE | 2018-04-15 00:09 | CARD ---
APPROVED REPORT Date of service: 04/13/2018 EKG Measurement Heart [id number] <Conclusion> Sinus tachycardia Otherwise normal ECG
[2018-04-15 03:39] LABS: URINE BILIRUBIN NEGATIVE (NEGATIVE); URINE BLOOD NEGATIVE (NEGATIVE); URINE GLUCOSE (UA) NEGATIVE (NEGATIVE); URINE LEUKOCYTE ESTERASE NEGATIVE Leu/uL (NEGATIVE); URINE PROTEIN NEGATIVE mg/dL (<30 mg/dL); URINE UROBILINOGEN 0.2 E.U./dL (<1 E.U./dL)
[2018-04-15 03:43] LABS: URINE APPEARANCE CLEAR (CLEAR); URINE COLOR YELLOW (YELLOW)
[2018-04-15] MEDS: Meropenem IV 1 gm in NS 1 GM/50 ML BAG IVPB SCH ×3 (06:17→21:52)
--- NOTE | 2018-04-15 07:12 | CP.PCM.PN ---
Subjective - Date & Time of Evaluation Date of Evaluation: 04/15/18 Time of Evaluation: 07:09 - Subjective Subjective: Surgery Progress note- Dr. Garibay Patient seen and examined at bedside. NGT in place to lower intermittent suction. 500cc serobilious and gastric contents since placement yesterday. AAOx2 to person and place. answering questions appropriately. Per nursing no BM overnight. Objective - Vital Signs/Intake and Output Vital Signs (last 24 hours): Temp Pulse Resp BP Pulse Ox 98.6 F 78 20 107/73 99 04/15/18 06:00 04/15/18 06:00 04/15/18 06:00 04/15/18 06:00 04/15/18 06:00 Intake and Output: 04/15/18 04/15/18 06:59 18:59 Intake Total 1600 Output Total 350 Balance 1250 - Medications Medications: Current Medications Acetylcysteine (Acetylcysteine 20%) 4 ml IH BIDRESP [facility] Last Admin: 04/14/18 19:27 Dose: 4 ml Albuterol/Ipratropium (Duoneb 3 Mg/0.5 Mg (3 Ml) Ud) 3 ml IH [id number] PRN PRN Reason: Shortness of Breath Arformoterol Tartrate (Brovana) 15 mcg IH [id number] [facility] Last Admin: 04/14/18 19:27 Dose: 15 mcg Aspirin (Aspirin Chewable) 81 mg PO DAILY [facility] Last Admin: 04/14/18 09:42 Dose: 81 mg Budesonide (Pulmicort Respules) 0.5 mg IH [id number] [facility] Last Admin: 04/14/18 19:27 Dose: 0.5 mg Clonazepam (Klonopin) 0.5 mg PO DAILY [facility]; Protocol Last Admin: 04/14/18 09:42 Dose: 0.5 mg Clonazepam (Klonopin) 0.5 mg PO HS [facility]; Protocol Last Admin: 04/14/18 22:45 Dose: Not Given Enoxaparin Sodium (Lovenox) 40 mg SC DAILY [facility]; Protocol Last Admin: 04/14/18 09:42 Dose: 40 mg Escitalopram Oxalate (Lexapro) 10 mg PO DAILY [facility] Last Admin: 04/14/18 09:41 Dose: 10 mg Meropenem (Merrem Iv 1 Gm Premix) 1 gm in 50 mls @ 100 mls/hr IVPB Q8 [facility]; Protocol Stop: 04/21/18 07:01 Last Admin: 04/15/18 06:17 Dose: 100 mls/hr Potassium Chloride 20 meq/ (Sodium Chloride) 1,010 mls @ 75 mls/hr IV .[id number] [facility] Last Admin: 04/15/18 06:17 Dose: 75 mls/hr Methylprednisolone (Solu-Medrol) 30 mg IVP Q12 [facility] Last Admin: 04/14/18 22:46 Dose: 30 mg Metoprolol Tartrate (Lopressor) 50 mg PO BID [facility] Last Admin: 04/14/18 22:44 Dose: Not Given Ondansetron HCl (Zofran Inj) 4 mg IVP Q6H PRN PRN Reason: Nausea/Vomiting Last Admin: 04/14/18 09:41 Dose: 4 mg Pantoprazole Sodium (Protonix Inj) 40 mg IVP DAILY [facility] Last Admin: 04/14/18 09:31 Dose: 40 mg Phenol/Menthol (Phenaseptic 1.4% Throat [place]) 1 ml MT Q2H PRN PRN Reason: Sore Throat Tamsulosin HCl (Flomax) 0.4 mg PO DAILY [facility] Last Admin: 04/14/18 09:42 Dose: 0.4 mg - Labs Labs: 04/13/18 18:26 04/13/18 19:20 PT 14.3 SECONDS (9.4-12.5) H 04/13/18 18:26 INR 1.25 04/13/18 18:26 APTT 35.5 Seconds (25.1-36.5) 04/13/18 18:26 - Constitutional Appears: Non-toxic, No Acute Distress - Head Exam Head Exam: ATRAUMATIC - Eye Exam Eye Exam: EOMI - ENT Exam ENT Exam: Mucous Membranes Moist - Respiratory Exam Respiratory Exam: Rales (wheezing), Wheezes. absent: Accessory Muscle Use, Respiratory Distress - Cardiovascular Exam Cardiovascular Exam: REGULAR RHYTHM, +S1, +S2. absent: Bradycardia, Tachycardia - GI/Abdominal Exam GI & Abdominal Exam: Distended, Soft. absent: Rigid, Tenderness, Mass, Rebound - Extremities Exam Extremities Exam: absent: Calf Tenderness - Neurological Exam Neurological Exam: Alert, Awake - Psychiatric Exam Psychiatric exam: Normal Affect - Skin Skin Exam: Intact, Warm Assessment and Plan - Assessment and Plan (Free Text) Assessment: 63M w/ small bowel obstruction 2/2 reducible left inguinal hernia Plan: - Pain control PRN - Aspiration precaution - aggressive Chest PT - NPO - NGT to intermittent wall suction - IVF and hydration - monitor bowel function - replete lytes PRN - further recs per Dr. Garibay surgical attending PGY2
[2018-04-15] MEDS: Budesonide 0.5 mg/2 ml Inhal Susp UD IH SCH ×2 (07:35→20:02)
[2018-04-15] MEDS: Arformoterol 15 mcg/2 ml Inh Sol IH SCH ×2 (07:35→20:02)
[2018-04-15] MEDS: Acetylcysteine 20% Inhal Soln (4ml) IH SCH ×2 (07:35→20:02)
[2018-04-15 08:44] LABS: HEMOGLOBIN 10.4 g/dL (14.0-18.0); MEAN CELL VOLUME 93.7 fl (80.0-105.0); MEAN CORPUSCULAR HEMOGLOBIN 27.4 pg (25.0-35.0); MEAN CORPUSCULAR HGB CONC 29.3 g/dl (31.0-37.0); MEAN PLATELET VOLUME 9.2 fl (7.0-11.0); RBC 3.79 10^6/uL (3.5-6.1); RED CELL DISTRIBUTION WIDTH 16.1 % (11.5-14.5); WHITE BLOOD COUNT 13.9 10^3/uL (4.5-11.0)
[2018-04-15 08:54] LABS: ALB/GLOB RATIO 0.9 (1.1-1.8); ALBUMIN 3.1 g/dL (3.0-4.8); ALT/SGPT 35 U/L (7-56); AST/SGOT 40 U/L (17-59); BLOOD UREA NITROGEN 20 mg/dL (7-21); CALCIUM 8.2 mg/dL (8.4-10.5); GFR NON-AFRICAN AMERICAN > 60
[2018-04-15 09:03] LABS: B-TYPE NATRIURETIC PEPTIDE 2580 pg/mL (0-450)
[2018-04-15] MEDS: MethylPREDNISolone 40 mg Vial IVP SCH ×2 (09:58→21:52)
[2018-04-15] MEDS: Enoxaparin 40 mg Syringe SC SCH (09:59)
--- NOTE | 2018-04-15 10:00 | PN ---
DATE: 04/15/2018 SUBJECTIVE: He is resting comfortably in bed. He has a NG tube in place. We pulled out 500 mL of brown liquid from his NG tube. He is little bit uncomfortable. Not that happy in this situation. MEDICATIONS: He is on acetylcysteine, aspirin, Brovana, DuoNeb, Flomax, Klonopin, Lexapro, Lopressor, Lovenox, Merrem IV, magnesium, potassium replacement, Protonix, Pulmicort, Solu-Medrol 30 IV every 12, vancomycin and Zofran. PHYSICAL EXAMINATION VITAL SIGNS: He has a 98.6 temperature, 78 pulse, 107/70 blood pressure, 20 respiratory rate, 99% O2 sat on nasal cannula. HEAD: Atraumatic and normocephalic. HEART: Regular rate. LUNGS: Decreased breath sounds, but clear. ABDOMEN: Mildly distended. Decreased bowel sounds. No guarding. No rebound. He has small bowel obstruction. EXTREMITIES: No edema. LABORATORY DATA: He has a 141 sodium; 3.5 potassium, it is replaced; BUN 25; creatinine 1.2; GFR is greater than 60; sugar is 180; calcium 7.9; magnesium 1.6, it was replaced. Total bili is 0.4, AST is 50, ALT is 33, alk phos 33, total bili is 6.2. White count 14.6, hemoglobin 11.6, hematocrit 37.2, with 46 platelets; awaiting for labs to be brought back. Micro in the blood was negative. ASSESSMENT AND PLAN: He is being seen by Surgery, Pulmonary, Infectious Disease. He has a small bowel obstruction, non-incarcerated left inguinal hernia which is reducible. He is being seen by Pulmonary, GI, and Infectious Disease. He has had history of pneumonia and septic shock in the past while checking his labs. Continue with the NG tube suction. Hopefully, he will need to have an invasive procedure or exploratory lap. He did have a CAT scan of the abdomen and pelvis, had dilated loops of small bowel, large left inguinal hernia compatible with small bowel obstruction. We will continue with aggressive treatment and care. N.p.o., IV fluids. I increased his IV fluids, due to a decrease in his urine output, to 100 mL an hour. Hopefully that will help him hydrate. We will check his labs tomorrow. Cash DO [facility] # [id number]
--- NOTE | 2018-04-15 12:20 | PN ---
DATE: 04/15/2018 PULMONARY PROGRESS NOTE REFERRING PHYSICIAN: Dr. Cash Chakraborty. SUBJECTIVE: The patient is sitting up in bed, head of bed elevated at 45 degrees, nasal gastric tube in place with brown liquid being suctioned from the NG tube; 500 mL of gastric fluid suctioned from NG tube. No acute distress. No headache, rhinitis, cough shortness of breath, chest pain, abdominal pain, nausea, vomiting, diarrhea, leg pain or leg swelling reported. No bowel movement last night per nursing staff. OBJECTIVE: GENERAL: No acute distress. VITAL SIGNS: Blood pressure 107/73, pulse 78, temperature 98.6 and oxygen saturation 99%. HEENT: Moist mucous membranes. NECK: Supple. No JVD. RESPIRATORY: Diminished breath sounds at bases, few rhonchi. CARDIOVASCULAR: S1 and S2, audible. ABDOMEN: Distended and soft. EXTREMITIES: No bilateral lower extremity edema. NEUROLOGIC: Awake, alert and verbal. Follows commands. MEDICATIONS: Reviewed. Mucomyst 4 mL inhalation twice a day, DuoNeb 3 mL inhalation every 6 hours p.r.n., Brovana 15 mcg every 12 hours, Aspirin 81 mg p.o. daily, Pulmicort 0.5 mg inhalation every 12 hours, Klonopin 0.5 mg daily, Klonopin 0.5 mg at dinner, Lovenox 40 mg subcutaneous daily, Lexapro 10 mg daily, meropenem 1 g every 8 hours, Solu-Medrol 30 mg every 12 hours, metoprolol tartrate 15 mg twice a day, Zofran 4 mg every 6 hours p.r.n., Protonix 40 mg daily, phenol-menthol throat spray every 2 hours p.r.n., potassium chloride 40 mEq and Flomax 0.4 mg daily. LABORATORY DATA: Reviewed. WBC 13.9, RBC 3.79, hemoglobin 10.4, hematocrit 35.5 and platelets 405. Sodium 140, potassium 5, chloride 106, carbon dioxide 33, anion gap 6, BUN 20, creatinine 1.1, GFR is greater than 60, POC glucose 102, random glucose 150, calcium 8.2, phosphorous 3.9, magnesium 2.1, total bilirubin 0.2, AST 40, ALT 35, alkaline phosphatase 50, proBNP 2580, total protein 6.3, albumin 3.1, globulin 3.3, albumin-globulin ratio 0.9 and procalcitonin 0.07. IMPRESSION AND PLAN: Small bowel obstruction, chronic lung disease, congestive heart failure, hypertension, history of anxiety, depression. Reviewed echocardiogram from 04/06/2018 which showed ejection fraction 71%, right ventricular systolic pressure 85. The patient with severe pulmonary hypertension. We will order obstructive series of the abdomen to be done today. GI surgical followup. Continue nasogastric tube intermittent suction, gastric prophylaxis, deep venous thrombosis prophylaxis and continue inhaled bronchodilators. Procalcitonin is 0.07. Continue steroids. This patient was seen and examined with Dr. Bell. Discussed assessment and plan as described above. Thank you for this consult. We will follow with you. Bora Szymanski APN Korin Bell MD
--- NOTE | 2018-04-15 12:57 | RAD ---
Date of service: 04/15/2018 HISTORY: small bowel obstruction COMPARISON: 04/18/2016 FINDINGS: BOWEL: Mildly dilated large and small bowel are seen. There is a moderate amount of fecal retention in the ascending colon. The nasogastric tube is in satisfactory position BONES: Normal. OTHER FINDINGS: None. IMPRESSION: Mildly dilated large and small bowel are seen. There is a moderate amount of fecal retention in the ascending colon. The nasogastric tube is in satisfactory position
--- NOTE | 2018-04-15 13:44 | CP.PCM.PN ---
<Felton Rojo - Last Filed: 04/15/18 13:41> Subjective - Date & Time of Evaluation Date of Evaluation: 04/15/18 Time of Evaluation: 07:00 - Subjective Subjective: Patient seen and examined at bedside. Patient resting comfortably in bed. NG tube placed. No events overnight. Denies chest pain, shortness of breath, nausea, vomiting, diarrhea, fever, chills. Objective - Vital Signs/Intake and Output Vital Signs (last 24 hours): Temp Pulse Resp BP Pulse Ox 98.6 F 75 20 103/65 99 04/15/18 06:00 04/15/18 10:00 04/15/18 06:00 04/15/18 10:00 04/15/18 06:00 Intake and Output: 04/15/18 04/15/18 06:59 18:59 Intake Total 1600 Output Total 350 Balance 1250 - Medications Medications: Current Medications Acetylcysteine (Acetylcysteine 20%) 4 ml IH BIDRESP [facility] Last Admin: 04/15/18 07:35 Dose: 4 ml Albuterol/Ipratropium (Duoneb 3 Mg/0.5 Mg (3 Ml) Ud) 3 ml IH [id number] PRN PRN Reason: Shortness of Breath Arformoterol Tartrate (Brovana) 15 mcg IH [id number] [facility] Last Admin: 04/15/18 07:35 Dose: 15 mcg Aspirin (Aspirin Chewable) 81 mg PO DAILY [facility] Last Admin: 04/15/18 10:00 Dose: 81 mg Budesonide (Pulmicort Respules) 0.5 mg IH [id number] [facility] Last Admin: 04/15/18 07:35 Dose: 0.5 mg Clonazepam (Klonopin) 0.5 mg PO DAILY [facility]; Protocol Last Admin: 04/15/18 10:03 Dose: 0.5 mg Clonazepam (Klonopin) 0.5 mg PO HS [facility]; Protocol Last Admin: 04/14/18 22:45 Dose: Not Given Enoxaparin Sodium (Lovenox) 40 mg SC DAILY [facility]; Protocol Last Admin: 04/15/18 09:59 Dose: 40 mg Escitalopram Oxalate (Lexapro) 10 mg PO DAILY [facility] Last Admin: 04/15/18 10:03 Dose: 10 mg Meropenem (Merrem Iv 1 Gm Premix) 1 gm in 50 mls @ 100 mls/hr IVPB Q8 [facility]; P rotocol Stop: 04/21/18 07:01 Last Admin: 04/15/18 06:17 Dose: 100 mls/hr Potassium Chloride 20 meq/ (Sodium Chloride) 1,010 mls @ 100 mls/hr IV .Q10H6M [facility] Last Admin: 04/15/18 10:05 Dose: 100 mls/hr Methylprednisolone (Solu-Medrol) 30 mg IVP Q12 [facility] Last Admin: 04/15/18 09:58 Dose: 30 mg Metoprolol Tartrate (Lopressor) 50 mg PO BID [facility] Last Admin: 04/15/18 10:00 Dose: Not Given Ondansetron HCl (Zofran Inj) 4 mg IVP Q6H PRN PRN Reason: Nausea/Vomiting Last Admin: 04/14/18 09:41 Dose: 4 mg Pantoprazole Sodium (Protonix Inj) 40 mg IVP DAILY [facility] Last Admin: 04/15/18 09:58 Dose: 40 mg Phenol/Menthol (Phenaseptic 1.4% Throat [place]) 1 ml MT Q2H PRN PRN Reason: Sore Throat Tamsulosin HCl (Flomax) 0.4 mg PO DAILY [facility] Last Admin: 04/15/18 10:00 Dose: 0.4 mg - Labs Labs: 04/15/18 08:25 04/15/18 08:25 PT 14.3 SECONDS (9.4-12.5) H 04/13/18 18:26 INR 1.25 04/13/18 18:26 APTT 35.5 Seconds (25.1-36.5) 04/13/18 18:26 - Constitutional Appears: Non-toxic, No Acute Distress - Head Exam Head Exam: ATRAUMATIC, NORMAL INSPECTION, NORMOCEPHALIC - ENT Exam Additional comments: NG tube in place - Respiratory Exam Respiratory Exam: Clear to Ausculation Bilateral, NORMAL BREATHING PATTERN - Cardiovascular Exam Cardiovascular Exam: RRR, +S1, +S2 - GI/Abdominal Exam GI & Abdominal Exam: Distended, Soft, Normal Bowel Sounds. absent: Guarding, Tenderness, Rebound - Extremities Exam Extremities Exam: Pedal Edema (+1 edema b/l) - Neurological Exam Neurological Exam: Alert, Awake - Psychiatric Exam Psychiatric exam: Normal Affect, Normal Mood - Skin Skin Exam: Intact, Normal Color, Warm Assessment and Plan - Assessment and Plan (Free Text) Plan: HCAP Small bowel obstruction Hx of HTN Hx of CVA S/p tracheostomy tube placement and PEG tube placement Plan Continue Merrem at this time Procal negative, blood cultures negative MRSA screen and sputum culture pending No surgical intervention as per Surgery Serial abdominal exams as per GI Alia, PGY-3 <Roderick Avalos S - Last Filed: 04/15/18 15:12> Objective - Vital Signs/Intake and Output Vital Signs (last 24 hours): Temp Pulse Resp BP Pulse Ox 98 F 80 18 111/67 99 04/15/18 12:00 04/15/18 12:00 04/15/18 12:00 04/15/18 12:00 04/15/18 06:00 Intake and Output: 04/15/18 04/15/18 06:59 18:59 Intake Total 1600 Output Total 350 Balance 1250 - Medications Medications: Current Medications Acetylcysteine (Acetylcysteine 20%) 4 ml IH BIDRESP [facility] Last Admin: 04/15/18 07:35 Dose: 4 ml Albuterol/Ipratropium (Duoneb 3 Mg/0.5 Mg (3 Ml) Ud) 3 ml IH [id number] PRN PRN Reason: Shortness of Breath Arformoterol Tartrate (Brovana) 15 mcg IH [id number] [facility] Last Admin: 04/15/18 07:35 Dose: 15 mcg Aspirin (Aspirin Chewable) 81 mg PO DAILY [facility] Last Admin: 04/15/18 10:00 Dose: 81 mg Budesonide (Pulmicort Respules) 0.5 mg IH [id number] [facility] Last Admin: 04/15/18 07:35 Dose: 0.5 mg Clonazepam (Klonopin) 0.5 mg PO DAILY [facility]; Protocol Last Admin: 04/15/18 10:03 Dose: 0.5 mg Clonazepam (Klonopin) 0.5 mg PO HS [facility]; Protocol Last Admin: 04/14/18 22:45 Dose: Not Given Enoxaparin Sodium (Lovenox) 40 mg SC DAILY [facility]; Protocol Last Admin: 04/15/18 09:59 Dose: 40 mg Escitalopram Oxalate (Lexapro) 10 mg PO DAILY [facility] Last Admin: 04/15/18 10:03 Dose: 10 mg Meropenem (Merrem Iv 1 Gm Premix) 1 gm in 50 mls @ 100 mls/hr IVPB Q8 [facility]; Protocol Stop: 04/21/18 07:01 Last Admin: 04/15/18 06:17 Dose: 100 mls/hr Potassium Chloride 20 meq/ (Sodium Chloride) 1,010 mls @ 100 mls/hr IV .Q10H6M [facility] Last Admin: 04/15/18 10:05 Dose: 100 mls/hr Methylprednisolone (Solu-Medrol) 30 mg IVP Q12 [facility] Last Admin: 04/15/18 09:58 Dose: 30 mg Metoprolol Tartrate (Lopressor) 50 mg PO BID [facility] Last Admin: 04/15/18 10:00 Dose: Not Given Ondansetron HCl (Zofran Inj) 4 mg IVP Q6H PRN PRN Reason: Nausea/Vomiting Last Admin: 04/14/18 09:41 Dose: 4 mg Pantoprazole Sodium (Protonix Inj) 40 mg IVP DAILY [facility] Last Admin: 04/15/18 09:58 Dose: 40 mg Phenol/Menthol (Phenaseptic 1.4% Throat [place]) 1 ml MT Q2H PRN PRN Reason: Sore Throat Tamsulosin HCl (Flomax) 0.4 mg PO DAILY [facility] Last Admin: 04/15/18 10:00 Dose: 0.4 mg - Labs Labs: 04/15/18 08:25 04/15/18 08:25 PT 14.3 SECONDS (9.4-12.5) H 04/13/18 18:26 INR 1.25 04/13/18 18:26 APTT 35.5 Seconds (25.1-36.5) 04/13/18 18:26 Assessment and Plan - Assessment and Plan (Free Text) Plan: Infectious diseases Attending Physician Attestation Patient seen and examined, discussed with medical field representative. I have reviewed the patient's history of present illness, past medical, social, personal and family histories, pertinent physical exam findings, course so far in this hospital admission, pertinent laboratory and imaging results. I agree with the above findings, assessment and plan. In addition, continue Merrem day 2 for patient with bilateral lower lobe HCAP. PCT is low and if cultures continue to be negative, will consider de-escalation of antibiotics by tomorrow. Overall prognosis is poor.
--- NOTE | 2018-04-15 18:45 | RAD ---
PROCEDURE: Radiographs of the Right Shoulder HISTORY: possible right shoulder dislocation COMPARISON: CT of the chest abdomen and pelvis with IV contrast performed 04/13/18 FINDINGS: Two views. BONES: Osseous demineralization limits evaluation for acute fracture lines. No acute displaced fracture. The distal clavicle and underlying ribs appear intact. JOINTS: No definite dislocation however suboptimal two view submitted. The humeral head appears high-riding which may indicate chronic rotator cuff injury. SOFT TISSUES: Soft tissues appear unremarkable. No evidence of radiopaque foreign body. IMPRESSION: Two views submitted of the right shoulder with the patient in suboptimal positioning. CT which included the right shoulder joint performed 04/13/18 demonstrated degenerative changes of the right shoulder without evidence of dislocation. If interval injury occurred which raises concern for dislocation, recommend repeat right shoulder radiograph series or CT for further evaluation. Please note the humeral head appears high-riding which may indicate chronic rotator cuff injury.
[2018-04-16] MEDS: Meropenem IV 1 gm in NS 1 GM/50 ML BAG IVPB SCH ×3 (05:26→22:53)
[2018-04-16 07:35] LABS: ALB/GLOB RATIO 0.9 (1.1-1.8); ALT/SGPT 23 U/L (7-56); AST/SGOT 41 U/L (17-59); BLOOD UREA NITROGEN 19 mg/dL (7-21); CALCIUM 8.5 mg/dL (8.4-10.5); GFR NON-AFRICAN AMERICAN > 60
[2018-04-16] MEDS: Arformoterol 15 mcg/2 ml Inh Sol IH SCH ×2 (07:37→19:38)
[2018-04-16] MEDS: Acetylcysteine 20% Inhal Soln (4ml) IH SCH ×2 (07:37→19:37)
[2018-04-16] MEDS: Budesonide 0.5 mg/2 ml Inhal Susp UD IH SCH ×2 (07:37→19:38)
[2018-04-16] MEDS ORDERED: Barium Sulfate Susp 2.1% w/v, 2.0% w/w 450 mL Bottle PO ONE (07:41)
--- NOTE | 2018-04-16 07:58 | CP.PCM.PN ---
Subjective - Date & Time of Evaluation Date of Evaluation: 04/16/18 Time of Evaluation: 07:54 - Subjective Subjective: PGY-1 Shonda Mehta D.O. Surgery progress note for Dr. Garibay: Patient was seen and examined this morning. He states he feels okay but still has not had a BM despite a suppository yesterday. He says he is passing gas. He has the NGT in, and he says it is irritating his nose. He denies abdominal pain, nausea, and vomiting. Objective - Vital Signs/Intake and Output Vital Signs (last 24 hours): Temp Pulse Resp BP Pulse Ox 98.4 F 84 18 126/88 94 L 04/16/18 06:00 04/16/18 06:00 04/16/18 06:00 04/16/18 06:00 04/16/18 06:00 Intake and Output: 04/16/18 04/16/18 06:59 18:59 Intake Total 1400 Output Total 300 Balance 1100 - Medications Medications: Current Medications Acetylcysteine (Acetylcysteine 20%) 4 ml IH BIDRESP [facility] Last Admin: 04/16/18 07:37 Dose: 4 ml Albuterol/Ipratropium (Duoneb 3 Mg/0.5 Mg (3 Ml) Ud) 3 ml IH [id number] PRN PRN Reason: Shortness of Breath Arformoterol Tartrate (Brovana) 15 mcg IH [id number] [facility] Last Admin: 04/16/18 07:37 Dose: 15 mcg Aspirin (Aspirin Chewable) 81 mg PO DAILY [facility] Last Admin: 04/15/18 10:00 Dose: 81 mg Budesonide (Pulmicort Respules) 0.5 mg IH [id number] [facility] Last Admin: 04/16/18 07:37 Dose: 0.5 mg Clonazepam (Klonopin) 0.5 mg PO DAILY [facility]; Protocol Last Admin: 04/15/18 10:03 Dose: 0.5 mg Clonazepam (Klonopin) 0.5 mg PO HS [facility]; Protocol Last Admin: 04/15/18 21:52 Dose: 0.5 mg Enoxaparin Sodium (Lovenox) 40 mg SC DAILY [facility]; Protocol Last Admin: 04/15/18 09:59 Dose: 40 mg Escitalopram Oxalate (Lexapro) 10 mg PO DAILY [facility] Last Admin: 04/15/18 10:03 Dose: 10 mg Meropenem (Merrem Iv 1 Gm Premix) 1 gm in 50 mls @ 100 mls/hr IVPB Q8 [facility]; Protocol Stop: 04/21/18 07:01 Last Admin: 04/16/18 05:26 Dose: 100 mls/hr Potassium Chloride 20 meq/ (Sodium Chloride) 1,010 mls @ 100 mls/hr IV .Q10H6M [facility] Last Admin: 04/16/18 05:36 Dose: 100 mls/hr Methylprednisolone (Solu-Medrol) 30 mg IVP Q12 [facility] Last Admin: 04/15/18 21:52 Dose: 30 mg Metoprolol Tartrate (Lopressor) 50 mg PO BID [facility] Last Admin: 04/15/18 18:08 Dose: Not Given Ondansetron HCl (Zofran Inj) 4 mg IVP Q6H PRN PRN Reason: Nausea/Vomiting Last Admin: 04/14/18 09:41 Dose: 4 mg Pantoprazole Sodium (Protonix Inj) 40 mg IVP DAILY [facility] Last Admin: 04/15/18 09:58 Dose: 40 mg Phenol/Menthol (Phenaseptic 1.4% Throat [place]) 1 ml MT Q2H PRN PRN Reason: Sore Throat Tamsulosin HCl (Flomax) 0.4 mg PO DAILY [facility] Last Admin: 04/15/18 10:00 Dose: 0.4 mg - Labs Labs: 04/15/18 08:25 04/16/18 06:00 PT 14.3 SECONDS (9.4-12.5) H 04/13/18 18:26 INR 1.25 04/13/18 18:26 APTT 35.5 Seconds (25.1-36.5) 04/13/18 18:26 - Constitutional Appears: Non-toxic, No Acute Distress, Older Than Stated Age - Head Exam Head Exam: ATRAUMATIC, NORMAL INSPECTION - Eye Exam Eye Exam: EOMI - ENT Exam ENT Exam: Mucous Membranes Moist Additional comments: NG tube- continuous suction - Neck Exam Neck Exam: Normal Inspection - Respiratory Exam Respiratory Exam: Rhonchi (upper airway), NORMAL BREATHING PATTERN. absent: Respiratory Distress, Stridor - Cardiovascular Exam Cardiovascular Exam: REGULAR RHYTHM - GI/Abdominal Exam GI & Abdominal Exam: Soft. absent: Distended, Tenderness - Exam Additional comments: L inguinal hernia- reducible - Extremities Exam Extremities Exam: Normal Inspection - Neurological Exam Neurological Exam: Alert, Awake, CN II-XII Intact - Psychiatric Exam Psychiatric exam: Normal Affect, Normal Mood - Skin Skin Exam: Normal Color, Warm Assessment and Plan - Assessment and Plan (Free Text) Assessment: 63M with small bowel obstruction 2/2 reducible left inguinal hernia Plan: - NPO - [place] sump is clogged- change NG tube to intermittent suction - CT A/P with PO contrast - Dulcolax rectal suppository - Tap water and soap enema - Change IVF to D5 in 1/2NS Case discussed with attending, Dr. Garibay. PGY-1 Shonda Mehta D.O.
[2018-04-16] MEDS ORDERED: Dextrose 5%/0.45% NS 1,000 ML IV SCH ×2 (08:15)
--- NOTE | 2018-04-16 09:37 | PN ---
DATE: 04/16/2018 SUBJECTIVE: I saw him resting comfortably in bed. NG tube is in place. He has got a lot of contents suctioned out of his belly. He is alert, talking, smiling, much better mentally. He is on acetylcysteine; aspirin; Brovana; dextrose, I dropped it down from 75 to 50 due to the right arm swelling. He also had a right shoulder x-ray which showed no dislocation. He is on Dulcolax, DuoNebs, Flomax, Klonopin, Lexapro, metoprolol, Lovenox, Merrem IV, potassium, Protonix, Pulmicort, methylprednisolone 30 IV every 12 and I decrease that to 20 today, vancomycin and Zofran. PHYSICAL EXAMINATION: VITAL SIGNS: He has 98.4 temperature, 84 pulse, 126/88 blood pressure, 18 respiratory rate and 94% O2 sat 2 liters. HEENT: His head is atraumatic and normocephalic. NG tube is in place. GENERAL: He is alert and smiling. Much more alert and comfortable. No chest pain or shortness of breath. HEART: Regular rate. LUNGS: Decreased breath sounds, but clear. ABDOMEN: Distended. He has got NG tube in place. No bowel sounds. EXTREMITIES: The right arm is swollen. The legs are little bit puffy. I will do a right arm venous Doppler to make sure I a clot. LABORATORY DATA: We do not have any labs from today. Yesterday's BUN is 19, creatinine 0.8, GFR is greater than 60, sugar is 88, calcium is 8.5, total bili is 0.4, AST is 41, ALT is 23, alk phos is total protein 6.2. He has a 13.9 white count yesterday, 10.4 hemoglobin and 405 platelets. We are going to try to come back later for another blood draw this morning. Still aspirating to the NG tube suction stomach contents. She is still in small bowel obstruction. No bowel sounds. We will continue aggressive treatment and care on Justo Carr. Cash Chakraborty DO MTDAmy
[2018-04-16] MEDS: MethylPREDNISolone 40 mg Vial IVP SCH ×2 (11:07→22:53)
[2018-04-16] MEDS: Enoxaparin 40 mg Syringe SC SCH (11:13)
--- NOTE | 2018-04-16 11:38 | PN ---
DATE: 04/16/2018 PULMONARY PROGRESS NOTE REFERRING PHYSICIAN: Cash Chakraborty DO SUBJECTIVE: The patient is lying in bed, head of bed elevated, nasogastric tube in place. Nursing staff reports no bowel movement despite suppositories being given, enema has been ordered this morning to be give him. The patient is scheduled for CT scan of the abdomen and venous duplex of the right upper extremity. No hemoptysis, hematemesis or hematuria reported. The patient denies cough or shortness of breath. OBJECTIVE: GENERAL: No acute distress. VITAL SIGNS: Blood pressure 126/88, pulse 84, temperature 98.4 and oxygen saturation 94%. HEENT: Moist mucous membranes. NG tube in place. NECK: Supple. No JVD. RESPIRATORY: Few rhonchi bilaterally. CARDIOVASCULAR: S1 and S2, audible. ABDOMEN: Distended. No bowel sounds. EXTREMITIES: Right upper extremity edema. NEUROLOGIC: Awake, alert and verbal. Follows commands. MEDICATIONS: Reviewed. Mucomyst 4 mL inhalation twice a day, DuoNeb 3 mL inhalation every 6 hours, Brovana 15 mcg every 12 hours, Aspirin 81 mg daily, Pulmicort 0.5 mg every 12 hours, Klonopin 0.5 mg daily, Klonopin 0.5 mg at bedtime, dextrose 5%, sodium chloride 1000 mL at 50 mL per hour, Lovenox 40 mg subcutaneous daily, Lexapro 10 mg daily, Lasix 40 mg IV push daily, meropenem 1 g every 8 hours, Solu-Medrol 20 mg every 12 hours, metoprolol tartrate 50 mg twice a day, Zofran 4 mg every 6 hours p.r.n., Protonix 40 mg IV push daily, Phenaseptic throat spray 1 mL every 2 hours p.r.n., and Flomax 0.4 mg p.o. daily. LABORATORY DATA: Reviewed. Sodium 140, potassium 5.1, chloride 111, carbon dioxide 25, anion gap 10, BUN 19, creatinine 0.8, GFR is greater than 60, random glucose 88, calcium 8.5, total bilirubin 0.4, AST 41, ALT 23, alkaline phosphatase 51, total protein 6.2, albumin 3.0, globulin 3.2 and albumin-globulin ratio 0.9. Shoulder x-ray; no dislocation, the humeral head appears high riding which may indicate chronic rotator cuff injury. Abdominal x-ray shows, mildly dilated large and small bowel are seen, there is a moderate amount of fecal retention in the ascending colon, nasogastric tube is in satisfactory position. IMPRESSION AND PLAN: Small bowel obstruction, chronic lung disease, congestive heart failure, hypertension, anxiety, depression and severe pulmonary hypertension. Continue nasogastric tube with intermittent suction, gastric prophylaxis, deep venous thrombosis prophylaxis, continue inhaled bronchodilators, continue steroids and Gastroenterology surgical followup. The patient is scheduled today for CAT scan of the abdomen and pelvis. Also has venous duplex right upper extremity today. We will follow up with reports when available. Follow up with labs in the morning. This patient was seen and examined with Dr. Bell. Discussed assessment and plan as described above. Thank you for this consult and we will follow with you. Bora Szymanski APN Korin Bell MD
--- NOTE | 2018-04-16 12:38 | CT ---
Date of service: 04/16/2018 PROCEDURE: CT Abdomen and Pelvis with contrast HISTORY: SBO r/o obstruction COMPARISON: 04/15/2018 abdominal radiographs. 04/13/2018 CT abdomen and pelvis. TECHNIQUE: Intravenous contrast dose: None. Oral contrast only. Radiation dose: Total exam DLP = 847.89 mGy-cm. This CT exam was performed using one or more of the following dose reduction techniques: Automated exposure control, adjustment of the mA and/or kV according to patient size, and/or use of iterative reconstruction technique. FINDINGS: LOWER THORAX: Bilateral pleural effusions and lower lobe infiltrates/atelectasis. LIVER: Unremarkable. No gross lesion or ductal dilatation. GALLBLADDER AND BILE DUCTS: Unremarkable. PANCREAS: Unremarkable. No gross lesion or ductal dilatation. SPLEEN: Unremarkable. ADRENALS: Unremarkable. No mass. KIDNEYS AND URETERS: Unremarkable. No hydronephrosis. No solid mass. VASCULATURE: Atherosclerotic calcification and mural plaque present. Findings are seen throughout the aorta which is non aneurysmal. BOWEL: Persistent dilatation of small bowel proximal to the left inguinal hernia. The caliber of affected small bowel loops is diminished compared to the previous study. Contrast is identified in nondistended small bowel distal to the left inguinal hernia. Unremarkable colon. APPENDIX: No abnormalities to suggest acute appendicitis. No right lower quadrant inflammatory processes identified. PERITONEUM: Unremarkable. No free fluid. No free air. LYMPH NODES: Unremarkable. No enlarged lymph nodes. BLADDER: Unremarkable. REPRODUCTIVE: Unremarkable. BONES: No acute fracture. Scoliosis, secondary degenerative change at multiple levels. OTHER FINDINGS: Nasogastric tube in satisfactory position, the stomach is decompressed compared to the prior study proceeding nasogastric tube placement. IMPRESSION: Interval improvement in small bowel obstruction proximal to large left inguinal hernia containing multiple loops of contrast filled small bowel. There are no direct signs of incarceration. Additional benign and/or incidental findings described above.
--- NOTE | 2018-04-16 13:42 | CP.PCM.PN ---
<Felton Rojo - Last Filed: 04/16/18 13:39> Subjective - Date & Time of Evaluation Date of Evaluation: 04/16/18 Time of Evaluation: 07:00 - Subjective Subjective: Patient seen and examined at bedside. Patient admits to intermittent gas pains. No acute events overnight. Denies chest pain, shortness of breath, nausea, vomiting, diarrhea, fever, chills. Objective - Vital Signs/Intake and Output Vital Signs (last 24 hours): Temp Pulse Resp BP Pulse Ox 98.4 F 89 18 135/97 H 94 L 04/16/18 06:00 04/16/18 11:05 04/16/18 06:00 04/16/18 11:10 04/16/18 06:00 Intake and Output: 04/16/18 04/16/18 06:59 18:59 Intake Total 1400 Output Total 300 Balance 1100 - Medications Medications: Current Medications Acetylcysteine (Acetylcysteine 20%) 4 ml IH BIDRESP [facility] Last Admin: 04/16/18 07:37 Dose: 4 ml Albuterol/Ipratropium (Duoneb 3 Mg/0.5 Mg (3 Ml) Ud) 3 ml IH [id number] PRN PRN Reason: Shortness of Breath Arformoterol Tartrate (Brovana) 15 mcg IH [id number] [facility] Last Admin: 04/16/18 07:37 Dose: 15 mcg Aspirin (Aspirin Chewable) 81 mg PO DAILY [facility] Last Admin: 04/16/18 11:07 Dose: 81 mg Budesonide (Pulmicort Respules) 0.5 mg IH [id number] [facility] Last Admin: 04/16/18 07:37 Dose: 0.5 mg Clonazepam (Klonopin) 0.5 mg PO DAILY [facility]; Protocol Last Admin: 04/16/18 11:05 Dose: 0.5 mg Clonazepam (Klonopin) 0.5 mg PO HS [facility]; Protocol Last Admin: 04/15/18 21:52 Dose: 0.5 mg Docusate Sodium (Colace) 100 mg PO DAILY [facility] Enoxaparin Sodium (Lovenox) 40 mg SC DAILY [facility]; Protocol Last Admin: 04/16/18 11:13 Dose: 40 mg Escitalopram Oxalate (Lexapro) 10 mg PO DAILY [facility] Last Admin: 04/16/18 11:05 Dose: 10 mg Furosemide (Lasix) 40 mg IVP DAILY [facility] Last Admin: 04/16/18 11:10 Dose: 40 mg Meropenem (Merrem Iv 1 Gm Premix) 1 gm in 50 mls @ 100 mls/hr IVPB Q8 [facility]; Protocol Stop: 04/21/18 07:01 Last Admin: 04/16/18 05:26 Dose: 100 mls/hr Dextrose/Sodium Chloride (Dextrose 5%/0.45% Ns 1000 Ml) 1,000 mls @ 50 mls/hr IV .Q20H [facility] Methylprednisolone (Solu-Medrol) 20 mg IVP Q12 [facility] Last Admin: 04/16/18 11:07 Dose: 20 mg Metoprolol Tartrate (Lopressor) 50 mg PO BID [facility] Last Admin: 04/16/18 11:05 Dose: 50 mg Ondansetron HCl (Zofran Inj) 4 mg IVP Q6H PRN PRN Reason: Nausea/Vomiting Last Admin: 04/14/18 09:41 Dose: 4 mg Pantoprazole Sodium (Protonix Inj) 40 mg IVP DAILY [facility] Last Admin: 04/16/18 11:08 Dose: 40 mg Phenol/Menthol (Phenaseptic 1.4% Throat [place]) 1 ml MT Q2H PRN PRN Reason: Sore Throat Tamsulosin HCl (Flomax) 0.4 mg PO DAILY [facility] Last Admin: 04/16/18 11:07 Dose: 0.4 mg - Labs Labs: 04/15/18 08:25 04/16/18 06:00 PT 14.3 SECONDS (9.4-12.5) H 04/13/18 18:26 INR 1.25 04/13/18 18:26 APTT 35.5 Seconds (25.1-36.5) 04/13/18 18:26 - Constitutional Appears: Chronically Ill - Head Exam Head Exam: ATRAUMATIC, NORMAL INSPECTION, NORMOCEPHALIC - ENT Exam Additional comments: NG tube in place - Respiratory Exam Respiratory Exam: Decreased Breath Sounds, NORMAL BREATHING PATTERN - Cardiovascular Exam Cardiovascular Exam: RRR, +S1, +S2 - GI/Abdominal Exam GI & Abdominal Exam: Distended, Soft, Normal Bowel Sounds. absent: Guarding, T enderness, Rebound - Extremities Exam Extremities Exam: Pedal Edema (+1 b/l) - Neurological Exam Neurological Exam: Alert, Awake - Psychiatric Exam Psychiatric exam: Normal Affect, Normal Mood - Skin Skin Exam: Dry, Intact, Warm Assessment and Plan - Assessment and Plan (Free Text) Plan: HCAP Small bowel obstruction Hx of HTN Hx of CVA S/p tracheostomy tube placement and PEG tube placement Plan Continue Merrem CT abdomen/pelvis demonstrates improvement in SBO Procal negative, blood cultures negative MRSA screen negative No surgical intervention as per Surgery Alia, PGY-3 <Roderick Avalos S - Last Filed: 04/16/18 14:42> Objective - Vital Signs/Intake and Output Vital Signs (last 24 hours): Temp Pulse Resp BP Pulse Ox 98.4 F 89 18 135/97 H 94 L 04/16/18 06:00 04/16/18 11:05 04/16/18 06:00 04/16/18 11:10 04/16/18 06:00 Intake and Output: 04/16/18 04/16/18 06:59 18:59 Intake Total 1400 Output Total 300 Balance 1100 - Medications Medications: Current Medications Acetylcysteine (Acetylcysteine 20%) 4 ml IH BIDRESP [facility] Last Admin: 04/16/18 07:37 Dose: 4 ml Albuterol/Ipratropium (Duoneb 3 Mg/0.5 Mg (3 Ml) Ud) 3 ml IH [id number] PRN PRN Reason: Shortness of Breath Arformoterol Tartrate (Brovana) 15 mcg IH [id number] [facility] Last Admin: 04/16/18 07:37 Dose: 15 mcg Aspirin (Aspirin Chewable) 81 mg PO DAILY [facility] Last Admin: 04/16/18 11:07 Dose: 81 mg Budesonide (Pulmicort Respules) 0.5 mg IH [id number] [facility] Last Admin: 04/16/18 07:37 Dose: 0.5 mg Clonazepam (Klonopin) 0.5 mg PO DAILY [facility]; Protocol Last Admin: 04/16/18 11:05 Dose: 0.5 mg Clonazepam (Klonopin) 0.5 mg PO HS [facility]; Protocol Last Admin: 04/15/18 21:52 Dose: 0.5 mg Docusate Sodium (Colace) 100 mg PO DAILY [facility] Last Admin: 04/16/18 14:08 Dose: 100 mg Enoxaparin Sodium (Lovenox) 40 mg SC DAILY [facility]; Protocol Last Admin: 04/16/18 11:13 Dose: 40 mg Escitalopram Oxalate (Lexapro) 10 mg PO DAILY [facility] Last Admin: 04/16/18 11:05 Dose: 10 mg Furosemide (Lasix) 40 mg IVP DAILY [facility] Last Admin: 04/16/18 11:10 Dose: 40 mg Meropenem (Merrem Iv 1 Gm Premix) 1 gm in 50 mls @ 100 mls/hr IVPB Q8 [facility]; Protocol Stop: 04/21/18 07:01 Last Admin: 04/16/18 14:10 Dose: 100 mls/hr Dextrose/Sodium Chloride (Dextrose 5%/0.45% Ns 1000 Ml) 1,000 mls @ 50 mls/hr IV .Q20H [facility] Methylprednisolone (Solu-Medrol) 20 mg IVP Q12 [facility] Last Admin: 04/16/18 11:07 Dose: 20 mg Metoprolol Tartrate (Lopressor) 50 mg PO BID [facility] Last Admin: 04/16/18 11:05 Dose: 50 mg Ondansetron HCl (Zofran Inj) 4 mg IVP Q6H PRN PRN Reason: Nausea/Vomiting Last Admin: 04/14/18 09:41 Dose: 4 mg Pantoprazole Sodium (Protonix Inj) 40 mg IVP DAILY [facility] Last Admin: 04/16/18 11:08 Dose: 40 mg Phenol/Menthol (Phenaseptic 1.4% Throat [place]) 1 ml MT Q2H PRN PRN Reason: Sore Throat Tamsulosin HCl (Flomax) 0.4 mg PO DAILY [facility] Last Admin: 04/16/18 11:07 Dose: 0.4 mg - Labs Labs: 04/15/18 08:25 04/16/18 06:00 PT 14.3 SECONDS (9.4-12.5) H 04/13/18 18:26 INR 1.25 04/13/18 18:26 APTT 35.5 Seconds (25.1-36.5) 04/13/18 18:26 Assessment and Plan - Assessment and Plan (Free Text) Plan: Infectious diseases Attending Physician Attestation Patient seen and examined, discussed with medical staff coordinator. I have reviewed the patient's history of present illness, past medical, social, personal and family histories, pertinent physical exam findings, course so far in this hospital admission, pertinent laboratory and imaging results. I agree with the above findings, assessment and plan. In addition, continue Merrem day 3 to complete 4- 7 days of therapy for patient with bilateral lower lobe HCAP. Overall prognosis is poor.
[2018-04-16] MEDS ORDERED: Bacitracin 500 Units/gm Oint Foilpak UD ONE (14:10)
--- NOTE | 2018-04-16 14:49 | CP.PCM.PCO ---
Physician Communication Note - Physician Communication Note Physician Communication Note: Pt. with SBO, NGT to intermittent suction.abdomen distended,pending imaging
[2018-04-16] MEDS: Dextrose 5%/0.45% NS 1,000 ML IV SCH (14:56)
--- NOTE | 2018-04-16 15:36 | CON ---
DATE: 04/16/2018 ORTHOPEDIC CONSULT REPORT LOCATION: Room 264, bed 1. HISTORY OF PRESENT ILLNESS: This is a [id number]-rier-acte recently been seen by me, from the nursing therapist, and with a suspicious for dislocated right shoulder with the x-ray showed no dislocation of the right shoulder. 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 He can move the arm passively of glenohumeral joint. There is no signs of a dislocation. If need, we can get him a right shoulder sling in case of injuring the shoulder c transfers by using the right shoulder. He is currently going to therapy as well as he understands the shoulder cannot be moved and cannot be used for transfer. He will be okay. 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 No active orthopedic treatment is needed though. Kunal Morocho DO JEROMY
--- NOTE | 2018-04-16 22:49 | US ---
PROCEDURE: Right upper extremity venous US CLINICAL HISTORY: Arm pain and swelling Evaluate for deep venous thrombosis. PHYSICIAN(S): Reginald Ngo M.D FINDINGS: The visualized rightinternal jugular vein is sonographically normal and compressible. No evidence of obstruction or thrombus is seen. The visualized segments of the right subclavian vein are patent with normal waveforms. No sonographic evidence of obstruction or thrombosis is seen. The visualized deep venous system of the proximal right upper extremity is sonographically normal and compressible. IMPRESSION: 1. No sonographic evidence for deep venous thrombosis in the visualized segments of the right upper extremity.
[2018-04-17] MEDS: Dextrose 5%/0.45% NS 1,000 ML IV SCH ×2 (04:45→11:47)
[2018-04-17] MEDS: Meropenem IV 1 gm in NS 1 GM/50 ML BAG IVPB SCH (06:47)
--- NOTE | 2018-04-17 07:11 | CP.PCM.PN ---
Subjective - Date & Time of Evaluation Date of Evaluation: 04/17/18 Time of Evaluation: 06:45 - Subjective Subjective: General Surgery progress note for Dr. Garibay patient seen and examined this am at bedside. Patient is resting comfortably. Tolerated NGT off suction overnight. tolerating CLD. No residuals in NGT, clear output after flushing. Pt endorses flatus but no BM. Pt otherwise denies PORTILLO, CP, SOB, abdominal pain, f/c, n/v, bloating, dysuria and extremity pain/weakness. Objective - Vital Signs/Intake and Output Vital Signs (last 24 hours): Temp Pulse Resp BP Pulse Ox 98.2 F 80 20 125/88 94 L 04/17/18 00:01 04/17/18 02:00 04/17/18 00:01 04/17/18 00:01 04/16/18 06:00 Intake and Output: 04/17/18 04/17/18 06:59 18:59 Intake Total 240 Balance 240 - Medications Medications: Current Medications Acetylcysteine (Acetylcysteine 20%) 4 ml IH BIDRESP MARIO Last Admin: 04/16/18 19:37 Dose: 4 ml Albuterol/Ipratropium (Duoneb 3 Mg/0.5 Mg (3 Ml) Ud) 3 ml IH [id number] PRN PRN Reason: Shortness of Breath Arformoterol Tartrate (Brovana) 15 mcg IH [id number] [facility]IO Last Admin: 04/16/18 19:38 Dose: 15 mcg Aspirin (Aspirin Chewable) 81 mg PO DAILY [facility] Last Admin: 04/16/18 11:07 Dose: 81 mg Budesonide (Pulmicort Respules) 0.5 mg IH [id number] [facility] Last Admin: 04/16/18 19:38 Dose: 0.5 mg Clonazepam (Klonopin) 0.5 mg PO DAILY [facility]; Protocol Last Admin: 04/16/18 11:05 Dose: 0.5 mg Clonazepam (Klonopin) 0.5 mg PO HS [facility]; Protocol Last Admin: 04/16/18 22:55 Dose: 0.5 mg Docusate Sodium (Colace) 100 mg PO DAILY [facility] Last Admin: 04/16/18 14:08 Dose: 100 mg Enoxaparin Sodium (Lovenox) 40 mg SC DAILY [facility]; Protocol Last Admin: 04/16/18 11:13 Dose: 40 mg Escitalopram Oxalate (Lexapro) 10 mg PO DAILY [facility] Last Admin: 04/16/18 11:05 Dose: 10 mg Furosemide (Lasix) 40 mg IVP DAILY [facility] Last Admin: 04/16/18 11:10 Dose: 40 mg Meropenem (Merrem Iv 1 Gm Premix) 1 gm in 50 mls @ 100 mls/hr IVPB Q8 [facility]; Protocol Stop: 04/21/18 07:01 Last Admin: 04/17/18 06:47 Dose: 100 mls/hr Dextrose/Sodium Chloride (Dextrose 5%/0.45% Ns 1000 Ml) 1,000 mls @ 50 mls/hr IV .Q20H [facility] Last Admin: 04/17/18 04:45 Dose: 50 mls/hr Methylprednisolone (Solu-Medrol) 20 mg IVP Q12 [facility] Last Admin: 04/16/18 22:53 Dose: 20 mg Metoprolol Tartrate (Lopressor) 50 mg PO BID [facility] Last Admin: 04/16/18 18:47 Dose: 50 mg Ondansetron HCl (Zofran Inj) 4 mg IVP Q6H PRN PRN Reason: Nausea/Vomiting Last Admin: 04/14/18 09:41 Dose: 4 mg Pantoprazole Sodium (Protonix Inj) 40 mg IVP DAILY [facility] Last Admin: 04/16/18 11:08 Dose: 40 mg Phenol/Menthol (Phenaseptic 1.4% Throat [place]) 1 ml MT Q2H PRN PRN Reason: Sore Throat Tamsulosin HCl (Flomax) 0.4 mg PO DAILY [facility] Last Admin: 04/16/18 11:07 Dose: 0.4 mg - Labs Labs: 04/15/18 08:25 04/16/18 06:00 PT 14.3 SECONDS (9.4-12.5) H 04/13/18 18:26 INR 1.25 04/13/18 18:26 APTT 35.5 Seconds (25.1-36.5) 04/13/18 18:26 - Constitutional Appears: Well, Non-toxic, No Acute Distress - Head Exam Head Exam: ATRAUMATIC, NORMOCEPHALIC - Eye Exam Eye Exam: EOMI - ENT Exam ENT Exam: Mucous Membranes Moist - Respiratory Exam Respiratory Exam: NORMAL BREATHING PATTERN - Cardiovascular Exam Cardiovascular Exam: REGULAR RHYTHM - GI/Abdominal Exam GI & Abdominal Exam: Distended (mild), Soft. absent: Guarding, Tenderness, Rebo und - Extremities Exam Extremities Exam: absent: Calf Tenderness, Pedal Edema - Neurological Exam Neurological Exam: Alert, Awake, Oriented x3 - Psychiatric Exam Psychiatric exam: Normal Affect, Normal Mood - Skin Skin Exam: Dry, Intact, Normal Color, Warm Assessment and Plan - Assessment and Plan (Free Text) Assessment: 63 yr old male with resolving SBO Plan: FLD this am keep NGT clamped monitor Bowel function abd flat plate for eval of contrast movement will discuss with freddy Jo recs per him Nena Ruano, PGY 1
[2018-04-17 07:20] LABS: HEMOGLOBIN 10.1 g/dL (14.0-18.0); MEAN CELL VOLUME 88.6 fl (80.0-105.0); MEAN CORPUSCULAR HEMOGLOBIN 27.4 pg (25.0-35.0); RBC 3.68 10^6/uL (3.5-6.1); RED CELL DISTRIBUTION WIDTH 15.5 % (11.5-14.5); WHITE BLOOD COUNT 10.8 10^3/uL (4.5-11.0)
[2018-04-17 08:09] LABS: ALB/GLOB RATIO 0.9 (1.1-1.8); ALBUMIN 2.6 g/dL (3.0-4.8); ALT/SGPT 27 U/L (7-56); AST/SGOT 21 U/L (17-59); BLOOD UREA NITROGEN 17 mg/dL (7-21); CALCIUM 8.2 mg/dL (8.4-10.5); GFR NON-AFRICAN AMERICAN > 60
[2018-04-17] MEDS: Arformoterol 15 mcg/2 ml Inh Sol IH SCH ×2 (09:08→19:31)
[2018-04-17] MEDS: Acetylcysteine 20% Inhal Soln (4ml) IH SCH ×2 (09:08→19:31)
[2018-04-17] MEDS: Budesonide 0.5 mg/2 ml Inhal Susp UD IH SCH ×2 (09:09→19:31)
[2018-04-17] MEDS: MethylPREDNISolone 40 mg Vial IVP SCH ×2 (09:25→22:58)
[2018-04-17] MEDS: Enoxaparin 40 mg Syringe SC SCH (09:26)
--- NOTE | 2018-04-17 10:07 | RAD ---
Date of service: 04/17/2018 HISTORY: SBO/ contrast movement COMPARISON: CT scan of the abdomen pelvis dated 04/16/2018 FINDINGS: Enteric tube looped within the stomach. Enteric contrast is seen in the colon and rectum. IMPRESSION: Enteric contrast seen in the rectum.
--- NOTE | 2018-04-17 10:15 | PN ---
DATE: 04/17/2018 SUBJECTIVE: The patient is in bed, in no acute distress, nontoxic. PHYSICAL EXAMINATION VITAL SIGNS: Temperature 98, blood pressure 130/70, respiratory rate 18. HEENT: Unremarkable. NECK: Supple. LUNGS: Decreased breath sounds. HEART: Normal S1, S2. ABDOMEN: Soft, nontender. LABORATORY DATA: White count of 10,000, hemoglobin of 10, platelets of 377, BUN of 17, creatinine of 0.8. Procalcitonin is noted to be at 0.07. Urinalysis is noted to be negative. Microbiology reveals MRSA screen is negative. The blood cultures are negative. Review of orders reveals the patient to be on meropenem and vancomycin intermittently.. ASSESSMENT AND PLAN: He is a 63-year-old male who was seen in [facility], bed one. Today is day #4 of meropenem for healthcare-associated pneumonia, small bowel obstruction, hypertension, cerebrovascular accident, status post tracheostomy tube placement and percutaneous endoscopic gastrostomy tube placement. With negative cultures, negative procalcitonin, bowel obstruction is improved and normal white count 10.8. Chest x-ray should be repeated as outpatient for resolution. We will discontinue the meropenem that the small bowel obstruction has resolved and white count is normalized. The patient has received 4 days. Gonzalo Lozano MD
--- NOTE | 2018-04-17 10:52 | PN ---
DATE: 04/17/2018 SUBJECTIVE: I saw him resting comfortably in bed. He is alert. He is talking. He is laughing. The NG tube is still in place, but it is clamped. He is being seen by Surgery, Orthopedics for shoulder, Infectious Disease, Pulmonary, interventional radiologist, and ultrasound of the right arm which was negative. He has improvement of small bowel obstruction on CAT scan. PHYSICAL EXAMINATION: VITAL SIGNS: He has a 98.1 temperature, 80 pulse, 132/86 blood pressure, 19 respiratory rate, 92% O2 sat on room air. HEAD: Atraumatic, normocephalic. GENERAL: He is alert and talking. No pain. He stated that he is having gas, but I do not believe him. HEART: Regular rate. LUNGS: Decreased breath sounds. ABDOMEN: I hear no bowel sounds. It is mildly distended, not as bad as it was. EXTREMITIES: The right side a little bit puffy, but it is better with the Lasix. LABORATORY DATA: He has a urine which is clean. White count is down to 10.8, best it has been, hemoglobin 10.1, hematocrit 32.6, platelets 377. Sodium 135, potassium 4.9, BUN 17, creatinine 0.8, GFR greater than 60, sugar is 106, calcium is 8.2, total bili is 0.3, AST is 21, ALT is 27, alk phos 48, total protein is 5.4. MEDICATIONS: He is on acetylcysteine, aspirin, Brovana, Colace, dextrose, DuoNebs, Flomax, Klonopin, Lasix IV, Lexapro, Lovenox, throat spray, Protonix, Pulmicort, Solu-Medrol, Zofran. He was on Merrem. The note from Infectious Disease said continue Merrem. He is also getting vancomycin, but I do not see Merrem on the list of medications. I will discuss that with Infectious Disease. ASSESSMENT AND PLAN: I do think he is improving. Nasogastric tube as per surgery. He was here for status post small bowel obstruction and pneumonia and right arm swelling. Jovani Chakraborty DO [facility] # [id number]
--- NOTE | 2018-04-17 14:51 | PN ---
DATE: 04/17/2018 PULMONARY PROGRESS NOTE REFERRING PHYSICIAN: Cash Chakraborty DO SUBJECTIVE: The patient is lying in bed, nasogastric tube in place, not on suctioning. Nursing staff report the patient has not had a bowel movement, but is scheduled to have an enema today. No hemoptysis, hematemesis or hematuria reported. OBJECTIVE: GENERAL: No acute distress. VITAL SIGNS: Blood pressure 132/86, pulse 90, temperature 97.7 and oxygen saturation 92%. HEENT: Moist mucous membranes. NG tube in place. NECK: Supple. No JVD. RESPIRATORY: Rhonchi bilaterally. CARDIOVASCULAR: S1 and S2, audible. ABDOMEN: Soft. No bowel sounds. EXTREMITIES: No bilateral lower extremity edema. NEUROLOGIC: Awake, alert, and verbal. Follows commands. MEDICATIONS: Reviewed. Mucomyst 4 mL inhalation twice a day, DuoNeb 3 mL inhalation every 6 hours p.r.n., Brovana 15 mcg every 12 hours, aspirin 81 mg daily, Pulmicort 0.5 mg every 12 hours, Klonopin 0.5 mg p.o. daily, Klonopin 0.5 mg at bedtime, dextrose, sodium chloride 1000 mL at 50 mL per hour, Colace 100 mg daily, Lovenox 40 mg subcutaneous daily, Lexapro 10 mg daily, Lasix 40 mg IV push daily, Solu-Medrol 20 mg IV push every 12 hours, metoprolol tartrate 50 mg twice a day, Zofran 4 mg every IV push every 6 hours p.r.n., Protonix 40 mg IV push daily, Phenaseptic throat spray 1 mL every 2 hours p.r.n., and Flomax 0.4 mg p.o. daily. LABORATORY DATA: Reviewed. WBC 10.8, RBC 2.68, hemoglobin 10, hematocrit 32.6 and platelets 377. Sodium 135, potassium 4.9, chloride 100, carbon dioxide 33, anion gap 8, BUN 17, creatinine 0.8, GFR is greater than 60, POC glucose 106, random glucose 111, calcium 8.2, total bilirubin 0.3, AST 21, ALT 27, alkaline phosphatase 48, total protein 5.4, albumin 2.6, globulin 2.8 and albumin-globulin ratio 0.9. Abdominal x-ray shows enteric contrast seen in the rectum. Upper extremity duplex shows no sonographic evidence of deep venous thrombosis in the right upper extremity. IMPRESSION AND PLAN: Small bowel obstruction, chronic lung disease, congestive heart failure, hypertension, anxiety, depression and severe pulmonary hypertension. The patient is due for enema today, monitor bowel movement, gastric prophylaxis, deep venous thrombosis prophylaxis. Continue inhaled bronchodilators. Continue steroids, aspiration precaution, Gastroenterology/surgical followup. This patient was seen and examined with Dr. Bell. Discussed assessment and plan as described above. Thank you for this consult and we will follow with you. Bora Szymanski APN Korin Bell MD [facility]
[2018-04-18] MEDS: Dextrose 5%/0.45% NS 1,000 ML IV SCH (00:30)
[2018-04-18] MEDS: Budesonide 0.5 mg/2 ml Inhal Susp UD IH SCH ×2 (07:48→19:42)
[2018-04-18] MEDS: Acetylcysteine 20% Inhal Soln (4ml) IH SCH (07:48)
[2018-04-18] MEDS: Arformoterol 15 mcg/2 ml Inh Sol IH SCH ×2 (07:48→19:42)
[2018-04-18 08:07] LABS: HEMOGLOBIN 10.5 g/dL (14.0-18.0); MEAN CORPUSCULAR HGB CONC 31.8 g/dl (31.0-37.0); MEAN PLATELET VOLUME 8.7 fl (7.0-11.0); RBC 3.75 10^6/uL (3.5-6.1); RED CELL DISTRIBUTION WIDTH 15.6 % (11.5-14.5); WHITE BLOOD COUNT 11.9 10^3/uL (4.5-11.0)
--- NOTE | 2018-04-18 08:30 | CP.PCM.PN ---
Subjective - Date & Time of Evaluation Date of Evaluation: 04/18/18 Time of Evaluation: 07:00 - Subjective Subjective: Surgery progress note for Dr. Garibay pt seen and examined this AM, no adverse events overnight. patient had a few bowel movements after administration of phosphate enema overnight, tolerated FLD with no nausea or vomiting. Denies any pain, states he is hungry for real food Objective - Vital Signs/Intake and Output Vital Signs (last 24 hours): Temp Pulse Resp BP Pulse Ox 98.4 F 81 19 142/97 H 96 04/18/18 06:00 04/18/18 06:00 04/18/18 06:00 04/18/18 06:00 04/18/18 06:00 Intake and Output: 04/18/18 04/18/18 06:59 18:59 Intake Total 600 Output Total 0 Balance 600 - Medications Medications: Current Medications Acetylcysteine (Acetylcysteine 20%) 4 ml IH BIDRESP MARIO Last Admin: 04/18/18 07:48 Dose: 4 ml Albuterol/Ipratropium (Duoneb 3 Mg/0.5 Mg (3 Ml) Ud) 3 ml IH [id number] PRN PRN Reason: Shortness of Breath Arformoterol Tartrate (Brovana) 15 mcg IH [id number] [facility] Last Admin: 04/18/18 07:48 Dose: 15 mcg Aspirin (Aspirin Chewable) 81 mg PO DAILY [facility] Last Admin: 04/17/18 09:24 Dose: 81 mg Budesonide (Pulmicort Respules) 0.5 mg IH [id number] [facility] Last Admin: 04/18/18 07:48 Dose: 0.5 mg Clonazepam (Klonopin) 0.5 mg PO DAILY [facility]; Protocol Last Admin: 04/17/18 09:24 Dose: 0.5 mg Clonazepam (Klonopin) 0.5 mg PO HS [facility]; Protocol Last Admin: 04/17/18 22:58 Dose: 0.5 mg Docusate Sodium (Colace) 100 mg PO DAILY [facility] Last Admin: 04/17/18 09:24 Dose: 100 mg Enoxaparin Sodium (Lovenox) 40 mg SC DAILY [facility]; Protocol Last Admin: 04/17/18 09:26 Dose: 40 mg Escitalopram Oxalate (Lexapro) 10 mg PO DAILY [facility] Last Admin: 04/17/18 09:24 Dose: 10 mg Furosemide (Lasix) 40 mg IVP DAILY [facility] Last Admin: 04/17/18 09:25 Dose: 40 mg Dextrose/Sodium Chloride (Dextrose 5%/0.45% Ns 1000 Ml) 1,000 mls @ 50 mls/hr IV .Q20H [facility] Last Admin: 04/18/18 00:30 Dose: Not Given Methylprednisolone (Solu-Medrol) 20 mg IVP Q12 [facility] Last Admin: 04/17/18 22:58 Dose: 20 mg Metoprolol Tartrate (Lopressor) 50 mg PO BID [facility] Last Admin: 04/17/18 17:31 Dose: 50 mg Ondansetron HCl (Zofran Inj) 4 mg IVP Q6H PRN PRN Reason: Nausea/Vomiting Last Admin: 04/14/18 09:41 Dose: 4 mg Pantoprazole Sodium (Protonix Inj) 40 mg IVP DAILY [facility] Last Admin: 04/17/18 09:25 Dose: 40 mg Phenol/Menthol (Phenaseptic 1.4% Throat [place]) 1 ml MT Q2H PRN PRN Reason: Sore Throat Polyethylene Glycol (Miralax) 17 gm PO DAILY [facility] Tamsulosin HCl (Flomax) 0.4 mg PO DAILY [facility] Last Admin: 04/17/18 09:24 Dose: 0.4 mg - Labs Labs: 04/18/18 07:30 04/17/18 06:30 PT 14.3 SECONDS (9.4-12.5) H 04/13/18 18:26 INR 1.25 04/13/18 18:26 APTT 35.5 Seconds (25.1-36.5) 04/13/18 18:26 - Constitutional Appears: Well, Non-toxic, No Acute Distress - Head Exam Head Exam: ATRAUMATIC, NORMOCEPHALIC - Eye Exam Eye Exam: Normal appearance. absent: Conjunctival injection, Scleral icterus - ENT Exam ENT Exam: Mucous Membranes Moist, Normal Oropharynx - Respiratory Exam Respiratory Exam: NORMAL BREATHING PATTERN. absent: Accessory Muscle Use, Respiratory Distress - Cardiovascular Exam Cardiovascular Exam: RRR - GI/Abdominal Exam GI & Abdominal Exam: Distended (mild), Soft. absent: Tenderness - Extremities Exam Extremities Exam: absent: Calf Tenderness, Pedal Edema, Tenderness - Neurological Exam Neurological Exam: Alert, Awake, Oriented x3 - Psychiatric Exam Psychiatric exam: Normal Affect, Normal Mood - Skin Skin Exam: Dry, Normal Color, Warm Assessment and Plan - Assessment and Plan (Free Text) Assessment: 63M with SBO, constipation, and reducible L inguinal hernia Plan: Continue FLD Continue to monitor bowel function Administer miralax, colace, and tap water enema this AM PT in bed exercises No surgical intervention warranted at this time--will continue to monitor Dulce Son, PGY2
[2018-04-18 08:38] LABS: ALB/GLOB RATIO 0.9 (1.1-1.8); ALBUMIN 2.9 g/dL (3.0-4.8); ALT/SGPT 28 U/L (7-56); AST/SGOT 25 U/L (17-59); BLOOD UREA NITROGEN 13 mg/dL (7-21); CALCIUM 8.1 mg/dL (8.4-10.5); GFR NON-AFRICAN AMERICAN > 60
[2018-04-18 08:39] LABS: BASO # 0.01 K/mm3 (0.0-2.0); BASO % 0.1 % (0.0-3.0); GRAN # 9.71 (1.4-6.5); GRAN % 81.9 % (50.0-68.0); LYMPH # 1.2 (1.2-3.4)
[2018-04-18] MEDS: Enoxaparin 40 mg Syringe SC SCH (09:22)
[2018-04-18] MEDS: POLYETHYLENE GLYCOL 3350 17 GM/Dose PACKET PO SCH (09:22)
[2018-04-18] MEDS: MethylPREDNISolone 40 mg Vial IVP SCH (09:23)
[2018-04-18] MEDS ORDERED: Magnesium Sulfate 2 gm/50 ml 2 GM/50 ML BAG IVPB ONE (10:02)
--- NOTE | 2018-04-18 12:41 | PN ---
DATE: 04/18/2018 SUBJECTIVE: I saw him, he is comfortable in bed. His NG tube is out. He is starting to eat a little bit. He is alert. He is comfortable. The right arm is swollen. He is moving his bowels. No pain. No abdominal pain. No nausea or vomiting. MEDICATIONS: He is on acetylcysteine, aspirin, Brovana, Colace, dextrose, DuoNebs, Flomax, Klonopin, Lasix, Lexapro, Lopressor, Lovenox, magnesium, MiraLax, throat spray, Protonix, Pulmicort, Solu-Medrol IV and Zofran. She is DNR/DNI. PHYSICAL EXAMINATION: VITAL SIGNS: He has 98.4 temperature, 91 pulse, 132/68 blood pressure, 19 respiratory rate, 96% O2 sat on room air. HEENT: Head is atraumatic, normocephalic. Throat is clear. HEART: Regular rate. LUNGS: Decreased breath sounds, but clear. ABDOMEN: Soft, mildly distended. Positive bowel sounds. No guarding, no rebound, no CVA tenderness. EXTREMITIES: Right-sided weakness from a stroke, but the edema in the right arm is much better. LABORATORY DATA: He is currently having labs that show 11.9 white count could be from the steroids, 10.5 hemoglobin, 33 hematocrit with 386 platelets. Sodium 134, potassium 3.9, BUN 30, creatinine 0.8, GFR is greater than 60, sugars once 160, calcium is 8.1, phosphorous 3.1, magnesium 1.6, total bili is 0.2, AST is 25, ALT is 28, alk phos 49, total protein is 6. IMPRESSION and PLAN: He is being seen by Surgery, Pulmonary, Infectious Disease. He also had a x-ray yesterday which showed contrast seen in the rectum which means his bowels are moving and Infectious Disease. He is on day #4 of Merrem for pneumonia, small bowel obstruction, hypertension, old cerebrovascular accident. He is going to do well. I am hoping maybe tomorrow, if he continues to improve like this, we might got to [place] [facility] He is on a liquid diet, although the surgery control that if he does well. Our plan is to [place] [facility]. The patient has a small bowel obstruction. Nasogastric tube and was quite ill a few days ago. Cash Chakraborty DO [facility]
--- NOTE | 2018-04-18 16:14 | PN ---
DATE: 04/18/2018 SUBJECTIVE: The patient is in bed, in no acute distress, was seen in 267, bed 1. No fevers, no chills. He is comfortable. PHYSICAL EXAMINATION: VITAL SIGNS: Temperature is 98, blood pressure is 130/60, respiratory rate of 18, heart rate of 91. HEENT: Unremarkable. NECK: Supple. LUNGS: Decreased breath sounds. HEART: Normal S1, S2. ABDOMEN: Soft, nontender. LABORATORY DATA: Laboratory examination reveals the patient's white count is up to 11,900, hemoglobin of 10. BUN of 13, creatinine of 0.8. Urinalysis is noted. Microbiology reveals the blood cultures are negative. Nasal MRSA is negative and the patient had abdominal x-rays yesterday which is noted. Dr. Dulce Son' note from this morning is reviewed. Review of orders reveals the patient to be off of antibiotics. The patient is on Solu-Medrol.. ASSESSMENT AND PLAN: A 63-year-old male who was seen earlier today. Has completed 4 days of meropenem for healthcare-associated pneumonia with small bowel obstruction, hypertension, cerebrovascular accident, status post tracheostomy tube placement, percutaneous endoscopic gastrostomy tube placement. Cultures negative, negative procalcitonin. Bowel obstruction is resolved and white count is normal. The patient is on steroids. Currently off of antibiotics and afebrile. The patient is at risk for developing nosocomial infections. We will follow with you. Case discussed with PMD. Gonzalo Lozano MD
--- NOTE | 2018-04-18 20:14 | PN ---
DATE: 04/18/2018 PULMONARY PROGRESS NOTE REFERRING PHYSICIAN: Dr. Chakraborty. SUBJECTIVE: He is lying in the bed. Night was unremarkable. Tolerating clear liquid diet well, being advanced to full liquid, some cough, but better. Appetite is fair. Did have a bowel movement. No abdominal pain. No leg pain or leg swelling. PHYSICAL EXAMINATION: GENERAL: No acute distress. VITAL SIGNS: Temperature is 98, heart rate 82, respiratory rate is 18, blood pressure 132/84, pulse ox 97% on nasal cannula. HEENT: Moist mucous membrane. Crowded airway. NECK: Supple. No JVD. CARDIOPULMONARY: S1 and S2. LUNGS: Have a few scattered rhonchi. ABDOMEN: Soft. No tenderness. EXTREMITIES: There is no edema. NEUROLOGIC: Awake and follows simple command. LABORATORY DATA: Shows hemoglobin 10.5, hematocrit 33.0, WBC 11.9, platelet is 386. Sodium 134, potassium 2.9, chloride 96, bicarbonate is 35, BUN 13, creatinine 0.8, glucose 114, calcium 8.1, magnesium is 1.6, AST 25, ALT 28, alk phos is 49, albumin is 2.9. Microbiology, blood culture and nares culture, there is no growth. MEDICATIONS: He is on Mucomyst 20% inhaled twice a day, aspirin 81 mg daily Brovana inhaled twice a day, Colace 100 mg twice a day, DuoNeb every 6 hours p.r.n., Flomax 0.4 mg daily, clonazepam 0.5 mg daily and 0.5 mg at bedtime , Lasix 40 mg IV daily, Lexapro 10 mg daily, metoprolol tartrate 50 mg twice a day, Lovenox 40 mg daily, MiraLax 17 g daily Protonix 40 mg daily Pulmicort inhaled twice a day, Solu-Medrol 20 mg every 12 hours., Zofran p.r.n. basis. IMPRESSION AND PLAN: Status post small bowel obstruction, congestive heart failure, hypertension, anxiety disorder, depression, severe pulmonary hypertension, chronic lung disease. Pulmonary point of view, much improved. GI system is improved. We will decrease Solu-Medrol 20 every to once a day, inhaled bronchodilator. Keep head at 45 degrees. Aspiration precaution. Gastric prophylaxis, deep venous thrombosis prophylaxis. We will follow with you. Korin Bell MD [facility] # [id number]
[2018-04-19 05:38] VITALS: O2SAT 98
[2018-04-19] MEDS: Dextrose 5%/0.45% NS 1,000 ML IV SCH (07:02)
[2018-04-19] MEDS: Acetylcysteine 20% Inhal Soln (4ml) IH SCH (07:29)
[2018-04-19] MEDS: Arformoterol 15 mcg/2 ml Inh Sol IH SCH (07:30)
[2018-04-19] MEDS: Budesonide 0.5 mg/2 ml Inhal Susp UD IH SCH (07:30)
--- NOTE | 2018-04-19 08:18 | CP.PCM.PN ---
Subjective - Date & Time of Evaluation Date of Evaluation: 04/19/18 Time of Evaluation: 08:15 - Subjective Subjective: Surgery Progress note- Dr. Garibay Patient seen and examined at bedside. Tolerating current diet. Denies f/c. +BM and flatus. Left inguinal hernia reduced Objective - Vital Signs/Intake and Output Vital Signs (last 24 hours): Temp Pulse Resp BP Pulse Ox 97.8 F 74 19 112/83 98 04/19/18 05:37 04/19/18 05:37 04/19/18 05:37 04/19/18 05:37 04/19/18 05:37 Intake and Output: 04/19/18 04/19/18 06:59 18:59 Intake Total 840 Output Total 0 Balance 840 - Medications Medications: Current Medications Acetylcysteine (Acetylcysteine 20%) 4 ml IH BIDRESP [facility] Last Admin: 04/19/18 07:29 Dose: 4 ml Albuterol/Ipratropium (Duoneb 3 Mg/0.5 Mg (3 Ml) Ud) 3 ml IH [id number] PRN PRN Reason: Shortness of Breath Arformoterol Tartrate (Brovana) 15 mcg IH [id number] [facility] Last Admin: 04/19/18 07:30 Dose: 15 mcg Aspirin (Aspirin Chewable) 81 mg PO DAILY [facility] Last Admin: 04/18/18 09:22 Dose: 81 mg Budesonide (Pulmicort Respules) 0.5 mg IH [id number] [facility] Last Admin: 04/19/18 07:30 Dose: 0.5 mg Clonazepam (Klonopin) 0.5 mg PO DAILY [facility]; Protocol Last Admin: 04/18/18 09:22 Dose: 0.5 mg Clonazepam (Klonopin) 0.5 mg PO HS [facility]; Protocol Last Admin: 04/18/18 21:44 Dose: 0.5 mg Docusate Sodium (Colace) 100 mg PO DAILY [facility] Last Admin: 04/18/18 09:22 Dose: 100 mg Enoxaparin Sodium (Lovenox) 40 mg SC DAILY [facility]; Protocol Last Admin: 04/18/18 09:22 Dose: 40 mg Escitalopram Oxalate (Lexapro) 10 mg PO DAILY [facility] Last Admin: 04/18/18 09:22 Dose: 10 mg Furosemide (Lasix) 40 mg IVP DAILY [facility] Last Admin: 12/30/18 09:24 Dose: 40 mg Dextrose/Sodium Chloride (Dextrose 5%/0.45% Ns 1000 Ml) 1,000 mls @ 50 mls/hr IV .Q20H [facility] Last Admin: 04/19/18 07:02 Dose: 50 mls/hr Methylprednisolone (Solu-Medrol) 20 mg IVP DAILY [facility] Metoprolol Tartrate (Lopressor) 50 mg PO BID [facility] Last Admin: 04/18/18 17:44 Dose: 50 mg Ondansetron HCl (Zofran Inj) 4 mg IVP Q6H PRN PRN Reason: Nausea/Vomiting Last Admin: 04/14/18 09:41 Dose: 4 mg Pantoprazole Sodium (Protonix Inj) 40 mg IVP DAILY [facility] Last Admin: 04/18/18 09:23 Dose: 40 mg Phenol/Menthol (Phenaseptic 1.4% Throat [place]) 1 ml MT Q2H PRN PRN Reason: Sore Throat Polyethylene Glycol (Miralax) 17 gm PO DAILY [facility] Last Admin: 04/18/18 09:22 Dose: 17 gm Tamsulosin HCl (Flomax) 0.4 mg PO DAILY [facility] Last Admin: 04/18/18 09:22 Dose: 0.4 mg - Labs Labs: 04/18/18 07:30 04/18/18 07:30 PT 14.3 SECONDS (9.4-12.5) H 04/13/18 18:26 INR 1.25 04/13/18 18:26 APTT 35.5 Seconds (25.1-36.5) 04/13/18 18:26 - Constitutional Appears: Non-toxic, No Acute Distress, Chronically Ill - Head Exam Head Exam: ATRAUMATIC - Eye Exam Eye Exam: EOMI - ENT Exam ENT Exam: Mucous Membranes Moist - Respiratory Exam Respiratory Exam: NORMAL BREATHING PATTERN. absent: Accessory Muscle Use, R espiratory Distress - Cardiovascular Exam Cardiovascular Exam: REGULAR RHYTHM, +S1, +S2. absent: Bradycardia, Tachycardia - GI/Abdominal Exam GI & Abdominal Exam: Soft. absent: Distended, Firm, Guarding, Rigid, Tenderness Additional comments: Left inguinal hernia reducable - Extremities Exam Extremities Exam: absent: Calf Tenderness - Neurological Exam Neurological Exam: Alert, Awake Additional comments: Right sided weakness - Skin Skin Exam: Intact, Warm Assessment and Plan - Assessment and Plan (Free Text) Assessment: 63M w/ SBO currently resolved Plan: - diet as tolerated - no acute surgical intervention indicated at this time - reconsult as needed - discussed w/ Dr. Phoenix Hirsch PGY2
[2018-04-19 09:37] LABS: BASO # 0.01 K/mm3 (0.0-2.0); BASO % 0.1 % (0.0-3.0); EOS # 0.1 (0.0-0.7); EOS % 0.7 % (1.5-5.0); GRAN # 10.17 (1.4-6.5); HEMOGLOBIN 11.8 g/dL (14.0-18.0); LYMPH # 2.8 (1.2-3.4); LYMPH % 20.5 % (22.0-35.0); MEAN CELL VOLUME 89.5 fl (80.0-105.0); MEAN CORPUSCULAR HEMOGLOBIN 27.6 pg (25.0-35.0); MEAN CORPUSCULAR HGB CONC 30.8 g/dl (31.0-37.0); MEAN PLATELET VOLUME 9.3 fl (7.0-11.0); MONO # 0.5 (0.1-0.6); MONO % 3.7 % (1.0-6.0); RBC 4.28 10^6/uL (3.5-6.1); RED CELL DISTRIBUTION WIDTH 15.9 % (11.5-14.5); WHITE BLOOD COUNT 13.6 10^3/uL (4.5-11.0)
--- NOTE | 2018-04-19 09:59 | DS ---
HISTORY OF PRESENT ILLNESS: He is resting comfortably in bed. He is eating well. He is smiling. He has much better spirits. No abdominal pain. No shortness of breath. No chest pains. MEDICATIONS: He is on acetylcysteine; aspirin; Brovana; Colace; IV fluids, going stop; albuterol; Flomax; Klonopin; Lasix, which can be changed to p.o.; Lexapro; metoprolol; Lovenox; magnesium replacement, which was stopped; polyethylene glycol; potassium replacement; Protonix; Pulmicort; methylprednisolone, will stop; vancomycin, it is a one-time dose; and Zofran. OBJECTIVE: VITAL SIGNS: Temperature 97.8, 74 pulse, 112/83 blood pressure, 19 respiratory rate, 98% O2 sat on 2 liters. HEENT: Head is atraumatic, normocephalic. GENERAL: Alert and laughing, happy. HEART: Regular rate. LUNGS: Decreased breath sounds, but clear. ABDOMEN: Soft, nontender. Positive bowel sounds. No guarding, no rebound, no CVA tenderness. He is eating well, passing his bowels well. EXTREMITIES: Right-sided weakness. No puffiness. No edema. LABORATORY DATA: He has a 11.9 white count, 10.5 hemoglobin, 33 hematocrit, 386 platelets. He has a 134 sodium, potassium 3.9, BUN 30, creatinine 0.8, GFR is greater than 60, sugar is 122, calcium is 8.1, magnesium 1.6, total bili is 0.2, AST is 25, ALT is 28, alk phos 49, total protein is 6. IMPRESSION AND PLAN: My plan is to discharge him back to [facility] today. They will call me, I will see him there tomorrow and he should improve. He was here for small bowel obstruction, status post nasogastric tube and he improved and did well. Discharged back to [facility]. Cash Chakraborty DO [facility] HOSPITALAmy
[2018-04-19] MEDS ORDERED: MethylPREDNISolone 40 mg Vial IVP SCH (10:00)
[2018-04-19 10:14] LABS: ALT/SGPT 33 U/L (7-56); AST/SGOT 37 U/L (17-59); BLOOD UREA NITROGEN 16 mg/dL (7-21); CALCIUM 8.4 mg/dL (8.4-10.5); GFR NON-AFRICAN AMERICAN > 60
[2018-04-19] MEDS: Enoxaparin 40 mg Syringe SC SCH (10:52)
[2018-04-19] MEDS: POLYETHYLENE GLYCOL 3350 17 GM/Dose PACKET PO SCH (10:54)
--- NOTE | 2018-04-19 10:57 | CP.PCM.PN ---
<Felton Rojo - Last Filed: 04/19/18 13:21> Subjective - Date & Time of Evaluation Date of Evaluation: 04/19/18 Time of Evaluation: 07:30 - Subjective Subjective: Patient seen and examined at bedside. No acute events overnight. Patient tolerating diet. Denies chest pain, shortness of breath, nausea, vomiting, diarrhea, fever, chills. Objective - Vital Signs/Intake and Output Vital Signs (last 24 hours): Temp Pulse Resp BP Pulse Ox 97.8 F 74 19 112/83 98 04/19/18 05:37 04/19/18 05:37 04/19/18 05:37 04/19/18 05:37 04/19/18 05:37 Intake and Output: 04/19/18 04/19/18 06:59 18:59 Intake Total 840 Output Total 0 Balance 840 - Medications Medications: Current Medications Acetylcysteine (Acetylcysteine 20%) 4 ml IH BIDRESP MARIO Last Admin: 04/19/18 07:29 Dose: 4 ml Albuterol/Ipratropium (Duoneb 3 Mg/0.5 Mg (3 Ml) Ud) 3 ml IH [id number] PRN PRN Reason: Shortness of Breath Arformoterol Tartrate (Brovana) 15 mcg IH [id number] MARIO Last Admin: 04/19/18 07:30 Dose: 15 mcg Aspirin (Aspirin Chewable) 81 mg PO DAILY [facility] Last Admin: 04/18/18 09:22 Dose: 81 mg Budesonide (Pulmicort Respules) 0.5 mg IH [id number] MARIO Last Admin: 04/19/18 07:30 Dose: 0.5 mg Clonazepam (Klonopin) 0.5 mg PO DAILY [facility]; Protocol Last Admin: 04/18/18 09:22 Dose: 0.5 mg Clonazepam (Klonopin) 0.5 mg PO HS MARIO; Protocol Last Admin: 04/18/18 21:44 Dose: 0.5 mg Docusate Sodium (Colace) 100 mg PO DAILY [facility] Last Admin: 04/18/18 09:22 Dose: 100 mg Enoxaparin Sodium (Lovenox) 40 mg SC DAILY [facility]; Protocol Last Admin: 04/18/18 09:22 Dose: 40 mg Escitalopram Oxalate (Lexapro) 10 mg PO DAILY [facility] Last Admin: 12/30/18 09:22 Dose: 10 mg Furosemide (Lasix) 40 mg IVP DAILY [facility] Last Admin: 04/18/18 09:24 Dose: 40 mg Dextrose/Sodium Chloride (Dextrose 5%/0.45% Ns 1000 Ml) 1,000 mls @ 50 mls/hr IV .Q20H [facility] Last Admin: 04/19/18 07:02 Dose: 50 mls/hr Metoprolol Tartrate (Lopressor) 50 mg PO BID [facility] Last Admin: 04/18/18 17:44 Dose: 50 mg Ondansetron HCl (Zofran Inj) 4 mg IVP Q6H PRN PRN Reason: Nausea/Vomiting Last Admin: 04/14/18 09:41 Dose: 4 mg Pantoprazole Sodium (Protonix Inj) 40 mg IVP DAILY [facility] Last Admin: 04/18/18 09:23 Dose: 40 mg Phenol/Menthol (Phenaseptic 1.4% Throat Bud) 1 ml MT Q2H PRN PRN Reason: Sore Throat Polyethylene Glycol (Miralax) 17 gm PO DAILY [facility] Last Admin: 04/18/18 09:22 Dose: 17 gm Tamsulosin HCl (Flomax) 0.4 mg PO DAILY [facility] Last Admin: 04/18/18 09:22 Dose: 0.4 mg - Labs Labs: 04/19/18 09:32 04/19/18 09:32 PT 14.3 SECONDS (9.4-12.5) H 04/13/18 18:26 INR 1.25 04/13/18 18:26 APTT 35.5 Seconds (25.1-36.5) 04/13/18 18:26 - Constitutional Appears: Non-toxic, No Acute Distress - Head Exam Head Exam: ATRAUMATIC, NORMAL INSPECTION, NORMOCEPHALIC - ENT Exam ENT Exam: Mucous Membranes Moist, Normal Exam - Respiratory Exam Respiratory Exam: Decreased Breath Sounds, NORMAL BREATHING PATTERN. absent: Rales, Rhonchi, Wheezes - Cardiovascular Exam Cardiovascular Exam: RRR, +S1, +S2 - GI/Abdominal Exam GI & Abdominal Exam: Soft, Normal Bowel Sounds. absent: Tenderness - Neurological Exam Neurological Exam: Alert, Awake, Oriented x3 - Psychiatric Exam Psychiatric exam: Normal Affect, Normal Mood - Skin Skin Exam: Dry, Intact, Warm Assessment and Plan - Assessment and Plan (Free Text) Plan: HCAP Small bowel obstruction, resolving Hx of HTN Hx of CVA S/p tracheostomy tube placement and PEG tube placement Plan Continue to monitor off antibiotics Procal negative, blood cultures negative MRSA screen negative At risk for nosocomial infections Alia, PGY-3 <RobbieNigel ibanezearl Leejohanny S - Last Filed: 04/19/18 16:03> Objective - Vital Signs/Intake and Output Vital Signs (last 24 hours): Temp Pulse Resp BP Pulse Ox 98.5 F 81 20 101/71 98 04/19/18 12:00 04/19/18 12:00 04/19/18 12:00 04/19/18 12:00 04/19/18 05:37 Intake and Output: 04/19/18 04/19/18 06:59 18:59 Intake Total 840 Output Total 0 Balance 840 - Medications Medications: Current Medications Acetylcysteine (Acetylcysteine 20%) 4 ml IH BIDRESP MARIO Last Admin: 04/19/18 07:29 Dose: 4 ml Albuterol/Ipratropium (Duoneb 3 Mg/0.5 Mg (3 Ml) Ud) 3 ml IH [id number] PRN PRN Reason: Shortness of Breath Arformoterol Tartrate (Brovana) 15 mcg IH [id number] [facility]IO Last Admin: 04/19/18 07:30 Dose: 15 mcg Aspirin (Aspirin Chewable) 81 mg PO DAILY [facility] Last Admin: 04/19/18 10:52 Dose: 81 mg Budesonide (Pulmicort Respules) 0.5 mg IH [id number] [facility] Last Admin: 04/19/18 07:30 Dose: 0.5 mg Clonazepam (Klonopin) 0.5 mg PO DAILY [facility]; Protocol Last Admin: 04/19/18 10:54 Dose: 0.5 mg Clonazepam (Klonopin) 0.5 mg PO HS [facility]; Protocol Last Admin: 04/18/18 21:44 Dose: 0.5 mg Docusate Sodium (Colace) 100 mg PO DAILY [facility] Last Admin: 04/19/18 10:52 Dose: 100 mg Enoxaparin Sodium (Lovenox) 40 mg SC DAILY [facility]; Protocol Last Admin: 04/19/18 10:52 Dose: 40 mg Escitalopram Oxalate (Lexapro) 10 mg PO DAILY [facility] Last Admin: 04/19/18 10:57 Dose: 10 mg Furosemide (Lasix) 40 mg IVP DAILY [facility] Last Admin: 04/19/18 10:54 Dose: 40 mg Dextrose/Sodium Chloride (Dextrose 5%/0.45% Ns 1000 Ml) 1,000 mls @ 50 mls/hr IV .Q20H [facility] Last Admin: 04/19/18 07:02 Dose: 50 mls/hr Metoprolol Tartrate (Lopressor) 50 mg PO BID [facility] Last Admin: 04/19/18 10:52 Dose: 50 mg Ondansetron HCl (Zofran Inj) 4 mg IVP Q6H PRN PRN Reason: Nausea/Vomiting Last Admin: 04/14/18 09:41 Dose: 4 mg Pantoprazole Sodium (Protonix Inj) 40 mg IVP DAILY [facility] Last Admin: 04/19/18 10:55 Dose: 40 mg Phenol/Menthol (Phenaseptic 1.4% Throat Bud) 1 ml MT Q2H PRN PRN Reason: Sore Throat Polyethylene Glycol (Miralax) 17 gm PO DAILY [facility] Last Admin: 04/19/18 10:54 Dose: 17 gm Tamsulosin HCl (Flomax) 0.4 mg PO DAILY [facility] Last Admin: 04/19/18 10:52 Dose: 0.4 mg - Labs Labs: 04/19/18 09:32 04/19/18 09:32 PT 14.3 SECONDS (9.4-12.5) H 04/13/18 18:26 INR 1.25 04/13/18 18:26 APTT 35.5 Seconds (25.1-36.5) 04/13/18 18:26 Assessment and Plan - Assessment and Plan (Free Text) Plan: Infectious diseases Attending Physician Attestation Patient seen and examined, discussed with nuclear medicine medical director. I have reviewed the patient's history of present illness, past medical, social, personal and family histories, pertinent physical exam findings, course so far in this hospital admission, pertinent laboratory and imaging results. I agree with the above findings, assessment and plan. In addition, patient has completed course of antibiotics for HCAP. Will monitor off antibiotics since he has high aspiration risk.
--- NOTE | 2018-04-19 11:38 | PN ---
DATE: 04/19/2018 SUBJECTIVE: The patient is lying in bed. No overnight events reported. No acute distress. No headache, rhinitis, cough, shortness of breath, chest pain, abdominal pain, nausea, vomiting, diarrhea, leg pain or leg swelling reported. OBJECTIVE: GENERAL: No acute distress. VITAL SIGNS: Blood pressure 112/83, pulse 74, temperature 97.8, and oxygen saturation 98%. HEENT: Moist mucous membranes. Crowded airway. NECK: Supple. No JVD. CARDIOVASCULAR: S1 and S2 audible. LUNGS: Few scattered rhonchi. ABDOMEN: Soft and nontender. No organomegaly. EXTREMITIES: No bilateral lower extremity edema. NEUROLOGICAL: Awake, alert, and verbal. Follows commands. MEDICATIONS: Reviewed. Mucomyst 4 mL inhalation twice a day, DuoNeb 3 mL inhalation every 6 hours p.r.n., Brovana 15 mcg every 12 hours, aspirin 81 mg daily, Pulmicort 0.5 mg every 12 hours, Klonopin 0.5 mg daily, Klonopin 0.5 mg at bedtime, dextrose 1000 mL at 50 mL per hour, Colace 100 mg p.o. daily, Lovenox 40 mg subcutaneous daily, Lexapro 10 mg daily, Lasix 40 mg IV push daily, Lopressor 50 mg twice a day, Zofran 4 mg IV push every 6 hours p.r.n., Protonix 40 mg daily, Phenaseptic throat spray 1 mL every 2 hours p.r.n., MiraLax 17 g daily, and Flomax 0.4 mg daily. LABORATORY DATA: Reviewed. WBC 13.6, RBC 4.28, hemoglobin 11.8, hematocrit 38.3 and platelets 417. Sodium 137, potassium 4.0, chloride 95, carbon dioxide 34, anion gap 8, BUN 16, creatinine 0.7, GFR is greater than 60, random glucose 93, calcium 8.4, phosphorus 2.6, magnesium 2.0, total bilirubin 2.5, AST 37, ALT 33, alkaline phosphatase 54, total protein 6.1, albumin 3.0, globulin 3.1 and albumin-globulin ratio 1.0. IMPRESSION AND PLAN: Status post small bowel obstruction, congestive heart failure, hypertension, anxiety disorder, depression, severe pulmonary hypertension, chronic lung disease. Pulmonary point of view, the patient is much improved. GI system is improved, continue inhaled bronchodilators, steroids, aspiration precaution, gastric prophylaxis, deep venous thrombosis prophylaxis, continue stool softeners. Monitor bowel movements. This patient was seen and examined with Dr. Bell. Discussed assessment and plan as described above. Thank you for this consult and we will follow with you. Bora Szymanski APN Korin Bell MD
[2018-04-19 15:40] VITALS: BP 101/71; PULSE 81; RESP 20; TEMP 98.5
== END 2018-04-19 16:31 | DRG 393 ==
LOC: ED 17:39 → ERH 19:47 → 2RNO 22:02
PROVIDERS: ADMIT Family Medicine; ATTEND Family Medicine
PROC: 0D9670Z Drainage of Stomach with Drainage Device, Via Natural or Artificial Opening (ICD-10-PCS; principal; 2018-04-14)
DX: K40.30 Unilateral inguinal hernia, with obstruction, without gangrene, not specified as recurrent (principal); J18.9 Pneumonia, unspecified organism; I69.351 Hemiplegia and hemiparesis following cerebral infarction affecting right dominant side; I50.20 Unspecified systolic (congestive) heart failure; I13.0 Hypertensive heart and chronic kidney disease with heart failure and stage 1 through stage 4 chronic kidney disease, or unspecified chronic kidney disease; N18.9 Chronic kidney disease, unspecified; F41.9 Anxiety disorder, unspecified; I27.20 Pulmonary hypertension, unspecified; D17.9 Benign lipomatous neoplasm, unspecified; K21.9 Gastro-esophageal reflux disease without esophagitis; F32.9 Major depressive disorder, single episode, unspecified; Y95 Nosocomial condition; Z93.0 Tracheostomy status; Z79.899 Other long term (current) drug therapy; Z79.82 Long term (current) use of aspirin; Z87.891 Personal history of nicotine dependence; Z93.1 Gastrostomy status

== ENCOUNTER 2018-05-21 10:15 | Outpatient (CLI) | payer MEDICARE, MEDICAID | END 2018-05-21 10:16 | disposition home or self-care (01) | LOC: RAD 10:15 ==